=== PATIENT | female | born 1990 | race Caucasian/White ===

== ENCOUNTER 2016-09-04 00:19 | Emergency (ER) | payer OTHER ==
[2016-09-04 00:27] VITALS: RESP 18
[2016-09-04 01:22] LABS: Basophils % (A) 0 %; CH 29.6; CHCM 34.3; Eosinophils # (A) 0.1 k/uL (0-0.7); Eosinophils % (A) 1 %; HDW 2.56; HGB 13.8 gm/dL (11.4-16.0); Luc # (Auto) 0.27; Luc % (Auto) 3; Lymphocytes # (A) 3.3 k/uL (1.0-4.8); Lymphocytes % (A) 37 %; MCH 29.2 pg (25.0-35.0); MCHC 33.7 g/dL (31.0-37.0); MCV 86.7 fL (80.0-100.0); Mean Platelet Volume 7.7; Monocytes # (A) 0.5 k/uL (0-1.0); Monocytes % (A) 6 %; Neutrophils # (A) 4.7 k/uL (1.3-7.7); Neutrophils % (A) 52 %; RBC 4.73 m/uL (3.80-5.40); RDW 12.5 % (11.5-15.5); WBC 8.9 k/uL (3.8-10.6); WBC (Perox) 8.82
--- NOTE | 2016-09-04 01:22 | ED ---
Female Urogenital HPI - General Chief complaint: Vaginal Bleeding Stated complaint: Early /Bleeding/Cramping Time Seen by Provider: 09/04/16 00:37 Source: patient, RN notes reviewed Mode of arrival: ambulatory Limitations: no limitations - History of Present Illness Initial comments: Patient is a 25-year-old female presents to the emergency room for evaluation of vaginal bleeding. Patient states her last menstrual cycle was about a month ago. Patient states took a test about 4 days ago and was positive. Patient states she has not followed up with [facility] yet. Patient is Patient states she began having vaginal bleeding and lower pelvic pressure all day today. Patient states she has gone through 2 pads. Patient denies pain or burning during urination, trouble urinating or blood in urine. Patient states she's having a slight headache. Patient denies nausea or vomiting. Patient denies history of STDs. Patient denies history of ectopic pregnancies. - Related Data Home Medications Medication Instructions Recorded Confirmed No Known Home Medications [No 09/04/16 09/04/16 Known Home Medications] Allergies Allergy/AdvReac Type Severity Reaction Status Date / Time adhesive Allergy Rash/Hives Verified 11/24/14 17:10 venom-honey bee Allergy Swelling Verified 11/24/14 17:10 [bee venom (honey bee)] bleach Allergy Rash/Hives Uncoded 11/24/14 17:10 Review of Systems ROS Statement: Those systems with pertinent positive or pertinent negative responses have been documented in the HPI. ROS Other: All systems not noted in ROS Statement are negative. Past Medical History Past Medical History: Seizure Disorder Additional Past Medical History / Comment(s): blood clotting disorder, arthritis History of Any Multi-Drug Resistant Organisms: None Reported Past Surgical History: Adenoidectomy, Orthopedic Surgery, Tonsillectomy Additional Past Surgical History / Comment(s): KNEE SURGERY Past Anesthesia/Blood Transfusion Reactions: Previous Problems w/ Anesthesia Additional Past Anesthesia/Blood Transfusion Reaction / Comment(s): patient states she had a headache after anesthesia previously Past Psychological History: ADD/ADHD, Anxiety Smoking Status: Never smoker Past Alcohol Use History: Rare Past Drug Use History: None Reported - Past Family History Mother Family Medical History: Deep Vein Thrombosis (DVT) Additional Family Medical History / Comment(s): blood clotting disorder-takes coumadin General Exam - General Exam Comments Initial Comments: Sitting in exam room in no acute distress. Limitations: no limitations General appearance: alert, in no apparent distress Head exam: Present: atraumatic, normocephalic, normal inspection Eye exam: Present: normal appearance ENT exam: Present: normal exam Neck exam: Present: normal inspection Respiratory exam: Present: normal lung sounds bilaterally. Absent: respiratory distress Cardiovascular Exam: Present: regular rate, normal rhythm, normal heart sounds GI/Abdominal exam: Present: soft, normal bowel sounds. Absent: distended, tenderness, guarding, rebound, rigid External exam: Present: normal external exam Speculum exam: Present: normal speculum exam, vaginal discharge. Absent: vaginal bleeding By manual exam: Present: normal by manual exam Extremities exam: Present: normal inspection Back exam: Present: normal inspection Neurological exam: Present: alert, oriented X3, CN II-XII intact, normal gait Psychiatric exam: Present: normal affect, normal mood Skin exam: Present: warm, dry, intact, normal color. Absent: rash Course Vital Signs 09/04/16 09/04/16 00:23 03:24 Temperature 98.1 F 98.0 F Pulse Rate 77 87 Respiratory 18 18 Rate Blood Pressure 117/70 100/52 O2 Sat by Pulse 98 100 Oximetry Medical Decision Making - Medical Decision Making Patient is a 25-year-old female presents emergency room for evaluation of vaginal bleeding. Patient is . No bleeding noted on pelvic exam. Patient 's blood type is B positive. Serum beta-hCG 3118.9. Transvaginal OB ultrasound : Tiny saclike structure within the endometrial cavity that may be a small amount of fluid within the endometrial cavity, or could represent a very early intrauterine gestation versus blighted ovum. Would recommend correlation with serial beta hCG levels and short-term follow-up ultrasound exam perhaps within 1 week to reassess. Will have patient return for repeat serum beta-hCG in 48 hours. Advised patient to follow-up with [facility]. Patient states she understands everything that was discussed with her. Return parameters discussed. Case discussed Dr. Velazco. - Lab Data Result diagrams: 09/04/16 00:58 09/04/16 00:58 Lab Results 09/04/16 09/04/16 09/04/16 Range/Units 00:58 00:58 00:58 WBC 8.9 (3.8-10.6) k/uL RBC 4.73 (3.80-5.40) m/uL Hgb 13.8 (11.4-16.0) gm/dL Hct 41.0 (34.0-46.0) % MCV 86.7 (80.0-100.0) fL MCH 29.2 (25.0-35.0) pg MCHC 33.7 (31.0-37.0) g/dL RDW 12.5 (11.5-15.5) % Plt Count 234 (150-450) k/uL Neutrophils % 52 % Lymphocytes % 37 % Monocytes % 6 % Eosinophils % 1 % Basophils % 0 % Neutrophils # 4.7 (1.3-7.7) k/uL Lymphocytes # 3.3 (1.0-4.8) k/uL Monocytes # 0.5 (0-1.0) k/uL Eosinophils # 0.1 (0-0.7) k/uL Basophils # 0.0 (0-0.2) k/uL Sodium 141 (137-145) mmol/L Potassium 3.6 (3.5-5.1) mmol/L Chloride 109 H (98-107) mmol/L Carbon Dioxide 21 L (22-30) mmol/L Anion Gap 11 mmol/L BUN 13 (7-17) mg/dL Creatinine 0.50 L (0.52-1.04) mg/dL Est GFR (MDRD) Af Amer >60 (>60 ml/min/1.73 sqM) Est GFR (MDRD) Non-Af >60 (>60 ml/min/1.73 sqM) Glucose 111 H (74-99) mg/dL Calcium 8.8 (8.4-10.2) mg/dL Total Bilirubin 0.7 (0.2-1.3) mg/dL AST 19 (14-36) U/L ALT 45 (9-52) U/L Alkaline Phosphatase 44 (38-126) U/L Total Protein 6.4 (6.3-8.2) g/dL Albumin 3.8 (3.5-5.0) g/dL HCG, Quant 3118.9 mIU/mL Urine Color Urine Appearance (Clear) Urine pH (5.0-8.0) Ur Specific [place] (1.001-1.035) Urine Protein (Negative) Urine Glucose (UA) (Negative) Urine Ketones (Negative) Urine Blood (Negative) Urine Nitrite (Negative) Urine Bilirubin (Negative) Urine Urobilinogen (<2.0) mg/dL Ur Leukocyte Esterase (Negative) Urine RBC (0-5) /hpf Urine WBC (0-5) /hpf Ur Squamous Epith Cells (0-4) /hpf Calcium Oxalate Crystal (None) /hpf Urine Bacteria (None) /hpf Urine Mucus (None) /hpf Urine HCG, Qual (Not Detectd) Trichomonas Ag (Rapid) (Negative) Blood Type B Positive Blood Type Recheck No 09/04/16 09/04/16 09/04/16 Range/Units 01:15 01:15 01:30 WBC (3.8-10.6) k/uL RBC (3.80-5.40) m/uL Hgb (11.4-16.0) gm/dL Hct (34.0-46.0) % MCV (80.0-100.0) fL MCH (25.0-35.0) pg MCHC (31.0-37.0) g/dL RDW (11.5-15.5) % Plt Count (150-450) k/uL Neutrophils % % Lymphocytes % % Monocytes % % Eosinophils % % Basophils % % Neutrophils # (1.3-7.7) k/uL Lymphocytes # (1.0-4.8) k/uL Monocytes # (0-1.0) k/uL Eosinophils # (0-0.7) k/uL Basophils # (0-0.2) k/uL Sodium (137-145) mmol/L Potassium (3.5-5.1) mmol/L Chloride (98-107) mmol/L Carbon Dioxide (22-30) mmol/L Anion Gap mmol/L BUN (7-17) mg/dL Creatinine (0.52-1.04) mg/dL Est GFR (MDRD) Af Amer (>60 ml/min/1.73 sqM) Est GFR (MDRD) Non-Af (>60 ml/min/1.73 sqM) Glucose (74-99) mg/dL Calcium (8.4-10.2) mg/dL Total Bilirubin (0.2-1.3) mg/dL AST (14-36) U/L ALT (9-52) U/L Alkaline Phosphatase (38-126) U/L Total Protein (6.3-8.2) g/dL Albumin (3.5-5.0) g/dL HCG, Quant mIU/mL Urine Color Yellow Urine Appearance Cloudy H (Clear) Urine pH 6.0 (5.0-8.0) Ur Specific [place] 1.034 (1.001-1.035) Urine Protein 1+ H (Negative) Urine Glucose (UA) Negative (Negative) Urine Ketones Trace H (Negative) Urine Blood Negative (Negative) Urine Nitrite Negative (Negative) Urine Bilirubin Negative (Negative) Urine Urobilinogen 3.0 (<2.0) mg/dL Ur Leukocyte Esterase Trace H (Negative) Urine RBC 2 (0-5) /hpf Urine WBC 2 (0-5) /hpf Ur Squamous Epith Cells 10 H (0-4) /hpf Calcium Oxalate Crystal Moderate H (None) /hpf Urine Bacteria Rare H (None) /hpf Urine Mucus Many H (None) /hpf Urine HCG, Qual Detected (Not Detectd) Trichomonas Ag (Rapid) Negative (Negative) Blood Type Blood Type Recheck - Radiology Data Radiology results: report reviewed, image reviewed Disposition Clinical Impression: Threatened Disposition: HOME SELF-CARE Condition: Good Instructions: Threatened Miscarriage (ED) Additional Instructions: Please follow up with [facility] in 24-48 hours. Refrain from sexual intercourse or heavy lifting for the next 7-10 days. If any new symptom arises or symptoms worsen, return to ER as soon as possible. Referrals: Trung Fan MD [Primary Care Provider] - 1-2 days Daniele Valladares MD [STAFF PHYSICIAN] - 1-2 days Time of Disposition: 03:13
[2016-09-04] MEDS ORDERED: ACETAMINOPHEN TAB 325 MG TAB PO STA (01:28)
[2016-09-04 01:30] LABS: Appearance,Urine Cloudy (Clear); Bacteria,Urine Rare /hpf; Bilirubin,Urine Negative (Negative); Calcium Oxalate Crystals,Urine Moderate /hpf; Glucose,Urine (UA) Negative (Negative); Ketones,Urine Trace (Negative); Leukocyte Esterase,Urine Trace (Negative); Mucus,Urine Many /hpf; Nitrite,Urine Negative (Negative); Particle Count 12243; Protein,Urine 1+ (Negative); RBC,Urine 2 /hpf (0-5); Specific Gravity,Urine 1.034 (1.001-1.035); Squamous Epithelial Cell,Urine 10 /hpf (0-4); UA Billing (MACRO vs. MICRO) MICRO; WBC,Urine 2 /hpf (0-5)
[2016-09-04 01:31] LABS: ALT 45 U/L (9-52); AST 19 U/L (14-36); Alkaline Phosphatase 44 U/L (38-126); Anion Gap 11 mmol/L; Blood Urea Nitrogen 13 mg/dL (7-17); Calcium 8.8 mg/dL (8.4-10.2); Carbon Dioxide 21 mmol/L (22-30); Chloride 109 mmol/L (98-107); Glucose 111 mg/dL (74-99); Non-African American GFR(MDRD) >60 (>60 ml/min/1.73 sqM); Potassium 3.6 mmol/L (3.5-5.1); Sodium 141 mmol/L (137-145); Total Bilirubin 0.7 mg/dL (0.2-1.3); Total Protein 6.4 g/dL (6.3-8.2)
[2016-09-04 01:48] LABS: HCG,Quantitative Serum 3118.9 mIU/mL
--- NOTE | 2016-09-04 02:49 | US ---
EXAM: US First Trimester, Transabdominal. US , Transvaginal. CLINICAL HISTORY: Reason: Pain TECHNIQUE: Real-time transabdominal and transvaginal obstetrical ultrasound of the maternal pelvis and a first trimester with image documentation. Transvaginal imaging was used for better evaluation of the fetus and adnexa. COMPARISON: No relevant prior studies available. FINDINGS: Gestation: On transabdominal imaging the uterus was measured 8.7 x 5.4 x 4.5 cm. Upon endovaginal imaging, its size was measured at 8.2 x 5.4 x 4.9 cm, and there is a small saclike structure noted measuring 7.7 x 5.8 x 3.5 mm. No internal yolk sac or pole is seen. Placenta/amniotic fluid: Cannot be adequately evaluated due to the early gestational age. Uterus/cervix: See above. Ovaries: On transabdominal imaging the right ovary was measured at 4.2 x 3.8 x 3.7 cm, and contains a 3.0 x 2.8 x 2.4 cm cyst within, further assessment of which is limited by transabdominal imaging and in relation to the patient's body habitus. The left ovary was measured at 2.9 x 2.0 x 1.9 cm. Free fluid: No free fluid. IMPRESSION: 1. Tiny saclike structure within the endometrial cavity that may be a small amount of fluid within the endometrial cavity, or could represent a very early intrauterine gestation versus blighted ovum. Would recommend correlation with serial beta hCG levels, and short-term follow-up ultrasound exam perhaps within one week to reassess. 2. 3.0 cm right ovarian cyst, perhaps a corpus luteal cyst. This too could be reassessed at time of follow-up.
[2016-09-04 03:24] VITALS: BP 100/52; PULSE 87; TEMP 98
== END 2016-09-04 03:24 | disposition home or self-care (01) ==
LOC: EC 00:19
DX: O20.0 Threatened abortion (principal); O99.89 Other specified diseases and conditions complicating pregnancy, childbirth and the puerperium; R51 Headache; Z91.048 Other nonmedicinal substance allergy status; Z91.030 Bee allergy status; Z3A.00 Weeks of gestation of pregnancy not specified
CPT/HCPCS: 36415; 76801; 76817; 80053; 81001; 81025; 84702; 85025; 86900; 86901; 87070; 87205; 87491; 87591; 87808; 99284

== ENCOUNTER → 2016-09-05 | Outpatient (CLI) | payer OTHER | END | disposition home or self-care (01) | LOC: LABWHC1 12:18 | PROVIDERS: ATTEND Physician Assistant | DX: O20.0 Threatened abortion (principal) | CPT/HCPCS: 36415; 84702 ==

== ENCOUNTER 2016-10-20 17:25 | Emergency (ER) | payer OTHER ==
[2016-10-20 17:35] VITALS: BP 117/76; PULSE 88; RESP 22; TEMP 97.9
--- NOTE | 2016-10-20 18:23 | ED ---
Abdominal Pain HPI - General Chief Complaint: Abdominal Pain Stated Complaint: 11 WEEKS , ABDOMINAL PAIN Time Seen by Provider: 10/20/16 17:39 Source: patient, RN notes reviewed Mode of arrival: wheelchair Limitations: no limitations - History of Present Illness Initial Comments: Patient is a 25-year-old female presents to the emergency room for evaluation of lower abdominal pain. Patient states she is about 11 weeks . Patient states she was lying on her right side and went to rollover to sit up and felt excruciating sharp pain in her left lower quadrant and right lower quadrant. Patient states the pain is not subsiding. Patient states he feels a sharp stabbing pain. Patient states the pain is worse when she moves. Patient states she's never experienced this type of pain like this before. Patient is . Patient denies vaginal bleeding. Patient denies pain or burning during urination or trouble urinating. Patient denies any blood in urine. Patient states she has been having on-and-off nausea and vomiting for the past few weeks but denies any nausea or vomiting today. Patient denies fevers or chills. Patient denies chest pain. Patient states she has a history of section. Patient also states she's had ovarian cyst removed in the past. Patient denies any other abdominal surgeries. - Related Data Home Medications Medication Instructions Recorded Confirmed Aspirin EC [Ecotrin Low Dose] 81 mg PO DAILY 10/20/16 10/20/16 [place]stones Vitamin 2 tab PO DAILY 10/20/16 10/20/16 Allergies Allergy/AdvReac Type Severity Reaction Status Date / Time adhesive tape Allergy Rash/Hives Verified 10/20/16 17:47 Bleach (Sodium Hypochlorite) Allergy Anaphylaxis Verified 10/20/16 17:47 venom-honey bee Allergy Anaphylaxis Verified 10/20/16 17:47 [bee venom (honey bee)] Review of Systems ROS Statement: Those systems with pertinent positive or pertinent negative responses have been documented in the HPI. ROS Other: All systems not noted in ROS Statement are negative. Past Medical History Past Medical History: Seizure Disorder Additional Past Medical History / Comment(s): blood clotting disorder, arthritis History of Any Multi-Drug Resistant Organisms: None Reported Past Surgical History: Adenoidectomy, Orthopedic Surgery, Tonsillectomy Additional Past Surgical History / Comment(s): KNEE SURGERY Past Anesthesia/Blood Transfusion Reactions: Previous Problems w/ Anesthesia Additional Past Anesthesia/Blood Transfusion Reaction / Comment(s): patient states she had a headache after anesthesia previously Past Psychological History: ADD/ADHD, Anxiety Smoking Status: Never smoker Past Alcohol Use History: Rare Past Drug Use History: None Reported - Past Family History Mother Family Medical History: Deep Vein Thrombosis (DVT) Additional Family Medical History / Comment(s): blood clotting disorder-takes coumadin General Exam - General Exam Comments Initial Comments: Laying in exam room, no acute distress. Limitations: no limitations General appearance: alert, in no apparent distress Head exam: Present: atraumatic, normocephalic, normal inspection Eye exam: Present: normal appearance ENT exam: Present: normal exam Neck exam: Present: normal inspection Respiratory exam: Present: normal lung sounds bilaterally. Absent: respiratory distress Cardiovascular Exam: Present: regular rate, normal rhythm, normal heart sounds GI/Abdominal exam: Present: soft, tenderness (right and left lower pelvic pain) , normal bowel sounds. Absent: distended, guarding, rebound, rigid Extremities exam: Present: normal inspection Back exam: Present: normal inspection Neurological exam: Present: alert, oriented X3, CN II-XII intact, normal gait Psychiatric exam: Present: normal affect, normal mood Skin exam: Present: warm, dry, intact, normal color. Absent: rash Course Vital Signs 10/20/16 10/20/16 17:32 20:12 Temperature 97.9 F 97.9 F Pulse Rate 88 88 Respiratory 22 22 Rate Blood Pressure 117/76 117/76 O2 Sat by Pulse 98 98 Oximetry Medical Decision Making - Medical Decision Making Patient is a 25-year-old female presents to the emergency room for evaluation of lower pelvic pain. Patient states she is about 11 weeks . Patient denies vaginal bleeding. Labs show no concerning findings. Patient declined any pain medicine while she was here. Ultrasound showed no concerning findings. Patient's symptoms possibly musculoskeletal related. Pain is worse with movement. Advised patient to follow-up with [facility] in 24-48 hours for reevaluation. Patient does state she has an appointment with Dr. Cordero tomorrow morning. Patient states she understands everything that was discussed with her. Return parameters discussed. Case discussed with Dr. Lawson. - Lab Data Result diagrams: 10/20/16 18:12 10/20/16 18:12 Lab Results 10/20/16 10/20/16 10/20/16 Range/Units 18:12 18:12 18:12 WBC 10.6 (3.8-10.6) k/uL RBC 4.83 (3.80-5.40) m/uL Hgb 13.9 (11.4-16.0) gm/dL Hct 42.0 (34.0-46.0) % MCV 87.0 (80.0-100.0) fL MCH 28.7 (25.0-35.0) pg MCHC 33.0 (31.0-37.0) g/dL RDW 12.6 (11.5-15.5) % Plt Count 214 (150-450) k/uL Neutrophils % 68 % Lymphocytes % 24 % Monocytes % 5 % Eosinophils % 1 % Basophils % 0 % Neutrophils # 7.1 (1.3-7.7) k/uL Lymphocytes # 2.5 (1.0-4.8) k/uL Monocytes # 0.6 (0-1.0) k/uL Eosinophils # 0.1 (0-0.7) k/uL Basophils # 0.0 (0-0.2) k/uL Sodium 139 (137-145) mmol/L Potassium 3.9 (3.5-5.1) mmol/L Chloride 108 H (98-107) mmol/L Carbon Dioxide 20 L (22-30) mmol/L Anion Gap 11 mmol/L BUN 11 (7-17) mg/dL Creatinine 0.50 L (0.52-1.04) mg/dL Est GFR (MDRD) Af Amer >60 (>60 ml/min/1.73 sqM) Est GFR (MDRD) Non-Af >60 (>60 ml/min/1.73 sqM) Glucose 89 (74-99) mg/dL Calcium 8.6 (8.4-10.2) mg/dL Total Bilirubin 0.6 (0.2-1.3) mg/dL AST 19 (14-36) U/L ALT 29 (9-52) U/L Alkaline Phosphatase 35 L (38-126) U/L Total Protein 6.4 (6.3-8.2) g/dL Albumin 3.4 L (3.5-5.0) g/dL Amylase 46 (30-110) U/L Lipase 73 (23-300) U/L Urine Color Yellow Urine Appearance Clear (Clear) Urine pH 5.5 (5.0-8.0) Ur Specific [place] 1.027 (1.001-1.035) Urine Protein Trace H (Negative) Urine Glucose (UA) Negative (Negative) Urine Ketones 1+ H (Negative) Urine Blood Negative (Negative) Urine Nitrite Negative (Negative) Urine Bilirubin Negative (Negative) Urine Urobilinogen <2.0 (<2.0) mg/dL Ur Leukocyte Esterase Negative (Negative) - Radiology Data Radiology results: report reviewed, image reviewed Disposition Clinical Impression: Abdominal pain affecting Disposition: HOME SELF-CARE Condition: Good Instructions: Abdominal Pain in (ED) Additional Instructions: Please follow up with [facility]IA[facility] in 1-2 days. Take Tylenol as needed for pain. Refrain from sexual activity or heavy lifting for the next 7-10 days. If any new symptom arises or symptoms worsen, return to ER as soon as possible. Referrals: Daniele Valladares MD [STAFF PHYSICIAN] - 1-2 days Time of Disposition: 19:50
[2016-10-20 18:42] LABS: Basophils % (A) 0 %; CH 29.3; CHCM 33.8; Eosinophils # (A) 0.1 k/uL (0-0.7); Eosinophils % (A) 1 %; HDW 2.38; HGB 13.9 gm/dL (11.4-16.0); Luc # (Auto) 0.24; Luc % (Auto) 2; Lymphocytes # (A) 2.5 k/uL (1.0-4.8); Lymphocytes % (A) 24 %; MCH 28.7 pg (25.0-35.0); Monocytes # (A) 0.6 k/uL (0-1.0); Monocytes % (A) 5 %; Neutrophils # (A) 7.1 k/uL (1.3-7.7); Neutrophils % (A) 68 %; RBC 4.83 m/uL (3.80-5.40); RDW 12.6 % (11.5-15.5); WBC 10.6 k/uL (3.8-10.6); WBC (Perox) 10.84
[2016-10-20 18:43] LABS: Appearance,Urine Clear (Clear); Bilirubin,Urine Negative (Negative); Glucose,Urine (UA) Negative (Negative); Ketones,Urine 1+ (Negative); Leukocyte Esterase,Urine Negative (Negative); Nitrite,Urine Negative (Negative); PH, Urine 5.5 (5.0-8.0); Protein,Urine Trace (Negative); Specific Gravity,Urine 1.027 (1.001-1.035); UA Billing (MACRO vs. MICRO) CHEM; Urobilinogen,Urine <2.0 mg/dL (<2.0)
[2016-10-20 18:56] LABS: Amylase 46 U/L (30-110); Anion Gap 11 mmol/L; Calcium 8.6 mg/dL (8.4-10.2); Carbon Dioxide 20 mmol/L (22-30); Chloride 108 mmol/L (98-107); Glucose 89 mg/dL (74-99); Non-African American GFR(MDRD) >60 (>60 ml/min/1.73 sqM); Sodium 139 mmol/L (137-145); Total Bilirubin 0.6 mg/dL (0.2-1.3); Total Protein 6.4 g/dL (6.3-8.2)
[2016-10-20 18:58] LABS: ALT 29 U/L (9-52); AST 19 U/L (14-36); Alkaline Phosphatase 35 U/L (38-126); Blood Urea Nitrogen 11 mg/dL (7-17); Potassium 3.9 mmol/L (3.5-5.1)
--- NOTE | 2016-10-20 19:24 | US ---
EXAMINATION TYPE: US abdomen APPY DATE OF EXAM: 10/20/2016 6:40 PM COMPARISON: Prior CT in PACS CLINICAL HISTORY: Pelvic Pain. Limited exam due to patient body habitus APPENDIX AP Diameter (normal < 6mm): Not visualized on this exam Measured outer wall to outer wall. Is the appendix seen in its entirety from the proximal cecum to distal end: No, the appendix is not visualized on this exam. IMPRESSION: Appendix is not seen. No solid or cystic mass is identified. No free fluid.
--- NOTE | 2016-10-20 19:26 | US ---
EXAMINATION TYPE: US OB <=14 wks transvag DATE OF EXAM: 10/20/2016 6:56 PM COMPARISON: Prior in PACS CLINICAL HISTORY: Pelvic Pain. Difficult/limited exam due to patient body habitus EXAM PERFORMED: Transvaginal (TV) and Transabdominal (TA) EXAM MEASUREMENTS: GESTATIONAL AGE / DATING Physician Established: (11 weeks/4 days) EDC: 05/07/2017 Dates by LMP: (11 weeks/4 days) EDC: 05/07/2017 Dates by First Scan: No IUP visualized on previous Dates by Current Scan for: (11 weeks/4 days) EDC: 05/07/2017 MATERNAL ANATOMY Uterus: 13.1 x 6.3 x 8.8 cm Right Ovary: 5.6 x 2.7 x 2.3 cm Left Ovary: 4.3 x 2.5 x 2.6 cm Post CDS / Adnexa: wnl Presence of free fluid: No Presence of corpus luteal cyst: No Presence of subchorionic bleed: Yes, measuring 3.2 x 0.9 x 0.9 cm GESTATION / SURVEY CRL: 4.8 cm (11 weeks/4 days) Heart Rate: 163 bpm Rhythm: Normal IUP: Viable IUP Date of LMP: Unsure of exact date Beta HcG (if available): Not available Viable IUP, measurements congruent with dates IMPRESSION: There is a small subchorionic fluid collection measures 3 x 1 cm consistent with subchorionic hemorrh age. The ultrasound gestational age is 11 weeks 4 days.
== END 2016-10-20 20:12 | disposition home or self-care (01) ==
LOC: EC 17:25
DX: O99.89 Other specified diseases and conditions complicating pregnancy, childbirth and the puerperium (principal); R10.31 Right lower quadrant pain; R10.32 Left lower quadrant pain; Z3A.11 11 weeks gestation of pregnancy; Z79.82 Long term (current) use of aspirin; Z79.899 Other long term (current) drug therapy; Z91.030 Bee allergy status; Z88.8 Allergy status to other drugs, medicaments and biological substances; Z91.048 Other nonmedicinal substance allergy status
CPT/HCPCS: 36415; 76705; 76801; 76817; 80053; 81003; 82150; 83690; 85025; 99284

== ENCOUNTER 2016-12-10 18:46 | Emergency (ER) | payer OTHER ==
--- NOTE | 2016-12-10 20:28 | ED ---
Abdominal Pain HPI - General Chief Complaint: Abdominal Pain Stated Complaint: 19 WEEKS PREG AND CRAMPING Time Seen by Provider: 12/10/16 20:09 Source: patient, RN notes reviewed Mode of arrival: ambulatory Limitations: no limitations - History of Present Illness Initial Comments: Patient is a 26-year-old female presents to the emergency room for evaluation of lower abdominal cramping. Patient states she is about 19 weeks . Patient is she is . Patient states over the past 3 days to begin having lower abdominal cramping. Patient states today cramping has been worse. Patient denies any vaginal bleeding. Patient denies abnormal vaginal discharge. Patient denies pain or burning during urination, trouble urinating or blood in urine. Patient states she has been taking Tylenol with little relief of symptoms. Patient states she has a confirmed IUP. Patient states she has not been feeling any movement today, which is worrying her. Patient denies any current nausea or vomiting. Patient states she does occasionally vomit in the mornings. Patient denies headache or dizziness. Patient denies chest pain or shortness of breath. Patient denies any recent falls or trauma to her abdomen. Patient denies constipation or diarrhea. - Related Data Home Medications Medication Instructions Recorded Confirmed Aspirin EC [Ecotrin Low Dose] 81 mg PO DAILY 10/20/16 12/10/16 Multivitamin [Multivitamins Adult 1 tab PO DAILY 12/10/16 12/10/16 Gummies] Allergies Allergy/AdvReac Type Severity Reaction Status Date / Time adhesive tape Allergy Rash/Hives Verified 12/10/16 20:32 Bleach (Sodium Hypochlorite) Allergy Anaphylaxis Verified 12/10/16 20:32 venom-honey bee Allergy Anaphylaxis Verified 12/10/16 20:32 [bee venom (honey bee)] Review of Systems ROS Statement: Those systems with pertinent positive or pertinent negative responses have been documented in the HPI. ROS Other: All systems not noted in ROS Statement are negative. Past Medical History Past Medical History: Seizure Disorder Additional Past Medical History / Comment(s): blood clotting disorder, arthritis History of Any Multi-Drug Resistant Organisms: None Reported Past Surgical History: Adenoidectomy, Orthopedic Surgery, Tonsillectomy Additional Past Surgical History / Comment(s): KNEE SURGERY Past Anesthesia/Blood Transfusion Reactions: Previous Problems w/ Anesthesia Additional Past Anesthesia/Blood Transfusion Reaction / Comment(s): patient states she had a headache after anesthesia previously Past Psychological History: ADD/ADHD, Anxiety Smoking Status: Never smoker Past Alcohol Use History: Rare Past Drug Use History: None Reported - Past Family History Mother Family Medical History: Deep Vein Thrombosis (DVT) Additional Family Medical History / Comment(s): blood clotting disorder-takes coumadin General Exam - General Exam Comments Initial Comments: Sitting in exam room, no acute distress. Limitations: no limitations General appearance: alert, in no apparent distress Head exam: Present: atraumatic, normocephalic, normal inspection Eye exam: Present: normal appearance Neck exam: Present: normal inspection Respiratory exam: Present: normal lung sounds bilaterally. Absent: respiratory distress Cardiovascular Exam: Present: regular rate, normal rhythm, normal heart sounds GI/Abdominal exam: Present: soft, tenderness (Right lower quadrant and left lower quadrant discomfort on palpation), normal bowel sounds. Absent: distended , guarding, rebound, rigid Extremities exam: Present: normal inspection Back exam: Present: normal inspection Neurological exam: Present: alert, oriented X3, CN II-XII intact, normal gait Psychiatric exam: Present: normal affect, normal mood Skin exam: Present: warm, dry, intact, normal color. Absent: rash Course Vital Signs 12/10/16 12/10/16 18:52 23:09 Temperature 98.8 F 98.4 F Pulse Rate 88 72 Respiratory 18 16 Rate Blood Pressure 134/70 150/86 O2 Sat by Pulse 98 98 Oximetry Medical Decision Making - Medical Decision Making Patient is a 26-year-old female presents emergency room for evaluation of lower abdominal cramping. Patient states she is about 19 weeks . Patient is . Ultrasound showed demise. Patient still denies any vaginal bleeding. Patient advised to follow-up with her PEDIATRIC CRITICAL CARE NURSE in 24-48 hours. Patient states she understands everything that was discussed with her. Return parameters discussed. Case discussed Dr. Atkinson. - Lab Data Lab Results 12/10/16 Range/Units 18:55 Urine Color Yellow Urine Appearance Cloudy H (Clear) Urine pH 6.0 (5.0-8.0) Ur Specific [place] 1.020 (1.001-1.035) Urine Protein Negative (Negative) Urine Glucose (UA) Negative (Negative) Urine Ketones Negative (Negative) Urine Blood Trace H (Negative) Urine Nitrite Negative (Negative) Urine Bilirubin Negative (Negative) Urine Urobilinogen <2.0 (<2.0) mg/dL Ur Leukocyte Esterase Negative (Negative) Urine RBC 4 (0-5) /hpf Urine WBC 2 (0-5) /hpf Ur Squamous Epith Cells 2 (0-4) /hpf Calcium Oxalate Crystal Many H (None) /hpf Urine Bacteria Rare H (None) /hpf Urine Mucus Rare H (None) /hpf - Radiology Data Radiology results: report reviewed, image reviewed Disposition Clinical Impression: demise Disposition: HOME SELF-CARE Condition: Good Additional Instructions: Please follow-up with PEDIATRIC CRITICAL CARE NURSE in 24-48 hours. If any new symptom arises or symptoms worsen, return to ER as soon as possible. Referrals: Daniele Valladares MD [STAFF PHYSICIAN] - 1-2 days Time of Disposition: 23:21
[2016-12-10 21:20] LABS: Appearance,Urine Cloudy (Clear); Bacteria,Urine Rare /hpf; Bilirubin,Urine Negative (Negative); Calcium Oxalate Crystals,Urine Many /hpf; Glucose,Urine (UA) Negative (Negative); Ketones,Urine Negative (Negative); Leukocyte Esterase,Urine Negative (Negative); Mucus,Urine Rare /hpf; Nitrite,Urine Negative (Negative); Particle Count 3105; Protein,Urine Negative (Negative); RBC,Urine 4 /hpf (0-5); Squamous Epithelial Cell,Urine 2 /hpf (0-4); UA Billing (MACRO vs. MICRO) MICRO; Urobilinogen,Urine <2.0 mg/dL (<2.0); WBC,Urine 2 /hpf (0-5)
[2016-12-10 23:13] VITALS: BP 150/86; PULSE 72; RESP 16; TEMP 98.4
--- NOTE | 2016-12-10 23:13 | US ---
EXAMINATION TYPE: US OB >= 14 wk fetus DATE OF EXAM: 12/10/2016 COMPARISON: Ultrasound OB dated 10/20/2016 and 09/04/2016 CLINICAL HISTORY: Pain RN unable to obtain heart tones TECHNIQUE: Transabdominal (TA) FINDINGS: GESTATIONAL AGE / DATING Physician Established: (19 weeks/0 days) EDC: 05/06/2017 Dates by LMP: (19 weeks/0 days) EDC: 05/06/2017 Dates by First Scan: (18 weeks/6 days) EDC: 05/07/2017 Dates by Current Scan: (16 weeks/6 days) EDC: demise SURVEY IUP: Single PLACENTA: Anterior PREVIA: No Previa JACY: 9.8 cm Normal CERVICAL LENGTH (transabdominal: norm > 3.0cm): 3.2 cm BIOMETRY PRESENTATION: Breech LIE: Longitudinal BPD: 3.5 cm 16 weeks / 6 days HC: 13.8 cm 17 weeks / 2 days AC: 10.8 cm 16 weeks / 5 days FL: 2.2 cm 16 weeks / 4 days ESTIMATED WEIGHT IN GRAMS: 165.9 grams ESTIMATED WEIGHT IN LBS/OZS: 0 lbs. 6 oz. WEIGHT PERCENTAGE BASED ON ESTABLISHED DATES: <3% HC/AC: 1.29 Normal FL/AC: 20.53 Normal HEART RATE: No FHT detected MATERNAL WALL MEASUREMENT: 4 cm from skin to anterior uterine wall (if exam limited due to body habitus). IMPRESSION: demise.
== END 2016-12-10 23:36 | disposition home or self-care (01) ==
LOC: EC 18:46
DX: O02.1 Missed abortion (principal); O99.89 Other specified diseases and conditions complicating pregnancy, childbirth and the puerperium; M19.90 Unspecified osteoarthritis, unspecified site; Z79.82 Long term (current) use of aspirin; Z79.899 Other long term (current) drug therapy; Z91.030 Bee allergy status; Z91.09 Other allergy status, other than to drugs and biological substances
CPT/HCPCS: 76805; 81001; 99284

== ENCOUNTER 2016-12-11 11:26 | Observation (INO) | payer OTHER ==
[2016-12-11] MEDS: LACTATED RINGERS 1,000 ML IV SCH ×2 (12:00→19:17)
[2016-12-11 12:20] LABS: Basophils % (A) 0 %; CH 29.7; CHCM 34.8; Eosinophils # (A) 0.1 k/uL (0-0.7); Eosinophils % (A) 1 %; HCT 38.8 % (34.0-46.0); HDW 2.54; HGB 13.2 gm/dL (11.4-16.0); Luc # (Auto) 0.16; Luc % (Auto) 2; Lymphocytes # (A) 2.3 k/uL (1.0-4.8); Lymphocytes % (A) 26 %; MCH 29.2 pg (25.0-35.0); MCHC 34.1 g/dL (31.0-37.0); MCV 85.7 fL (80.0-100.0); Mean Platelet Volume 7.3; Monocytes # (A) 0.4 k/uL (0-1.0); Monocytes % (A) 4 %; Neutrophils # (A) 5.8 k/uL (1.3-7.7); Neutrophils % (A) 67 %; RBC 4.52 m/uL (3.80-5.40); WBC 8.7 k/uL (3.8-10.6); WBC (Perox) 8.68
[2016-12-11 12:25] VITALS: BMI 104.8
[2016-12-11] MEDS: MISOPROSTOL 200 MCG TAB VAGINAL SCH ×3 (12:35→20:44)
--- NOTE | 2016-12-11 12:54 | P.HPOB ---
History of Present Illness H&P Date: 12/11/16 Chief Complaint: demise This is a 26-year-old 6 para 203 to [facility] 05/07/2017 at 19 weeks gestation. Patient presented to the emergency room last night with the complaint of abdominal cramping. Ultrasound was done which revealed a breech pruett, no heart tones, consistent with intrauterine demise. Patient presented to the office today for further discussion. She denies vaginal bleeding. She states the fetus has been active until yesterday. Obstetric history is significant for blood type B positive, rubella status immune. VDRL testing, urine culture, GC and chlamydia cultures, hepatitis B surface antigen, HIV testing all negative. Early 1 hour Glucola 103, hemoglobin A1c 5.5. Social history patient is , she denies tobacco alcohol or drug use. Past obstetric history is significant for 7 lbs. 3 oz. vaginal delivery in 2010 , section of 8 lbs. 15 oz. male in 2012. Patient has had 3 spontaneous miscarriages, 2 of which have required D&Cs. Surgical history is significant for section as noted in 2012, 2 D&Cs for miscarriages. Patient states that during the D&C in 2010 she had hemorrhage , hemoglobin dropped to 6.0. She does not believe she received blood transfusion. Past medical history is significant for positive MTH of our4 blood clotting disorder. 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 Patient also has attention deficit hyperactivity disorder as well as bipolar disorder. She was previously on Lexapro for this condition but discontinued. Current medications vitamins daily. ALLERGIES none known. On exam she is 5 foot 9 inches, 322 pounds, blood pressure 100/58, pulse 77, respirations 18, temperature 97.9. She has multiple tattoos noted on the skin. Dentition is reasonably good. HEENT examination is negative. Abdomen is morbidly obese, fundal height approximately 20 cm. Extremities reveal no edema , there are good peripheral pulses. The chest is clear in all may. Cervix is soft, 50% effaced or 1.5 cm long, closed, posterior, -3. Cytotec 400 MCG's is placed in the posterior vaginal vault posterior to the cervix. No uterine contractions or cramping are noted at this time. Impression: 19 week intrauterine demise, breech presentation. Positive MTH of our history. Positive bipolar disorder, on no medications. Previous section. Plan: Cytotec per hospital protocol to be placed every 4 hours intravaginally. Analgesic options have been reviewed with the patient. Spiritual counseling has been offered and patient is considering. Close maternal surveillance. Anticipating vaginal delivery. Review of Systems Constitutional: Reports as per HPI Past Medical History Past Medical History: Seizure Disorder Additional Past Medical History / Comment(s): blood clotting disorder, arthritis History of Any Multi-Drug Resistant Organisms: None Reported Past Surgical History: Adenoidectomy, Section, Orthopedic Surgery, Tonsillectomy Additional Past Surgical History / Comment(s): KNEE SURGERY Past Anesthesia/Blood Transfusion Reactions: Previous Problems w/ Anesthesia Additional Past Anesthesia/Blood Transfusion Reaction / Comment(s): patient states she had a headache after anesthesia previously Past Psychological History: ADD/ADHD, Anxiety Smoking Status: Never smoker Past Alcohol Use History: Rare Past Drug Use History: None Reported - Past Family History Mother Family Medical History: Deep Vein Thrombosis (DVT) Additional Family Medical History / Comment(s): blood clotting disorder-takes coumadin Medications and Allergies Home Medications Medication Instructions Recorded Confirmed Type Aspirin EC [Ecotrin Low Dose] 81 mg PO DAILY 10/20/16 12/10/16 History Multivitamin [Multivitamins Adult 1 tab PO DAILY 12/10/16 12/10/16 History Gummies] Allergies Allergy/AdvReac Type Severity Reaction Status Date / Time adhesive tape Allergy Rash/Hives Verified 12/11/16 11:38 Bleach (Sodium Hypochlorite) Allergy Anaphylaxis Verified 12/11/16 11:38 venom-honey bee Allergy Anaphylaxis Verified 12/11/16 11:38 [bee venom (honey bee)] Exam - Vital Signs Vital signs: Vital Signs Temp Pulse Resp BP Pulse Ox 12/11/16 12:19 97.9 F 77 18 100/58 99 Intake and Output 12/10/16 12/11/16 12/11/16 22:59 06:59 14:59 Other: Weight 322 kg Patient Weight 12/12/16 06:59 Weight 322 kg Please see dictation under HPI. Results Result Diagrams: 12/11/16 12:00 Assessment and Plan Plan: We will utilize the Cytotec protocol. Stadol may be used as needed for pain. Consideration will be given for epidural pending patient's progress. Special counseling has been offered. Patient and her family understand the possibilities, including potential need for D&C for retained products of conception. Transfer to [facility] had been offered to the patient, and declined. Anesthesia staff aware of patient's presence on the unit as well. Time with Patient: Greater than 30
[2016-12-11] MEDS: BUTORPHANOL 1 MG/ML 1 ML VIAL IV PRN ×2 (14:11→20:19)
[2016-12-11 14:15] LABS: Partial Thromboplastin Time 23.7 sec (22.0-30.0)
[2016-12-11] MEDS ORDERED: NALOXONE 0.4 MG/ML 1 ML VIAL IV PRN (22:04)
[2016-12-11] MEDS ORDERED: diphenhydrAMINE 50 MG/ML 1 ML VIAL IVP PRN (22:04)
[2016-12-11] MEDS ORDERED: METOCLOPRAMIDE 5 MG/ML 2 ML VIAL IVP PRN (22:04)
[2016-12-11] MEDS ORDERED: ONDANSETRON 4 MG/2 ML VIAL IVP PRN (22:04)
[2016-12-11] MEDS ORDERED: HYDROmorphone PCA 5 MG/25 ML SYRINGE IV PRN (22:04)
[2016-12-12] MEDS: LACTATED RINGERS 1,000 ML IV SCH ×2 (00:37→06:06)
[2016-12-12] MEDS: MISOPROSTOL 200 MCG TAB VAGINAL SCH ×2 (01:19→05:51)
[2016-12-12] MEDS: OXYTOCIN 20 UNITS/1000 ML NS 1,000 ML IV SCH ×2 (01:45→06:40)
[2016-12-12] MEDS ORDERED: ZOLPIDEM 5 MG TAB PO PRN (06:55)
[2016-12-12] MEDS ORDERED: diphenhydrAMINE 50 MG CAP PO PRN (06:55)
[2016-12-12] MEDS ORDERED: BENZOCAINE/MENTHOL SPRAY 1 GM/SPRAY AEROSOL TOPICAL PRN (06:55)
[2016-12-12] MEDS ORDERED: ACETAMINOPHEN TAB 325 MG TAB PO PRN (06:55)
[2016-12-12] MEDS ORDERED: HYDROCORTISONE 2.5% RECTAL CREAM 30 GM TUBE RECTAL PRN (06:55)
[2016-12-12] MEDS ORDERED: WITCH HAZEL 1 EACH MED..PAD TOPICAL PRN (06:55)
[2016-12-12] MEDS ORDERED: diphenhydrAMINE 25 MG CAP PO PRN (06:55)
[2016-12-12] MEDS ORDERED: diphenhydrAMINE 50 MG/ML 1 ML VIAL IVP PRN ×2 (06:55)
[2016-12-12] MEDS ORDERED: LANOLIN CREAM 5 GM TUBE TOPICAL PRN (06:55)
[2016-12-12] MEDS ORDERED: IBUPROFEN 600 MG TAB PO PRN (06:55)
[2016-12-12] MEDS ORDERED: SIMETHICONE 80 MG CHEWABLE PO PRN (06:55)
--- NOTE | 2016-12-12 06:55 | P.PROBDLV ---
Vaginal Delivery Note - . Vaginal Delivery Note: This is a 26-year-old 6 para 2031 woman who was admitted at approximately 19 weeks with intrauterine demise diagnosed by ultrasound. She was admitted for induction of labor. She underwent a Cytotec induction with 400 g placed per vagina every 4 hours. She received a total of 3 doses. Her pain was initially managed with Stadol followed by [employer]NA[employer] device. Her pain became very intolerable and she ultimately received an epidural anesthetic. She was 1 cm for the majority of the of the induction and then very rapidly progressed to approximately 6 cm at which time she had rapid delivery of fetus consistent with a 19-20 week gestation. She had minimal bleeding. The placenta did not spontaneously deliver received Pitocin and was monitored for several hours. She had minimal bleeding. Delivery of the fetus was at 0040 and at approximately 6:15 AM the placenta was noted to be partially delivered. A large portion of the placenta was manually removed from the vagina. Speculum was placed in the vagina to visualize the remainder of the placenta which was removed with a ring forceps. Inspection of the tissue was consistent with the majority of the placenta. Bimanual examination was performed and no additional tissue was noted at the cervical os. Palpation of the uterus was difficult secondary to the patient's body habitus however the uterus was probably firm. She had very minimal bleeding throughout this process. Single dose of Ancef 3 g was given post delivery. She will be observed for several hours to monitor for bleeding and if all is stable she may be discharged home later today.
[2016-12-12] MEDS ORDERED: ceFAZolin 3 GM in SODIUM CHLORIDE 0.9% 100 ML IVPB ONE (06:56)
[2016-12-12] MEDS ORDERED: SENNOSIDES-DOCUSATE SODIUM 1 EACH TAB PO SCH (08:00)
--- NOTE | 2016-12-12 08:51 | P.DS ---
Providers Date of admission: 12/11/16 11:26 Expected date of discharge: 12/12/16 Attending physician: Elina Fisher Primary care physician: Stated None Hospital Course: This is a 27-year-old white female 6 para 2032 EDC 05/07/2017 who presented at 19 weeks gestation with an intrauterine demise, diagnosed sonographically. Her history is significant for previous , history of positive and THS are bleeding disorder, rubella status immune, blood type B positive. Please see my dictated history and physical for details. Patient was admitted and Cytotec tablets were placed intravaginally. Patient received 3 doses of 400 MCG's each. She went on to vaginally deliver a stillborn male fetus with scores of 0 and 0. Placenta delivered spontaneously several hours later. Please see dictated delivery note. At this time the patient feels well. She is voiding, ambulating and passing flatus without difficulty. She is tolerating regular diet. Her bleeding is scant, fundus is firm and well involuted. Extremities are negative for pain and swelling or edema. She has no report of pain at this time. Patient is being discharged home later today. She will follow-up in the office with Dr. Duran in 6 weeks. I have reminded her no intercourse, tampons or douching. She will use [id number] ibuprofen products as needed for pain. I have asked her to continue taking her vitamin daily. She will call with any heavy or foul-smelling leaving or discharge, with any pain not alleviated by [id number] products, with any fevers shakes or chills, issues with extremities or breasts, or indeed with any concerns. Patient Condition at Discharge: Good Plan - Discharge Summary Follow up Appointment(s)/Referral(s): Hayley Duran DO [Doctor of Osteopathic Medicine] - 6 Weeks Discharge Disposition: HOME SELF-CARE
[2016-12-12 13:43] VITALS: BP 116/71; PULSE 70; RESP 18; TEMP 98.3
== END 2016-12-12 14:15 | disposition home or self-care (01) ==
LOC: INTOOBSV 11:26 → 4FBP 11:26
PROVIDERS: ADMIT Obstetrics & Gynecology; ATTEND Obstetrics & Gynecology
DX: O02.1 Missed abortion (principal); Z37.1 Single stillbirth; Z3A.20 20 weeks gestation of pregnancy; O99.214 Obesity complicating childbirth; O99.354 Diseases of the nervous system complicating childbirth; O99.344 Other mental disorders complicating childbirth; E72.12 Methylenetetrahydrofolate reductase deficiency; G40.909 Epilepsy, unspecified, not intractable, without status epilepticus; O62.3 Precipitate labor; E66.01 Morbid (severe) obesity due to excess calories; F31.9 Bipolar disorder, unspecified; F41.9 Anxiety disorder, unspecified; F90.9 Attention-deficit hyperactivity disorder, unspecified type; O99.89 Other specified diseases and conditions complicating pregnancy, childbirth and the puerperium; M19.90 Unspecified osteoarthritis, unspecified site; O99.212 Obesity complicating pregnancy, second trimester; Z68.42 Body mass index [BMI] 45.0-49.9, adult
CPT/HCPCS: 59820; 96361; 96365; 96366 ×2; 96367 ×2; 86900; 86901; 88305; 85025; 85610; 85730; 86850; 88300; G0379; G0378 ×2; J0595; J0690; S0191; J1170; J2590

== ENCOUNTER 2017-04-01 14:17 | Inpatient (IN) | payer OTHER ==
[2017-04-01] MEDS ORDERED: LORazepam 2 MG/ML INJ IV STA (14:45)
--- NOTE | 2017-04-01 14:49 | ED ---
General Adult HPI - General Chief complaint: Neuro Symptoms/Deficit Stated complaint: Stress, visual change Time Seen by Provider: 04/01/17 14:30 Source: patient, family, RN notes reviewed Mode of arrival: wheelchair Limitations: no limitations - History of Present Illness Initial comments: Patient is a pleasant 26-year-old female presenting to the emergency department with stress and visual changes. Patient states onset of symptoms was around 11 AM. Patient had a very stressful episode. Patient states she does not feel all that stressed out at this point however still feels it is taking extra time to process things. Patient states she is having difficulty with vision however has a difficult time describing this. Patient states it is not very blurry. Patient states she fell earlier like she was going to have a seizure. No isolated area of weakness. Patient does not feel confused. Patient is frustrated has difficulty explaining her symptoms. Patient has had similar symptoms twice previously however the doctors were never able to figure out why. - Related Data Home Medications Medication Instructions Recorded Confirmed Dextroamphetamine/Amphetamine 20 mg PO TID 04/01/17 04/01/17 [Adderall] Escitalopram [Lexapro] 20 mg PO DAILY 04/01/17 04/01/17 HYDROcodone/APAP 10-325MG [[place] 1 tab PO Q6H PRN 04/01/17 04/01/17 10-325] clonazePAM [KlonoPIN] 0.5 - 1 mg PO HS 04/01/17 04/01/17 Allergies Allergy/AdvReac Type Severity Reaction Status Date / Time adhesive tape Allergy Rash/Hives Verified 04/01/17 14:57 Bleach (Sodium Hypochlorite) Allergy Anaphylaxis Verified 04/01/17 14:57 venom-honey bee Allergy Anaphylaxis Verified 04/01/17 14:57 [bee venom (honey bee)] Review of Systems ROS Statement: Those systems with pertinent positive or pertinent negative responses have been documented in the HPI. ROS Other: All systems not noted in ROS Statement are negative. Constitutional: Denies: fever Eyes: Denies: eye pain ENT: Denies: ear pain Respiratory: Denies: cough Cardiovascular: Denies: chest pain Endocrine: Reports: fatigue Gastrointestinal: Denies: abdominal pain Genitourinary: Denies: dysuria Musculoskeletal: Denies: back pain Skin: Denies: rash Neurological: Reports: headache Psychiatric: Reports: anxiety Past Medical History Past Medical History: Seizure Disorder Additional Past Medical History / Comment(s): blood clotting disorder, arthritis History of Any Multi-Drug Resistant Organisms: None Reported Past Surgical History: Adenoidectomy, Section, Orthopedic Surgery, Tonsillectomy Additional Past Surgical History / Comment(s): KNEE SURGERY Past Anesthesia/Blood Transfusion Reactions: Previous Problems w/ Anesthesia Additional Past Anesthesia/Blood Transfusion Reaction / Comment(s): patient states she had a headache after anesthesia previously Past Psychological History: ADD/ADHD, Anxiety, Depression Smoking Status: Never smoker Past Alcohol Use History: Rare Past Drug Use History: None Reported - Past Family History Mother Family Medical History: Deep Vein Thrombosis (DVT) Additional Family Medical History / Comment(s): blood clotting disorder-takes coumadin General Exam Limitations: no limitations General appearance: alert, in no apparent distress Head exam: Present: atraumatic, normocephalic Eye exam: Present: normal appearance, PERRL, EOMI. Absent: nystagmus Expanded Eyelids: Normal Inspection: Bilateral Pupils: Regular, Round: Bilateral Sclera/Conjunctival: Normal Inspection: Bilateral Posterior chamber: Normal Inspection: Bilateral ENT exam: Present: normal oropharynx Neck exam: Present: normal inspection Respiratory exam: Present: normal lung sounds bilaterally Cardiovascular Exam: Present: regular rate, normal rhythm GI/Abdominal exam: Present: soft. Absent: tenderness Extremities exam: Present: normal inspection Neurological exam: Present: alert, CN II-XII intact. Absent: motor sensory deficit Expanded Cranial nerves: EOM's Intact: Normal Sensory exam: Upper Extremity Light Touch: Normal, Lower Extremity Light Touch: Normal Motor strength exam: RUE: 5, LUE: 5, RLE: 5, LLE: 5 Eye Response: (4) open spontaneously Motor Response: (6) obeys commands Verbal Response: (5) oriented Psychiatric exam: Present: normal affect, normal mood Skin exam: Present: normal color Course Vital Signs 04/01/17 04/01/17 14:21 15:36 Temperature 98 F Pulse Rate 72 64 Respiratory 18 20 Rate Blood Pressure 121/75 109/55 O2 Sat by Pulse 98 99 Oximetry EKG Findings - EKG Comments: EKG Findings:: Size pericardial 56. [place] 174. QRS 96. QT or 20. QTc 413. Normal axis. Normal QRS. No acute ST change. Medical Decision Making - Medical Decision Making Patient reevaluated and resting comfortably in bed. Patient updated on results and plan. Case discussed Dr. singh, who will admit for hospital call. - Lab Data Result diagrams: 04/01/17 15:25 04/01/17 15:25 Lab Results 04/01/17 04/01/17 04/01/17 Range/Units 15:25 15:25 15:25 WBC 8.6 (3.8-10.6) k/uL RBC 4.89 (3.80-5.40) m/uL Hgb 13.9 (11.4-16.0) gm/dL Hct 43.3 (34.0-46.0) % MCV 88.5 (80.0-100.0) fL MCH 28.4 (25.0-35.0) pg MCHC 32.0 (31.0-37.0) g/dL RDW 12.5 (11.5-15.5) % Plt Count 247 (150-450) k/uL Neutrophils % 54 % Lymphocytes % 39 % Monocytes % 5 % Eosinophils % 1 % Basophils % 0 % Neutrophils # 4.6 (1.3-7.7) k/uL Lymphocytes # 3.3 (1.0-4.8) k/uL Monocytes # 0.4 (0-1.0) k/uL Eosinophils # 0.1 (0-0.7) k/uL Basophils # 0.0 (0-0.2) k/uL PT (9.0-12.0) sec INR (<1.2) APTT (22.0-30.0) sec Sodium 140 (137-145) mmol/L Potassium 3.7 (3.5-5.1) mmol/L Chloride 103 (98-107) mmol/L Carbon Dioxide 25 (22-30) mmol/L Anion Gap 12 mmol/L BUN 15 (7-17) mg/dL Creatinine 0.60 (0.52-1.04) mg/dL Est GFR (MDRD) Af Amer >60 (>60 ml/min/1.73 sqM) Est GFR (MDRD) Non-Af >60 (>60 ml/min/1.73 sqM) Glucose 68 L (74-99) mg/dL Calcium 9.0 (8.4-10.2) mg/dL Total Bilirubin 0.9 (0.2-1.3) mg/dL AST 20 (14-36) U/L ALT 41 (9-52) U/L Alkaline Phosphatase 57 (38-126) U/L Total Creatine Kinase 186 H (30-135) U/L CK-MB (CK-2) 4.4 H* (0.0-2.4) ng/mL CK-MB (CK-2) Rel Index 2.4 Troponin I <0.012 (0.000-0.034) ng/mL Total Protein 7.3 (6.3-8.2) g/dL Albumin 4.3 (3.5-5.0) g/dL Urine Color Urine Appearance (Clear) Urine pH (5.0-8.0) Ur Specific Madeline (1.001-1.035) Urine Protein (Negative) Urine Glucose (UA) (Negative) Urine Ketones (Negative) Urine Blood (Negative) Urine Nitrite (Negative) Urine Bilirubin (Negative) Urine Urobilinogen (<2.0) mg/dL Ur Leukocyte Esterase (Negative) Urine RBC (0-5) /hpf Urine WBC (0-5) /hpf Ur Squamous Epith Cells (0-4) /hpf Urine Bacteria (None) /hpf Hyaline Casts (0-2) /lpf Urine Mucus (None) /hpf Urine HCG, Qual (Not Detectd) Urine Opiates Screen (NotDetected) Ur Oxycodone Screen (NotDetected) Urine Methadone Screen (NotDetected) Ur Propoxyphene Screen (NotDetected) Ur Barbiturates Screen (NotDetected) U Tricyclic Antidepress (NotDetected) Ur Phencyclidine Scrn (NotDetected) Ur Amphetamines Screen (NotDetected) U Methamphetamines Scrn (NotDetected) U Benzodiazepines Scrn (NotDetected) Urine Cocaine Screen (NotDetected) U Marijuana (THC) Screen (NotDetected) 04/01/17 04/01/17 04/01/17 Range/Units 15:25 15:25 15:25 WBC (3.8-10.6) k/uL RBC (3.80-5.40) m/uL Hgb (11.4-16.0) gm/dL Hct (34.0-46.0) % MCV (80.0-100.0) fL MCH (25.0-35.0) pg MCHC (31.0-37.0) g/dL RDW (11.5-15.5) % Plt Count (150-450) k/uL Neutrophils % % Lymphocytes % % Monocytes % % Eosinophils % % Basophils % % Neutrophils # (1.3-7.7) k/uL Lymphocytes # (1.0-4.8) k/uL Monocytes # (0-1.0) k/uL Eosinophils # (0-0.7) k/uL Basophils # (0-0.2) k/uL PT 11.1 (9.0-12.0) sec INR 1.1 (<1.2) APTT 25.8 (22.0-30.0) sec Sodium (137-145) mmol/L Potassium (3.5-5.1) mmol/L Chloride (98-107) mmol/L Carbon Dioxide (22-30) mmol/L Anion Gap mmol/L BUN (7-17) mg/dL Creatinine (0.52-1.04) mg/dL Est GFR (MDRD) Af Amer (>60 ml/min/1.73 sqM) Est GFR (MDRD) Non-Af (>60 ml/min/1.73 sqM) Glucose (74-99) mg/dL Calcium (8.4-10.2) mg/dL Total Bilirubin (0.2-1.3) mg/dL AST (14-36) U/L ALT (9-52) U/L Alkaline Phosphatase (38-126) U/L Total Creatine Kinase (30-135) U/L CK-MB (CK-2) (0.0-2.4) ng/mL CK-MB (CK-2) Rel Index Troponin I (0.000-0.034) ng/mL Total Protein (6.3-8.2) g/dL Albumin (3.5-5.0) g/dL Urine Color Yellow Urine Appearance Cloudy H (Clear) Urine pH 6.0 (5.0-8.0) Ur Specific Madeline 1.027 (1.001-1.035) Urine Protein Trace H (Negative) Urine Glucose (UA) Negative (Negative) Urine Ketones Negative (Negative) Urine Blood Negative (Negative) Urine Nitrite Negative (Negative) Urine Bilirubin Negative (Negative) Urine Urobilinogen <2.0 (<2.0) mg/dL Ur Leukocyte Esterase Small H (Negative) Urine RBC 3 (0-5) /hpf Urine WBC 11 H (0-5) /hpf Ur Squamous Epith Cells 6 H (0-4) /hpf Urine Bacteria Rare H (None) /hpf Hyaline Casts 2 (0-2) /lpf Urine Mucus Occasional H (None) /hpf Urine HCG, Qual Not Detected (Not Detectd) Urine Opiates Screen Detected H (NotDetected) Ur Oxycodone Screen Not Detected (NotDetected) Urine Methadone Screen Not Detected (NotDetected) Ur Propoxyphene Screen Not Detected (NotDetected) Ur Barbiturates Screen Not Detected (NotDetected) U Tricyclic Antidepress Not Detected (NotDetected) Ur Phencyclidine Scrn Not Detected (NotDetected) Ur Amphetamines Screen Detected H (NotDetected) U Methamphetamines Scrn Not Detected (NotDetected) U Benzodiazepines Scrn Not Detected (NotDetected) Urine Cocaine Screen Not Detected (NotDetected) U Marijuana (THC) Screen Not Detected (NotDetected) Disposition Clinical Impression: Visual blurriness Disposition: ADMITTED IP TO THIS [facility] Referrals: None,Stated [Primary Care Provider] - 1-2 days Decision Time: 17:00
[2017-04-01 15:51] LABS: Basophils % (A) 0 %; CHCM 32.9; Eosinophils # (A) 0.1 k/uL (0-0.7); Eosinophils % (A) 1 %; HCT 43.3 % (34.0-46.0); HDW 2.44; HGB 13.9 gm/dL (11.4-16.0); Luc # (Auto) 0.13; Luc % (Auto) 2; Lymphocytes # (A) 3.3 k/uL (1.0-4.8); Lymphocytes % (A) 39 %; MCH 28.4 pg (25.0-35.0); MCV 88.5 fL (80.0-100.0); Mean Platelet Volume 6.7; Monocytes # (A) 0.4 k/uL (0-1.0); Monocytes % (A) 5 %; Neutrophils # (A) 4.6 k/uL (1.3-7.7); Neutrophils % (A) 54 %; RBC 4.89 m/uL (3.80-5.40); RDW 12.5 % (11.5-15.5); WBC 8.6 k/uL (3.8-10.6); WBC (Perox) 7.97
[2017-04-01 15:58] LABS: Appearance,Urine Cloudy (Clear); Bacteria,Urine Rare /hpf; Bilirubin,Urine Negative (Negative); Glucose,Urine (UA) Negative (Negative); INR 1.1 (<1.2); Ketones,Urine Negative (Negative); Leukocyte Esterase,Urine Small (Negative); Mucus,Urine Occasional /hpf; Nitrite,Urine Negative (Negative); Partial Thromboplastin Time 25.8 sec (22.0-30.0); Particle Count 11497; Protein,Urine Trace (Negative); Prothrombin Time 11.1 sec (9.0-12.0); RBC,Urine 3 /hpf (0-5); Specific Gravity,Urine 1.027 (1.001-1.035); Squamous Epithelial Cell,Urine 6 /hpf (0-4); UA Billing (MACRO vs. MICRO) MICRO; Urobilinogen,Urine <2.0 mg/dL (<2.0); WBC,Urine 11 /hpf (0-5)
[2017-04-01 16:03] LABS: ALT 41 U/L (9-52); AST 20 U/L (14-36); Alkaline Phosphatase 57 U/L (38-126); Anion Gap 12 mmol/L; Blood Urea Nitrogen 15 mg/dL (7-17); Carbon Dioxide 25 mmol/L (22-30); Chloride 103 mmol/L (98-107); Glucose 68 mg/dL (74-99); Non-African American GFR(MDRD) >60 (>60 ml/min/1.73 sqM); Potassium 3.7 mmol/L (3.5-5.1); Sodium 140 mmol/L (137-145); Total Bilirubin 0.9 mg/dL (0.2-1.3); Total Protein 7.3 g/dL (6.3-8.2)
--- NOTE | 2017-04-01 16:03 | CT ---
EXAMINATION TYPE: CT brain wo con DATE OF EXAM: 04/01/2017 COMPARISON: 01/03/2014 INDICATION: Episode of visual loss DLP: 1055.9 mGycm, Automated exposure control for dose reduction was used. CONTRAST: None CT of the brain is performed utilizing 3 mm thick sections through the posterior fossa and 3 mm thick sections through the remaining calvarium. Study is performed within 24 hours of arrival to the hosp [facility]. No abnormal hyperdensity is present to suggest an acute intracranial hemorrhage. No mass lesion is evident. No acute infarcts are evident. Ventricles and sulci are appropriate for the patient age. Paranasal sinuses and mastoid air cells within the [id number] are clear. Portion of the orbits within the [id number]-[id number] are unremarkable IMPRESSIONS: 1. Normal CT Brain
--- NOTE | 2017-04-01 16:08 | XR ---
EXAMINATION TYPE: XR chest 2V DATE OF EXAM: 04/01/2017 COMPARISON: 07/24/2013 HISTORY: Headache and tunnel vision. Potential procedure. TECHNIQUE: Frontal and lateral views of the chest are obtained. FINDINGS: There is no focal air space opacity, pleural effusion, or pneumothorax seen. The cardiac silhouette size is within normal limits. The osseous structures are intact. IMPRESSION: No acute cardiopulmonary process.
[2017-04-01 16:17] LABS: Creatine Kinase 186 U/L (30-135)
[2017-04-01 16:28] LABS: Troponin I <0.012 ng/mL (0.000-0.034)
[2017-04-01 16:40] LABS: Creatine Kinase MB 4.4 ng/mL (0.0-2.4)
[2017-04-01] MEDS ORDERED: ASPIRIN 325 MG TAB PO STA (17:01)
[2017-04-01] MEDS: SODIUM CHLORIDE 0.9% 1,000 ML IV SCH (17:30)
--- NOTE | 2017-04-01 20:13 | US ---
EXAMINATION TYPE: US carotid duplex BILAT DATE OF EXAM: 04/01/2017 COMPARISON: NONE CLINICAL HISTORY: Stenosis. blurred vision trouble talking possible seizure EXAM MEASUREMENTS: RIGHT: Peak Systolic Velocity (PSV) cm/sec ----- Right CCA: 87.3 ----- Right ICA: 111.3 ----- Right ECA: 87.1 ICA/CCA ratio: 1.3 RIGHT: End Diastole cm/sec ----- Right CCA: 16.8 ----- Right ICA: 25.7 ----- Right ECA: 0 LEFT: Peak Systolic Velocity (PSV) cm/sec ----- Left CCA: 101.6 ----- Left ICA: 109.7 ----- Left ECA: 116.1 ICA/CCA ratio: 1.1 LEFT: End Diastole cm/sec ----- Left CCA: 22.5 ----- Left ICA: 27.3 ----- Left ECA: 0 VERTEBRALS (direction of flow): Right Vertebral: Antegrade Left Vertebral: Antegrade Rhythm: Normal IMPRESSION: NO SIGNIFICANT STENOSIS VISUALIZED
--- NOTE | 2017-04-01 20:42 | P.CNNES ---
History of Present Illness Consult date: 04/01/17 History of Present Illness: The [id number] right-handed white female who states that she was at work this morning and she suddenly got stressed out. She states she went into a panic attack. She then thought she might have a seizure. Her last seizure was several years ago. She had tunnel vision and she felt like she would go into a seizure but did not. She states normally when she goes into a seizure she has tunnel vision first. She states in the past she was on gabapentin for seizures. She describes her seizures as "flopping on the ground". The patient reports that today after her panic attacks she was not able to see clearly. She states she sees only shadows. She reports that she's had several episodes like this in the past which resolved after a few weeks. Dates that 2 years ago she had an episode where she was hospitalized here in [place] and 3 years ago she had an episode when she was living in [place]. Time it was felt that the patient had visual loss due to stress. Reports having had a normal MRI in the past. CT of the brain today which was normal. He other neurologic complaint besides visual loss. Review of Systems Constitutional: Reports as per HPI Ears, nose, mouth and throat: Reports as per HPI Cardiovascular: Reports as per HPI Respiratory: Reports as per HPI Gastrointestinal: Reports as per HPI Musculoskeletal: Reports as per HPI Integumentary: Reports as per HPI Neurological: Reports as per HPI Psychiatric: Reports as per HPI Hematologic/Lymphatic: Reports as per HPI Past Medical History Past Medical History: Seizure Disorder Additional Past Medical History / Comment(s): blood clotting disorder, arthritis History of Any Multi-Drug Resistant Organisms: None Reported Past Surgical History: Adenoidectomy, Section, Orthopedic Surgery, Tonsillectomy Additional Past Surgical History / Comment(s): KNEE SURGERY Past Anesthesia/Blood Transfusion Reactions: Previous Problems w/ Anesthesia Additional Past Anesthesia/Blood Transfusion Reaction / Comment(s): patient states she had a headache after anesthesia previously Past Psychological History: ADD/ADHD, Anxiety, Depression Smoking Status: Never smoker Past Alcohol Use History: Rare Past Drug Use History: None Reported - Past Family History Mother Family Medical History: Deep Vein Thrombosis (DVT) Additional Family Medical History / Comment(s): blood clotting disorder-takes coumadin Medications and Allergies Home Medications Medication Instructions Recorded Confirmed Type Dextroamphetamine/Amphetamine 20 mg PO TID 04/01/17 04/01/17 History [Adderall] Escitalopram [Lexapro] 20 mg PO DAILY 04/01/17 04/01/17 History HYDROcodone/APAP 10-325MG [[place] 1 tab PO Q6H PRN 04/01/17 04/01/17 History 10-325] clonazePAM [KlonoPIN] 0.5 - 1 mg PO HS 04/01/17 04/01/17 History Allergies Allergy/AdvReac Type Severity Reaction Status Date / Time adhesive tape Allergy Rash/Hives Verified 04/01/17 14:57 Bleach (Sodium Hypochlorite) Allergy Anaphylaxis Verified 04/01/17 14:57 venom-honey bee Allergy Anaphylaxis Verified 04/01/17 14:57 [bee venom (honey bee)] Physical Examination - Vital Signs Vital Signs: Vital Signs Temp Pulse Pulse Resp BP BP Pulse Ox 04/01/17 18:14 98.2 F 74 18 113/55 99 04/01/17 17:31 98.3 F 80 18 107/63 98 04/01/17 16:30 77 18 106/55 99 04/01/17 15:36 64 20 109/55 99 04/01/17 14:21 98 F 72 18 121/75 98 Intake and Output 04/01/17 04/01/17 04/01/17 06:59 14:59 22:59 Intake Total 360 Balance 360 Intake: Oral 360 Other: Weight 145.15 kg 145.15 kg Patient Weight 04/02/17 06:59 Weight 145.15 kg - Constitutional General appearance: cooperative, morbidly obese - EENT EENT: PERRL, hearing intact - Cardiovascular Cardiovascular: regular rate - Neurologic Cranial nerve examination: face symmetric, tongue midline, other (The patient states she sees shadows. She does cover her eyes with the bright lights on. She did blink went hand was flashed across eyes) Speech examination: intact Detailed motor examination: grossly full strength in all extremities Results - Laboratory Findings CBC and BMP: 04/01/17 15:25 04/01/17 15:25 Abnormal Lab Findings: Abnormal Labs 04/01/17 04/01/17 04/01/17 15:25 15:25 15:25 Glucose 68 L Total Creatine Kinase 186 H CK-MB (CK-2) 4.4 H* Urine Appearance Cloudy H Urine Protein Trace H Ur Leukocyte Esterase Small H Urine WBC 11 H Ur Squamous Epith Cells 6 H Urine Bacteria Rare H Urine Mucus Occasional H Urine Opiates Screen Detected H Ur Amphetamines Screen Detected H Assessment and Plan (1) Visual blurriness Current Visit: Yes Status: Acute SNOMED Code(s): 276355893 (2) Panic attacks Current Visit: Yes Status: Acute SNOMED Code(s): 732645378 (3) History of seizure disorder Current Visit: Yes Status: Chronic SNOMED Code(s): 864265997 Plan: The patient is a 26-year-old woman who presents to the hospital with episode of panic attack followed by feeling as if she'll go into a seizure and then followed by visual blurring. She reports that she cannot see and sees only shadows. She is admitted to the hospital with these complaints. Neurologic examination demonstrates patient is keeping eyes slightly covered in the bright light and she does blink to threat. Recommend ophthalmology evaluation. Patient has undergone a carotid ultrasound. Recommend also MRI of the brain
[2017-04-01] MEDS: HYDROcodone/APAP 10-325MG 1 EACH TAB PO PRN (20:50)
[2017-04-01] MEDS: ENOXAPARIN 40 MG/0.4 ML SYRINGE SQ SCH (20:52)
[2017-04-01] MEDS ORDERED: clonazePAM 1 MG TAB PO SCH (21:00)
[2017-04-01] MEDS ORDERED: clonazePAM 0.5 MG TAB PO SCH (21:00)
[2017-04-02] MEDS: SODIUM CHLORIDE 0.9% 1,000 ML IV SCH ×3 (04:13→21:13)
--- NOTE | 2017-04-02 04:52 | HP ---
HISTORY AND PHYSICAL DATE OF ADMISSION: 04/01/2017 PRESENTING COMPLAINT: Decreased vision. HISTORY OF PRESENTING COMPLAINT: This is a 26-year-old patient with no family doctor with chronic history of seizure, blood clotting disorder in the family and some anxiety and depression. Patient has also got ADHD. 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 Had a child welfare social worker come in the house and there may be some change in custody arrangement which made the patient extremely anxious and patient felt she had a panic attack. She is finding it difficult to say some words and then she says her vision became foggy, had a headache, very upset. Patient's significant other is present. She feels as if she is looking through foggy glass. Does not limit it to any one particular eye. REVIEW OF SYSTEMS: CONSTITUTIONAL: None. HEENT: As above. RESPIRATORY: None. CARDIOVASCULAR: None. GASTROINTESTINAL: None. GENITOURINARY: None. MUSCULOSKELETAL: None. DERMATOLOGICAL: None. HEMATOLOGICAL: None. LYMPHATICS: None. PSYCHIATRY: Anxiety, depression, panic attack. NEUROLOGICAL: As above. No focal weakness in the arm or legs or difficulty walking. PAST HISTORY: Past history of seizure, anxiety, depression, ADHD. PAST SURGICAL HISTORY: Adenoidectomy, , orthopedic surgery, tonsillectomy, knee surgery. PSYCH HISTORY: Anxiety, depression, ADHD. SOCIAL HISTORY: The patient is independent, lives with , has 6 kids. 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 The patient smoked for 5 years 5 cigarettes a day, stopped in 2009. Alcohol occasionally. FAMILY HISTORY: Family history of blood clotting disorder, DVTs. HOME MEDICATIONS: 1. Klonopin 0.5 to 1 mg p.o. q.h.s. 2. [place] 10 one tablet q.6 p.r.n. 3. Lexapro 20 mg p.o. daily. 4. Adderall 20 mg p.o. t.i.d. ALLERGIES: Allergies to ADHESIVE TAPE, BLEACH, HONEY BEE. PHYSICAL EXAMINATION: On examination, temperature 98, pulse 72, respiratory 18, blood pressure 121/75, pulse ox 98% on room air on presentation. GENERAL APPEARANCE: Well built, BMI of 47.3 lying in bed, not in distress. EYES: Pupils equal. Conjunctivae normal. HENT: Oral cavity normal. NECK: JVD not raised. Mass not palpable. RESPIRATORY: Effort normal. LUNGS: Clear. CARDIOVASCULAR: First and second sounds normal. No edema. ABDOMEN: Soft, nontender. Liver and spleen not palpable. LYMPHATIC: No lymph node palpable in the neck or axillae. PSYCHIATRY: Alert and oriented x3. Mood and affect normal. NEUROLOGICAL: Patient described blurriness through both the visions. No facial asymmetry. Power and sensation grossly intact. INVESTIGATIONS: White count 8.6, hemoglobin 13.9. Potassium 3.7. BUN and creatinine is normal. Troponin negative. Urine drug screen positive for opiates and amphetamines. ASSESSMENT: 1. This is a patient who had what appears to be a panic attack followed by decreased vision. Anatomically and clinically this does not fit into a clear picture at this point. 2. Urine toxicology positive for opiates and amphetamines. 3. Morbid obesity, body mass index 47.3. 4. Attention deficit hyperactivity disorder. 5. Depression, not otherwise specified. PLAN: Neurology was consulted. Patient is put on aspirin. Neuro checks were placed. Carotid Doppler, MRI was ordered. Neurology has also ordered ophthalmology consult. Care was discussed with the patient. MMODL / IJN: [id number] /
[2017-04-02 06:31] LABS: Cholesterol 159 mg/dL (<200); HDL Cholesterol 33 mg/dL (40-60)
[2017-04-02] MEDS ORDERED: ASPIRIN 325 MG TAB PO SCH (09:00)
[2017-04-02] MEDS: ENOXAPARIN 40 MG/0.4 ML SYRINGE SQ SCH (09:19)
[2017-04-02] MEDS: ESCITALOPRAM 20 MG TAB PO SCH (09:20)
[2017-04-02] MEDS: ASPIRIN 81 MG PO SCH (09:20)
[2017-04-02] MEDS: HYDROcodone/APAP 10-325MG 1 EACH TAB PO PRN ×2 (09:20→16:16)
[2017-04-02] MEDS ORDERED: LORazepam 1 MG TAB PO STA (09:49)
[2017-04-02] MEDS ORDERED: IBUPROFEN 800 MG TAB PO PRN (12:06)
--- NOTE | 2017-04-02 12:09 | MR ---
EXAMINATION TYPE: MR brain wo con DATE OF EXAM: 04/02/2017 COMPARISON: CT brain dated 04/01/2017 HISTORY: visual loss TECHNIQUE: Multiplanar, multisequence images of the brain and brainstem is performed without intravenous contras t. FINDINGS: Diffusion weighted images demonstrate no evidence of a recent infarct or other diffusion ab normality. There is no extra-axial fluid collection or significant white matter signal abnormality. There is slightly asymmetric distention of the right orbital nerve sheath with periorbital fluid on series 401 image 11. There is also a mildly tortuous course of the right optic nerve in comparison to the left. The ventricular system and cisternal spaces are normal in size and appearance. The brain volume is age appropriate. Midline structures demonstrate normal morphology. The craniocervical junction appears within normal limits. The dural venous sinuses appear patent. The visualized sinuses are clear and the globes are i ntact. IMPRESSION: 1. Slightly asymmetric distention of the right orbital nerve sheath due to periorbital fluid. This fi nding can be seen in optic neuritis. No white matter plaques are appreciated to suggest demyelinating disease. 2. No evidence of acute infarct or midline shift.
[2017-04-02] MEDS: ADDERALL 20MG PO SCH ×3 (12:40→16:55)
--- NOTE | 2017-04-02 14:51 | P.CN ---
Psychiatric Consult - . Consult date: 04/02/17 Consult:: 04/02/17 14:06 IDENTIFYING DATA: Pt is a 26yo CF who lives with her and three children. Psychiatry consulted due to stress and blurred vision. HPI: Upon evaluation, patient states that her main stressor currently is dealing with issues of their foster care worker not properly coordinating sibling visitation time with her step-son. No other major life stressors reported. She states that yesterday she had a panic attack and since then her vision has progressively worsened. She states that she did have a previously similar episode about 4 years ago in which she had multiple stressors and lost her vision for 1 1/2 weeks. Pt states that she has panic attacks twice weekly. She describes accompanying symptoms as "feels like a bouncing ball in my chest , short of breath, sweaty palms and nausea". Duration of episodes last no more than 10 minutes. Denies anticipated panic attacks in public settings but avoids crowds more so because she does not trust others. Patient does not describe herself as a worrier but states that her thinks that she is a "worry wort". Denies SI, HI and AVH at this time. PAST PSYCHIATRIC HISTORY: Currently a patient of Dr. Guadalupe - psychiatrist; started on Lexapro 3-4 months ago and increased to current dose of 20mg QD ~2 mo ago. Also, started on Clonazepam 1mg QHS, which patient does not feel is effective. She has been on Adderall for several years. Past psychotropic medications - Xanax, Ativan (in hospital; caused amnesia), Paxil (gi upset), Prozac, Buspar. No previous hospitalizations. No prior suicide attempts. PMH: h/o seizures, blood clot disorder, arthritis PSH: Adenoidectomy, Section, Orthopedic Surgery, Tonsillectomy ALLERGIES: adhesive tape Allergy (Verified 04/01/17 14:57) Rash/Hives Bleach (Sodium Hypochlorite) Allergy (Verified 04/01/17 14:57) Anaphylaxis venom-honey bee [bee venom (honey bee)] Allergy (Verified 04/01/17 14:57) Anaphylaxis MEDICATIONS: Active Medications Hydrocodone Bitart/Acetaminophen ([place] 10) 1 each PO Q6H PRN PRN Reason: Pain Last Admin: 04/02/17 09:20 Dose: 1 each Aspirin (Aspirin) 81 mg PO DAILY [facility] Last Admin: 04/02/17 09:20 Dose: 81 mg Clonazepam (Klonopin) 1 mg PO HS [facility] Enoxaparin Sodium (Lovenox) 40 mg SQ DAILY [facility] Last Admin: 04/02/17 09:19 Dose: 40 mg Escitalopram Oxalate (Lexapro) 20 mg PO DAILY [facility] Last Admin: 04/02/17 09:20 Dose: 20 mg Sodium Chloride (Saline 0.9%) 1,000 mls @ 100 mls/hr IV .Q10H [facility] Last Admin: 04/02/17 04:13 Dose: Not Given Ibuprofen (Motrin) 800 mg PO QID PRN PRN Reason: Mild Pain Last Admin: 04/02/17 12:40 Dose: 800 mg Adderall 20mg 20 mg PO AC-TID [facility] Last Admin: 04/02/17 12:44 Dose: Not Given CHEMICAL DEPENDENCY HISTORY: reports occasional alcohol use, denies illicit substance use FAMILY PSYCHIATRIC HISTORY: brother with possible Bipolar disorder and has had multiple suicide attempts SOCIAL HISTORY: Recently in June 2016 after 7 year relationship. Has three children that live with her and ; however, also helping to take care of her three nieces. Working two jobs ([employer] and [employer] ). Pt has her GED and did attend some college. She denies any legal issues other than the current issues with custody and foster care. No reported h/o physical or sexual abuse. MENTAL STATUS EXAM: Pt is a 26yo female who is fairly-well groomed and obese. She has spontaneous speech and good eye contact. Pt is cooperative and pleasant throughout evaluation. Her mood is stressed and affect is slightly restricted. She denies SI, HI and AVH at this time. Thought process is linear and logical. Oriented x 3. Judgment and Insight is fair. STRENGTHS/WEAKNESSES: cooperation with treatment, compliance with medications/ family stressors INTELLECTUAL FUNCTIONING: average ASSESSMENT: 1. Panic Disorder without agoraphobia 2. R/O Conversion Disorder PLAN: patient with symptoms of panic disorder and treated with Lexapro and Clonazepam. She feels these medications have been ineffective in treating her anxiety at this time. Once vision is resolved would recommend patient following up with her outpatient psychiatrist at the earliest available appointment for further assessment of medications and possible adjustment to her regimen. Lexapro and Adderall both have an unspecified risk of causing blurred vision and Clonazepam is a more common culprit. You could decrease the Clonazepam to 0.5mg, then discontinue and see if this helps resolve her blurred vision. It is possible that physical ailments can result from stress; however, conversion disorder is not diagnosed until all other possible medical etiologies are ruled out. Currently patient undergoing a neurological work-up and I agree with Neurology's recommendation for an ophthalmology consult and MRI of the brain. 04/02/17 14:50
--- NOTE | 2017-04-02 17:39 | P.PN ---
Progress Note - Text Progress Note Date: 04/02/17 DATE OF SERVICE: 04/02/2017 PRESENTING COMPLAINT: blurred vision HISTORY OF PRESENT ILLNESS: 26-year-old female who presented after becoming extremely anxious at home feeling as if she was having a panic attack unable to say some words and her vision became very foggy had a headache. Not limited to one eye or the other. Admitted for the same INTERVAL HISTORY: 04/02/2017: patient seen in follow-up today. Lying in bed appears comfortable however does complain of a headache.states that her vision has not improved much, can only make out large images unable to see any fine detail.MRI of the brain pending psychiatry consulted for medication evaluation, neurology continues to follow. tolerating her diet ambulatory with some assistance, moved her bowels yesterday. psychiatry consulted REVIEW OF SYSTEMS: Done for constitutional ,cardiovascular, GI, pulmonary with relevant findings as above. CURRENT MEDICATIONS [place], aspirin, Klonopin, Lexapro, Lovenox, Motrin, Adderall, PHYSICAL EXAM VITAL SIGNS: temperature 97.5, pulse 61, respiratory rate 18, blood pressure 108/59, oxygen saturation 95% on room air. GENERAL APPEARANCE: Lying in bed, not in distress. EYES: Pupils equal. Conjunctiva normal. NECK: JVD not raised. Mass not palpable. RESPIRATORY: Respiratory effort normal. Lungs Distant to auscultation. CARDIOVASCULAR: First and second sounds normal. No edema. ABDOMEN: Soft. Liver and spleen not palpable. No tenderness. No mass palpable. PSYCHIATRY: Alert and oriented x3. Mood and affect normal. INVESTIGATIONS: triglycerides 196, cholesterol 159, LDL cholesterol 87, HDL cholesterol 33. brain MRI: Slightly asymmetric distention of the right orbital nerve sheath due to periorbital fluid. Seen and optic neuritis. No white matter plaques to suggest demyelinating disease, no evidence of acute infarct or midline shift. ASSESSMENT: -panic disorder without agoraphobia -Urine toxicology positive for opiates and amphetamines. -Morbid obesity body mass index 47.3. -Attention deficit hyperactivity disorder. -Depression not otherwise specified. PLAN: psychiatry recommended patient follow-up with her outpatient psychiatrist for additional medication assessment and adjustments. Lexapro and Adderall both have unspecified risk of causing blurred vision clonazepam is more often the culprit. Conversion disorder is not diagnosed until all other medical possibilities are ruled out. Will await input from ophthalmology. Plan of care discussed with the patient the bedside she is in agreement. SENIOR MECHANICAL DESIGN ENGINEER statement: Patient was seen and examined by nurse practitioner Shae Silveira and all elements of the case discussed with attending Dr. Callejas
[2017-04-02] MEDS ORDERED: clonazePAM 1 MG TAB PO SCH (21:00)
--- NOTE | 2017-04-02 21:14 | P.PN ---
Subjective Progress Note Date: 04/02/17 The patient is a 26year old woman who was admitted to the hospital after panic attack and visual blurring. She still has visual loss. Walking into her room she was watching television with her . Her vision has not changed. MRI radiologist suggested possible periorbital fluid in the right orbital nerve sheath. The patient has no other neurologic complaint. She expressed desire to go home so she could be with her children. Objective - Vital Signs Vital signs: Vital Signs Temp 97.5 F L 04/02/17 08:01 Pulse 63 04/02/17 18:01 Resp 16 04/02/17 18:01 BP 119/61 04/02/17 18:01 Pulse Ox 96 04/02/17 18:01 Intake & Output 04/02/17 04/02/17 04/03/17 06:59 18:59 06:59 Intake Total 850 740 Balance 850 740 Weight 148.8 kg Intake: Intake, IV Titration 550 Amount Sodium Chloride 0.9% 1, 550 000 ml @ 100 mls/hr IV . Q10H [facility] Rx#:[id number] Oral 300 740 Other: Voiding Method Toilet Toilet # Voids 1 1 - Constitutional General appearance: Present: cooperative, morbidly obese - EENT ENT: Present: hearing grossly normal - Neurologic Neurologic Comment(s): Awake alert and oriented . She had no a aphasia or dysarthria. Neurologic: Present: CNII-XII intact (Visual blurring) - Labs CBC & Chem 7: 04/01/17 15:25 04/01/17 15:25 Labs: Abnormal Lab Results - Last 24 Hours (Table) 04/02/17 Range/Units 05:45 Triglycerides 196 H (<150) mg/dL HDL Cholesterol 33 L (40-60) mg/dL Assessment and Plan (1) Visual blurriness Current Visit: Yes Status: Acute SNOMED Code(s): 897362251 (2) Panic attacks Current Visit: Yes Status: Acute SNOMED Code(s): 837223156 (3) History of seizure disorder Current Visit: Yes Status: Chronic SNOMED Code(s): 062582282 Plan: The patient is a 26-year-old woman who presents to the hospital with episode of panic attack and blurriness and loss of vision in both eyes. She reports that she cannot see and sees only shadows. She had an MRI of the brain which showed slight asymmetry of the right orbital nerve sheath due to periorbital fluid. This does not explain bilateral visual loss.. Await ophthalmology evaluation.
--- NOTE | 2017-04-02 22:23 | PN ---
PROGRESS NOTE DATE OF SERVICE: 04/02/2017. ATTENDING NOTE: This patient was seen and examined by me. I discussed with my nurse practitioner, Ms. Silveira. Patient admitted with acute panic attack and difficulty to see. Per Psychiatry, this could be a conversion disorder with the blurry vision, which I agree with. The patient is feeling a bit better. EXAMINATION: Afebrile, pulse 61, blood pressure 108/59, pulse ox 95% room air. The patient's MRI shows slight swelling of the right optic nerve. ASSESSMENT: 1. Panic disorder. 2. Urine toxicology positive for opiates and amphetamines being explained by home medications. 3. Possible conversion disorder. PLAN: Await further input from Neurology. The patient's current medications will be continued. MMODL / RIKKIN: [id number] /
[2017-04-03] MEDS: HYDROcodone/APAP 10-325MG 1 EACH TAB PO PRN ×2 (00:13→09:26)
[2017-04-03 01:08] VITALS: RESP 16
[2017-04-03] MEDS: ESCITALOPRAM 20 MG TAB PO SCH (09:26)
[2017-04-03] MEDS: ASPIRIN 81 MG PO SCH (09:26)
[2017-04-03] MEDS: ADDERALL 20MG PO SCH (09:26)
[2017-04-03] MEDS: ENOXAPARIN 40 MG/0.4 ML SYRINGE SQ SCH (09:27)
--- NOTE | 2017-04-03 12:39 | P.PN ---
Progress Note - Text Progress Note Date: 04/10/17 DATE OF SERVICE: 04/03/2017 PRESENTING COMPLAINT: blurred vision HISTORY OF PRESENT ILLNESS: 26-year-old female who presented after becoming extremely anxious at home feeling as if she was having a panic attack unable to say some words and her vision became very foggy had a headache. Not limited to one eye or the other. Admitted for the same INTERVAL HISTORY: 04/03/2017 Patient seen in follow-up today lying in bed appears comfortable however does continue to complain that her vision has not improved much. Remains blurry. Awaiting ophthalmology input. Neurology has seen the patient yesterday MRI reveals right orbital nerve sheath asymmetry secondary to periorbital fluid, does not explain bilateral visual loss. Tolerating her diet ambulatory with assistance in moving her bowels. Psychiatry saw the patient and recommends continuation of Lexapro and clonazepam as well as following up with her outpatient psychiatrist for further assessment of medication and possible adjustment. Suggested that Lexapro and Adderall both have unspecified risk of causing blurred vision. Consider conversion disorder but once all other possible medical diagnoses and etiologies been ruled out. 04/02/2017: patient seen in follow-up today. Lying in bed appears comfortable however does complain of a headache.states that her vision has not improved much, can only make out large images unable to see any fine detail.MRI of the brain pending psychiatry consulted for medication evaluation, neurology continues to follow. tolerating her diet ambulatory with some assistance, moved her bowels yesterday. psychiatry consulted REVIEW OF SYSTEMS: Done for constitutional ,cardiovascular, GI, pulmonary with relevant findings as above. CURRENT MEDICATIONS [place], aspirin, Klonopin, Lexapro, Lovenox, Motrin, Adderall, PHYSICAL EXAM VITAL SIGNS: Temperature 96.9, pulse 61, respiratory rate 16, blood pressure 129/69, oxygen saturation 96% on room air. GENERAL APPEARANCE: Lying in bed, not in distress. EYES: Pupils equal. Conjunctiva normal. NECK: JVD not raised. Mass not palpable. RESPIRATORY: Respiratory effort normal. Lungs Distant to auscultation. CARDIOVASCULAR: First and second sounds normal. No edema. ABDOMEN: Soft. Liver and spleen not palpable. No tenderness. No mass palpable. PSYCHIATRY: Alert and oriented x3. Mood and affect normal. INVESTIGATIONS: None new ASSESSMENT: -panic disorder without agoraphobia -Urine toxicology positive for opiates and amphetamines explained by home medication use. -Morbid obesity body mass index 47.3. -Attention deficit hyperactivity disorder. -Depression not otherwise specified. -Possible conversion disorder. PLAN: Currently awaiting input from ophthalmology. Pending their evaluation patient may discharge home later today. Plan of care discussed with the patient the bedside she is in agreement. We will follow closely. HORIZONTAL DRILL OPERATOR statement: Patient was seen and examined by nurse practitioner Shae Silveira and all elements of the case discussed with attending Dr. Callejas
--- NOTE | 2017-04-03 15:00 | CONS ---
CONSULTATION DATE OF CONSULTATION: 04/03/2017 HISTORY: This is a 26-year-old white female who experienced a panic type attack while at home recently. The patient states that her vision became blurry and she experienced a corresponding headache at that time. Since then, she states that she continues to experience pain in the area across both eyes, although does not believe one side is worse than the other. The patient also stated that similar event happened to her in [place] several years ago when she experienced a loss of vision, was hospitalized for it and ultimately discharged. She stated that she had full recovery from this event and that the physicians at that time claimed it was due to "stress." Visual acuity without correction measured 2100 bilaterally. The pupils were equal, reactive to light. There was no afferent defect. Extraocular movements were full in all gaze positions. The patient did not complain of increased pain upon movement of either eye. She did, however, say that her eyes continue to hurt constantly no matter if they were moving or not. On penlight exam, the lids are normal. The conjunctiva was quiet. Both corneas were clear. The anterior chambers were quiet and the lenses were clear. Fundus exam revealed normal-appearing maculae and vessels with some swelling on the right optic nerve area. LABS: The recent MRI demonstrated swelling of the right optic nerve sheath suggestive of a possible optic neuritis. IMPRESSION: Bilateral vision loss. My impression is that this could very well be due to recurrent episode of optic neuritis if this patient's history from her experience in [place] was similar. It is not uncommon for the patient to experience more optic neuritis on more than one occasion, though if the diagnosis is made it is frequently accompanied by demyelinating plaques suggestive of an multiple sclerosis etiology. Computerized visual field test would certainly be helpful which would demonstrate how much of this patient's peripheral vision has been affected. Using confrontation testing there was significant diminished field in both eyes, though the patient's effort and capability for performing these may was limited at bedside. Other possibilities for optic neuropathy should also be considered including medication induced and/or metabolic etiologies. Pseudotumor Cerebri should be considered though bilateral optic nerve swelling is more consistent with this diagnosis. As the patient is medically stable, I would recommend discharge from the hospital and follow up as an outpatient where more formalized testing and evaluation could be performed. If in fact this diagnosis was consistent with bilateral optic neuritis, it is sometimes beneficial to perform IV megadose steroid therapy over the course of 3 days, which will hasten recovery. I will happily see this patient upon discharge from the hospital. NAVEEN / EROS: [id number] / MARK
[2017-04-03 15:04] VITALS: BP 113/63; PULSE 74; TEMP 97.3
--- NOTE | 2017-04-04 07:55 | DS ---
DISCHARGE SUMMARY DATE OF ADMISSION: April 01, 2017. DATE OF DISCHARGE: April 03, 2017. FINAL DIAGNOSIS: 1. Panic disorder. 2. Morbid obesity, BMI 47.3. 3. Attention-deficit/hyperactivity disorder. 4. Depression not otherwise specified. 5. Possible conversion disorder. HOSPITAL COURSE: This patient had and could not see after that. CT scan of the brain was nonspecific. Carotid Doppler did not show any critical stenosis. MRI of the brain showed a questionable asymmetry distention of the right . Though that would not explain blurriness in both the field vision and is unclear. Also the patient seen by Dr. Thomas who has seen the patient in the office. Dr. Sherwood was called and patient being discharged home to be seen by Neurology and Dr. Thomas and then to be taken further from there. I also spoke to Dr. Jon from Psychiatry saw the patient, and she thought this well could be a conversion disorder. EXAMINATION: Lungs are clear. CARDIOVASCULAR: First and second sounds normal. The patient vision is still some slight foggy. HOME GO MEDICATIONS: 1. Adderall 20 mg p.o. b.i.d. 2. Lexapro 20 mg daily. 3. [place] 10 one tablet q.6 p.r.n. 4. Klonopin 0.5-1 mg p.o. q.h.s. 5. Aspirin 81 mg a day. Patient to return to work after cleared by Dr. Sherwood and Dr. Thomas. Follow up with Dr. Thomas on April 08, 2017. Follow with Dr. Sherwood in 1 week. Follow up with family doctor in 3-4 days. MMODL / IJN: [id number] /
== END 2017-04-03 16:10 | disposition home or self-care (01) | DRG 880 ==
LOC: EC 14:17 → 3OBS 17:01 → OBSVTOIN 18:31 → 6SEL 21:13
PROVIDERS: ADMIT Hospitalist; ATTEND Hospitalist
DX: F44.9 Dissociative and conversion disorder, unspecified (principal); E66.01 Morbid (severe) obesity due to excess calories; H46.9 Unspecified optic neuritis; F32.9 Major depressive disorder, single episode, unspecified; G40.909 Epilepsy, unspecified, not intractable, without status epilepticus; F41.0 Panic disorder [episodic paroxysmal anxiety]; H54.3 Unqualified visual loss, both eyes; F90.9 Attention-deficit hyperactivity disorder, unspecified type; M19.91 Primary osteoarthritis, unspecified site; Z87.891 Personal history of nicotine dependence; Z79.899 Other long term (current) drug therapy; Z86.2 Personal history of diseases of the blood and blood-forming organs and certain disorders involving the immune mechanism; Z91.030 Bee allergy status; Z91.048 Other nonmedicinal substance allergy status
CPT/HCPCS: 36415; 70450; 70551; 71020; 80053; 80061; 80306; 81001; 81025; 82550; 82553; 84484; 85025; 85610; 85730; 93005; 93880; 96361; 96374; 99285

== ENCOUNTER 2017-06-14 14:30 | Emergency (ER) | payer OTHER ==
[2017-06-14] MEDS ORDERED: diphenhydrAMINE 50 MG/ML 1 ML VIAL IVP STA (15:14)
[2017-06-14] MEDS ORDERED: SODIUM CHLORIDE 0.9% 1,000 ML IV ONE (15:14)
[2017-06-14] MEDS ORDERED: METOCLOPRAMIDE 5 MG/ML 2 ML VIAL IVP STA (15:14)
[2017-06-14 15:55] LABS: Basophils % (A) 0 %; Eosinophils # (A) 0.1 k/uL (0-0.7); Eosinophils % (A) 1 %; HCT 48.7 % (34.0-46.0); HGB 15.3 gm/dL (11.4-16.0); Lymphocytes % (A) 25 %; MCHC 31.4 g/dL (31.0-37.0); MCV 89.1 fL (80.0-100.0); Mean Platelet Volume 7.2; Monocytes # (A) 0.5 k/uL (0-1.0); Monocytes % (A) 4 %; Neutrophils # (A) 8.1 k/uL (1.3-7.7); Neutrophils % (A) 68 %; Platelet Count 261 k/uL (150-450); RBC 5.47 m/uL (3.80-5.40); RDW 14.5 % (11.5-15.5)
[2017-06-14 16:08] LABS: Appearance,Urine Cloudy (Clear); Bilirubin,Urine Negative (Negative); Blood,Urine Negative (Negative); Color,Urine Yellow; Glucose,Urine (UA) Negative (Negative); Ketones,Urine Negative (Negative); Leukocyte Esterase,Urine Trace (Negative); Mucus,Urine Few /hpf; Nitrite,Urine Negative (Negative); Protein,Urine Trace (Negative); RBC,Urine 8 /hpf (0-5); Specific Gravity,Urine 1.026 (1.001-1.035); Squamous Epithelial Cell,Urine 24 /hpf (0-4); Urobilinogen,Urine <2.0 mg/dL (<2.0); WBC,Urine 3 /hpf (0-5)
[2017-06-14 16:10] LABS: ALT 44 U/L (9-52); AST 14 U/L (14-36); Alkaline Phosphatase 53 U/L (38-126); Anion Gap 11 mmol/L; Blood Urea Nitrogen 9 mg/dL (7-17); Carbon Dioxide 25 mmol/L (22-30); Chloride 101 mmol/L (98-107); Glucose 103 mg/dL (74-99); Potassium 4.1 mmol/L (3.5-5.1); Sodium 137 mmol/L (137-145); Total Bilirubin 0.5 mg/dL (0.2-1.3); Total Protein 6.9 g/dL (6.3-8.2)
[2017-06-14 16:53] LABS: HCG,Quantitative Serum 74568.2 mIU/mL
--- NOTE | 2017-06-14 17:36 | ED ---
Nausea/Vomiting/Diarrhea HPI - General Chief complaint: Nausea/Vomiting/Diarrhea Stated complaint: Vomiting Time Seen by Provider: 06/14/17 15:07 Source: patient Mode of arrival: ambulatory Limitations: no limitations - History of Present Illness Initial comments: Is a 18-year-old female presents emergency Department 8 weeks for nausea and vomiting. She states it's been going on for the last couple of weeks she states that she's been having difficulty keeping anything down. She feels like she is dehydrated and that is why she came in. She denies any abdominal pain. No dysuria or hematuria. No vaginal bleeding or discharge. No lightheadedness. She states that she did have some nausea and vomiting with her previous pregnancies however nothing quite like this. She denies any other complaints. - Related Data Home Medications Medication Instructions Recorded Confirmed Multivitamin [Multivitamins Adult 1 tab PO DAILY 05/22/17 06/14/17 Gummies] ALPRAZolam [Xanax] 0.5 mg PO TID PRN 06/14/17 06/14/17 Dextroamphetamine/Amphetamine 20 mg PO TID 06/14/17 06/14/17 [Adderall] Escitalopram [Lexapro] 30 mg PO DAILY 06/14/17 06/14/17 HYDROcodone/APAP 10-325MG [[place] 1 tab PO QID PRN 06/14/17 06/14/17 10-325] clonazePAM [KlonoPIN] 1 mg PO HS 06/14/17 06/14/17 Previous Rx's Medication Instructions Recorded Metoclopramide HCl [Reglan] 10 mg PO TID PRN #15 tablet 06/14/17 Allergies Allergy/AdvReac Type Severity Reaction Status Date / Time adhesive tape Allergy Rash/Hives Verified 06/14/17 15:18 Bleach (Sodium Hypochlorite) Allergy Anaphylaxis Verified 06/14/17 15:18 venom-honey bee Allergy Anaphylaxis Verified 06/14/17 15:18 [bee venom (honey bee)] Review of Systems ROS Statement: Those systems with pertinent positive or pertinent negative responses have been documented in the HPI. ROS Other: All systems not noted in ROS Statement are negative. 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 ", arthritis History of Any Multi-Drug Resistant Organisms: None Reported Past Surgical History: Adenoidectomy, Section, Orthopedic Surgery, Tonsillectomy Additional Past Surgical History / Comment(s): KNEE SURGERY Past Anesthesia/Blood Transfusion Reactions: Previous Problems w/ Anesthesia Additional Past Anesthesia/Blood Transfusion Reaction / Comment(s): patient states she had a headache after anesthesia previously Past Psychological History: ADD/ADHD, Anxiety, Depression Smoking Status: Former smoker Past Alcohol Use History: Occasional Past Drug Use History: None Reported - Past Family History Mother Family Medical History: Deep Vein Thrombosis (DVT) Additional Family Medical History / Comment(s): blood clotting disorder-takes coumadin General Exam - General Exam Comments Initial Comments: Constitutional: Awake alert Appears comfortable Head: Normocephalic atraumatic Eyes: no conjunctival injection No scleral icterus EOMI Neck: No JVD Supple Heart: Regular rate rhythm normal S1-S2 no murmurs Lungs: Clear to auscultation bilaterally No wheezing No rales Abdomen: Soft nondistended nontender Extremities: Non edematous DP pulses intact Radial pulses intact Neuro: A&Ox3 No focal neurologic deficits Psych: Appropriate mood and affect Limitations: no limitations Course Vital Signs 06/14/17 14:54 Temperature 97.8 F Pulse Rate 75 Respiratory 18 Rate Blood Pressure 122/70 O2 Sat by Pulse 100 Oximetry Medical Decision Making - Medical Decision Making This is a 26-year-old female who presented for nausea vomiting. She was given Reglan with improvement in her symptoms. She was able to tolerate juice at bedside. Labwork was reviewed and unremarkable. Patient would like to go home. Gave her Reglan for home and also told her to take him and V6. She is close follow-up with her OB. She can return emergency from if she has worsening symptoms. All questions were answered. - Lab Data Result diagrams: 06/14/17 15:25 06/14/17 15:30 Lab Results 06/14/17 06/14/17 06/14/17 Range/Units 15:25 15:30 15:30 WBC 12.0 H (3.8-10.6) k/uL RBC 5.47 H (3.80-5.40) m/uL Hgb 15.3 (11.4-16.0) gm/dL Hct 48.7 H (34.0-46.0) % MCV 89.1 (80.0-100.0) fL MCH 28.0 (25.0-35.0) pg MCHC 31.4 (31.0-37.0) g/dL RDW 14.5 (11.5-15.5) % Plt Count 261 (150-450) k/uL Neutrophils % 68 % Lymphocytes % 25 % Monocytes % 4 % Eosinophils % 1 % Basophils % 0 % Neutrophils # 8.1 H (1.3-7.7) k/uL Lymphocytes # 3.0 (1.0-4.8) k/uL Monocytes # 0.5 (0-1.0) k/uL Eosinophils # 0.1 (0-0.7) k/uL Basophils # 0.0 (0-0.2) k/uL Sodium 137 (137-145) mmol/L Potassium 4.1 (3.5-5.1) mmol/L Chloride 101 (98-107) mmol/L Carbon Dioxide 25 (22-30) mmol/L Anion Gap 11 mmol/L BUN 9 (7-17) mg/dL Creatinine 0.50 L (0.52-1.04) mg/dL Est GFR (MDRD) Af Amer >60 (>60 ml/min/1.73 sqM) Est GFR (MDRD) Non-Af >60 (>60 ml/min/1.73 sqM) Glucose 103 H (74-99) mg/dL Calcium 9.0 (8.4-10.2) mg/dL Total Bilirubin 0.5 (0.2-1.3) mg/dL AST 14 (14-36) U/L ALT 44 (9-52) U/L Alkaline Phosphatase 53 (38-126) U/L Total Protein 6.9 (6.3-8.2) g/dL Albumin 4.0 (3.5-5.0) g/dL HCG, Quant 27120.2 mIU/mL Urine Color Yellow Urine Appearance Cloudy H (Clear) Urine pH 6.0 (5.0-8.0) Ur Specific [place] 1.026 (1.001-1.035) Urine Protein Trace H (Negative) Urine Glucose (UA) Negative (Negative) Urine Ketones Negative (Negative) Urine Blood Negative (Negative) Urine Nitrite Negative (Negative) Urine Bilirubin Negative (Negative) Urine Urobilinogen <2.0 (<2.0) mg/dL Ur Leukocyte Esterase Trace H (Negative) Urine RBC 8 H (0-5) /hpf Urine WBC 3 (0-5) /hpf Ur Squamous Epith Cells 24 H (0-4) /hpf Urine Mucus Few H (None) /hpf Disposition Clinical Impression: Nausea/vomiting in Disposition: HOME SELF-CARE Condition: Stable Instructions: Nausea and Vomiting in (ED) Prescriptions: Metoclopramide HCl [Reglan] 10 mg PO TID PRN #15 tablet PRN Reason: Nausea Referrals: None,Stated [Primary Care Provider] - 1-2 days
[2017-06-14 17:54] VITALS: BP 108/59; PULSE 68; RESP 16; TEMP 98.5
== END 2017-06-14 17:54 | disposition home or self-care (01) ==
LOC: EC 14:30
DX: O21.9 Vomiting of pregnancy, unspecified (principal); O99.351 Diseases of the nervous system complicating pregnancy, first trimester; G40.909 Epilepsy, unspecified, not intractable, without status epilepticus; O99.341 Other mental disorders complicating pregnancy, first trimester; F32.9 Major depressive disorder, single episode, unspecified; F41.9 Anxiety disorder, unspecified; F90.9 Attention-deficit hyperactivity disorder, unspecified type; Z87.891 Personal history of nicotine dependence; Z79.899 Other long term (current) drug therapy; Z91.030 Bee allergy status; Z91.048 Other nonmedicinal substance allergy status; Z98.890 Other specified postprocedural states; Z3A.08 8 weeks gestation of pregnancy
CPT/HCPCS: 36415; 80053; 85025; 81001; 84702; 99284; 96374; 96375; 96361; J1200; J2765

== ENCOUNTER 2017-06-19 08:54 | Emergency (ER) | payer OTHER ==
--- NOTE | 2017-06-19 09:24 | ED ---
General Adult HPI - General Chief complaint: Vaginal Bleeding Stated complaint: 9 weeks preg, bleeding Time Seen by Provider: 06/19/17 09:03 Source: patient, RN notes reviewed Mode of arrival: ambulatory Limitations: no limitations - History of Present Illness Initial comments: 26-year-old female presents to the emergency department with a chief complaint vaginal bleeding in . Patient is . Patient has had multiple miscarriages. She states she just having some pelvic discomfort with it. She states bright red blood she denies any clots. She states that she has an ultrasound this that they confirmed an IUP. She states it was a heartbeat. There were concerned due to the bleeding so she thought that she should be seen. Her [employer] is Dr. Duran. Patient denies any recent fever, chills, shortness of breath, chest pain, back pain, abdominal pain, nausea vomiting, numbness or tingling, dysuria or hematuria, constipation or diarrhea, headaches or visual changes, or any other current symptoms. - Related Data Home Medications Medication Instructions Recorded Confirmed Multivitamin [Multivitamins Adult 2 tab PO DAILY 05/22/17 06/19/17 Gummies] Aspirin EC [Ecotrin Low Dose] 81 mg PO DAILY 06/19/17 06/19/17 Pyridoxine HCl (Vitamin B6) 100 mg PO DAILY 06/19/17 06/19/17 [Vitamin B-6] Allergies Allergy/AdvReac Type Severity Reaction Status Date / Time adhesive tape Allergy Rash/Hives Verified 06/19/17 09:12 Bleach (Sodium Hypochlorite) Allergy Anaphylaxis Verified 06/19/17 09:12 venom-honey bee Allergy Anaphylaxis Verified 06/19/17 09:12 [bee venom (honey bee)] Review of Systems ROS Statement: Those systems with pertinent positive or pertinent negative responses have been documented in the HPI. ROS Other: All systems not noted in ROS Statement are negative. 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 ", arthritis History of Any Multi-Drug Resistant Organisms: None Reported Past Surgical History: Adenoidectomy, Section, Orthopedic Surgery, Tonsillectomy Additional Past Surgical History / Comment(s): KNEE SURGERY Past Anesthesia/Blood Transfusion Reactions: Previous Problems w/ Anesthesia Additional Past Anesthesia/Blood Transfusion Reaction / Comment(s): patient states she had a headache after anesthesia previously Past Psychological History: ADD/ADHD, Anxiety, Depression Smoking Status: Former smoker Past Alcohol Use History: Occasional Past Drug Use History: None Reported - Past Family History Mother Family Medical History: Deep Vein Thrombosis (DVT) Additional Family Medical History / Comment(s): blood clotting disorder-takes coumadin General Exam - General Exam Comments Initial Comments: General: The patient is awake and alert, in no distress, and does not appear acutely ill. Eye: Pupils are equal, round. Ears, nose, mouth and throat: There are moist mucous membranes. Neck: The neck is supple, there is no tenderness. Cardiovascular: There is a regular rate and rhythm. No murmur, rub or gallop is appreciated. Respiratory: Lungs are clear to auscultation, respirations are non-labored, breath sounds are equal. No wheezes, stridor, rales, or rhonchi. Gastrointestinal: Soft, non-distended, non-tender abdomen without masses or organomegaly noted. There is no rebound or guarding present. No CVA tenderness. Bowel sounds are unremarkable. Back: There is no tenderness to palpation in the midline. There is no obvious deformity. No rashes noted. Musculoskeletal: Normal ROM, no tenderness, There is no pedal edema. There is no calf tenderness or swelling. Sensation intact. Pulses equal bilaterally 2+. Neurological: CN II-XII intact, There are no obvious motor or sensory deficits. Coordination appears grossly intact. Speech is normal. Skin: Skin is warm and dry and no rashes or lesions are noted. Psychiatric: Cooperative, appropriate mood & affect, normal judgment. Limitations: no limitations Course Vital Signs 06/19/17 08:57 Temperature 98.4 F Pulse Rate 86 Respiratory 16 Rate Blood Pressure 123/56 O2 Sat by Pulse 98 Oximetry Medical Decision Making - Medical Decision Making 26-year-old female presents to the emergency department with a chief complaint of vaginal bleeding in . At this time ultrasound reviewed that does show a viable . Patient has minimal bleeding on vaginal exam. This time we discussed follow-up with [employer]. We'll give her a repeat hCG level to having 2 days. We discussed close follow-up return parameters all questions we discussed possible etiologies. Patient states that she understood all questions have been answered. She'll will be disharged. - Lab Data Result diagrams: 06/19/17 09:34 06/19/17 09:34 Lab Results 06/19/17 06/19/17 06/19/17 Range/Units 09:34 09:34 09:34 WBC 10.0 (3.8-10.6) k/uL RBC 5.15 (3.80-5.40) m/uL Hgb 14.4 (11.4-16.0) gm/dL Hct 44.4 (34.0-46.0) % MCV 86.2 (80.0-100.0) fL MCH 28.0 (25.0-35.0) pg MCHC 32.5 (31.0-37.0) g/dL RDW 14.0 (11.5-15.5) % Plt Count 242 (150-450) k/uL Neutrophils % 68 % Lymphocytes % 25 % Monocytes % 5 % Eosinophils % 1 % Basophils % 0 % Neutrophils # 6.8 (1.3-7.7) k/uL Lymphocytes # 2.5 (1.0-4.8) k/uL Monocytes # 0.5 (0-1.0) k/uL Eosinophils # 0.1 (0-0.7) k/uL Basophils # 0.0 (0-0.2) k/uL Sodium 137 (137-145) mmol/L Potassium 3.9 (3.5-5.1) mmol/L Chloride 104 (98-107) mmol/L Carbon Dioxide 23 (22-30) mmol/L Anion Gap 10 mmol/L BUN 7 (7-17) mg/dL Creatinine 0.50 L (0.52-1.04) mg/dL Est GFR (MDRD) Af Amer >60 (>60 ml/min/1.73 sqM) Est GFR (MDRD) Non-Af >60 (>60 ml/min/1.73 sqM) Glucose 96 (74-99) mg/dL Calcium 9.1 (8.4-10.2) mg/dL Total Bilirubin 1.0 (0.2-1.3) mg/dL AST 15 (14-36) U/L ALT 43 (9-52) U/L Alkaline Phosphatase 49 (38-126) U/L Total Protein 6.7 (6.3-8.2) g/dL Albumin 3.8 (3.5-5.0) g/dL HCG, Quant 49245.0 mIU/mL Urine Color Red Urine Appearance Cloudy H (Clear) Urine pH 6.0 (5.0-8.0) Ur Specific [place] 1.023 (1.001-1.035) Urine Protein 1+ H (Negative) Urine Glucose (UA) Negative (Negative) Urine Ketones Trace H (Negative) Urine Blood Large H (Negative) Urine Nitrite Negative (Negative) Urine Bilirubin Negative (Negative) Urine Urobilinogen <2.0 (<2.0) mg/dL Ur Leukocyte Esterase Small H (Negative) Urine RBC >182 H (0-5) /hpf Urine WBC 2 (0-5) /hpf Ur Squamous Epith Cells 11 H (0-4) /hpf Urine Mucus Few H (None) /hpf Urine Sperm Rare (None) /hpf - Radiology Data Radiology results: report reviewed, image reviewed Disposition Clinical Impression: Threatened miscarriage Disposition: HOME SELF-CARE Condition: Stable Instructions: Threatened Miscarriage (ED) Additional Instructions: Please use medication as discussed. Please follow up with family doctor if symptoms have not improved over the next two days. Please return to the emergency room if your symptoms increase or worsen or for any other concerns. Referrals: Hayley Duran DO [Doctor of Osteopathic Medicine] - 1-2 days Time of Disposition: 11:56
[2017-06-19 09:52] LABS: Basophils % (A) 0 %; Eosinophils # (A) 0.1 k/uL (0-0.7); Eosinophils % (A) 1 %; HCT 44.4 % (34.0-46.0); HGB 14.4 gm/dL (11.4-16.0); Lymphocytes # (A) 2.5 k/uL (1.0-4.8); Lymphocytes % (A) 25 %; MCHC 32.5 g/dL (31.0-37.0); MCV 86.2 fL (80.0-100.0); Mean Platelet Volume 7.4; Monocytes # (A) 0.5 k/uL (0-1.0); Monocytes % (A) 5 %; Neutrophils # (A) 6.8 k/uL (1.3-7.7); Neutrophils % (A) 68 %; Platelet Count 242 k/uL (150-450); RBC 5.15 m/uL (3.80-5.40)
[2017-06-19 10:01] LABS: Appearance,Urine Cloudy (Clear); Bilirubin,Urine Negative (Negative); Blood,Urine Large (Negative); Color,Urine Red; Glucose,Urine (UA) Negative (Negative); Ketones,Urine Trace (Negative); Leukocyte Esterase,Urine Small (Negative); Mucus,Urine Few /hpf; Nitrite,Urine Negative (Negative); Protein,Urine 1+ (Negative); RBC,Urine >182 /hpf (0-5); Specific Gravity,Urine 1.023 (1.001-1.035); Sperm,Urine Rare /hpf; Squamous Epithelial Cell,Urine 11 /hpf (0-4); Urobilinogen,Urine <2.0 mg/dL (<2.0); WBC,Urine 2 /hpf (0-5)
[2017-06-19 10:03] LABS: ALT 43 U/L (9-52); AST 15 U/L (14-36); Albumin 3.8 g/dL (3.5-5.0); Alkaline Phosphatase 49 U/L (38-126); Anion Gap 10 mmol/L; Blood Urea Nitrogen 7 mg/dL (7-17); Calcium 9.1 mg/dL (8.4-10.2); Carbon Dioxide 23 mmol/L (22-30); Chloride 104 mmol/L (98-107); Glucose 96 mg/dL (74-99); Potassium 3.9 mmol/L (3.5-5.1); Sodium 137 mmol/L (137-145); Total Protein 6.7 g/dL (6.3-8.2)
--- NOTE | 2017-06-19 10:39 | US ---
EXAMINATION TYPE: US OB <=14 wks transvag DATE OF EXAM: 06/19/2017 COMPARISON: NONE CLINICAL HISTORY: Pain. bleeding since this AM EXAM PERFORMED: Transvaginal (TV) and Transabdominal (TA) EXAM MEASUREMENTS: GESTATIONAL AGE / DATING Physician Established: (8 weeks/5 days) EDC: 01/24/2018 Dates by LMP: LMP unknown Dates by First Scan: No previous this is first scan Dates by Current Scan for: (9 weeks/1 days) EDC: 01/21/2018 MATERNAL ANATOMY Uterus: 12.0 x 8.2 x 8.0 cm Right Ovary: not visualized Left Ovary: not visualized Post CDS / Adnexa: wnl Presence of free fluid: no Presence of corpus luteal cyst: no Presence of subchorionic bleed: no GESTATION / SURVEY CRL: 2.4 (9 weeks/1 days) Yolk Sac (normal less than 6mm): 5.6 Heart Rate: 175 bpm Rhythm: Normal IUP: Technically challenging due to large body habitus IMPRESSION: Single, viable IUP of 9 weeks 1 day with EDC of 01/21/2018
[2017-06-19 12:24] VITALS: BP 131/59; PULSE 78; RESP 18; TEMP 97.9
== END 2017-06-19 12:23 | disposition home or self-care (01) ==
LOC: EC 08:54
DX: O20.0 Threatened abortion (principal); Z79.82 Long term (current) use of aspirin; Z79.899 Other long term (current) drug therapy; Z91.048 Other nonmedicinal substance allergy status; Z91.030 Bee allergy status; Z87.891 Personal history of nicotine dependence; Z3A.09 9 weeks gestation of pregnancy
CPT/HCPCS: 36415; 76801; 76817; 80053; 81001; 84702; 85025; 86900; 86901; 87086; 99284

== ENCOUNTER 2017-08-04 17:38 | Emergency (ER) | payer OTHER ==
[2017-08-04 18:37] LABS: Amorphous Sediment,Urine Rare /hpf; Appearance,Urine Cloudy (Clear); Bilirubin,Urine Negative (Negative); Blood,Urine Trace (Negative); Color,Urine Yellow; Glucose,Urine (UA) Negative (Negative); Ketones,Urine Negative (Negative); Leukocyte Esterase,Urine Trace (Negative); Mucus,Urine Rare /hpf; Nitrite,Urine Negative (Negative); Protein,Urine Negative (Negative); RBC,Urine 2 /hpf (0-5); Specific Gravity,Urine 1.018 (1.001-1.035); Squamous Epithelial Cell,Urine 11 /hpf (0-4); Urobilinogen,Urine <2.0 mg/dL (<2.0); WBC,Urine 11 /hpf (0-5)
--- NOTE | 2017-08-04 18:50 | ED ---
Abdominal Pain HPI - General Source: patient, RN notes reviewed, old records reviewed Mode of arrival: ambulatory Limitations: no limitations <Andreina Garcia - Last Filed: 08/04/17 21:15> <Basilio Palm - Last Filed: 08/04/17 21:47> - General Chief Complaint: Abdominal Pain Stated Complaint: 15 wks /cramping Time Seen by Provider: 08/04/17 18:22 - History of Present Illness Initial Comments: 18-year-old female is currently 15 weeks presents with sudden onset of lower abdominal cramping and pain. She reports she's had previous miscarriages around the similar gestational age. She states that she follows up with Dr. Adkins. This is a female. She reports no vaginal bleeding or loss of fluid. She reports that she feels nauseated.Patient denies any recent fever, chills, shortness of breath, chest pain, back pain, abdominal pain, nausea vomiting, numbness or tingling, dysuria or hematuria, constipation or diarrhea, headaches or visual changes, or any other current symptoms (Andreina Garcia) - Related Data Home Medications Medication Instructions Recorded Confirmed Multivitamin [Multivitamins Adult 2 tab PO DAILY 05/22/17 08/04/17 Gummies] Aspirin EC [Ecotrin Low Dose] 81 mg PO DAILY 06/19/17 08/04/17 Pyridoxine HCl (Vitamin B6) 100 mg PO DAILY 06/19/17 08/04/17 [Vitamin B-6] Allergies Allergy/AdvReac Type Severity Reaction Status Date / Time adhesive tape Allergy Rash/Hives Verified 08/04/17 19:15 Bleach (Sodium Hypochlorite) Allergy Anaphylaxis Verified 08/04/17 19:15 venom-honey bee Allergy Anaphylaxis Verified 08/04/17 19:15 [bee venom (honey bee)] Review of Systems ROS Other: All systems not noted in ROS Statement are negative. <Andreina Garcia - Last Filed: 08/04/17 21:15> ROS Other: All systems not noted in ROS Statement are negative. <Basilio Palm - Last Filed: 08/04/17 21:47> ROS Statement: Those systems with pertinent positive or pertinent negative responses have been documented in the HPI. 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 ", arthritis History of Any Multi-Drug Resistant Organisms: None Reported Past Surgical History: Adenoidectomy, Section, Orthopedic Surgery, Tonsillectomy Additional Past Surgical History / Comment(s): KNEE SURGERY Past Anesthesia/Blood Transfusion Reactions: Previous Problems w/ Anesthesia Additional Past Anesthesia/Blood Transfusion Reaction / Comment(s): patient states she had a headache after anesthesia previously Past Psychological History: ADD/ADHD, Anxiety, Depression Smoking Status: Former smoker Past Alcohol Use History: Occasional Past Drug Use History: None Reported - Past Family History Mother Family Medical History: Deep Vein Thrombosis (DVT) Additional Family Medical History / Comment(s): blood clotting disorder-takes coumadin <Andreina Garcia - Last Filed: 08/04/17 21:15> General Exam Limitations: no limitations General appearance: alert, in no apparent distress Head exam: Present: atraumatic, normocephalic, normal inspection Eye exam: Present: normal appearance, PERRL, EOMI. Absent: scleral icterus, conjunctival injection, periorbital swelling ENT exam: Present: normal exam, mucous membranes moist Neck exam: Present: normal inspection. Absent: tenderness, meningismus, lymphadenopathy Respiratory exam: Present: normal lung sounds bilaterally. Absent: respiratory distress, wheezes, rales, rhonchi, stridor Cardiovascular Exam: Present: regular rate, normal rhythm, normal heart sounds. Absent: systolic murmur, diastolic murmur, rubs, gallop, clicks GI/Abdominal exam: Present: soft, normal bowel sounds. Absent: distended, tenderness, guarding, rebound, rigid Extremities exam: Present: normal inspection, full ROM, normal capillary refill. Absent: tenderness, pedal edema, joint swelling, calf tenderness Back exam: Present: normal inspection <Andreina Garcia - Last Filed: 08/04/17 21:15> <Basilio Palm - Last Filed: 08/04/17 21:47> - General Exam Comments Initial Comments: This is a well-appearing 18-year-old female. Patient is morbidly obese. She does not appear to be in any acute distress. (Andreina Garcia) Vital Signs 08/04/17 18:02 Temperature 99 F Pulse Rate 67 Respiratory 16 Rate Blood Pressure 141/86 O2 Sat by Pulse 98 Oximetry Medical Decision Making - Lab Data Result diagrams: 08/04/17 19:25 08/04/17 19:25 <Andreina Garcia - Last Filed: 08/04/17 21:15> - Lab Data Result diagrams: 08/04/17 19:25 08/04/17 19:25 <Basilio Palm - Last Filed: 08/04/17 21:47> - Medical Decision Making Physical 26-year-old female presents with lower abdominal cramping. She reports currently 15 weeks . No nausea or vomiting. She has some mild tenderness. Patient given ultrasound and lab work obtained. Her labwork was reviewed and within normal limits. Currently pending ultrasound results. I will be discussed following the patient to [facility] RICHARDSON for the final disposition. (Andreina Garcia) Patient was endorsed to me from Andreina MIRANDA. Patient's ultrasound reviewed shows demise. Patient is B+ blood type she has an appointment tomorrow. Patient will be discharged. (Basiloi Palm) - Lab Data Lab Results 08/04/17 08/04/17 08/04/17 Range/Units 17:08 19:25 19:25 WBC 9.4 (3.8-10.6) k/uL RBC 4.81 (3.80-5.40) m/uL Hgb 13.8 (11.4-16.0) gm/dL Hct 40.9 (34.0-46.0) % MCV 84.9 (80.0-100.0) fL MCH 28.8 (25.0-35.0) pg MCHC 33.9 (31.0-37.0) g/dL RDW 12.2 (11.5-15.5) % Plt Count 268 (150-450) k/uL Neutrophils % 55 % Lymphocytes % 36 % Monocytes % 5 % Eosinophils % 2 % Basophils % 0 % Neutrophils # 5.2 (1.3-7.7) k/uL Lymphocytes # 3.4 (1.0-4.8) k/uL Monocytes # 0.4 (0-1.0) k/uL Eosinophils # 0.2 (0-0.7) k/uL Basophils # 0.0 (0-0.2) k/uL Sodium 139 (137-145) mmol/L Potassium 4.0 (3.5-5.1) mmol/L Chloride 106 (98-107) mmol/L Carbon Dioxide 23 (22-30) mmol/L Anion Gap 10 mmol/L BUN 8 (7-17) mg/dL Creatinine 0.49 L (0.52-1.04) mg/dL Est GFR (MDRD) Af Amer >60 (>60 ml/min/1.73 sqM) Est GFR (MDRD) Non-Af >60 (>60 ml/min/1.73 sqM) Glucose 86 (74-99) mg/dL Calcium 8.8 (8.4-10.2) mg/dL Total Bilirubin 0.3 (0.2-1.3) mg/dL AST 19 (14-36) U/L ALT 31 (9-52) U/L Alkaline Phosphatase 55 (38-126) U/L Total Protein 6.3 (6.3-8.2) g/dL Albumin 3.4 L (3.5-5.0) g/dL Amylase 44 (30-110) U/L Lipase 74 (23-300) U/L Urine Color Yellow Urine Appearance Cloudy H (Clear) Urine pH 6.0 (5.0-8.0) Ur Specific [place] 1.018 (1.001-1.035) Urine Protein Negative (Negative) Urine Glucose (UA) Negative (Negative) Urine Ketones Negative (Negative) Urine Blood Trace H (Negative) Urine Nitrite Negative (Negative) Urine Bilirubin Negative (Negative) Urine Urobilinogen <2.0 (<2.0) mg/dL Ur Leukocyte Esterase Trace H (Negative) Urine RBC 2 (0-5) /hpf Urine WBC 11 H (0-5) /hpf Ur Squamous Epith Cells 11 H (0-4) /hpf Amorphous Sediment Rare H (None) /hpf Urine Mucus Rare H (None) /hpf Disposition <Andreina Garcia - Last Filed: 08/04/17 21:15> <Basilio Palm - Last Filed: 08/04/17 21:47> Clinical Impression: demise Disposition: HOME SELF-CARE Condition: Stable Instructions: Miscarriage (ED) Additional Instructions: Please return to the Emergency Department if symptoms worsen or any other concerns. Referrals: None,Stated [Primary Care Provider] - 1-2 days Hayley Duran, DO [Doctor of Osteopathic Medicine] - 1-2 days
[2017-08-04 19:37] LABS: Basophils % (A) 0 %; Eosinophils # (A) 0.2 k/uL (0-0.7); Eosinophils % (A) 2 %; HCT 40.9 % (34.0-46.0); HGB 13.8 gm/dL (11.4-16.0); Lymphocytes # (A) 3.4 k/uL (1.0-4.8); Lymphocytes % (A) 36 %; MCH 28.8 pg (25.0-35.0); MCHC 33.9 g/dL (31.0-37.0); MCV 84.9 fL (80.0-100.0); Mean Platelet Volume 6.7; Monocytes # (A) 0.4 k/uL (0-1.0); Monocytes % (A) 5 %; Neutrophils # (A) 5.2 k/uL (1.3-7.7); Neutrophils % (A) 55 %; Platelet Count 268 k/uL (150-450); RBC 4.81 m/uL (3.80-5.40); RDW 12.2 % (11.5-15.5); WBC 9.4 k/uL (3.8-10.6)
[2017-08-04 19:53] LABS: ALT 31 U/L (9-52); AST 19 U/L (14-36); Albumin 3.4 g/dL (3.5-5.0); Alkaline Phosphatase 55 U/L (38-126); Amylase 44 U/L (30-110); Anion Gap 10 mmol/L; Blood Urea Nitrogen 8 mg/dL (7-17); Calcium 8.8 mg/dL (8.4-10.2); Carbon Dioxide 23 mmol/L (22-30); Chloride 106 mmol/L (98-107); Glucose 86 mg/dL (74-99); Lipase 74 U/L (23-300); Sodium 139 mmol/L (137-145); Total Bilirubin 0.3 mg/dL (0.2-1.3); Total Protein 6.3 g/dL (6.3-8.2)
--- NOTE | 2017-08-04 21:34 | US ---
EXAMINATION TYPE: US OB >= 14 wk fetus DATE OF EXAM: 08/04/2017 COMPARISON: None CLINICAL HISTORY: PainCramping TECHNIQUE: Transabdominal (TA) GESTATIONAL AGE / DATING Physician Established: (15 weeks/2 days) EDC: 01/24/2018 Dates by LMP: (15 weeks/2 days) EDC: 01/24/2018 Dates by First Scan: (9 weeks/1 days) EDC: 01/21/2018 Dates by Current Scan: (13 weeks/3 days) EDC: 02/06/2018 SURVEY IUP: Single PLACENTA: Posterior PREVIA: No Previa JACY: 8.7 cm CERVICAL LENGTH (transabdominal: norm > 3.0cm): 3.1 cm CERVICAL LENGTH (transvaginal: norm> 2.5cm): cm BIOMETRY PRESENTATION: Variable BPD: 1.7 cm 12 weeks / 4 days HC: 6.9 cm 12 weeks / 5 days AC: 5.7 cm 12 weeks / 4 days FL: 1.1 cm 13 weeks / 1 days ESTIMATED WEIGHT IN GRAMS: 65 grams ESTIMATED WEIGHT IN LBS/OZ: 0 lbs. 2 oz. WEIGHT PERCENTAGE BASED ON ESTABLISHED DATES: <3% HC/AC: 1.21cm FL/AC: 62.5cm HEART RATE: No heart tones seen. RHYTHM: No activity visualized on exam. No activity or heart tones visualized on exam. IMPRESSION: Findings compatible with demise
[2017-08-04 22:07] VITALS: BP 145/82; PULSE 84; RESP 18; TEMP 97.9
== END 2017-08-04 22:07 | disposition home or self-care (01) ==
LOC: EC 17:38
DX: O02.1 Missed abortion (principal); Z87.891 Personal history of nicotine dependence; Z79.82 Long term (current) use of aspirin; Z79.899 Other long term (current) drug therapy; Z91.030 Bee allergy status; Z91.048 Other nonmedicinal substance allergy status
CPT/HCPCS: 36415; 76805; 80053; 81001; 82150; 83690; 85025; 87086; 99284

== ENCOUNTER 2017-08-05 09:58 | Observation (INO) | payer OTHER ==
[2017-08-05 10:42] VITALS: BMI 50.2
[2017-08-05] MEDS ORDERED: MISOPROSTOL 200 MCG TAB PO STA ×2 (10:50)
--- NOTE | 2017-08-05 11:03 | P.HPOB ---
History of Present Illness H&P Date: 08/05/17 Chief Complaint: IUP @ 15 2/7 weeks, IUFD This is a 26yo at 15 2/7 weeks that presents from the ED with IUFD. she was seen in the ED with c/o pelvic cramping, US done revealing no FHTS, fetus measuring 13 weeks. she states she has now had 3 2nd trimester losses, most recently with Dr Fisher 17 week loss delivered vaginally. she denies any CTX currently or LOF she is very nervous about delivery and states she would like an epidural if possible. she has 2 prior c/s deliveries. 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 lives with and 6 kids. 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 . no outside services recieved, no medical equipment. Smoking Status: Light tobacco smoker Past Alcohol Use History: Occasional Additional Past Alcohol Use History / Comment(s): smoked from 2004 and quit 2009 smoked 5 cig per day Past Drug Use History: None Reported - Past Family History Mother Family Medical History: Deep Vein Thrombosis (DVT) Additional Family Medical History / Comment(s): blood clotting disorder-takes coumadin Medications and Allergies Home Medications Medication Instructions Recorded Confirmed Type Multivitamin [Multivitamins Adult 2 tab PO DAILY 05/22/17 08/05/17 History Gummies] Aspirin EC [Ecotrin Low Dose] 81 mg PO DAILY 06/19/17 08/05/17 History Pyridoxine HCl (Vitamin B6) 100 mg PO DAILY 06/19/17 08/05/17 History [Vitamin B-6] ALPRAZolam [Xanax] 0.5 mg PO DIRECTED 08/05/17 08/05/17 History Allergies Allergy/AdvReac Type Severity Reaction Status Date / Time adhesive tape Allergy Rash/Hives Verified 08/05/17 10:14 Bleach (Sodium Hypochlorite) Allergy Anaphylaxis Verified 08/05/17 10:14 venom-honey bee Allergy Anaphylaxis Verified 08/05/17 10:14 [bee venom (honey bee)] Exam Osteopathic Statement: *. No significant issues noted on an osteopathic structural exam other than those noted in the History and Physical/Consult. - Vital Signs Vital signs: Vital Signs Temp Pulse Resp BP 08/05/17 10:37 97.9 F 65 18 129/61 Intake and Output 08/04/17 08/05/17 08/05/17 22:59 06:59 14:59 Other: Weight 154.221 kg Patient Weight 08/06/17 06:59 Weight 154.221 kg - OBG Physical Exam Abdomen: morbid obesity Cervix: without lesions, FT/50/hi, fetus feels transverse Assessment and Plan (1) demise Narrative/Plan: will plan induction with cytotec, pt aware and understands plan. CBC PT/PTT INR discussed Anora for chromosomal analysis of the baby. will obtian records from Dr. Alcantara regarding her prior coagulopathy work up Current Visit: No Status: Acute Code(s): [id number] - SNOMED Code(s): 851154601
[2017-08-05] MEDS: LACTATED RINGERS 1,000 ML IV SCH ×2 (11:18→16:10)
[2017-08-05 11:19] LABS: Basophils % (A) 0 %; Eosinophils # (A) 0.1 k/uL (0-0.7); Eosinophils % (A) 2 %; HCT 41.2 % (34.0-46.0); HGB 13.2 gm/dL (11.4-16.0); Lymphocytes # (A) 1.8 k/uL (1.0-4.8); Lymphocytes % (A) 28 %; MCH 28.4 pg (25.0-35.0); MCHC 32.1 g/dL (31.0-37.0); MCV 88.5 fL (80.0-100.0); Mean Platelet Volume 6.8; Monocytes # (A) 0.4 k/uL (0-1.0); Monocytes % (A) 6 %; Neutrophils # (A) 4.1 k/uL (1.3-7.7); Neutrophils % (A) 63 %; Platelet Count 213 k/uL (150-450); RBC 4.66 m/uL (3.80-5.40); RDW 12.5 % (11.5-15.5); WBC 6.5 k/uL (3.8-10.6)
[2017-08-05 12:03] LABS: Partial Thromboplastin Time 23.1 sec (22.0-30.0); Prothrombin Time 9.8 sec (9.0-12.0)
[2017-08-05] MEDS ORDERED: BUTORPHANOL 1 MG/ML 1 ML VIAL IV PRN (13:12)
[2017-08-05] MEDS: MISOPROSTOL 200 MCG TAB PO SCH ×2 (15:01→19:30)
[2017-08-05] MEDS ORDERED: ACETAMINOPHEN IV (For NPO) 1,000 MG in EMPTY BAG 1 BAG IVPB STA (17:31)
[2017-08-05] MEDS ORDERED: fentaNYL (PF) 50 MCG/ML 5 ML AMP ONE (17:45)
[2017-08-05] MEDS ORDERED: BUPIVACAINE (PF) 0.25% 30 ML VIAL ONE (17:45)
[2017-08-05] MEDS ORDERED: SODIUM CHLORIDE 0.9% 100 ML BAG ONE (17:45)
[2017-08-05] MEDS: cefOXitin IN SWFI 2 GM/10 ML SYRINGE IVP SCH (19:40)
[2017-08-05] MEDS ORDERED: BUPIVACAINE (PF) 0.25% 25 ML, fentaNYL (PF) 200 MCG in SODIUM CHLORIDE 0.9% 71 ML EPIDURAL ONE (20:04)
[2017-08-05] MEDS ORDERED: IBUPROFEN IV 800 MG in SODIUM CHLORIDE 0.9% 250 ML IV ONE (21:29)
[2017-08-05] MEDS ORDERED: METHYLERGONOVINE 0.2 MG/ML 1 ML AMP IM ONE (22:30)
[2017-08-05] MEDS ORDERED: OXYTOCIN 10 UNIT/ML 1 ML VIAL ONE (23:02)
[2017-08-05] MEDS ORDERED: MIDAZOLAM 2 MG/2 ML VIAL ONE (23:02)
[2017-08-05] MEDS ORDERED: PROPOFOL 10 MG/ML 20 ML VIAL IV ONE (23:02)
[2017-08-05] MEDS ORDERED: LIDOCAINE 1% INJ 10MG/ML (20 ML MDV) ONE (23:02)
[2017-08-05] MEDS ORDERED: PHENYLEPHRINE-0.9% NACL SYG 1 MG/10 ML SYRINGE ONE (23:02)
[2017-08-05] MEDS ORDERED: fentaNYL (PF) 50 MCG/ML 2 ML AMP ONE (23:02)
[2017-08-05] MEDS ORDERED: SUCCINYLCHOLINE CHLORIDE 100 MG/5 ML SYR IV ONE (23:02)
[2017-08-05] MEDS ORDERED: ePHEDrine SULFATE/0.9% NACL/PF 50 MG/5 ML SYRINGE IV ONE (23:02)
[2017-08-05] MEDS ORDERED: MISOPROSTOL 200 MCG TAB RECTAL ONE (23:45)
[2017-08-05] MEDS ORDERED: DIPHENOX-ATROP 2.5-0.025 MG 1 EACH TAB PO STA (23:49)
[2017-08-06 00:07] LABS: Basophils % (A) 0 %; Eosinophils % (A) 0 %; HCT 31.8 % (34.0-46.0); HGB 10.3 gm/dL (11.4-16.0); Lymphocytes # (A) 0.4 k/uL (1.0-4.8); Lymphocytes % (A) 5 %; MCH 27.9 pg (25.0-35.0); MCHC 32.3 g/dL (31.0-37.0); MCV 86.4 fL (80.0-100.0); Mean Platelet Volume 6.9; Monocytes # (A) 0.4 k/uL (0-1.0); Monocytes % (A) 5 %; Neutrophils # (A) 7.4 k/uL (1.3-7.7); Neutrophils % (A) 89 %; Platelet Count 198 k/uL (150-450); RBC 3.68 m/uL (3.80-5.40); RDW 12.3 % (11.5-15.5); WBC 8.3 k/uL (3.8-10.6)
--- NOTE | 2017-08-06 00:14 | P.PROBDLV ---
Vaginal Delivery Note - . Vaginal Delivery Note: This is a 26-year-old 7 para 2041 at 15-2/7 weeks that presented to the emergency department last night in IUFD was diagnosed. Ultrasound done in the emergency department yielded a 13 week fetus. She presented to the office was noted to be fingertip thick and high at that time. She elected induction today. She presented to the hospital, Cytotec induction was begun. After approximately 4 doses of Cytotec 600 g she progressed amniotic fluid was noted and the fetus was delivered quickly after the rupture of membranes. Fetus was delivered quickly with one push. Afterwards as stated above increased bleeding was noted and the decision was made to take her for a suction dilation and curettage. Procedure was reviewed informed consent was obtained
--- NOTE | 2017-08-06 00:18 | P.OP ---
Date of Procedure: 08/06/17 Preoperative Diagnosis: IUFD at 15-2/7 weeks, retained placenta Postoperative Diagnosis: Same plus uterine atony Procedure(s) Performed: Suction dilation and curettage Anesthesia: GERAA Surgeon: Hayley Duran Estimated Blood Loss (ml): 300 IV fluids (ml): 2,000 Urine output (ml): 75 Pathology: other (Placental tissue) Condition: stable Disposition: observation Indications for Procedure: Retained placenta, hemorrhage Operative Findings: Enlarged 15 weeks' size uterus with retained placenta noted just above the cervix. Description of Procedure: Patient was taken operating room where general anesthesia was obtained by the anesthesia Department without difficulty. She was then prepped and draped in normal sterile fashion in the dorsal lithotomy position a Guido catheter was then placed under sterile technique. A weighted speculum was placed in the posterior vaginal vault the Intralipid the cervix was then grasped with a single -tooth tenaculum. The suction curet 8 mL 8-Japanese was then introduced into the cervix and toward the fundus the suction was activated and placental tissue was then removed. This was then repeated multiple times. A significant amount of bleeding approximately 200 mL was noted at this time therefore Cytotec was given rectally 1000 g, in addition to a 1 L bag of Pitocin 20units. Bleeding slowed afterwards the single-tooth tenaculum was taken off of the anterior lip the cervix hemostasis was appreciated. This was a difficult procedure/exam to feel the fundus secondary to the patient's body habitus. Of note patient did wake up violently and minimal bleeding was noted. All counts were correct 2
[2017-08-06] MEDS ORDERED: diphenhydrAMINE 50 MG/ML 1 ML VIAL IVP PRN ×2 (00:19)
[2017-08-06] MEDS ORDERED: Acetaminophen-Codeine 300-30mg TAB PO PRN ×2 (00:19)
[2017-08-06] MEDS ORDERED: SIMETHICONE 80 MG CHEWABLE PO PRN (00:19)
[2017-08-06] MEDS ORDERED: WITCH HAZEL 1 EACH MED..PAD TOPICAL PRN (00:19)
[2017-08-06] MEDS ORDERED: diphenhydrAMINE 25 MG CAP PO PRN (00:19)
[2017-08-06] MEDS ORDERED: BENZOCAINE/MENTHOL SPRAY 1 GM/SPRAY AEROSOL TOPICAL PRN (00:19)
[2017-08-06] MEDS ORDERED: diphenhydrAMINE 50 MG CAP PO PRN (00:19)
[2017-08-06] MEDS ORDERED: ALPRAZolam 0.5 MG TAB PO PRN (00:21)
[2017-08-06] MEDS ORDERED: OXYTOCIN 20 UNITS/1000 ML NS 1,000 ML IV SCH (00:30)
[2017-08-06] MEDS: MISOPROSTOL 200 MCG TAB PO SCH (01:05)
[2017-08-06] MEDS: cefOXitin IN SWFI 2 GM/10 ML SYRINGE IVP SCH ×2 (04:15→12:16)
[2017-08-06 06:44] LABS: Basophils % (A) 0 %; Eosinophils % (A) 1 %; HCT 33.4 % (34.0-46.0); HGB 10.9 gm/dL (11.4-16.0); Lymphocytes # (A) 0.4 k/uL (1.0-4.8); Lymphocytes % (A) 7 %; MCH 28.3 pg (25.0-35.0); MCHC 32.6 g/dL (31.0-37.0); MCV 86.7 fL (80.0-100.0); Mean Platelet Volume 7.1; Monocytes # (A) 0.3 k/uL (0-1.0); Monocytes % (A) 5 %; Neutrophils # (A) 5.2 k/uL (1.3-7.7); Neutrophils % (A) 87 %; Platelet Count 155 k/uL (150-450); RBC 3.86 m/uL (3.80-5.40); RDW 12.3 % (11.5-15.5)
[2017-08-06 06:52] LABS: Blood Urea Nitrogen 14 mg/dL (7-17)
[2017-08-06] MEDS: LACTATED RINGERS 1,000 ML IV SCH (07:50)
[2017-08-06] MEDS: ACETAMINOPHEN TAB 325 MG TAB PO PRN ×2 (07:59→13:06)
[2017-08-06] MEDS ORDERED: SENNOSIDES-DOCUSATE SODIUM 1 EACH TAB PO SCH (08:00)
[2017-08-06 08:16] VITALS: RESP 20
--- NOTE | 2017-08-06 08:42 | P.PN ---
Subjective Progress Note Date: 08/06/17 Principal diagnosis: Postop day 1 status post spontaneous vaginal delivery of a 15 week IUFD, suction D&C for retained placenta Patient did well overnight. Bleeding was noted to be minimal and Guido is currently draining clear yellow urine. She has minimally been out of bed and is asking for breakfast currently. She is stating that everything is hurting yet it was discussed with the patient her violent flailing as she was being placed on the operating room table and also waking up from general anesthesia. Patient states she doesn't remember any of this, and truly the only thing she is complaining out when I continue to discuss is a headache and a sore throat. Objective - Vital Signs Vital signs: Vital Signs Temp 98.8 F 08/06/17 08:00 Pulse 91 08/06/17 08:00 Resp 20 08/06/17 08:00 BP 111/56 08/06/17 08:00 Pulse Ox 99 08/06/17 08:00 Intake & Output 08/05/17 08/06/17 08/06/17 18:59 06:59 18:59 Intake Total 1000 Output Total 600 1000 Balance -600 0 Weight 154.221 kg Intake: IV 1000 Oxytocin 20 Units/1000 ml 1000 Ns 1,000 ml @ Per Protocol IV .Q0M LISA Rx#: [id number] Output: Urine 600 1000 Uretheral (Guido) 500 Other: # Voids 1 - Constitutional General appearance: Present: morbidly obese, no acute distress - Cardiovascular Rhythm: regular - Gastrointestinal General gastrointestinal: Present: normal bowel sounds - Psychiatric Psychiatric: Present: A&O x's 3, appropriate affect - Labs CBC & Chem 7: 08/06/17 06:29 08/06/17 06:29 Labs: Abnormal Lab Results - Last 24 Hours (Table) 08/05/17 08/05/17 08/06/17 Range/Units 10:50 23:56 06:29 RBC 3.68 L (3.80-5.40) m/uL Hgb 10.3 L 10.9 L (11.4-16.0) gm/dL Hct 31.8 L 33.4 L (34.0-46.0) % Lymphocytes # 0.4 L 0.4 L (1.0-4.8) k/uL Creatinine (0.52-1.04) mg/dL Crossmatch See Detail 08/06/17 Range/Units 06:29 RBC (3.80-5.40) m/uL Hgb (11.4-16.0) gm/dL Hct (34.0-46.0) % Lymphocytes # (1.0-4.8) k/uL Creatinine 0.46 L (0.52-1.04) mg/dL Crossmatch Assessment and Plan (1) demise Narrative/Plan: Mood is good this morning, she has not displayed any depression symptoms given this IUFD. Current Visit: No Status: Acute Code(s): ZQC8345 - SNOMED Code(s): 877578111 (2) Retained placenta Narrative/Plan: Suction D&C done without difficulty for further details please see the operative report of note she did sustain hemorrhage secondary to retained placenta hemoglobin is reviewed today last night around 12:30 it was 10.3 and this morning at 6 it was 10.9. Current Visit: Yes Status: Acute Code(s): O73.0 - RETAINED PLACENTA WITHOUT HEMORRHAGE SNOMED Code(s): 251756147 (3) PPH ( hemorrhage) Narrative/Plan: Bleeding has been minimal overnight status post 1000 g of Cytotec per rectum, and Pitocin overnight. She did not complain of uterine cramping this morning but states she is fearful of it. Current Visit: Yes Status: Acute Code(s): O72.1 - OTHER IMMEDIATE HEMORRHAGE SNOMED Code(s): 26141015 (4) Fever Narrative/Plan: She has been afebrile since last p.m., will continue IV antibiotics and if she continues to be afebrile up until around dinnertime we will consider discharge with oral antibiotics. Current Visit: Yes Status: Acute Code(s): R50.9 - FEVER, UNSPECIFIED SNOMED Code(s): 137485455
[2017-08-06 18:14] VITALS: BP 116/56; PULSE 95; TEMP 98.9
--- NOTE | 2017-08-28 10:35 | P.DS ---
Providers Date of admission: 08/05/17 09:58 Expected date of discharge: 08/06/17 Attending physician: Hayley Duran - Discharge Diagnosis(es) (1) demise Status: Acute (2) Retained placenta Status: Acute (3) PPH ( hemorrhage) Status: Acute (4) Fever Status: Acute Hospital Course: Pt was admitted for induction of labor secondary to 15 week IUFD. she has a h/ o of a prior second trimester demise in december 2016. she was given cytotec and had a of non viable fetus approx 13-14 week size. she had a subsequent PPH and retained placenta necessitating a suction d and c done shortly after the delviery of the fetus. course has been uneventful. she was ambulating and voiding on her own, she states good pain control. she wished to be d/c home follow up care discussed with patient and the need for control given her prior losses VB was minimal Patient Condition at Discharge: Stable Plan - Discharge Summary Discharge Rx Participant: No New Discharge Prescriptions: No Action Multivitamin [Multivitamins Adult Gummies] 2 tab PO DAILY Pyridoxine HCl (Vitamin B6) [Vitamin B-6] 100 mg PO DAILY Aspirin EC [Ecotrin Low Dose] 81 mg PO DAILY ALPRAZolam [Xanax] 0.5 mg PO TID PRN PRN Reason: Anxiety Discharge Medication List Multivitamin [Multivitamins Adult Gummies] 2 tab PO DAILY 05/22/17 [History] Aspirin EC [Ecotrin Low Dose] 81 mg PO DAILY 06/19/17 [History] Pyridoxine HCl (Vitamin B6) [Vitamin B-6] 100 mg PO DAILY 06/19/17 [History] ALPRAZolam [Xanax] 0.5 mg PO TID PRN 08/05/17 [History] Follow up Appointment(s)/Referral(s): Hayley Duran DO [Doctor of Osteopathic Medicine] - 2 Weeks Activity/Diet/Wound Care/Special Instructions: no intercourse until 6 weeks after delivery, no tubs baths or swimming until 6 weeks pp Discharge Disposition: HOME SELF-CARE
== END 2017-08-06 18:50 | disposition home or self-care (01) ==
LOC: 4FBP 09:58 → INTOOBSV 09:58 → UNDODISIN 08-06 18:50
PROVIDERS: ADMIT Obstetrics & Gynecology Obstetrics; ATTEND Obstetrics & Gynecology Obstetrics
PROC: 10D17ZZ Extraction of Products of Conception, Retained, Via Natural or Artificial Opening (ICD-10-PCS; principal; 2017-08-06)
PROC: 00HU33Z Insertion of Infusion Device into Spinal Canal, Percutaneous Approach (ICD-10-PCS; 2017-08-06)
PROC: 3E0R3NZ Introduction of Analgesics, Hypnotics, Sedatives into Spinal Canal, Percutaneous Approach (ICD-10-PCS; 2017-08-06)
DX: O02.1 Missed abortion (principal); O72.0 Third-stage hemorrhage; O99.354 Diseases of the nervous system complicating childbirth; G40.909 Epilepsy, unspecified, not intractable, without status epilepticus; O34.211 Maternal care for low transverse scar from previous cesarean delivery; O99.344 Other mental disorders complicating childbirth; F41.9 Anxiety disorder, unspecified; F90.9 Attention-deficit hyperactivity disorder, unspecified type; O99.334 Smoking (tobacco) complicating childbirth; F32.9 Major depressive disorder, single episode, unspecified; F17.210 Nicotine dependence, cigarettes, uncomplicated; O99.212 Obesity complicating pregnancy, second trimester; E66.01 Morbid (severe) obesity due to excess calories; O86.4 Pyrexia of unknown origin following delivery; Z68.43 Body mass index [BMI] 50.0-59.9, adult; Z90.89 Acquired absence of other organs; Z79.82 Long term (current) use of aspirin; Z79.899 Other long term (current) drug therapy; Z91.030 Bee allergy status; Z91.048 Other nonmedicinal substance allergy status; Z3A.15 15 weeks gestation of pregnancy; Z83.2 Family history of diseases of the blood and blood-forming organs and certain disorders involving the immune mechanism
CPT/HCPCS: 86900; 86901; 88305; 82565; 84520; 85025 ×2; 85384; 85610; 85730; 86850; 86920; 88300; 88233; 59821; G0378 ×2; G0379; J2250; J2210; J2590; J0595; J0694 ×2; J2001; J3010 ×2; S0191; J0131; J2370; J0330; J1741; J2704

== ENCOUNTER 2017-08-07 08:26 | Emergency (ER) | payer OTHER ==
[2017-08-07] MEDS ORDERED: diphenhydrAMINE 50 MG/ML 1 ML VIAL IVP STA (09:27)
[2017-08-07] MEDS ORDERED: SODIUM CHLORIDE 0.9% 1,000 ML IV STA (09:27)
[2017-08-07] MEDS ORDERED: METOCLOPRAMIDE 5 MG/ML 2 ML VIAL IM STA (09:27)
[2017-08-07] MEDS ORDERED: HYDROmorphone 0.5 MG/0.5 ML SYRINGE IVP STA (09:27)
--- NOTE | 2017-08-07 09:31 | ED ---
General Adult HPI - General Chief complaint: Headache Stated complaint: Headache Time Seen by Provider: 08/07/17 08:50 Source: patient, RN notes reviewed Mode of arrival: ambulatory Limitations: no limitations - History of Present Illness Initial comments: Patient is a pleasant 26-year-old female presenting to the emergency department complaining of headache. Patient had 2 epidurals done yesterday for a D&C. Patient has headache all day today. Headache is positional. Headache is worse with movement and sitting up. Headache improves with staying still or lying down. Mild photophobia and mild nausea. No history of chronic headaches. Headache is diffuse. No weakness or confusion or fever. No abdominal or pelvic pain. - Related Data Home Medications Medication Instructions Recorded Confirmed Multivitamin [Multivitamins Adult 2 tab PO DAILY 05/22/17 08/07/17 Gummies] Aspirin EC [Ecotrin Low Dose] 81 mg PO DAILY 06/19/17 08/07/17 Pyridoxine HCl (Vitamin B6) 100 mg PO DAILY 06/19/17 08/07/17 [Vitamin B-6] ALPRAZolam [Xanax] 0.5 mg PO TID PRN 08/05/17 08/07/17 Allergies Allergy/AdvReac Type Severity Reaction Status Date / Time adhesive tape Allergy Rash/Hives Verified 08/07/17 09:12 Bleach (Sodium Hypochlorite) Allergy Anaphylaxis Verified 08/07/17 09:12 venom-honey bee Allergy Anaphylaxis Verified 08/07/17 09:12 [bee venom (honey bee)] Review of Systems ROS Statement: Those systems with pertinent positive or pertinent negative responses have been documented in the HPI. ROS Other: All systems not noted in ROS Statement are negative. Constitutional: Denies: fever, chills Eyes: Denies: eye pain ENT: Denies: ear pain Respiratory: Denies: cough Cardiovascular: Denies: chest pain Endocrine: Denies: fatigue Gastrointestinal: Denies: abdominal pain Genitourinary: Denies: dysuria Musculoskeletal: Denies: back pain Skin: Denies: rash Neurological: Reports: headache. 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 ", arthritis MTHFR treated with baby ASA, pt of Dr Alcantara History of Any Multi-Drug Resistant Organisms: None Reported Past Surgical History: Adenoidectomy, Section, Orthopedic Surgery, Tonsillectomy Additional Past Surgical History / Comment(s): KNEE SURGERY Past Anesthesia/Blood Transfusion Reactions: Previous Problems w/ Anesthesia Additional Past Anesthesia/Blood Transfusion Reaction / Comment(s): patient states she had a headache after anesthesia previously Past Psychological History: ADD/ADHD, Anxiety, Depression Smoking Status: Light tobacco smoker Past Alcohol Use History: Occasional Past Drug Use History: None Reported - Past Family History Mother Family Medical History: Deep Vein Thrombosis (DVT) Additional Family Medical History / Comment(s): blood clotting disorder-takes coumadin General Exam Limitations: no limitations General appearance: alert Head exam: Present: atraumatic Eye exam: Present: normal appearance, PERRL, EOMI ENT exam: Present: normal oropharynx Neck exam: Present: normal inspection Respiratory exam: Present: normal lung sounds bilaterally Cardiovascular Exam: Present: regular rate, normal rhythm GI/Abdominal exam: Present: soft. Absent: distended, tenderness, guarding, rebound, rigid Extremities exam: Present: normal inspection Neurological exam: Present: alert Psychiatric exam: Present: normal affect, normal mood Skin exam: Present: normal color Course Vital Signs 08/07/17 08:46 Temperature 99.2 F Pulse Rate 82 Respiratory 16 Rate Blood Pressure 138/70 O2 Sat by Pulse 97 Oximetry - Reevaluation(s) Reevaluation #1: 08/07/17 10:39 Case was discussed with Dr. pearson, then case was discussed with Dr. fish who will call back. Medical Decision Making - Medical Decision Making Patient to go to recovery room for blood patch. Disposition Clinical Impression: Cephalgia Disposition: HOME SELF-CARE Condition: Stable Referrals: Hayley Duran DO [Primary Care Provider] - 1-2 days Time of Disposition: 10:42
[2017-08-07] MEDS ORDERED: MIDAZOLAM 2 MG/2 ML VIAL IV ONE (11:26)
[2017-08-07] MEDS ORDERED: fentaNYL (PF) 50 MCG/ML 2 ML AMP IV ONE (11:26)
--- NOTE | 2017-08-07 11:50 | P.PCN ---
Date of Procedure: 08/07/17 Procedure(s) Performed: Operation= epidural blood patch. preoperative diagnosis= post dural puncture headache. Post operative diagnoses= post dural puncture headache. Anesthesia= I moderate sedation with Versed 1 mg ,and fentanyl, 50 mcg ,and local infiltration with lidocaine 1% 3 mL. Condition= stable. Complications= none. Indication for the procedure= this patient had epidural 2 days ago, and currently patient complaining of severe positional headache, improved with the supine position and increased with the sitting and standing position, and she is diagnosed with post dural puncture headache, there is no focal neurological deficit, no fever,, and no neck stiffness, patient is a good candidate to have epidural blood patch, because the conservative treatment failed, risks and benefits of the procedure discussed with the patient and agreed with proceeding, Description of the procedure= patient in sitting position, back lumbar area prepped with chlorhexidine x3 times then the back draped , then L5 S1 interlaminar space local infiltration of the skin and subcu tissues with lidocaine 1% 3 mL, then 20 -gauge Tuohy needle, advanced at the L5-S1 interlaminar space, as positive loss of resistance to normal saline, was no heme and no paresthesia, no cerebrospinal fluid, then after that 20 mL of autologous blood taken under strict sterile technique from the left wrist l area , after prepped with the chlorhexidine 3 times, and using Angiocath 20 ML of the block taken from the vein under strict sterile technique injected in the epidural space ,after negative aspiration for heme or cerebrospinal fluid, and there was no paresthesia, and after 20 ML of the blood injected in the epidural space and headache improved, and patient tolerated the procedure well without any complication and patient discharged home after discharge criteria met .
[2017-08-07] MEDS ORDERED: IV FLUID CONTINUATION 1,000 ML IV ONE (12:00)
[2017-08-07 12:36] VITALS: BP 127/81; PULSE 81; RESP 16; TEMP 99.1
== END 2017-08-07 12:52 | disposition home or self-care (01) ==
LOC: EC 08:26
DX: G97.1 Other reaction to spinal and lumbar puncture (principal); M19.90 Unspecified osteoarthritis, unspecified site; F17.200 Nicotine dependence, unspecified, uncomplicated; Z79.82 Long term (current) use of aspirin; Z79.899 Other long term (current) drug therapy; Z91.030 Bee allergy status; Z91.048 Other nonmedicinal substance allergy status
CPT/HCPCS: 99283; 62273; 96374; 96375; 96361 ×2; 96372; J2250; J1200; J2765; J3010; J1170

== ENCOUNTER → 2017-11-06 | Outpatient (CLI) | payer OTHER ==
--- NOTE | 2017-11-06 11:25 | XR ---
EXAMINATION TYPE: XR shoulder complete RT DATE OF EXAM: 11/06/2017 COMPARISON: NONE HISTORY: Pain, only injury TECHNIQUE: Shoulder examined in 3 views FINDINGS: The humeral head articulates with the glenoid. The acromio-clavicular junction is normal. No acute fractures or dislocations are evident. A follow up study can be performed 7-10 days from acute trauma for continued pain. IMPRESSION: 1. Normal Shoulder
--- NOTE | 2017-11-06 11:26 | XR ---
EXAMINATION TYPE: XR knee complete RT DATE OF EXAM: 11/06/2017 COMPARISON: NONE HISTORY: Pain in knee with twisting injury TECHNIQUE: Three-view right knee FINDINGS: There is mild narrowing of the joint space. Medial tibial plateau and femoral condylar spur ring is present. There is narrowing of the patellofemoral joint space. No joint effusion is evident. No acute fractures are evident. Follow-up exams can be performed 7-10 days from acute trauma for cont inued pain. IMPRESSION: 1. No acute osseous abnormality. 2. Mild degenerative changes medial compartment right knee.
== END | disposition home or self-care (01) ==
LOC: RADXRMAIN 10:53
PROVIDERS: ATTEND Emergency Medicine
DX: R93.6 Abnormal findings on diagnostic imaging of limbs (principal); M25.561 Pain in right knee; M25.511 Pain in right shoulder

== ENCOUNTER 2017-11-25 17:32 | Emergency (ER) | payer OTHER ==
[2017-11-25 19:09] LABS: Amorphous Sediment,Urine Rare /hpf; Appearance,Urine Cloudy (Clear); Bilirubin,Urine Negative (Negative); Blood,Urine Negative (Negative); Color,Urine Yellow; Glucose,Urine (UA) Negative (Negative); Ketones,Urine Negative (Negative); Leukocyte Esterase,Urine Trace (Negative); Mucus,Urine Rare /hpf; Nitrite,Urine Negative (Negative); Protein,Urine Negative (Negative); RBC,Urine 1 /hpf (0-5); Specific Gravity,Urine 1.023 (1.001-1.035); Squamous Epithelial Cell,Urine 16 /hpf (0-4); Urobilinogen,Urine <2.0 mg/dL (<2.0); WBC,Urine 11 /hpf (0-5)
--- NOTE | 2017-11-25 19:13 | ED ---
General Adult HPI - General Chief complaint: Abdominal Pain Stated complaint: cramping Source: patient Mode of arrival: ambulatory Limitations: no limitations - History of Present Illness Initial comments: History of present illness: 27-year-old female past medical history of MHTFR, 10 weeks presents with pelvic cramping. Patient is presents with one day of pelvic cramping. Patient states she will go this morning and started feeling like she was getting cramps. Currently has a OB/ RN CLINICAL. She is managed on an outpatient basis. She has a history of blood disorder for which she is taking aspirin. Denies any constitutional symptoms. Denies any vaginal discharge. She is concerned as her cramping is also severe that she decided come to the emergency department instead of going to her OB/ RN CLINICAL. Patient reports having had an ultrasound to confirm the approximately week and a half ago. Past Medical History: MHTFR Surgical History: , orthopedic surgery, adenoidectomy Social History: [Reviewed, noncontributory] Family history:[Reviewed, noncontributory] 14 point ROS was reviewed with patient and found to be negative - Related Data Home Medications Medication Instructions Recorded Confirmed Multivitamin [Multivitamins Adult 2 tab PO DAILY 05/22/17 11/25/17 Gummies] Aspirin EC [Ecotrin Low Dose] 162 mg PO DAILY 06/19/17 11/25/17 Previous Rx's Medication Instructions Recorded Cephalexin [Keflex] 500 mg PO Q6HR 5 Days #20 cap 11/25/17 Allergies Allergy/AdvReac Type Severity Reaction Status Date / Time adhesive tape Allergy Rash/Hives Verified 11/25/17 18:51 Bleach (Sodium Hypochlorite) Allergy Anaphylaxis Verified 11/25/17 18:51 venom-honey bee Allergy Anaphylaxis Verified 11/25/17 18:51 [bee venom (honey bee)] Review of Systems ROS Statement: Those systems with pertinent positive or pertinent negative responses have been documented in the HPI. ROS Other: All systems not noted in ROS Statement are negative. 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 ", arthritis MTHFR treated with baby ASA, pt of Dr Alcantara History of Any Multi-Drug Resistant Organisms: None Reported Past Surgical History: Adenoidectomy, Section, Orthopedic Surgery, Tonsillectomy Additional Past Surgical History / Comment(s): KNEE SURGERY Past Anesthesia/Blood Transfusion Reactions: Previous Problems w/ Anesthesia Additional Past Anesthesia/Blood Transfusion Reaction / Comment(s): patient states she had a headache after anesthesia previously Past Psychological History: ADD/ADHD, Anxiety, Depression Smoking Status: Light tobacco smoker Past Alcohol Use History: Occasional Past Drug Use History: None Reported - Past Family History Mother Family Medical History: Deep Vein Thrombosis (DVT) Additional Family Medical History / Comment(s): blood clotting disorder-takes coumadin General Exam - General Exam Comments Initial Comments: Vital signs on arrival: Vital signs upon arrival are within acceptable limits Physical examination: General: Alert and oriented 4, no acute distress HEENT: Normocephalic atraumatic, extraocular muscles intact, pupils equal round reactive to light and accommodation Cardiovascular: Heart is regular rate and rhythm, no murmurs rubs or gallops Chest: Lungs clear to auscultation bilaterally, no tenderness to palpation of the chest wall Abdomen: Nontender, nondistended, normoactive bowel sounds Musculoskeletal: No peripheral edema, DP pulses and radial pulses 2+ bilaterally Neurologic: Cranial nerves II-12 intact, no focal neurologic deficits, no ataxia Skin: No rashes or lesions Pelvic exam: Cervical os is closed, there is physiologic vaginal discharge, no cervical motion or adnexal tenderness him all vaginal mucosa is pink Limitations: no limitations Course Vital Signs 11/25/17 11/25/17 17:47 20:06 Temperature 98.3 F 99.7 F H Pulse Rate 78 97 Respiratory 18 16 Rate Blood Pressure 99/69 135/64 O2 Sat by Pulse 100 98 Oximetry Medical Decision Making - Medical Decision Making ED course/medical decision-makin-year-old female who is G3 PDA presents with 1 day of pelvic cramping. She is allegedly approximately 10 weeks . She does have [facility]IL [facility]TER care at the moment. There is concern for possible spontaneous or missed . Physical examination is benign. Pelvic exam is benign. The patellar evaluation obtained hemoglobin stable. No leukocytosis. Basic metabolic panel is negative. Urinalysis shows 11 white blood cells. Patient denies any urinary symptoms. Obstetric ultrasound was performed ultrasound shows gestational age of approximately 6 weeks and 5 days. getting processes were mentioned. Discussed signs with patient. Patient to be given Keflex for urinary tract infection. She has an appointment with OB/ RN CLINICAL this week. She starts to do with that appointment. Patient is understandable and agreeable. She is advised to continue bed rest and to refrain from any sexual activity until cleared by [facility]IL [facility]TER. Final impression: 1. Threatened Plan: Discharged with section to follow up with [facility] Disposition: Discharge - Lab Data Result diagrams: 11/25/17 19:22 11/25/17 19:22 Lab Results 11/25/17 11/25/17 11/25/17 Range/Units 18:55 18:55 19:22 WBC (3.8-10.6) k/uL RBC (3.80-5.40) m/uL Hgb (11.4-16.0) gm/dL Hct (34.0-46.0) % MCV (80.0-100.0) fL MCH (25.0-35.0) pg MCHC (31.0-37.0) g/dL RDW (11.5-15.5) % Plt Count (150-450) k/uL Neutrophils % % Lymphocytes % % Monocytes % % Eosinophils % % Basophils % % Neutrophils # (1.3-7.7) k/uL Lymphocytes # (1.0-4.8) k/uL Monocytes # (0-1.0) k/uL Eosinophils # (0-0.7) k/uL Basophils # (0-0.2) k/uL Microcytosis Sodium (137-145) mmol/L Potassium (3.5-5.1) mmol/L Chloride (98-107) mmol/L Carbon Dioxide (22-30) mmol/L Anion Gap mmol/L BUN (7-17) mg/dL Creatinine (0.52-1.04) mg/dL Est GFR (CKD-EPI)AfAm (>60 ml/min/1.73 sqM) Est GFR (CKD-EPI)NonAf (>60 ml/min/1.73 sqM) Glucose (74-99) mg/dL Calcium (8.4-10.2) mg/dL HCG, Quant mIU/mL Urine Color Yellow Urine Appearance Cloudy H (Clear) Urine pH 6.0 (5.0-8.0) Ur Specific Energy 1.023 (1.001-1.035) Urine Protein Negative (Negative) Urine Glucose (UA) Negative (Negative) Urine Ketones Negative (Negative) Urine Blood Negative (Negative) Urine Nitrite Negative (Negative) Urine Bilirubin Negative (Negative) Urine Urobilinogen <2.0 (<2.0) mg/dL Ur Leukocyte Esterase Trace H (Negative) Urine RBC 1 (0-5) /hpf Urine WBC 11 H (0-5) /hpf Ur Squamous Epith Cells 16 H (0-4) /hpf Amorphous Sediment Rare H (None) /hpf Urine Mucus Rare H (None) /hpf Urine HCG, Qual Detected (Not Detectd) Blood Type B Positive Blood Type Recheck No Antibody Screen NEGATIVE Spec Expiration Date 11/28/2017232111/25/17 11/25/17 Range/Units 19:22 19:22 WBC 10.0 (3.8-10.6) k/uL RBC 5.12 (3.80-5.40) m/uL Hgb 12.8 (11.4-16.0) gm/dL Hct 38.9 (34.0-46.0) % MCV 76.1 L (80.0-100.0) fL MCH 25.1 (25.0-35.0) pg MCHC 33.0 (31.0-37.0) g/dL RDW 15.7 H (11.5-15.5) % Plt Count 287 (150-450) k/uL Neutrophils % 61 % Lymphocytes % 31 % Monocytes % 4 % Eosinophils % 1 % Basophils % 0 % Neutrophils # 6.1 (1.3-7.7) k/uL Lymphocytes # 3.1 (1.0-4.8) k/uL Monocytes # 0.4 (0-1.0) k/uL Eosinophils # 0.1 (0-0.7) k/uL Basophils # 0.0 (0-0.2) k/uL Microcytosis Slight Sodium 139 (137-145) mmol/L Potassium 3.8 (3.5-5.1) mmol/L Chloride 104 (98-107) mmol/L Carbon Dioxide 23 (22-30) mmol/L Anion Gap 12 mmol/L BUN 10 (7-17) mg/dL Creatinine 0.60 (0.52-1.04) mg/dL Est GFR (CKD-EPI)AfAm >90 (>60 ml/min/1.73 sqM) Est GFR (CKD-EPI)NonAf >90 (>60 ml/min/1.73 sqM) Glucose 86 (74-99) mg/dL Calcium 8.8 (8.4-10.2) mg/dL HCG, Quant 19666.0 mIU/mL Urine Color Urine Appearance (Clear) Urine pH (5.0-8.0) Ur Specific Energy (1.001-1.035) Urine Protein (Negative) Urine Glucose (UA) (Negative) Urine Ketones (Negative) Urine Blood (Negative) Urine Nitrite (Negative) Urine Bilirubin (Negative) Urine Urobilinogen (<2.0) mg/dL Ur Leukocyte Esterase (Negative) Urine RBC (0-5) /hpf Urine WBC (0-5) /hpf Ur Squamous Epith Cells (0-4) /hpf Amorphous Sediment (None) /hpf Urine Mucus (None) /hpf Urine HCG, Qual (Not Detectd) Blood Type Blood Type Recheck Antibody Screen Spec Expiration Date Disposition Clinical Impression: Threatened Disposition: HOME SELF-CARE Instructions: Threatened Miscarriage (ED) Prescriptions: Cephalexin [Keflex] 500 mg PO Q6HR 5 Days #20 cap Is patient prescribed a controlled substance at d/c from ED?: No Referrals: None,Stated [Primary Care Provider] - 1-2 days Time of Disposition: 21:34
[2017-11-25 19:36] LABS: Basophils % (A) 0 %; Eosinophils # (A) 0.1 k/uL (0-0.7); Eosinophils % (A) 1 %; HCT 38.9 % (34.0-46.0); HGB 12.8 gm/dL (11.4-16.0); Lymphocytes # (A) 3.1 k/uL (1.0-4.8); Lymphocytes % (A) 31 %; MCH 25.1 pg (25.0-35.0); MCV 76.1 fL (80.0-100.0); Mean Platelet Volume 6.5; Microcytosis Slight; Monocytes # (A) 0.4 k/uL (0-1.0); Monocytes % (A) 4 %; Neutrophils # (A) 6.1 k/uL (1.3-7.7); Neutrophils % (A) 61 %; Platelet Count 287 k/uL (150-450); RBC 5.12 m/uL (3.80-5.40); RDW 15.7 % (11.5-15.5)
[2017-11-25 19:51] LABS: Anion Gap 12 mmol/L; Blood Urea Nitrogen 10 mg/dL (7-17); Calcium 8.8 mg/dL (8.4-10.2); Carbon Dioxide 23 mmol/L (22-30); Chloride 104 mmol/L (98-107); Glucose 86 mg/dL (74-99); Potassium 3.8 mmol/L (3.5-5.1); Sodium 139 mmol/L (137-145)
[2017-11-25 20:09] VITALS: BP 135/64; PULSE 97; RESP 16; TEMP 99.7
--- NOTE | 2017-11-25 21:13 | US ---
EXAMINATION TYPE: Transabdominal DATE OF EXAM: 09/15/17 COMPARISON: NONE CLINICAL HISTORY: Pain. Pain EXAM PERFORMED: Transvaginal (TV) EXAM MEASUREMENTS: GESTATIONAL AGE / DATING Physician Established: Not yet established Dates by LMP: LMP unknown Dates by First Scan: No previous this is first scan Dates by Current Scan for: (6 weeks/5 days) EDC: 07/16/2018 MATERNAL ANATOMY Uterus: 9.5 x 6.3 x 6.6 cm Right Ovary: 4.3 x 4.3 x 3.9 cm Left Ovary: 2.2 x 1.5 x 2.2 cm Post CDS / Adnexa: wnl Presence of free fluid: no Presence of corpus luteal cyst: yes right measuring 4.3 x 4.3 x 3.9 cm Presence of subchorionic bleed: no GESTATION / SURVEY CRL: 0.82 cm (6 weeks/5 days) Yolk Sac (normal less than 6mm): 2 mm Heart Rate: 123 bpm Rhythm: Normal IUP: Viable IUP Beta HcG (if available): Not available at this time Viable IUP 6w5d ARMANDO 07/16/2018 HR 123 BPM IMPRESSION: The ultrasound gestational age is 6 weeks 5 days. I see no complicating process.
== END 2017-11-25 21:46 | disposition home or self-care (01) ==
LOC: EC 17:32
DX: O20.0 Threatened abortion (principal); O99.331 Smoking (tobacco) complicating pregnancy, first trimester; F17.200 Nicotine dependence, unspecified, uncomplicated; Z3A.10 10 weeks gestation of pregnancy; Z79.82 Long term (current) use of aspirin; Z91.048 Other nonmedicinal substance allergy status; Z91.030 Bee allergy status; Z91.09 Other allergy status, other than to drugs and biological substances
CPT/HCPCS: 36415; 76801; 76817; 80048; 81001; 81025; 84702; 85025; 86850; 86900; 86901; 99284

== ENCOUNTER → 2019-01-21 | Outpatient (CLI) | payer OTHER ==
--- NOTE | 2019-01-21 17:17 | XR ---
EXAMINATION TYPE: XR sacrum coccyx DATE OF EXAM: 01/21/2019 COMPARISON: NONE HISTORY: Back pain TECHNIQUE: 3 views FINDINGS: Sacral segments have normal alignment. I see no fracture nor dislocation. There is coarse t rabeculae in the left hemipelvis in the iliac bone that could relate to osteogenesis imperfecta. IMPRESSION: No fracture. Normal sacrum and coccyx. Changes in the left ilium could relate to osteogen esis imperfecta or fibrous dysplasia and also present on hip x-ray of 08/13/2015.
--- NOTE | 2019-01-21 17:19 | XR ---
EXAMINATION TYPE: XR thoracic spine complete DATE OF EXAM: 01/21/2019 COMPARISON: July 24, 2013 HISTORY: Back pain TECHNIQUE: 3 views FINDINGS: Thoracic vertebra have normal alignment. Posterior elements are intact. There is no paraspi nal mass. I see no bony destructive process. There is no evidence of compression fracture. IMPRESSION: Normal thoracic spine. No change.
--- NOTE | 2019-01-21 17:20 | XR ---
EXAMINATION TYPE: XR lumbar spine 2 or 3V DATE OF EXAM: 01/21/2019 COMPARISON: NONE HISTORY: Back pain TECHNIQUE: 3 views FINDINGS: Lumbar vertebra have normal spacing and alignment. Posterior elements are intact. There is no paraspinal mass. IMPRESSION: Negative lumbar spine exam. No fracture.
== END | disposition home or self-care (01) ==
LOC: RADXRMAIN 16:32
PROVIDERS: ATTEND Emergency Medicine
DX: S20.221A Contusion of right back wall of thorax, initial encounter (principal); S30.0XXA Contusion of lower back and pelvis, initial encounter; S83.90XA Sprain of unspecified site of unspecified knee, initial encounter
CPT/HCPCS: 72072; 72100; 72220

== ENCOUNTER → 2019-02-01 | Outpatient (CLI) | payer OTHER ==
--- NOTE | 2019-02-01 12:47 | MR ---
EXAMINATION TYPE: MR knee RT wo con DATE OF EXAM: 02/01/2019 COMPARISON: Right knee x-ray November 06, 2017 HISTORY: Rt knee pain, contusion injury. Slip and fall injury 3 weeks ago per patient. History of gissel or surgery. TECHNIQUE: Multiplanar, multisequence images of the knee is performed without IV contrast. FINDINGS: MEDIAL MENISCUS: Anterior horn is intact without tear. Truncated appearance central body extending in to the posterior horn identified, favor postsurgical partial meniscectomy change. Focus of oblique in creased signal coronal image 21 noted. Cannot exclude acute tear and background postsurgical change. LATERAL MENISCUS: Anterior and posterior horns are intact without tear. CRUCIATE LIGAMENTS: The posterior cruciate ligament is intact and unremarkable. Normal anterior cruci ate ligament is not visualized consistent with complete tear. Age indeterminate but favored old given lack of significant osseous contusion injury. COLLATERAL LIGAMENTS: The medial collateral ligament and lateral collateral ligament complex are inta ct and unremarkable. EXTENSOR MECHANISM: Visualized quadriceps and patellar tendons are intact. EFFUSION: There is small suprapatellar joint effusion extending laterally. POPLITEAL CYST: No popliteal/corrales cyst. TRICOMPARTMENT SPACES: Moderate to severe narrowing patellofemoral compartment with mild spurring. Mi ld to moderate spurring medial aspect medial tibiofemoral compartment. CARTILAGE: Some chondromalacia patella with thinning of articular cartilage along posterior patellar pole. Some thinning of articular cartilage lateral tibial femoral compartment. BONE MARROW SIGNAL: Some increased T2 signal involving the anterior aspect distal lateral femoral con dyle axial image 13 and coronal image 11 near area of cartilaginous loss.. OTHER: No additional significant abnormality is appreciated. IMPRESSION: 1. Complete ACL tear age indeterminate 2. Postsurgical changes central body and posterior horn medial meniscus suspected. Correlate clinical ly. Cannot exclude subtle acute tear on background postsurgical change posterior horn as detailed abo ve. 3. Moderate to advanced patellofemoral joint arthropathy somewhat prominent for patient's chronologic age. 4. Small suprapatellar joint effusion extending laterally.
== END ==
LOC: RADMRIMAIN 11:02
PROVIDERS: ATTEND Emergency Medicine
DX: S83.511A Sprain of anterior cruciate ligament of right knee, initial encounter (principal); M12.861 Other specific arthropathies, not elsewhere classified, right knee

== ENCOUNTER → 2019-02-02 | Outpatient (CLI) | payer OTHER ==
--- NOTE | 2019-02-02 14:24 | XR ---
EXAMINATION TYPE: XR chest 2V DATE OF EXAM: 02/02/2019 COMPARISON: 04/16/2017 INDICATION: Fall pain in right side TECHNIQUE: Frontal and lateral views of the chest are obtained. FINDINGS: The heart size is normal. The pulmonary vasculature is normal. The lungs are clear. No pneumothorax is evident. No displaced rib fractures are evident. IMPRESSION: 1. No acute pulmonary process.
--- NOTE | 2019-02-02 14:25 | XR ---
EXAMINATION TYPE: XR ribs RT DATE OF EXAM: 02/02/2019 COMPARISON: 02/02/2019 chest x-ray HISTORY: Fall right-sided rib pain TECHNIQUE: Three-view right FINDINGS: No displaced fractures are evident. No pneumothorax is evident. IMPRESSION: 1. Normal right ribs
== END | disposition home or self-care (01) ==
LOC: RADXRMAIN 13:49
PROVIDERS: ATTEND Emergency Medicine
DX: S20.221D Contusion of right back wall of thorax, subsequent encounter (principal)
CPT/HCPCS: 71046

== ENCOUNTER → 2021-01-02 | Outpatient (CLI) | payer OTHER ==
[2021-01-02 13:05] LABS: Basophils % (A) 0 %; Eosinophils # (A) 0.1 k/uL (0-0.7); Eosinophils % (A) 2 %; HCT 45.1 % (34.0-46.0); Lymphocytes # (A) 3.2 k/uL (1.0-4.8); Lymphocytes % (A) 38 %; MCHC 33.2 g/dL (31.0-37.0); MCV 87.5 fL (80.0-100.0); Mean Platelet Volume 7.4; Monocytes # (A) 0.6 k/uL (0-1.0); Monocytes % (A) 7 %; Neutrophils # (A) 4.4 k/uL (1.3-7.7); Neutrophils % (A) 52 %; Platelet Count 268 k/uL (150-450); RBC 5.16 m/uL (3.80-5.40); RDW 12.4 % (11.5-15.5); WBC 8.5 k/uL (3.8-10.6)
[2021-01-02 13:20] LABS: Potassium 4.4 mmol/L (3.5-5.1)
== END | disposition home or self-care (01) ==
LOC: LABPAT 12:00
PROVIDERS: ATTEND Orthopaedic Surgery
DX: Z01.812 Encounter for preprocedural laboratory examination (principal); M23.91 Unspecified internal derangement of right knee
CPT/HCPCS: 36415; 80051; 85025

== ENCOUNTER 2021-01-04 06:22 | Day surgery (SDC) | payer OTHER ==
[2021-01-02 10:43] VITALS: BMI 47.2
--- NOTE | 2021-01-03 11:25 | HP ---
HISTORY AND PHYSICAL CHIEF COMPLAINT: Right knee pain. 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 She notes persistent swelling, pain, along with giving way. She has been taking [place] for this. She has tried an injection without much relief. She does have his a history of 2 previous knee arthroscopies in the past. PAST MEDICAL HISTORY: Significant for depression. PAST SURGICAL HISTORY: Significant for right knee arthroscopy x2. CURRENT MEDICATIONS: Adderall, hydrocodone, Lexapro, aspirin, and Xanax. ALLERGIES: She has allergies to bleach and bee stings. FAMILY HISTORY: Significant for diabetes and cancer. SOCIAL HISTORY: Negative for current tobacco or alcohol use. REVIEW OF SYSTEMS: Sixteen-point review of systems otherwise reviewed and is noncontributory. PHYSICAL EXAMINATION: On examination, the patient is approximately 5 foot 9, 315 pounds of endomorphic habitus. HEENT exam is nonfocal. Neck is supple. She has painless passive motion of the right hip. Straight leg raise is negative. Active motion right knee -12 to 100 degrees of flexion. She has a large effusion. She is tender about the medial joint line. Collaterals are stable, Sarah's 1+, Alejandra's elicits medial pain. Her distal neurovascular exam appears intact in the right lower extremity. MRI report right knee 11/06/2017 shows evidence of an ACL tear along with a medial meniscal tear and tricompartmental degenerative changes. IMPRESSION: 1. Right knee internal derangement with symptomatic medial meniscal tear. 2. Right knee ACL rupture. 3. Right knee tricompartmental osteoarthrosis. 4. Obesity. RECOMMENDATIONS: I talked to the patient at length regarding her condition and treatment options. This point she is having persistent pain and mechanical symptoms despite previous conservative measures. After thorough discussion, she opts to proceed with surgery. We will plan to proceed with arthroscopic evaluation, possible partial medial meniscectomy in addition to the ACL debridement. We will likely perform that as an outpatient procedure. Risks and benefits were discussed at length in layman's terms. MMODL / IJN: [id number] /
[~2021-01-04 06:22] MED LIST: DEXAMETHASONE SOD PHOSPHATE 4 MG/ML 1 ML VIAL IV ONE; LACTATED RINGERS 1,000 ML IV SCH; ONDANSETRON 4 MG/2 ML VIAL IVP ONE; SCOPOLAMINE 1.5MG/72HR PATCH TRANSDERM ONE; ceFAZolin 3 GM in SODIUM CHLORIDE 0.9% 100 ML IVPB PRN
[2021-01-04] MEDS ORDERED: MIDAZOLAM 2 MG/2 ML VIAL IV PRN (07:00)
[2021-01-04] MEDS ORDERED: PROPOFOL 10 MG/ML 20 ML VIAL IV ONE (07:17)
[2021-01-04] MEDS ORDERED: SUCCINYLCHOLINE CHLORIDE 100 MG/5 ML SYR IV ONE (07:17)
[2021-01-04] MEDS ORDERED: fentaNYL (PF) 50 MCG/ML 2 ML AMP ONE (07:17)
[2021-01-04] MEDS ORDERED: HYDROmorphone (PF) 1 MG/ML ONE (07:17)
[2021-01-04] MEDS ORDERED: MIDAZOLAM 2 MG/2 ML VIAL ONE (07:17)
[2021-01-04] MEDS ORDERED: LIDOCAINE 1% INJ 10MG/ML (20 ML MDV) ONE (07:17)
--- NOTE | 2021-01-04 08:08 | P.OP ---
Date of Procedure: 01/04/21 Preoperative Diagnosis: Right knee internal derangement Postoperative Diagnosis: Right knee posterior medial meniscal tear/grade 3 chondral injury distal medial femoral condyle/ACL rupture Procedure(s) Performed: Right knee arthroscopic partial medial meniscectomy/medial femoral chondrectomy/microfracture medial femoral condyle/ACL debridement Anesthesia: KELLY Surgeon: Giovany Dickinson Estimated Blood Loss (ml): 10 Pathology: none sent Condition: stable Disposition: PACU Indications for Procedure: The patient's a 30-year-old female presents after a previous fall with persistent pain and mechanical symptoms despite conservative measures. A discussion of the risks and benefits of operative intervention versus continued conservative measures made with patient. She opted to proceed with surgery. Operative risks to include infection, neurovascular injury, development of blood clots, possible incomplete register symptoms, possible worsening symptoms and need for subsequent procedures was discussed. Informed consent was obtained. Operative Findings: As below Description of Procedure: The patient was brought to the operating room, and after induction of general anesthesia examined the right knee. Collaterals were stable, Sarah was 1+ with a positive pivot shift, and posterior drawer was negative. The right lower extremity was prepped and draped in a normal fashion. A superior lateral portal was made through a 3 mm skin incision superior and lateral to the patella. This was used for outflow. A lateral portal was made through a 5 mm vertical skin incision lateral to the patella tendon above the joint line. Diagnostic arthroscopy was performed. On inspection of the medial compartment, a complex tear involving the posterior horn medial meniscus in the white-red junction was noted. This was debrided back to stable base with straight baskets and a motorized shaver. A corresponding grade 3 chondral injury was noted involving the distal medial aspect the medial femoral condyle. The loose chondral fragment was debrided with a motorized shaver back to stable base. Microfracture was performed with a power pick breeching the subchondral surface down to the bone marrow elements On inspection of the notch, the anterior cruciate ligament appeared to be partially torn off the femoral attachment. The impinging tissue was debrided with motorized shaver. On inspection of the lateral compartment, the lateral meniscus was stable and intact. On inspection of the patellofemoral articulation, grade 2-3 chondral changes were noted diffusely. The gutters were clear debris. The knee was then thoroughly irrigated. The portals were closed with Steri-Strips. A sterile dressing was applied in addition to an [place] wrap. The patient was awoken from general anesthesia and transferred to recovery room in good condition. Blood loss was estimated at 10 mL. No complications were incurred.
[2021-01-04 08:17] VITALS: TEMP 97.1
[2021-01-04] MEDS: HYDROmorphone 0.5 MG/0.5 ML SYRINGE IVP PRN ×4 (08:20→08:43)
[2021-01-04] MEDS ORDERED: HYDROcodone/APAP 10-325MG 1 EACH TAB PO ONE (09:10)
[2021-01-04 09:11] VITALS: BP 116/76; RESP 16
[2021-01-04] MEDS ORDERED: HYDROcodone/APAP 10-325MG 1 EACH TAB ONE (09:13)
[2021-01-04 09:34] VITALS: PULSE 70
== END 2021-01-04 09:47 | disposition home or self-care (01) ==
LOC: OR 06:22
PROVIDERS: ATTEND Orthopaedic Surgery
DX: S83.241A Other tear of medial meniscus, current injury, right knee, initial encounter (principal); W19.XXXA Unspecified fall, initial encounter; F32.9 Major depressive disorder, single episode, unspecified; S83.511A Sprain of anterior cruciate ligament of right knee, initial encounter; Z79.82 Long term (current) use of aspirin; Z79.899 Other long term (current) drug therapy; Z91.030 Bee allergy status; Z91.048 Other nonmedicinal substance allergy status; F41.9 Anxiety disorder, unspecified; E66.01 Morbid (severe) obesity due to excess calories
CPT/HCPCS: 81025; 29881; 29879; J2250; J1100; J0690; J2405; J2001; J3010; J1170 ×2; J0330; J2704

== ENCOUNTER → 2021-11-05 | Outpatient (CLI) | payer OTHER ==
[2021-11-05 22:40] LABS: HCT 46.4 % (37.2-46.3); HGB 14.9 g/dL (12.0-15.0); MCH 28.2 pg (27.0-32.0); MCHC 32.1 g/dL (32.0-37.0); MCV 87.9 fL (80.0-97.0); Mean Platelet Volume 10.4 fL (9.5-12.2); NRBC Per 100 WBC 0 /100 WBCS (0.0-0.0); Platelet Count 288 X 10*3/uL (140-440); RBC 5.28 X 10*6/uL (4.10-5.20); RDW 12.7 % (11.5-14.5); WBC 9.27 X 10*3/uL (4.50-10.00)
[2021-11-05 23:02] LABS: % Iron Saturation 14.73 (12.00-45.00); ALT 46 U/L (8-44); AST 26 U/L (13-35); African American GFR (CKD) 143.3 (60.0-200.0); Albumin/Globulin Ratio 1.71 (1.60-3.17); Alkaline Phosphatase 59 U/L (41-126); BUN/Creat Ratio 18.09 Ratio (12.00-20.00); Blood Urea Nitrogen 9.9 mg/dL (9.0-27.0); Calcium 8.7 mg/dL (8.7-10.3); Carbon Dioxide 26.1 mmol/L (20.0-27.5); Chloride 106 mmol/L (96-109); Globulin 2.3 g/dL (1.6-3.3); Glucose 111 mg/dL (70-110); Iron 53 ug/dL (50-170); Magnesium 1.8 mg/dL (1.5-2.4); Non-African American GFR(CKD) 123.6 (60.0-200.0); Phosphorus 3.9 mg/dL (2.4-5.1); Potassium 4.3 mmol/L (3.5-5.5); Sodium 141 mmol/L (135-145); Total Iron Binding Capacity 363 ug/dL (228-460); Total Protein 6.3 g/dL (6.2-8.2)
[2021-11-05 23:25] LABS: Chol/HDL Ratio 5.35 Ratio; LDL Cholesterol,Calculated 142.4 mg/dL (0.0-131.0); Prealbumin 20.4 mg/dL (18.0-42.0)
[2021-11-06 04:09] LABS: INR 0.97 (0.90-1.11); Prothrombin Time 10.7 sec (9.9-11.9)
[2021-11-06 12:09] LABS: Zinc, Serum 57 ug/dL (60-130)
[2021-11-07 08:44] LABS: Vit B1(Thiamine) 101 ug/L (38-122)
[2021-11-07 09:01] LABS: Anabasine Urine <2.0 ng/mL (<2.0)
[2021-11-07 09:02] LABS: Vitamin A 31 ug/dL (38-106)
== END | disposition home or self-care (01) ==
LOC: LABWHC1 16:15
PROVIDERS: ATTEND Surgery Plastic and Reconstructive Surgery
DX: Z71.51 Drug abuse counseling and surveillance of drug abuser (principal); E66.01 Morbid (severe) obesity due to excess calories; E89.1 Postprocedural hypoinsulinemia; E45 Retarded development following protein-calorie malnutrition; E44.0 Moderate protein-calorie malnutrition; D50.8 Other iron deficiency anemias; K91.2 Postsurgical malabsorption, not elsewhere classified; K74.1 Hepatic sclerosis; N19 Unspecified kidney failure; T56.894A Toxic effect of other metals, undetermined, initial encounter; K50.90 Crohn's disease, unspecified, without complications
CPT/HCPCS: 84255; 84134; 84425; 80061; 80053; 82607; 82728; 82525; 82746; 83540; 83550; 83735; 84100; 84443; 84590; 84630; 85027; 85610; 85730; 82306; 83970; 83036; 80307; 93005; 36415; G0480; G0482; 80323

== ENCOUNTER 2021-12-23 07:26 | Day surgery (SDC) | payer OTHER ==
[2021-12-18 12:08] VITALS: BMI 47.9
--- NOTE | 2021-12-23 07:38 | P.GSHP ---
History of Present Illness H&P Date: 12/23/21 CHIEF COMPLAINT: GERD HISTORY OF PRESENT ILLNESS: The patient is a 31-year-old female who presents reports gastroesophageal reflux disease. Upper endoscopy was offered for further evaluation and management. PAST MEDICAL HISTORY: Please see list. PAST SURGICAL HISTORY: Please see list. MEDICATIONS: Please see list. ALLERGIES: Please see list. SOCIAL HISTORY: No illicit drug use FAMILY HISTORY: No reports of Crohn disease or ulcerative colitis. REVIEW OF ORGAN SYSTEMS: CONSTITUTIONAL: No reports of fevers or chills. GI: Denies any blood in stools or constipation. PHYSICAL EXAM: VITAL SIGNS: Stable GENERAL: Well-developed and pleasant in no acute distress. HEENT: No scleral icterus. Extraocular movements grossly intact. Moist buccal mucosa. NECK: Supple without lymphadenopathy. CHEST: Unlabored respirations. Equal bilateral excursions. CARDIOVASCULAR: Regular rate and rhythm. Distal 2+ pulses. ABDOMEN: Soft, nondistended. MUSCULOSKELETAL: No clubbing, cyanosis, or edema. ASSESSMENT: 1. Gastroesophageal reflux disease PLAN: 1. Recommend proceeding with an upper endoscopy Past Medical History Past Medical History: Blood Disorder, Osteoarthritis (OA), Seizure Disorder Additional Past Medical History / Comment(s): MTHFR gene, sees Dr Maricruz sloan, last seizure years ago in early s-not sure of cause or what kind, no meds for, generalized arthritis History of Any Multi-Drug Resistant Organisms: None Reported Past Surgical History: Adenoidectomy, Section, Orthopedic Surgery, Tonsillectomy Additional Past Surgical History / Comment(s): ron KNEE SURGERY SX Past Anesthesia/Blood Transfusion Reactions: Previous Problems w/ Anesthesia Additional Past Anesthesia/Blood Transfusion Reaction / Comment(s): patient states she had a headache after spinal previously, otherwise no problems Smoking Status: Former smoker - Past Family History Mother Family Medical History: Blood Disorder, Deep Vein Thrombosis (DVT) Additional Family Medical History / Comment(s): blood clotting disorder-takes coumadin Medications and Allergies Home Medications Medication Instructions Recorded Confirmed Type Aspirin EC [Ecotrin Low Dose] 81 mg PO DAILY 06/19/17 12/18/21 History ALPRAZolam [Xanax] 1 mg PO BID PRN 01/02/21 12/18/21 History Dextroamphetamine/Amphetamine 20 mg PO TID 01/02/21 12/18/21 History [Adderall] Escitalopram [Lexapro] 20 mg PO DAILY 01/02/21 12/18/21 History HYDROcodone/APAP 10-325MG [[place] 1 tab PO Q6HR PRN 01/02/21 12/18/21 History 10-325] Ergocalciferol [Vitamin D2 (1250 50,000 unit PO WEEKLY 11/20/21 12/18/21 History Mcg = 86199 Iu)] Vitamin A [Vitamin A (8,000 Units 10,000 unit PO DAILY 11/20/21 12/18/21 History = 2,400 MCG)] Zinc 50 mg PO DAILY 11/20/21 12/18/21 History Gabapentin 300 mg PO TID 12/18/21 12/18/21 History Allergies Allergy/AdvReac Type Severity Reaction Status Date / Time adhesive tape Allergy Rash/Hives Verified 12/18/21 12:00 Bleach (Sodium Hypochlorite) Allergy Anaphylaxis Verified 12/18/21 12:00 venom-honey bee Allergy Anaphylaxis Verified 12/18/21 12:00 [bee venom (honey bee)]
[2021-12-23 07:57] VITALS: TEMP 97.2
[2021-12-23] MEDS: LACTATED RINGERS 1,000 ML IV SCH ×2 (08:10→08:11)
[2021-12-23] MEDS ORDERED: PROPOFOL 10 MG/ML 20 ML VIAL IV ONE (08:11)
[2021-12-23] MEDS ORDERED: LIDOCAINE 2% INJ 20 MG/ML (2 ML VIAL) ONE (08:11)
[2021-12-23] MEDS ORDERED: KETAMINE 10 MG/ML 20 ML VIAL ONE (08:11)
[2021-12-23] MEDS ORDERED: MIDAZOLAM 2 MG/2 ML VIAL ONE (08:11)
[2021-12-23] MEDS ORDERED: LACTATED RINGERS 1,000 ML IV ONE (08:26)
--- NOTE | 2021-12-23 08:30 | P.PCN ---
Date of Procedure: 12/23/21 Description of Procedure: PREOPERATIVE DIAGNOSIS: Gastroesophageal reflux disease. Morbid obesity. POSTOPERATIVE DIAGNOSIS: Gastroesophageal reflux disease. Morbid obesity. Gastritis. Gastric ulcers OPERATION: Esophagogastroduodenoscopy with biopsies along antrum and duodenum SURGEON: Elina Salazar MD ANESTHESIA: MAC. INDICATIONS: The patient is a 31-year-old female who presents with reflux disease. Benefits and risks of the procedure were described. Informed consent was obtained. DESCRIPTION: The patient was brought into the endoscopy suite and laid in the left lateral decubitus position. An Olympus gastroscope was passed along the posterior oropharynx down to the distal esophagus where the squamocolumnar junction was encountered at 36 cm from the incisors. The stomach was entered and no bile reflux was found. Additional findings are listed below. Biopsies with cold forceps were obtained of the antrum. The first through third portion of the duodenum was examined. Retroflexion of the scope confirmed Hill grade 2 lower esophageal valve. The squamocolumnar junction demonstrated LA grade B erosive esophagitis. The stomach was desufflated. The patient tolerated the procedure well. FINDINGS: Squamocolumnar junction 36 cm from the incisors. Diaphragmatic hiatus at 36 cm. Hill grade 2 lower esophageal valve. LA grade B erosive esophagitis. Mild duodenitis. Biopsies obtained Chronic gastritis with superficial gastric ulcer with biopsies obtained RECOMMENDATIONS: Upper endoscopy as needed. Plan - Discharge Summary Discharge Rx Participant: No New Discharge Prescriptions: New Omeprazole [PriLOSEC] 40 mg PO DAILY #14 cap Continue Aspirin EC [Ecotrin Low Dose] 81 mg PO DAILY HYDROcodone/APAP 10-325MG [[place] 10-325] 0.5 tab PO Q6HR PRN PRN Reason: Pain Dextroamphetamine/Amphetamine [Adderall] 20 mg PO TID ALPRAZolam [Xanax] 1 mg PO BID PRN PRN Reason: Anxiety Zinc 50 mg PO DAILY Gabapentin 300 mg PO TID Escitalopram [Lexapro] 20 mg PO DAILY Ergocalciferol [Vitamin D2 (1250 Mcg = 43486 Iu)] 50,000 unit PO WEEKLY Vitamin A [Vitamin A (8,000 Units = 2,400 MCG)] 10,000 unit PO DAILY Discharge Medication List Aspirin EC [Ecotrin Low Dose] 81 mg PO DAILY 06/19/17 [History] ALPRAZolam [Xanax] 1 mg PO BID PRN 01/02/21 [History] Dextroamphetamine/Amphetamine [Adderall] 20 mg PO TID 01/02/21 [History] Escitalopram [Lexapro] 20 mg PO DAILY 01/02/21 [History] HYDROcodone/APAP 10-325MG [[place] 10-325] 0.5 tab PO Q6HR PRN 01/02/21 [History] Ergocalciferol [Vitamin D2 (1250 Mcg = 13689 Iu)] 50,000 unit PO WEEKLY 11/20/21 [History] Vitamin A [Vitamin A (8,000 Units = 2,400 MCG)] 10,000 unit PO DAILY 11/20/21 [History] Zinc 50 mg PO DAILY 11/20/21 [History] Gabapentin 300 mg PO TID 12/18/21 [History] Omeprazole [PriLOSEC] 40 mg PO DAILY #14 cap 12/23/21 [Rx] [facility] [place] [facility] [place] [facility] Patient Instructions/Handouts: GERD (Gastroesophageal Reflux Disease) (ED), Diet for Stomach Ulcers and Gastritis (ED) Discharge Disposition: HOME SELF-CARE
[2021-12-23 08:49] VITALS: BP 107/65; PULSE 57; RESP 14
== END 2021-12-23 09:35 | disposition home or self-care (01) ==
LOC: ORWHC2ENDO 07:26
PROVIDERS: ATTEND Surgery Plastic and Reconstructive Surgery
DX: K21.00 Gastro-esophageal reflux disease with esophagitis, without bleeding (principal); K29.50 Unspecified chronic gastritis without bleeding; B96.81 Helicobacter pylori [H. pylori] as the cause of diseases classified elsewhere; K29.80 Duodenitis without bleeding; K25.9 Gastric ulcer, unspecified as acute or chronic, without hemorrhage or perforation; E66.01 Morbid (severe) obesity due to excess calories; M19.90 Unspecified osteoarthritis, unspecified site; M25.569 Pain in unspecified knee; Z90.89 Acquired absence of other organs; Z98.891 History of uterine scar from previous surgery; Z98.890 Other specified postprocedural states; Z87.891 Personal history of nicotine dependence; Z79.82 Long term (current) use of aspirin; Z79.899 Other long term (current) drug therapy; Z91.030 Bee allergy status; Z91.048 Other nonmedicinal substance allergy status; Z68.43 Body mass index [BMI] 50.0-59.9, adult; Z82.49 Family history of ischemic heart disease and other diseases of the circulatory system
CPT/HCPCS: 81025; 43239; J2250; J2704; J2001; 88305; 88342

== ENCOUNTER → 2022-02-24 | Outpatient (CLI) | payer OTHER ==
[2022-02-24 12:43] VITALS: BMI 50.4
== END ==
LOC: BARWHC3 08:35
PROVIDERS: ATTEND Surgery Plastic and Reconstructive Surgery
DX: E66.01 Morbid (severe) obesity due to excess calories (principal); Z71.3 Dietary counseling and surveillance; Z91.048 Other nonmedicinal substance allergy status; Z91.030 Bee allergy status; Z88.8 Allergy status to other drugs, medicaments and biological substances; F17.290 Nicotine dependence, other tobacco product, uncomplicated; Z68.43 Body mass index [BMI] 50.0-59.9, adult
CPT/HCPCS: 97804

== ENCOUNTER 2022-03-04 20:29 | Emergency (ER) | payer OTHER ==
[2022-03-04 20:45] VITALS: BP 148/85; PULSE 72; RESP 18; TEMP 98.6
[2022-03-04] MEDS ORDERED: ACETAMINOPHEN TAB 500 MG TAB PO STA (22:02)
[2022-03-04] MEDS ORDERED: HYDROcodone/APAP 5-325MG 1 EACH TAB PO STA (22:07)
--- NOTE | 2022-03-04 22:31 | XR ---
EXAMINATION TYPE: XR knee complete RT DATE OF EXAM: 03/04/2022 COMPARISON: 11/06/2017 HISTORY: Pain. Fall TECHNIQUE: 3 views FINDINGS: There is knee joint effusion. There is narrowing of the patellofemoral joint space. There i s spurring on the patella. There is hypertrophic spurring of the medial femoral and tibial condyles a nd mild joint space narrowing. There is no evidence of a fracture. IMPRESSION: There is some osteoarthritis. There is increase in the knee joint effusion compared to ol d exam. No fracture.
--- NOTE | 2022-03-04 22:47 | ED ---
General Adult HPI - General Chief complaint: Extremity Injury, Lower Stated complaint: fall, leg & knee pain Time Seen by Provider: 03/04/22 22:01 Source: patient, RN notes reviewed, old records reviewed Mode of arrival: wheelchair Limitations: no limitations - History of Present Illness Initial comments: Patient is a 31-year-old female with past medical history remarkable for obesity, prior right knee surgery due to torn ligaments presents emergency Department complaining of right knee pain. Patient states that she fell onto the right knee. She states she thinks she actually injured it when she stepped strangely initially, causing a twisting. States she felt something possibly pop. Was unable to bear weight afterwards. Presents emergency department for further evaluation. Denies any sensory deficits or numbness. Endorses weakness secondary to knee pain. 10 hold knee in extension but it is painful. Endorses generalized knee pain. States it radiates to the toes occasionally. Has no other acute complaints at this time. No other injuries. Did not hit her head. Is not on blood thinners. No loss of consciousness. - Related Data Home Medications Medication Instructions Recorded Confirmed Aspirin EC [Ecotrin Low Dose] 81 mg PO DAILY 06/19/17 02/26/22 ALPRAZolam [Xanax] 1 mg PO BID PRN 01/02/21 02/26/22 Dextroamphetamine/Amphetamine 20 mg PO TID 01/02/21 02/26/22 [Adderall] Escitalopram [Lexapro] 20 mg PO DAILY 01/02/21 02/26/22 HYDROcodone/APAP 10-325MG [[place] 0.5 tab PO Q6HR PRN 01/02/21 02/26/22 10-325] Ergocalciferol [Vitamin D2 (1250 50,000 unit PO WEEKLY 11/20/21 02/26/22 Mcg = 17668 Iu)] Vitamin A [Vitamin A (8,000 Units 10,000 unit PO DAILY 11/20/21 02/26/22 = 2,400 MCG)] Zinc 50 mg PO DAILY 11/20/21 02/26/22 Gabapentin 300 mg PO TID 12/18/21 02/26/22 Previous Rx's Medication Instructions Recorded Omeprazole [PriLOSEC] 40 mg PO DAILY #14 cap 12/23/21 Allergies Allergy/AdvReac Type Severity Reaction Status Date / Time adhesive tape Allergy Rash/Hives Verified 03/04/22 20:45 Bleach (Sodium Hypochlorite) Allergy Anaphylaxis Verified 03/04/22 20:45 venom-honey bee Allergy Anaphylaxis Verified 03/04/22 20:45 [bee venom (honey bee)] Review of Systems ROS Statement: Those systems with pertinent positive or pertinent negative responses have been documented in the HPI. Review of Systems: CONST: Denies fever EYES: Denies blurry vision ENT: Denies nasal congestion C/V: Denies Chest pain RESP: Denies shortness of breath GI: Denies abdominal pain : Denies dysuria SKIN: Denies rash. MSK: Endorses right knee pain NEURO: Denies headache ROS Other: All systems not noted in ROS Statement are negative. Past Medical History Past Medical History: Blood Disorder, Osteoarthritis (OA), Seizure Disorder Additional Past Medical History / Comment(s): MTHFR gene, sees Dr Maricruz sloan, last seizure years ago in early -not sure of cause or what kind, no meds for, generalized arthritis History of Any Multi-Drug Resistant Organisms: None Reported Past Surgical History: Adenoidectomy, Section, Orthopedic Surgery, Tonsillectomy Additional Past Surgical History / Comment(s): ron KNEE SURGERY SX Past Anesthesia/Blood Transfusion Reactions: Previous Problems w/ Anesthesia Additional Past Anesthesia/Blood Transfusion Reaction / Comment(s): patient states she had a headache after spinal previously, otherwise no problems Past Psychological History: ADD/ADHD, Anxiety, Depression Smoking Status: Current some day smoker Past Alcohol Use History: Occasional Past Drug Use History: Marijuana - Past Family History Mother Family Medical History: Blood Disorder, Deep Vein Thrombosis (DVT) Additional Family Medical History / Comment(s): blood clotting disorder-takes coumadin General Exam - General Exam Comments Initial Comments: General: Appears in mild distress secondary to pain. Patient has a large BMI. HEAD: Normal with no signs of head trauma. EYES: EOMI ENT: Hearing grossly intact RESPIRATORY:, No respiratory distress C/V: Peripheral pulses 2+ and intact throughout. ABD: Nondistended EXT: Normal range of motion, no obvious deformity. Patient's tetanus palpation over the right patella, as well as lung bilateral joint lines. Patient can hold knee in extension. It is painful. No obvious deformity. Pelvis is stable. SKIN: No rashes or lesions observed on exposed skin. NEURO: Alert and oriented 4. Pain in the right knee limiting movement. No sensory deficits. Limitations: no limitations Course Vital Signs 03/04/22 20:42 Temperature 98.6 F Pulse Rate 72 Respiratory 18 Rate Blood Pressure 148/85 O2 Sat by Pulse 98 Oximetry Medical Decision Making - Medical Decision Making Based on the patient's presentation and physical exam, I'm concerned for right knee injury. She was given pain medication. We'll obtain a right knee x-ray. No further studies are warranted at this time. Right knee x-ray shows osteoarthritis. There is any joint effusion. No fracture or subluxation. At this time, patient is complaining of isolated right knee pain. No sensory deficits. Good pulses. She does have a history of right knee surgeries. She w ill be placed in a knee immobilizer, and I did offer her crutches but she has a walker at home. She will follow up with orthopedic surgery this week. She'll be given a work note. I'll provide her with Dr. Villasenor's contact info who she is seen previously. She cannot recall the name of the last surgeon she saw. We'll follow up in the next 2 days. She has home [place] medications. I instructed the patient to follow up with their PCP in the next 1-3 days. I explained that the patient should return to the emergency department if they experience any worsening symptoms. Strict return precautions were discussed with the patient. The patient expressed understanding of these instructions. I answered all questions that the patient had. The patient was discharged home in good condition with their prescriptions and follow up information. Disposition Clinical Impression: Chronic knee pain, Knee sprain Disposition: ADMITTED IP TO THIS HOSP Condition: Fair Instructions (If sedation given, give patient instructions): Knee Sprain (ED) Is patient prescribed a controlled substance at d/c from ED?: No Referrals: Mark Anthony Martin MD [Primary Care Provider] - 1-2 days Giovany Dickinson MD [STAFF PHYSICIAN] - 1-2 days Time of Disposition: 22:45
== END 2022-03-04 23:18 | disposition other institution (70) ==
LOC: EC 20:29
DX: S83.91XA Sprain of unspecified site of right knee, initial encounter (principal); M19.90 Unspecified osteoarthritis, unspecified site; G40.909 Epilepsy, unspecified, not intractable, without status epilepticus; F17.200 Nicotine dependence, unspecified, uncomplicated; Z79.82 Long term (current) use of aspirin; Z91.048 Other nonmedicinal substance allergy status; Z91.030 Bee allergy status; W19.XXXA Unspecified fall, initial encounter
CPT/HCPCS: 99284; 73562; L1830

== ENCOUNTER → 2022-03-07 | Outpatient (CLI) | payer OTHER ==
--- NOTE | 2022-03-07 12:44 | US ---
EXAMINATION TYPE: US venous doppler duplex LE RT DATE OF EXAM: 03/07/2022 12:31 PM COMPARISON: None CLINICAL HISTORY: I82.401 DVT. Right leg pain following recent fall. SIDE PERFORMED: Right TECHNIQUE: The lower extremity deep venous system is examined utilizing real time linear array sonog cy[place] with graded compression, doppler sonography and color-flow sonography. VESSELS IMAGED: Common Femoral Vein Deep Femoral Vein Greater Saphenous Vein * Femoral Vein Popliteal Vein Small Saphenous Vein * Proximal Calf Veins (* superficial vessels) Grayscale, color doppler, spectral doppler imaging performed of the deep veins of the right lower ext remity. There is normal flow, compressibility, vascular waveforms. Right Leg: Negative for DVT IMPRESSION: No ultrasound evidence for deep venous thrombosis of the right lower extremity.
== END | disposition home or self-care (01) ==
LOC: RADUSWWP 12:05
PROVIDERS: ATTEND Family Medicine
DX: I82.401 Acute embolism and thrombosis of unspecified deep veins of right lower extremity (principal)

== ENCOUNTER → 2022-06-04 | Outpatient (CLI) | payer OTHER ==
[2022-06-04 15:40] VITALS: BP 127/87; PULSE 58; TEMP 98.3; BMI 50.1
--- NOTE | 2022-06-04 16:11 | P.BASOAP ---
Subjective Progress Note Date: 06/04/22 She is continuing her medical supervised weight loss. She is seeing Dr. Ross. Pending H. pylori. She reports smoking. She is looking into sleeve vs gastric bypass. Objective - Vital Signs Vital signs: Vital Signs Temp 98.3 F 06/04/22 15:37 Pulse 58 L 06/04/22 15:37 Resp BP 127/87 06/04/22 15:37 Pulse Ox FiO2 Intake & Output 06/03/22 06/04/22 06/04/22 18:59 06:59 18:59 Weight 150.593 kg Assessment/Plan Plan: Date: 06/04/22 Initial Weight: Initial BMI: Current Weight: 150.593 kg Current BMI: 50.1 Type of Surgery: Total Volume in Band: Previous Volume: Volume Removed: Volume Added: Band Size:
== END ==
LOC: BARWHC3 15:25
PROVIDERS: ATTEND Surgery Plastic and Reconstructive Surgery
DX: E66.01 Morbid (severe) obesity due to excess calories (principal); F17.200 Nicotine dependence, unspecified, uncomplicated; Z91.048 Other nonmedicinal substance allergy status; Z68.43 Body mass index [BMI] 50.0-59.9, adult; Z91.030 Bee allergy status
CPT/HCPCS: 99211

== ENCOUNTER 2022-07-16 15:08 | Emergency (ER) | payer OTHER ==
[2022-07-16 15:13] VITALS: BP 120/74; PULSE 68; RESP 18; TEMP 97.4
[2022-07-16] MEDS ORDERED: ONDANSETRON 4 MG/2 ML VIAL IVP STA (15:42)
[2022-07-16] MEDS ORDERED: ORPHENADRINE 30 MG/ML 2 ML VIAL IVP STA (15:42)
[2022-07-16] MEDS ORDERED: KETOROLAC 15 MG/ML 1 ML VIAL IVP STA (15:42)
--- NOTE | 2022-07-16 15:53 | ED ---
Back Pain HPI - General Chief Complaint: Back Pain/Injury Stated Complaint: back pain Time Seen by Provider: 07/16/22 15:31 Source: patient, RN notes reviewed Mode of arrival: ambulatory Limitations: no limitations - History of Present Illness Initial Comments: This a 31-year-old female presents emergency Department chief complaints of back pain, mild side pain. Patient states that it hurts with movement she has a rashes. She states that she has nausea from the pain. States eating does not affect it. Denies any chance no dysuria no hematuria no diarrhea no constipation. Patient does not take anything for the discomfort at this time. Denies fevers chills no chest pain - Related Data Home Medications Medication Instructions Recorded Confirmed Aspirin EC [Ecotrin Low Dose] 81 mg PO DAILY 06/19/17 06/04/22 ALPRAZolam [Xanax] 1 mg PO BID PRN 01/02/21 06/04/22 Dextroamphetamine/Amphetamine 20 mg PO TID 01/02/21 06/04/22 [Adderall] Escitalopram [Lexapro] 20 mg PO DAILY 01/02/21 06/04/22 HYDROcodone/APAP 10-325MG [[place] 0.5 tab PO Q6HR PRN 01/02/21 06/04/22 10-325] Ergocalciferol [Vitamin D2 (1250 50,000 unit PO WEEKLY 11/20/21 06/04/22 Mcg = 96256 Iu)] Vitamin A [Vitamin A (8,000 Units 10,000 unit PO DAILY 11/20/21 06/04/22 = 2,400 MCG)] Zinc 50 mg PO DAILY 11/20/21 06/04/22 Gabapentin 300 mg PO TID 12/18/21 06/04/22 Previous Rx's Medication Instructions Recorded Omeprazole [PriLOSEC] 40 mg PO DAILY #14 cap 12/23/21 Cyclobenzaprine [Flexeril] 10 mg PO TID PRN #15 tab 07/16/22 Ibuprofen [Motrin] 600 mg PO Q8HR PRN #20 tab 07/16/22 Allergies Allergy/AdvReac Type Severity Reaction Status Date / Time adhesive tape Allergy Rash/Hives Verified 07/16/22 15:13 Bleach (Sodium Hypochlorite) Allergy Anaphylaxis Verified 07/16/22 15:13 venom-honey bee Allergy Anaphylaxis Verified 07/16/22 15:13 [bee venom (honey bee)] Review of Systems ROS Statement: Those systems with pertinent positive or pertinent negative responses have been documented in the HPI. ROS Other: All systems not noted in ROS Statement are negative. Past Medical History Past Medical History: Blood Disorder, Osteoarthritis (OA), Seizure Disorder Additional Past Medical History / Comment(s): MTHFR gene, sees Dr Maricruz sloan, last seizure years ago in early s-not sure of cause or what kind, no meds for, generalized arthritis History of Any Multi-Drug Resistant Organisms: None Reported Past Surgical History: Adenoidectomy, Section, Orthopedic Surgery, Tonsillectomy Additional Past Surgical History / Comment(s): ron KNEE SURGERY SX Past Anesthesia/Blood Transfusion Reactions: Previous Problems w/ Anesthesia Additional Past Anesthesia/Blood Transfusion Reaction / Comment(s): patient states she had a headache after spinal previously, otherwise no problems Past Psychological History: ADD/ADHD, Anxiety, Depression Smoking Status: Former smoker Past Alcohol Use History: Occasional Past Drug Use History: Marijuana - Past Family History Mother Family Medical History: Blood Disorder, Deep Vein Thrombosis (DVT) Additional Family Medical History / Comment(s): blood clotting disorder-takes coumadin General Exam Limitations: no limitations General appearance: alert, in no apparent distress Head exam: Present: atraumatic, normocephalic, normal inspection Eye exam: Present: normal appearance, PERRL, EOMI. Absent: scleral icterus, co njunctival injection, periorbital swelling ENT exam: Present: normal exam, normal oropharynx, mucous membranes moist Neck exam: Present: normal inspection, full ROM. Absent: tenderness, meningismus, lymphadenopathy Respiratory exam: Present: normal lung sounds bilaterally. Absent: respiratory distress, wheezes, rales, rhonchi, stridor Cardiovascular Exam: Present: regular rate, normal rhythm, normal heart sounds. Absent: systolic murmur, diastolic murmur, rubs, gallop, clicks GI/Abdominal exam: Present: soft, normal bowel sounds. Absent: distended, tenderness, guarding, rebound, rigid Back exam: Present: full ROM, tenderness, CVA tenderness (R), paraspinal tenderness. Absent: CVA tenderness (L) Course Vital Signs 07/16/22 15:10 Temperature 97.4 F L Pulse Rate 68 Respiratory 18 Rate Blood Pressure 120/74 O2 Sat by Pulse 100 Oximetry Medical Decision Making - Medical Decision Making Was pt. sent in by a medical professional or institution ([facility]cdaniel, [facility] [facility], urgent care, hospital, or snf...) When possible be specific @ -No Did you speak to anyone other than the patient for history (EMS, parent, family, police, friend...)? What history was obtained from this source @ -No Did you review nursing and triage notes (agree or disagree)? Why? @ -I reviewed and agree with nursing and triage notes Were old charts reviewed (outside hosp., previous admission, EMS record, old EKG, old radiological studies, urgent care reports/EKG's, snf records)? Report findings @ -none Differential Diagnosis (chest pain, altered mental status, abdominal pain women, abdominal pain men, vaginal bleeding, weakness, fever, dyspnea, syncope, headache, dizziness, GI bleed, back pain, seizure, CVA, palpatations, mental health)? @ -Back pain, UTI, pyelonephritis, abdominal pain, cholelithiasis, this is is not all inclusive EKG interpreted by me (3pts min.). @ -None X-rays interpreted by me (1pt min.). @ -X-ray thoracic spine no acute changes. CT interpreted by me (1pt min.). @ -None done U/S interpreted by me (1pt. min.). @ -None done What testing was considered but not performed or refused? (CT, X-rays, U/S, labs)? Why? @ -None What meds were considered but not given or refused? Why? @ -None Did you discuss the management of the patient with other professionals (professionals i.e. [facility] Mcdaniel, [facility], lab, RT, psych nurse, social science instructor, hose mender, teacher, special loan officer, case checker)? Give summary @ -No Was smoking cessation discussed for >3mins.? @ -No Was critical care preformed (if so, how long)? @ -No Were there social determinants of health that impacted care today? How? (Homelessness, low income, unemployed, alcoholism, drug addiction, transportation, low edu. Level, literacy, decrease access to med. care, half-way, rehab)? @ -No Was there de-escalation of care discussed even if they declined (Discuss DNR or withdrawal of care, Hospice)? DNR status @ -No What co-morbidities impacted this encounter? (DM, HTN, Smoking, COPD, CAD, Cancer, CVA, ARF, Chemo, Hep., AIDS, mental health diagnosis, sleep apnea, morbid obesity)? @ -Obesity Was patient admitted / discharged? Hospital course, mention meds given and route, prescriptions, significant lab abnormalities, going to OR and other pertinent info. @ -Discharged in stable condition with follow with PCP patient provided pain relief in the emergency room and upon discharge no acute findings on lab work were discussed possibility of gallbladder issues though she has no transaminitis and her pain is in her back. Patient agrees with follow-up and return parameters. Undiagnosed new problem with uncertain prognosis? @ -No Drug Therapy requiring intensive monitoring for toxicity (Heparin, Nitro, Insulin, Cardizem)? @ -No Were any procedures done? @ -No Diagnosis/symptom? @ -Thoracic back pain Acute, or Chronic, or Acute on Chronic? @ -Acute Uncomplicated (without systemic symptoms) or Complicated (systemic symptoms)? @ -Uncomplicated Side effects of treatment? @ -No Exacerbation, Progression, or Severe Exacerbation? @ -No Poses a threat to life or bodily function? How? (Chest pain, [place], [place], pneumonia, PE, COPD, DKA, ARF, appy, cholecystitis, CVA, Diverticulitis, Homicidal, Suicidal, threat to staff... and all critical care pts) @ -No - Lab Data Result diagrams: 07/16/22 16:07 07/16/22 16:07 Lab Results 07/16/22 07/16/22 07/16/22 Range/Units 16:07 16:07 16:20 WBC 9.5 (3.8-10.6) k/uL RBC 4.97 (3.80-5.40) m/uL Hgb 13.8 (11.4-16.0) gm/dL Hct 41.7 (34.0-46.0) % MCV 83.9 (80.0-100.0) fL MCH 27.8 (25.0-35.0) pg MCHC 33.1 (31.0-37.0) g/dL RDW 12.6 (11.5-15.5) % Plt Count 274 (150-450) k/uL MPV 7.1 Neutrophils % 60 % Lymphocytes % 30 % Monocytes % 5 % Eosinophils % 2 % Basophils % 0 % Neutrophils # 5.8 (1.3-7.7) k/uL Lymphocytes # 2.9 (1.0-4.8) k/uL Monocytes # 0.5 (0-1.0) k/uL Eosinophils # 0.2 (0-0.7) k/uL Basophils # 0.0 (0-0.2) k/uL Sodium 135 L (137-145) mmol/L Potassium 4.2 (3.5-5.1) mmol/L Chloride 104 (98-107) mmol/L Carbon Dioxide 28 (22-30) mmol/L Anion Gap 3 mmol/L BUN 12 (7-17) mg/dL Creatinine 0.56 (0.52-1.04) mg/dL Est GFR (CKD-EPI)AfAm >90 (>60 ml/min/1.73 sqM) Est GFR (CKD-EPI)NonAf >90 (>60 ml/min/1.73 sqM) Glucose 96 (74-99) mg/dL Calcium 8.6 (8.4-10.2) mg/dL Total Bilirubin 0.6 (0.2-1.3) mg/dL AST 23 (14-36) U/L ALT 41 H (4-34) U/L Alkaline Phosphatase 56 (38-126) U/L Total Protein 6.6 (6.3-8.2) g/dL Albumin 3.9 (3.5-5.0) g/dL Urine Color Yellow Urine Appearance Clear (Clear) Urine pH 6.5 (5.0-8.0) Ur Specific [place] 1.024 (1.001-1.035) Urine Protein Negative (Negative) Urine Glucose (UA) Negative (Negative) Urine Ketones Negative (Negative) Urine Blood Negative (Negative) Urine Nitrite Negative (Negative) Urine Bilirubin Negative (Negative) Urine Urobilinogen <2.0 (<2.0) mg/dL Ur Leukocyte Esterase Negative (Negative) Urine HCG, Qual (Not Detectd) 07/16/22 Range/Units 16:20 WBC (3.8-10.6) k/uL RBC (3.80-5.40) m/uL Hgb (11.4-16.0) gm/dL Hct (34.0-46.0) % MCV (80.0-100.0) fL MCH (25.0-35.0) pg MCHC (31.0-37.0) g/dL RDW (11.5-15.5) % Plt Count (150-450) k/uL MPV Neutrophils % % Lymphocytes % % Monocytes % % Eosinophils % % Basophils % % Neutrophils # (1.3-7.7) k/uL Lymphocytes # (1.0-4.8) k/uL Monocytes # (0-1.0) k/uL Eosinophils # (0-0.7) k/uL Basophils # (0-0.2) k/uL Sodium (137-145) mmol/L Potassium (3.5-5.1) mmol/L Chloride (98-107) mmol/L Carbon Dioxide (22-30) mmol/L Anion Gap mmol/L BUN (7-17) mg/dL Creatinine (0.52-1.04) mg/dL Est GFR (CKD-EPI)AfAm (>60 ml/min/1.73 sqM) Est GFR (CKD-EPI)NonAf (>60 ml/min/1.73 sqM) Glucose (74-99) mg/dL Calcium (8.4-10.2) mg/dL Total Bilirubin (0.2-1.3) mg/dL AST (14-36) U/L ALT (4-34) U/L Alkaline Phosphatase (38-126) U/L Total Protein (6.3-8.2) g/dL Albumin (3.5-5.0) g/dL Urine Color Urine Appearance (Clear) Urine pH (5.0-8.0) Ur Specific [place] (1.001-1.035) Urine Protein (Negative) Urine Glucose (UA) (Negative) Urine Ketones (Negative) Urine Blood (Negative) Urine Nitrite (Negative) Urine Bilirubin (Negative) Urine Urobilinogen (<2.0) mg/dL Ur Leukocyte Esterase (Negative) Urine HCG, Qual Not Detected (Not Detectd) Disposition Clinical Impression: Back pain Disposition: HOME SELF-CARE Condition: Stable Instructions (If sedation given, give patient instructions): Back Pain (ED) Additional Instructions: Please return to the Emergency Department if symptoms worsen or any other concerns. Prescriptions: Cyclobenzaprine [Flexeril] 10 mg PO TID PRN #15 tab PRN Reason: Muscle Spasm Ibuprofen [Motrin] 600 mg PO Q8HR PRN #20 tab PRN Reason: Pain Is patient prescribed a controlled substance at d/c from ED?: No Referrals: Mark Anthony Martin MD [Primary Care Provider] - 1-2 days Time of Disposition: 17:15
--- NOTE | 2022-07-16 16:08 | XR ---
EXAMINATION TYPE: XR thoracic spine 2V DATE OF EXAM: 07/16/2022 4:01 PM INDICATION: Patient age:Female; 31 years old; Reason for study: pain; COMPARISON: 03/04/2019 TECHNIQUE: 2 views of the thoracic spine in Frontal and lateral projections. FINDINGS: No evidence of acute fracture. There is no evidence of disk space narrowing or loss of vertebral bod y height. There is normal mild dextroscoliosis apex at T4-T5. Alignment of the thoracic vertebral bod ies. IMPRESSION: No acute osseous pathology.
[2022-07-16 16:34] LABS: Basophils % (A) 0 %; Eosinophils # (A) 0.2 k/uL (0-0.7); Eosinophils % (A) 2 %; HCT 41.7 % (34.0-46.0); HGB 13.8 gm/dL (11.4-16.0); Lymphocytes # (A) 2.9 k/uL (1.0-4.8); Lymphocytes % (A) 30 %; MCH 27.8 pg (25.0-35.0); MCHC 33.1 g/dL (31.0-37.0); MCV 83.9 fL (80.0-100.0); Mean Platelet Volume 7.1; Monocytes # (A) 0.5 k/uL (0-1.0); Monocytes % (A) 5 %; Neutrophils # (A) 5.8 k/uL (1.3-7.7); Neutrophils % (A) 60 %; Platelet Count 274 k/uL (150-450); RBC 4.97 m/uL (3.80-5.40); RDW 12.6 % (11.5-15.5); WBC 9.5 k/uL (3.8-10.6)
[2022-07-16 16:51] LABS: Appearance,Urine Clear (Clear); Bilirubin,Urine Negative (Negative); Blood,Urine Negative (Negative); Color,Urine Yellow; Glucose,Urine (UA) Negative (Negative); Ketones,Urine Negative (Negative); Leukocyte Esterase,Urine Negative (Negative); Nitrite,Urine Negative (Negative); PH, Urine 6.5 (5.0-8.0); Protein,Urine Negative (Negative); Specific Gravity,Urine 1.024 (1.001-1.035); Urobilinogen,Urine <2.0 mg/dL (<2.0)
[2022-07-16 16:59] LABS: ALT 41 U/L (4-34); AST 23 U/L (14-36); African American GFR (CKD) >90 (>60 ml/min/1.73 sqM); Albumin 3.9 g/dL (3.5-5.0); Alkaline Phosphatase 56 U/L (38-126); Anion Gap 3 mmol/L; Blood Urea Nitrogen 12 mg/dL (7-17); Calcium 8.6 mg/dL (8.4-10.2); Carbon Dioxide 28 mmol/L (22-30); Chloride 104 mmol/L (98-107); Glucose 96 mg/dL (74-99); Non-African American GFR(CKD) >90 (>60 ml/min/1.73 sqM); Potassium 4.2 mmol/L (3.5-5.1); Sodium 135 mmol/L (137-145); Total Bilirubin 0.6 mg/dL (0.2-1.3); Total Protein 6.6 g/dL (6.3-8.2)
[2022-07-16] MEDS ORDERED: ACET/COD 300 MG/30 MG STARTER PACK 6 TAB BTL PO STA (17:14)
== END 2022-07-16 20:24 | disposition home or self-care (01) ==
LOC: EC 15:08
DX: M54.50 Low back pain, unspecified (principal); M19.90 Unspecified osteoarthritis, unspecified site; F90.9 Attention-deficit hyperactivity disorder, unspecified type; F41.9 Anxiety disorder, unspecified; F32.A Depression, unspecified; F12.90 Cannabis use, unspecified, uncomplicated; Z87.891 Personal history of nicotine dependence; Z91.030 Bee allergy status
CPT/HCPCS: 36415; 80053; 85025; 81003; 81025; 72070; 99283; 96374; 96375 ×2; J2360; J2405; J1885

== ENCOUNTER → 2022-11-19 | Outpatient (CLI) | payer OTHER ==
[2022-11-19 14:08] LABS: INR 0.9 (<1.2)
[2022-11-19 14:09] LABS: Partial Thromboplastin Time 23.8 sec (22.0-30.0); Prothrombin Time 10.1 sec (9.0-12.0)
[2022-11-19 20:47] LABS: % Iron Saturation 16.84 (12.00-45.00); ALT 50 U/L (8-44); AST 24 U/L (13-35); Albumin 4.3 d/dL (3.8-4.9); Albumin/Globulin Ratio 1.72 Ratio (1.60-3.17); Alkaline Phosphatase 58 U/L (41-126); Blood Urea Nitrogen 9.6 mg/dL (9.0-27.0); Calcium 9.3 mg/dL (8.7-10.3); Carbon Dioxide 26.1 mmol/L (21.6-31.8); Chloride 104 mmol/L (96-109); Chol/HDL Ratio 4.85 Ratio; Globulin 2.5 d/dL (1.6-3.3); Glucose 89 mg/dL (70-110); Iron 65 UG/DL (50-170); LDL Cholesterol,Calculated 101.3 mg/dL (0.0-131.0); Phosphorus 3.5 mg/dL (2.4-5.1); Potassium 4.2 mmol/L (3.5-5.5); Sodium 140 mmol/L (135-145); Total Bilirubin 0.6 mg/dL (0.3-1.2); Total Iron Binding Capacity 386 UG/DL (228-460); Total Protein 6.8 d/dL (6.2-8.2)
[2022-11-19 22:01] LABS: Prealbumin 19.9 mg/dL (18.0-42.0)
[2022-11-19 23:13] LABS: Ferritin 82.4 ng/mL (10.0-291.0)
[2022-11-20 01:25] LABS: HCT 47.3 % (37.2-46.3); HGB 14.8 d/dL (12.0-15.0); MCH 28.1 pg (27.0-32.0); MCHC 31.3 d/dL (32.0-37.0); MCV 89.8 FL (80.0-97.0); Mean Platelet Volume 9.9 FL (9.5-12.2); NRBC Per 100 WBC 0 X 10*3/uL (0.00-0.01); Platelet Count 322 X 10*3/uL (140-440); RBC 5.27 X 10*6/uL (4.10-5.20); RDW 12.7 % (11.5-14.5); WBC 8.27 X 10*3/uL (4.50-10.00)
[2022-11-20 13:29] LABS: Zinc, Serum 68 ug/dL (60-130)
[2022-11-21 06:31] LABS: Vit B1(Thiamine) 76 ug/L (38-122)
[2022-11-21 08:04] LABS: Vitamin A 31 ug/dL (38-106)
== END | disposition home or self-care (01) ==
LOC: LABWHC1 11:41
PROVIDERS: ATTEND Surgery Plastic and Reconstructive Surgery
DX: E66.01 Morbid (severe) obesity due to excess calories (principal); D50.8 Other iron deficiency anemias; K91.2 Postsurgical malabsorption, not elsewhere classified; E44.0 Moderate protein-calorie malnutrition; E44.1 Mild protein-calorie malnutrition; E45 Retarded development following protein-calorie malnutrition; E55.9 Vitamin D deficiency, unspecified; K74.1 Hepatic sclerosis; K76.9 Liver disease, unspecified; N19 Unspecified kidney failure; T56.894A Toxic effect of other metals, undetermined, initial encounter; K50.90 Crohn's disease, unspecified, without complications
CPT/HCPCS: 36415; 80053; 80061; 82306; 82525; 82607; 82728; 82746; 83540; 83550; 83735; 83970; 84100; 84134; 84255; 84425; 84443; 84590; 84630; 85027; 85610; 85730

== ENCOUNTER 2022-11-28 15:49 | Emergency (ER) | payer OTHER ==
[2022-11-28 16:37] VITALS: TEMP 98.2
[2022-11-28 16:38] LABS: Glucose,Whole Blood 84 mg/dL (70-110)
--- NOTE | 2022-11-28 16:44 | ED ---
General Adult HPI - General Source: patient Mode of arrival: wheelchair Limitations: no limitations <Sara Martin - Last Filed: 11/28/22 16:44> <Nir Krishna - Last Filed: 11/29/22 00:23> - General Chief complaint: Dizziness Stated complaint: Dizziness,AMS - History of Present Illness Initial comments: 32-year-old female presents to the emergency department chief complaint of lightheadedness. She states it started around 3:00 today and has been constant. She states that she was at [facility] with her niece and nephew she was wa lking and felt lightheaded. PMH includes seizure disorder. (Sara Martin) 32-year-old female presenting with chief complaint of dizziness that started around 3:00pm today. She states that it feels like the world is spinning around her. She admits to tunnel vision and confusion. She is having a difficult time recalling information. Patient does have history of seizures, her last seizure was about one month ago. Patient states that she should be taking 300 mg ga bapentin 3 times a day, however she is in between physicians and is about to run out so she has been taking a much smaller dose in order to make her supply stretch. Patient states "it feels like I might have a seizure". She states that her lips feel somewhat numb but otherwise no other numbness or tingling. She denies any chest pain, difficulty breathing, palpitations, abdominal pain, head injury, loss of consciousness. (Nir Krishna) - Related Data Home Medications Medication Instructions Recorded Confirmed Aspirin EC [Ecotrin Low Dose] 81 mg PO DAILY 06/19/17 11/28/22 ALPRAZolam [Xanax] 1 mg PO BID PRN 01/02/21 11/28/22 Dextroamphetamine/Amphetamine 20 mg PO TID 01/02/21 11/28/22 [Adderall] Escitalopram [Lexapro] 20 mg PO DAILY 01/02/21 11/28/22 HYDROcodone/APAP 10-325MG [[place] 0.5 tab PO Q6HR PRN 01/02/21 11/28/22 10-325] Ergocalciferol [Vitamin D2 (1250 50,000 unit PO WEEKLY 11/20/21 11/28/22 Mcg = 87432 Iu)] Vitamin A [Vitamin A (8,000 Units 10,000 unit PO DAILY 11/20/21 11/28/22 = 2,400 MCG)] Zinc 50 mg PO DAILY 11/20/21 11/28/22 Gabapentin 300 mg PO TID 12/18/21 11/28/22 Ergocalciferol [Vitamin D2 (1250 50,000 unit PO WEEKLY 11/28/22 11/28/22 Mcg = 30475 Iu)] Vitamin A 10,000 unit PO DAILY 11/28/22 11/28/22 Previous Rx's Medication Instructions Recorded Omeprazole [PriLOSEC] 40 mg PO DAILY #14 cap 12/23/21 Cyclobenzaprine [Flexeril] 10 mg PO TID PRN #15 tab 07/16/22 Ibuprofen [Motrin] 600 mg PO Q8HR PRN #20 tab 07/16/22 Meclizine [Antivert] 25 mg PO BID PRN #20 tab 11/28/22 Allergies Allergy/AdvReac Type Severity Reaction Status Date / Time adhesive tape Allergy Rash/Hives Verified 11/28/22 16:37 Bleach (Sodium Hypochlorite) Allergy Anaphylaxis Verified 11/28/22 16:37 venom-honey bee Allergy Anaphylaxis Verified 11/28/22 16:37 [bee venom (honey bee)] Review of Systems ROS Other: All systems not noted in ROS Statement are negative. <Sara Martin - Last Filed: 11/28/22 16:44> ROS Other: All systems not noted in ROS Statement are negative. <Nir Krishna - Last Filed: 11/29/22 00:23> ROS Statement: Those systems with pertinent positive or pertinent negative responses have been documented in the HPI. 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, last seizure years ago in early -not sure of cause or what kind, no meds for, generalized arthritis History of Any Multi-Drug Resistant Organisms: None Reported Past Surgical History: Adenoidectomy, Section, Orthopedic Surgery, Tonsillectomy Additional Past Surgical History / Comment(s): ron KNEE SURGERY SX Past Anesthesia/Blood Transfusion Reactions: Previous Problems w/ Anesthesia Additional Past Anesthesia/Blood Transfusion Reaction / Comment(s): patient stat es she had a headache after spinal previously, otherwise no problems Past Psychological History: ADD/ADHD, Anxiety, Depression Smoking Status: Former smoker Past Alcohol Use History: Occasional Past Drug Use History: Marijuana - Past Family History Mother Family Medical History: Blood Disorder, Deep Vein Thrombosis (DVT) Additional Family Medical History / Comment(s): blood clotting disorder-takes coumadin <Sara Martin - Last Filed: 11/28/22 16:44> General Exam Limitations: no limitations <Sara Martin - Last Filed: 11/28/22 16:44> Limitations: altered mental status General appearance: in no apparent distress, lethargic Head exam: Present: atraumatic, normocephalic, normal inspection Eye exam: Present: normal appearance, EOMI. Absent: scleral icterus, periorbital swelling, periorbital tenderness Neck exam: Present: normal inspection, full ROM Respiratory exam: Present: normal lung sounds bilaterally. Absent: respiratory distress, wheezes, rales, rhonchi, stridor Cardiovascular Exam: Present: regular rate, normal rhythm, normal heart sounds. Absent: systolic murmur, diastolic murmur, rubs, gallop, clicks Neurological exam: Present: alert, oriented X3, CN II-XII intact Expanded Eye Response: (4) open spontaneously Motor Response: (6) obeys commands Verbal Response: (5) oriented Olman Total: 15 Psychiatric exam: Present: normal affect, normal mood Skin exam: Present: warm, dry, intact, normal color. Absent: rash <Nir Krishna - Last Filed: 11/29/22 00:23> - General Exam Comments Initial Comments: Visual Physical Exam Vital signs reviewed General: Well-appearing, nontoxic, no acute distress. Head: Normocephalic, atraumatic Eyes: PERRLA, EOMI ENT: Airway patent Chest: Nonlabored breathing Skin: No visual rash, normal skin tone Neuro: Alert and oriented 3 Musculoskeletal: No gross abnormalities (Sara Martin) Course Vital Signs 11/28/22 11/28/22 11/28/22 16:32 17:31 18:00 Temperature 98.2 F Pulse Rate 84 62 66 Respiratory 20 18 18 Rate Blood Pressure 124/87 118/71 113/64 O2 Sat by Pulse 98 99 99 Oximetry 11/28/22 19:00 Temperature Pulse Rate 66 Respiratory 18 Rate Blood Pressure 103/59 O2 Sat by Pulse 99 Oximetry EKG Findings - EKG Comments: EKG Findings:: Sinus rhythm. Ventricular rate 65. SD interval 178. QRS 112. QTc 407. QTC 418. No ischemic changes. Normal axis. <Nir Krishna - Last Filed: 11/29/22 00:23> Medical Decision Making - Lab Data Result diagrams: 11/28/22 17:30 11/28/22 17:30 <Nir Krishna - Last Filed: 11/29/22 00:23> - Medical Decision Making Was pt. sent in by a medical professional or institution (, PA, FIRE DISPATCHER, urgent care, hospital, or care home...) When possible be specific @ -No Did you speak to anyone other than the patient for history (EMS, parent, family, police, friend...)? What history was obtained from this source @ -No Did you review nursing and triage notes (agree or disagree)? Why? @ -I reviewed and agree with nursing and triage notes Were old charts reviewed (outside hosp., previous admission, EMS record, old EKG, old radiological studies, urgent care reports/EKG's, care home records)? Report findings @ -No old charts were reviewed Differential Diagnosis (chest pain, altered mental status, abdominal pain women, abdominal pain men, vaginal bleeding, weakness, fever, dyspnea, syncope, head ache, dizziness, GI bleed, back pain, seizure, CVA, palpatations, mental health, musculoskeletal)? @ -[facility] Differential Dizziness: Benign paroxysmal positional Vertigo, Menieres disease, otitis media, acoustic neuroma, vertebrobasilar insufficiency, cerebellar stroke, encephal itis, hypovolemic, arrhythmia, coronary artery syndrome, anemia this is not meant to be an all-inclusive list EKG interpreted by me (3pts min.). @ -Sinus rhythm ventricular rate 65. SD interval 178. QRS 112. QTc 407. QTc 418. No ischemic changes. X-rays interpreted by me (1pt min.). @ -X-ray shows no acute process CT interpreted by me (1pt min.). @ -None done U/S interpreted by me (1pt. min.). @ -None done What testing was considered but not performed or refused? (CT, X-rays, U/S, labs)? Why? @ -None What meds were considered but not given or refused? Why? @ -None Did you discuss the management of the patient with other professionals (pro fessionals i.e. , PA, FIRE DISPATCHER, lab, RT, psych nurse, health care social worker, chef instructor, teacher, airfield services officer, lead case manager)? Give summary @ -No Was smoking cessation discussed for >3mins.? @ -No Was critical care preformed (if so, how long)? @ -No Were there social determinants of health that impacted care today? How? (Homelessness, low income, unemployed, alcoholism, drug addiction, transporta tion, low edu. Level, literacy, decrease access to med. care, senior care, rehab)? @ -No Was there de-escalation of care discussed even if they declined (Discuss DNR or withdrawal of care, Hospice)? DNR status @ -No What co-morbidities impacted this encounter? (DM, HTN, Smoking, COPD, CAD, Cancer, CVA, ARF, Chemo, Hep., AIDS, mental health diagnosis, sleep apnea, morbid obesity)? @ -Seizure disorder Was patient admitted / discharged? Hospital course, mention meds given and route, prescriptions, significant lab abnormalities, going to OR and other pertinent info. @ -32-year-old female presenting with chief complaint of dizziness. On physical examination there are no focal neurological deficits, patient is having some confusion, but is a and O 3. Lab work is essentially unremarkable. Negative urine hCG. Urine toxicology positive for opiates and amphetamines which can be explained by patient's use of Adderall and [place]. Chest x-rays negative. EKG is negative. Patient is supposed to be on 300 mg 3 times a day of gabapentin for her seizures and she is taking less at this time. On reassessment after fluids, meclizine, Zofran she reports improvement in her symptoms. She feels well and like to be discharged home. Follow-up with PCP. Report back to ER with any new or worsening symptoms. Discussed return parameters and answered all questions. Patient conveyed verbal understanding and agreed to the plan. I discussed this case in detail with my attending Dr. Dill Undiagnosed new problem with uncertain prognosis? @ -No Drug Therapy requiring intensive monitoring for toxicity (Heparin, Nitro, Insulin, Cardizem)? @ -No Were any procedures done? @ -No Diagnosis/symptom? @ -Dizziness Acute, or Chronic, or Acute on Chronic? @ -Acute Uncomplicated (without systemic symptoms) or Complicated (systemic symptoms)? @ -Uncomplicated Side effects of treatment? @ -No Exacerbation, Progression, or Severe Exacerbation? @ -No Poses a threat to life or bodily function? How? (Chest pain, USA, AL, pneumonia, PE, COPD, DKA, ARF, appy, cholecystitis, CVA, Diverticulitis, Homicidal, Suicidal, threat to staff... and all critical care pts) @ -No (Nir Krishna) - Lab Data Lab Results 11/28/22 11/28/22 11/28/22 Range/Units 16:36 17:00 17:00 WBC (3.8-10.6) k/uL RBC (3.80-5.40) m/uL Hgb (11.4-16.0) gm/dL Hct (34.0-46.0) % MCV (80.0-100.0) fL MCH (25.0-35.0) pg MCHC (31.0-37.0) g/dL RDW (11.5-15.5) % Plt Count (150-450) k/uL MPV Neutrophils % % Lymphocytes % % Monocytes % % Eosinophils % % Basophils % % Neutrophils # (1.3-7.7) k/uL Lymphocytes # (1.0-4.8) k/uL Monocytes # (0-1.0) k/uL Eosinophils # (0-0.7) k/uL Basophils # (0-0.2) k/uL Sodium (137-145) mmol/L Potassium (3.5-5.1) mmol/L Chloride (98-107) mmol/L Carbon Dioxide (22-30) mmol/L Anion Gap mmol/L BUN (7-17) mg/dL Creatinine (0.52-1.04) mg/dL Est GFR (CKD-EPI)AfAm (>60 ml/min/1.73 sqM) Est GFR (CKD-EPI)NonAf (>60 ml/min/1.73 sqM) Glucose (74-99) mg/dL POC Glucose (mg/dL) 84 (70-110) mg/dL POC Glu Data Integrity Specialist ID Roxana Teresa Calcium (8.4-10.2) mg/dL Total Bilirubin (0.2-1.3) mg/dL AST (14-36) U/L ALT (4-34) U/L Alkaline Phosphatase (38-126) U/L Total Protein (6.3-8.2) g/dL Albumin (3.5-5.0) g/dL Urine Color Light Yellow Urine Appearance Clear (Clear) Urine pH 5.5 (5.0-8.0) Ur Specific Albertson 1.013 (1.001-1.035) Urine Protein Negative (Negative) Urine Glucose (UA) Negative (Negative) Urine Ketones Negative (Negative) Urine Blood Negative (Negative) Urine Nitrite Negative (Negative) Urine Bilirubin Negative (Negative) Urine Urobilinogen <2.0 (<2.0) mg/dL Ur Leukocyte Esterase Negative (Negative) Urine HCG, Qual Not Detected (Not Detectd) Urine Opiates Screen (NotDetected) Ur Oxycodone Screen (NotDetected) Urine Methadone Screen (NotDetected) Ur Propoxyphene Screen (NotDetected) Ur Barbiturates Screen (NotDetected) U Tricyclic Antidepress (NotDetected) Ur Phencyclidine Scrn (NotDetected) Ur Amphetamines Screen (NotDetected) U Methamphetamines Scrn (NotDetected) U Benzodiazepines Scrn (NotDetected) Urine Cocaine Screen (NotDetected) U Marijuana (THC) Screen (NotDetected) 11/28/22 11/28/22 11/28/22 Range/Units 17:00 17:30 17:30 WBC 11.1 H (3.8-10.6) k/uL RBC 5.37 (3.80-5.40) m/uL Hgb 15.1 (11.4-16.0) gm/dL Hct 46.5 H (34.0-46.0) % MCV 86.7 (80.0-100.0) fL MCH 28.2 (25.0-35.0) pg MCHC 32.5 (31.0-37.0) g/dL RDW 12.8 (11.5-15.5) % Plt Count 306 (150-450) k/uL MPV 7.4 Neutrophils % 61 % Lymphocytes % 32 % Monocytes % 4 % Eosinophils % 2 % Basophils % 0 % Neutrophils # 6.8 (1.3-7.7) k/uL Lymphocytes # 3.5 (1.0-4.8) k/uL Monocytes # 0.5 (0-1.0) k/uL Eosinophils # 0.2 (0-0.7) k/uL Basophils # 0.0 (0-0.2) k/uL Sodium 137 (137-145) mmol/L Potassium 3.7 (3.5-5.1) mmol/L Chloride 102 (98-107) mmol/L Carbon Dioxide 27 (22-30) mmol/L Anion Gap 8 mmol/L BUN 11 (7-17) mg/dL Creatinine 0.61 (0.52-1.04) mg/dL Est GFR (CKD-EPI)AfAm >90 (>60 ml/min/1.73 sqM) Est GFR (CKD-EPI)NonAf >90 (>60 ml/min/1.73 sqM) Glucose 91 (74-99) mg/dL POC Glucose (mg/dL) (70-110) mg/dL POC Glu Data Integrity Specialist ID Calcium 8.7 (8.4-10.2) mg/dL Total Bilirubin 0.8 (0.2-1.3) mg/dL AST 32 (14-36) U/L ALT 54 H (4-34) U/L Alkaline Phosphatase 57 (38-126) U/L Total Protein 7.1 (6.3-8.2) g/dL Albumin 4.1 (3.5-5.0) g/dL Urine Color Urine Appearance (Clear) Urine pH (5.0-8.0) Ur Specific Alber[place]on (1.001-1.035) Urine Protein (Negative) Urine Glucose (UA) (Negative) Urine Ketones (Negative) Urine Blood (Negative) Urine Nitrite (Negative) Urine Bilirubin (Negative) Urine Urobilinogen (<2.0) mg/dL Ur Leukocyte Esterase (Negative) Urine HCG, Qual (Not Detectd) Urine Opiates Screen Detected H (NotDetected) Ur Oxycodone Screen Not Detected (NotDetected) Urine Methadone Screen Not Detected (NotDetected) Ur Propoxyphene Screen Not Detected (NotDetected) Ur Barbiturates Screen Not Detected (NotDetected) U Tricyclic Antidepress Not Detected (NotDetected) Ur Phencyclidine Scrn Not Detected (NotDetected) Ur Amphetamines Screen Detected H (NotDetected) U Methamphetamines Scrn Not Detected (NotDetected) U Benzodiazepines Scrn Not Detected (NotDetected) Urine Cocaine Screen Not Detected (NotDetected) U Marijuana (THC) Screen Not Detected (NotDetected) Disposition <Sara Martin - Last Filed: 11/28/22 16:44> Is patient prescribed a controlled substance at d/c from ED?: No Time of Disposition: 19:05 <Nir Krishna - Last Filed: 11/29/22 00:23> Clinical Impression: Dizziness Disposition: HOME SELF-CARE Condition: Good Instructions (If sedation given, give patient instructions): Dizziness (ED) Additional Instructions: Follow-up with PCP, suggestion has been provided for you. Report back to ER with any worsening symptoms. Take medication as prescribed. Prescriptions: Meclizine [Antivert] 25 mg PO BID PRN #20 tab PRN Reason: Vertigo Referrals: None,Stated [Primary Care Provider] - 1-2 days Barbara Gutierrez MD [STAFF PHYSICIAN] - 1-2 days
[2022-11-28] MEDS ORDERED: MECLIZINE 12.5 MG TAB PO STA (17:10)
[2022-11-28] MEDS ORDERED: SODIUM CHLORIDE 0.9% 1,000 ML IV STA (17:10)
[2022-11-28] MEDS ORDERED: ONDANSETRON 4 MG/2 ML VIAL IVP STA (17:12)
[2022-11-28 17:33] VITALS: RESP 18
[2022-11-28 17:36] LABS: Basophils % (A) 0 %; Eosinophils # (A) 0.2 k/uL (0-0.7); Eosinophils % (A) 2 %; HCT 46.5 % (34.0-46.0); HGB 15.1 gm/dL (11.4-16.0); Lymphocytes # (A) 3.5 k/uL (1.0-4.8); Lymphocytes % (A) 32 %; MCH 28.2 pg (25.0-35.0); MCHC 32.5 g/dL (31.0-37.0); MCV 86.7 fL (80.0-100.0); Mean Platelet Volume 7.4; Monocytes # (A) 0.5 k/uL (0-1.0); Monocytes % (A) 4 %; Neutrophils # (A) 6.8 k/uL (1.3-7.7); Neutrophils % (A) 61 %; Platelet Count 306 k/uL (150-450); RBC 5.37 m/uL (3.80-5.40); RDW 12.8 % (11.5-15.5); WBC 11.1 k/uL (3.8-10.6)
[2022-11-28 17:45] LABS: ALT 54 U/L (4-34); AST 32 U/L (14-36); African American GFR (CKD) >90 (>60 ml/min/1.73 sqM); Albumin 4.1 g/dL (3.5-5.0); Alkaline Phosphatase 57 U/L (38-126); Anion Gap 8 mmol/L; Blood Urea Nitrogen 11 mg/dL (7-17); Calcium 8.7 mg/dL (8.4-10.2); Carbon Dioxide 27 mmol/L (22-30); Chloride 102 mmol/L (98-107); Glucose 91 mg/dL (74-99); Non-African American GFR(CKD) >90 (>60 ml/min/1.73 sqM); Potassium 3.7 mmol/L (3.5-5.1); Sodium 137 mmol/L (137-145); Total Bilirubin 0.8 mg/dL (0.2-1.3); Total Protein 7.1 g/dL (6.3-8.2)
[2022-11-28 17:48] LABS: Appearance,Urine Clear (Clear); Bilirubin,Urine Negative (Negative); Blood,Urine Negative (Negative); Color,Urine Light Yellow; Glucose,Urine (UA) Negative (Negative); Ketones,Urine Negative (Negative); Leukocyte Esterase,Urine Negative (Negative); Nitrite,Urine Negative (Negative); PH, Urine 5.5 (5.0-8.0); Protein,Urine Negative (Negative); Specific Gravity,Urine 1.013 (1.001-1.035); Urobilinogen,Urine <2.0 mg/dL (<2.0)
[2022-11-28] MEDS ORDERED: IBUPROFEN 400 MG TAB PO STA (18:01)
[2022-11-28 18:03] LABS: Amphetamine Screen,Urine Detected (NotDetected); Barbiturate Screen,Urine Not Detected (NotDetected); Benzodiazepines Screen,Urine Not Detected (NotDetected); Cocaine Screen,Urine Not Detected (NotDetected); Methadone Screen, Urine Not Detected (NotDetected); Opiate Screen,Urine Detected (NotDetected); Oxycodone Screen, Urine Not Detected (NotDetected); Phencyclidine Screen,Urine Not Detected (NotDetected); Tricyclic Antidepressant,Urine Not Detected (NotDetected); Urn Cannabinoid Scrn Not Detected (NotDetected)
[2022-11-28 18:38] VITALS: PULSE 66
--- NOTE | 2022-11-28 18:41 | XR ---
EXAMINATION TYPE: XR chest 2V DATE OF EXAM: 11/28/2022 6:28 PM COMPARISON: Chest radiographs from 02/02/2019 TECHNIQUE: XR chest 2V Frontal and lateral views of the chest. CLINICAL INDICATION:Female, 32 years old with history of dizziness; FINDINGS: Lungs/Pleura: Low lung volumes are present. There is no evidence of pleural effusion, focal consolida tion, or pneumothorax. Pulmonary vascularity: Unremarkable. Heart/mediastinum: Cardiomediastinal silhouette is unremarkable. Musculoskeletal: No acute osseous pathology. IMPRESSION: No acute cardiopulmonary disease/process.
[2022-11-28 19:03] VITALS: BP 103/59
== END 2022-11-28 19:32 | disposition home or self-care (01) ==
LOC: EC 15:49
DX: R42 Dizziness and giddiness (principal); F12.90 Cannabis use, unspecified, uncomplicated; Z86.59 Personal history of other mental and behavioral disorders; Z87.891 Personal history of nicotine dependence; Z88.8 Allergy status to other drugs, medicaments and biological substances; Z91.030 Bee allergy status
CPT/HCPCS: 36415; 93005; 80171; 80053; 85025; 81003; 81025; 80306; 71046; 99284; 96374; 96361; J2405

== ENCOUNTER 2023-01-15 02:41 | Emergency (ER) | payer OTHER ==
[2023-01-15 02:59] VITALS: RESP 18
[2023-01-15] MEDS ORDERED: IBUPROFEN 600 MG TAB PO STA (06:16)
--- NOTE | 2023-01-15 06:19 | ED ---
Lower Extremity Injury HPI - General Chief Complaint: Extremity Injury, Lower Stated Complaint: Left ankle injury Time Seen by Provider: 01/15/23 03:10 Source: patient Mode of arrival: wheelchair Limitations: no limitations - History of Present Illness Initial Comments: 32-year-old female presents to the emergency department reporting ankle pain. She tripped and rolled her left ankle just previous to coming into the emergency department. As had difficulty inflating on the extremity. Has not taken anything for pain. Denies any numbness or tingling into her toes. Denies any other injuries to include head trauma. No concern for . No other alleviating, precipitating or modifying factors - Related Data Home Medications Medication Instructions Recorded Confirmed Aspirin EC [Ecotrin Low Dose] 81 mg PO DAILY 06/19/17 11/28/22 ALPRAZolam [Xanax] 1 mg PO BID PRN 01/02/21 11/28/22 Dextroamphetamine/Amphetamine 20 mg PO TID 01/02/21 11/28/22 [Adderall] Escitalopram [Lexapro] 20 mg PO DAILY 01/02/21 11/28/22 HYDROcodone/APAP 10-325MG [[place] 0.5 tab PO Q6HR PRN 01/02/21 11/28/22 10-325] Ergocalciferol [Vitamin D2 (1250 50,000 unit PO WEEKLY 11/20/21 11/28/22 Mcg = 10079 Iu)] Vitamin A [Vitamin A (8,000 Units 10,000 unit PO DAILY 11/20/21 11/28/22 = 2,400 MCG)] Zinc 50 mg PO DAILY 11/20/21 11/28/22 Gabapentin 300 mg PO TID 12/18/21 11/28/22 Ergocalciferol [Vitamin D2 (1250 50,000 unit PO WEEKLY 11/28/22 11/28/22 Mcg = 78017 Iu)] Vitamin A 10,000 unit PO DAILY 11/28/22 11/28/22 Previous Rx's Medication Instructions Recorded Omeprazole [PriLOSEC] 40 mg PO DAILY #14 cap 12/23/21 Cyclobenzaprine [Flexeril] 10 mg PO TID PRN #15 tab 07/16/22 Ibuprofen [Motrin] 600 mg PO Q8HR PRN #20 tab 07/16/22 Meclizine [Antivert] 25 mg PO BID PRN #20 tab 11/28/22 Allergies Allergy/AdvReac Type Severity Reaction Status Date / Time adhesive tape Allergy Rash/Hives Verified 01/15/23 02:58 Bleach (Sodium Hypochlorite) Allergy Anaphylaxis Verified 01/15/23 02:58 venom-honey bee Allergy Anaphylaxis Verified 01/15/23 02:58 [bee venom (honey bee)] Review of Systems ROS Statement: Those systems with pertinent positive or pertinent negative responses have been documented in the HPI. ROS Other: All systems not noted in ROS Statement are negative. Past Medical History Past Medical History: Blood Disorder, Osteoarthritis (OA), Seizure Disorder Additional Past Medical History / Comment(s): MTHFR gene, sees Dr Maricruz sloan, last seizure years ago in early -not sure of cause or what kind, no meds for, generalized arthritis History of Any Multi-Drug Resistant Organisms: None Reported Past Surgical History: Adenoidectomy, Section, Orthopedic Surgery, Tonsillectomy Additional Past Surgical History / Comment(s): ron KNEE SURGERY SX Past Anesthesia/Blood Transfusion Reactions: Previous Problems w/ Anesthesia Additional Past Anesthesia/Blood Transfusion Reaction / Comment(s): patient states she had a headache after spinal previously, otherwise no problems Past Psychological History: ADD/ADHD, Anxiety, Depression Smoking Status: Former smoker Past Alcohol Use History: Occasional Past Drug Use History: Marijuana - Past Family History Mother Family Medical History: Blood Disorder, Deep Vein Thrombosis (DVT) Additional Family Medical History / Comment(s): blood clotting disorder-takes coumadin General Exam Limitations: no limitations General appearance: alert, in no apparent distress Extremities exam: Present: other (Significant swelling about the left lateral malleolus. Overlying ecchymosis. 2+ DP and PT pulses. Compartments are soft. Intact sensation) Course Vital Signs 01/15/23 01/15/23 02:58 06:46 Temperature 98.3 F 98.1 F Pulse Rate 93 78 Respiratory 18 18 Rate Blood Pressure 129/85 142/86 O2 Sat by Pulse 98 98 Oximetry Medical Decision Making - Medical Decision Making Was pt. sent in by a medical professional or institution (, PA, ALTERNATIVE ENERGY TECHNICIAN, urgent care, hospital, or snf...) When possible be specific @ -No Did you speak to anyone other than the patient for history (EMS, parent, family, police, friend...)? What history was obtained from this source @ -No Did you review nursing and triage notes (agree or disagree)? Why? @ -I reviewed and agree with nursing and triage notes Were old charts reviewed (outside hosp., previous admission, EMS record, old EKG, old radiological studies, urgent care reports/EKG's, snf records)? Report findings @ -No old charts were reviewed Differential Diagnosis (chest pain, altered mental status, abdominal pain women, abdominal pain men, vaginal bleeding, weakness, fever, dyspnea, syncope, headache, dizziness, GI bleed, back pain, seizure, CVA, palpatations, mental health, musculoskeletal)? @ -Differential Musculoskeletal Muscular strain, contusion, ligament sprain, fracture, arthritis, septic arthritis, bursitis, cellulitis, muscle spasm, nerve compression, DVT, arterial occlusion, herpes zoster, electrolyte abnormality, tumor.... This is not meant to be in all inclusive list EKG interpreted by me (3pts min.). @ -Not performed X-rays interpreted by me (1pt min.). @ -Yes and demonstrates possible avulsion fracture on the lateral malleolus CT interpreted by me (1pt min.). @ -None done U/S interpreted by me (1pt. min.). @ -None done What testing was considered but not performed or refused? (CT, X-rays, U/S, labs)? Why? @ -None What meds were considered but not given or refused? Why? @ -None Did you discuss the management of the patient with other professionals (professionals i.e. , PA, ALTERNATIVE ENERGY TECHNICIAN, lab, RT, psych nurse, social services counselor, machine or machinery mechanic, teacher, corporate trust officer, disease case manager rn)? Give summary @ -No Was smoking cessation discussed for >3mins.? @ -No Was critical care preformed (if so, how long)? @ -No Were there social determinants of health that impacted care today? How? (Homelessness, low income, unemployed, alcoholism, drug addiction, transportation, low edu. Level, literacy, decrease access to med. care, alf, rehab)? @ -No Was there de-escalation of care discussed even if they declined (Discuss DNR or withdrawal of care, Hospice)? DNR status @ -No What co-morbidities impacted this encounter? (DM, HTN, Smoking, COPD, CAD, Cancer, CVA, ARF, Chemo, Hep., AIDS, mental health diagnosis, sleep apnea, morbid obesity)? @ -None Was patient admitted / discharged? Hospital course, mention meds given and route, prescriptions, significant lab abnormalities, going to OR and other pertinent info. @ -Upon arrival patient was placed into room 29. Thorough history and physical exam was performed. X-ray is performed which demonstrates avulsion fracture to the lateral malleolus. Patient is placed in a stirrup splint. Instructed to ambulate with crutches. I did fill out a crutch form. She is to follow up with her primary care doctor. Needs referral to orthopedist. Instructed to ice and elevate the extremity. Take the pain medications as directed and return for any new or worsening symptoms. Patient was agreeable to this plan she was discharged in stable condition Undiagnosed new problem with uncertain prognosis? @ -Yes Drug Therapy requiring intensive monitoring for toxicity (Heparin, Nitro, Insulin, Cardizem)? @ -No Were any procedures done? @ -Stirrup splint placement Diagnosis/symptom? @ -Acute avulsion fracture left lateral malleolus Acute, or Chronic, or Acute on Chronic? @ -acute Uncomplicated (without systemic symptoms) or Complicated (systemic symptoms)? @ -Uncomplicated Side effects of treatment? @ -No Exacerbation, Progression, or Severe Exacerbation? @ -No Poses a threat to life or bodily function? How? (Chest pain, [place], [place], pneumonia, PE, COPD, DKA, ARF, appy, cholecystitis, CVA, Diverticulitis, Homicidal, Suicidal, threat to staff... and all critical care pts) @ -No Disposition Clinical Impression: Fall, Avulsion fracture of ankle Disposition: HOME SELF-CARE Condition: Stable Instructions (If sedation given, give patient instructions): Avulsion Fracture (ED) Additional Instructions: Take Motrin for pain. Rest, ice and elevate the extremity. Weight bear as tolerated with the crutches. Follow-up with your doctor/orthopedic office and return for any new or worsening symptoms Is patient prescribed a controlled substance at d/c from ED?: No Referrals: None,Stated [Primary Care Provider] - 1-2 days Loyd Díaz, [Doctor of Osteopathic Medicine] - 1-2 days Time of Disposition: 06:19
[2023-01-15] MEDS ORDERED: MORPHINE SULFATE 4 MG/ML SYRINGE IM STA (06:27)
[2023-01-15 06:48] VITALS: BP 142/86; PULSE 78; TEMP 98.1
--- NOTE | 2023-01-15 07:22 | XR ---
EXAMINATION TYPE: XR ankle complete 3 views LT DATE OF EXAM: 01/15/2023 Comparison: None Clinical History: 32-year-old female rolling injury, pain and swelling Findings: There is a small 4 mm avulsion fracture fragment from the inferior aspect of the lateral malleolus wi th marked lateral and anterior soft tissue swelling. [id number] sized plantar heel spur. Ankle mortise is otherwise congruent. Talar dome is intact. Impression: 4 mm avulsion fracture from the inferior aspect of the lateral malleolus likely mediated by the later al ligamentous complex. Marked lateral and anterior soft tissue swelling.
== END 2023-01-15 06:48 | disposition home or self-care (01) ==
LOC: EC 02:41
DX: S82.62XA Displaced fracture of lateral malleolus of left fibula, initial encounter for closed fracture (principal); M19.90 Unspecified osteoarthritis, unspecified site; F41.9 Anxiety disorder, unspecified; F32.A Depression, unspecified; Z87.891 Personal history of nicotine dependence; F12.90 Cannabis use, unspecified, uncomplicated; Z91.030 Bee allergy status; Z88.8 Allergy status to other drugs, medicaments and biological substances; Z79.82 Long term (current) use of aspirin; Z79.899 Other long term (current) drug therapy; W18.49XA Other slipping, tripping and stumbling without falling, initial encounter
CPT/HCPCS: 73610; 99283; 29515; 96372; J2270

== ENCOUNTER 2023-01-19 15:37 | Emergency (ER) | payer OTHER ==
--- NOTE | 2023-01-19 16:40 | ED ---
General Adult HPI - General Chief complaint: Extremity Injury, Lower Stated complaint: left foot numbness,swollen Time Seen by Provider: 01/19/23 16:06 Source: patient Mode of arrival: wheelchair Limitations: no limitations - History of Present Illness Initial comments: 32-year-old female presenting to ED with a chief complaint of left ankle pain. Patient previously here on 01/15/23 after having a left ankle injury. At that time was found to have an avulsion fracture of the left lateral malleolus. Patient was splinted and provided crutches. Advised weight-bearing as tolerated with splint and crutches in place. Patient states over the weekend got . States that she was mainly using her wheelchair however notes that she did take her splint off and did weight bear for periods of time without using her crutches. Now notes worsening pain of the left ankle. Also now notes subjective numbness of the foot and darkening of her toes. No other complaints at this time. - Related Data Home Medications Medication Instructions Recorded Confirmed Aspirin EC [Ecotrin Low Dose] 81 mg PO DAILY 06/19/17 11/28/22 ALPRAZolam [Xanax] 1 mg PO BID PRN 01/02/21 11/28/22 Dextroamphetamine/Amphetamine 20 mg PO TID 01/02/21 11/28/22 [Adderall] Escitalopram [Lexapro] 20 mg PO DAILY 01/02/21 11/28/22 HYDROcodone/APAP 10-325MG [[place] 0.5 tab PO Q6HR PRN 01/02/21 11/28/22 10-325] Ergocalciferol [Vitamin D2 (1250 50,000 unit PO WEEKLY 11/20/21 11/28/22 Mcg = 52887 Iu)] Vitamin A [Vitamin A (8,000 Units 10,000 unit PO DAILY 11/20/21 11/28/22 = 2,400 MCG)] Zinc 50 mg PO DAILY 11/20/21 11/28/22 Gabapentin 300 mg PO TID 12/18/21 11/28/22 Ergocalciferol [Vitamin D2 (1250 50,000 unit PO WEEKLY 11/28/22 11/28/22 Mcg = 15248 Iu)] Vitamin A 10,000 unit PO DAILY 11/28/22 11/28/22 Previous Rx's Medication Instructions Recorded Omeprazole [PriLOSEC] 40 mg PO DAILY #14 cap 12/23/21 Cyclobenzaprine [Flexeril] 10 mg PO TID PRN #15 tab 07/16/22 Ibuprofen [Motrin] 600 mg PO Q8HR PRN #20 tab 07/16/22 Meclizine [Antivert] 25 mg PO BID PRN #20 tab 11/28/22 Allergies Allergy/AdvReac Type Severity Reaction Status Date / Time adhesive tape Allergy Rash/Hives Verified 01/19/23 15:58 Bleach (Sodium Hypochlorite) Allergy Anaphylaxis Verified 01/19/23 15:58 venom-honey bee Allergy Anaphylaxis Verified 01/19/23 15:58 [bee venom (honey bee)] Review of Systems ROS Statement: Those systems with pertinent positive or pertinent negative responses have been documented in the HPI. ROS Other: All systems not noted in ROS Statement are negative. Past Medical History Past Medical History: Blood Disorder, Osteoarthritis (OA), Seizure Disorder Additional Past Medical History / Comment(s): MTHFR gene, sees Dr Maricruz sloan, last seizure years ago in early -not sure of cause or what kind, no meds for, generalized arthritis History of Any Multi-Drug Resistant Organisms: None Reported Past Surgical History: Adenoidectomy, Section, Orthopedic Surgery, Tonsillectomy Additional Past Surgical History / Comment(s): ron KNEE SURGERY SX Past Anesthesia/Blood Transfusion Reactions: Previous Problems w/ Anesthesia Additional Past Anesthesia/Blood Transfusion Reaction / Comment(s): patient states she had a headache after spinal previously, otherwise no problems Past Psychological History: ADD/ADHD, Anxiety, Depression Smoking Status: Former smoker Past Alcohol Use History: Occasional Past Drug Use History: Marijuana - Past Family History Mother Family Medical History: Blood Disorder, Deep Vein Thrombosis (DVT) Additional Family Medical History / Comment(s): blood clotting disorder-takes coumadin General Exam Limitations: no limitations General appearance: alert, in no apparent distress, other (Morbidly obese.) Respiratory exam: Present: normal lung sounds bilaterally Cardiovascular Exam: Present: regular rate, normal rhythm Extremities exam: Present: other (Left lower extremity shows good strength and sensation at the foot. DP/PT pulses 1+. Toes do appear darker in color however are warm.) Neurological exam: Present: alert, oriented X3 Skin exam: Present: warm, dry Course Vital Signs 08/07/23 15:56 Temperature 98.2 F Pulse Rate 77 Respiratory 18 Rate Blood Pressure 125/75 O2 Sat by Pulse 97 Oximetry Medical Decision Making - Medical Decision Making Was pt. sent in by a medical professional or institution (, DEBRA, STORE HOST, urgent care, hospital, or [facility]...) When possible be specific @ -No Did you speak to anyone other than the patient for history (EMS, parent, family, police, friend...)? What history was obtained from this source @ -No Did you review nursing and triage notes (agree or disagree)? Why? @ -I reviewed and agree with nursing and triage notes Were old charts reviewed (outside hosp., previous admission, EMS record, old EKG, old radiological studies, urgent care reports/EKG's, [facility] records)? Report findings @ -No old charts were reviewed Differential Diagnosis (chest pain, altered mental status, abdominal pain women, abdominal pain men, vaginal bleeding, weakness, fever, dyspnea, syncope, headache, dizziness, GI bleed, back pain, seizure, CVA, palpatations, mental health, musculoskeletal)? @ -Differential Musculoskeletal Muscular strain, contusion, ligament sprain, fracture, arthritis, septic arthritis, bursitis, cellulitis, muscle spasm, nerve compression, DVT, arterial occlusion, herpes zoster, electrolyte abnormality, tumor.... This is not meant to be in all inclusive list EKG interpreted by me (3pts min.). @ -None X-rays interpreted by me (1pt min.). @ -X-ray showed avulsion fracture of the lateral malleolus similar in appearance to prior without new findings. CT interpreted by me (1pt min.). @ -None done U/S interpreted by me (1pt. min.). @ -None done What testing was considered but not performed or refused? (CT, X-rays, U/S, labs)? Why? @ -None What meds were considered but not given or refused? Why? @ -None Did you discuss the management of the patient with other professionals (professionals i.e. DEBRA Mcdaniel, STORE HOST, lab, RT, psych nurse, social media designer, fixture fabricator repairer, teacher, chief commercial officer, case management social worker)? Give summary @ -No Was smoking cessation discussed for >3mins.? @ -No Was critical care preformed (if so, how long)? @ -No Were there social determinants of health that impacted care today? How? (Homelessness, low income, unemployed, alcoholism, drug addiction, transportation, low edu. Level, literacy, decrease access to med. care, retirement, rehab)? @ -No Was there de-escalation of care discussed even if they declined (Discuss DNR or withdrawal of care, Hospice)? DNR status @ -No What co-morbidities impacted this encounter? (DM, HTN, Smoking, COPD, CAD, Cancer, CVA, ARF, Chemo, Hep., AIDS, mental health diagnosis, sleep apnea, morbid obesity)? @ -None Was patient admitted / discharged? Hospital course, mention meds given and route, prescriptions, significant lab abnormalities, going to OR and other pertinent info. @ -Discharge. Imaging showed findings similar to prior x-ray. Patient resplinted and advised to keep the splint on, use crutches, and weight-bear as tolerated. Advised to follow up with orthopedics as scheduled. Discussed precautions with patient who verbalizes agreement. Undiagnosed new problem with uncertain prognosis? @ -No Drug Therapy requiring intensive monitoring for toxicity (Heparin, Nitro, Insuli n, Cardizem)? @ -No Were any procedures done? @ -No Diagnosis/symptom? @ -Left lateral malleolus fracture Acute, or Chronic, or Acute on Chronic? @ -Acute Uncomplicated (without systemic symptoms) or Complicated (systemic symptoms)? @ -Uncomplicated Side effects of treatment? @ -No Exacerbation, Progression, or Severe Exacerbation? @ -No Poses a threat to life or bodily function? How? (Chest pain, [place], [place], pneumonia, PE, COPD, DKA, ARF, appy, cholecystitis, CVA, Diverticulitis, Homicidal, Suicidal, threat to staff... and all critical care pts) @ -No Disposition Clinical Impression: Ankle fracture, lateral malleolus, closed Disposition: HOME SELF-CARE Condition: Good Additional Instructions: Please return to the Emergency Department if symptoms worsen or any other concerns. Follow up with orthopedics as scheduled. Is patient prescribed a controlled substance at d/c from ED?: No Referrals: None,Stated [Primary Care Provider] - 1-2 days Time of Disposition: 17:15
--- NOTE | 2023-01-19 16:53 | XR ---
EXAMINATION TYPE: XR ankle complete LT DATE OF EXAM: 01/19/2023 4:35 PM INDICATION: Patient age:Female; 32 years old; Reason for study: left ankle pain avulsion fx worsening; COMPARISON: 01/15/2023 TECHNIQUE: The left ankle is imaged in frontal, lateral and oblique projections. FINDINGS: Similar appearance of the avulsion fracture of the distal fibula. No new fractures visualized. The linda int spaces are well-preserved without evidence of subluxation or dislocation. Kager's fat pad is inta ct. Moderate soft tissue swelling around the ankle. No radiopaque foreign bodies are identified. Calc aneal plantar spurring present. IMPRESSION: Similar left avulsion fracture 01/15/2023 with associated soft tissue edema.
[2023-01-19] MEDS ORDERED: MORPHINE SULFATE 4 MG/ML SYRINGE IM STA (16:55)
[2023-01-19 18:19] VITALS: BP 120/79; PULSE 69; RESP 16; TEMP 97.8
== END 2023-01-19 18:19 | disposition home or self-care (01) ==
LOC: EC 15:37
DX: S82.62XA Displaced fracture of lateral malleolus of left fibula, initial encounter for closed fracture (principal); M19.90 Unspecified osteoarthritis, unspecified site; F41.9 Anxiety disorder, unspecified; F32.A Depression, unspecified; Z87.891 Personal history of nicotine dependence; F12.90 Cannabis use, unspecified, uncomplicated; Z91.030 Bee allergy status; Z88.8 Allergy status to other drugs, medicaments and biological substances; Z79.82 Long term (current) use of aspirin; Z79.899 Other long term (current) drug therapy; X58.XXXA Exposure to other specified factors, initial encounter
CPT/HCPCS: 73610; 99284; 96372; J2270

== ENCOUNTER → 2023-04-08 | Outpatient (CLI) | payer OTHER ==
[2023-04-08 14:32] VITALS: BP 126/84; PULSE 67; TEMP 98.4; BMI 53.1
--- NOTE | 2023-04-08 14:54 | P.BASOAP ---
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 She has food journal. She has H. pylori. Needs sleeve. She was rechecking tobacco use. She has same insurance. Submit by 04/28. She is still taking omeprazole. OKay for sleeve. Objective - Vital Signs Vital signs: Vital Signs Temp 98.4 F 04/08/23 14:17 Pulse 67 04/08/23 14:17 Resp BP 126/84 04/08/23 14:17 Pulse Ox FiO2 Intake & Output 04/07/23 04/08/23 04/08/23 18:59 06:59 18:59 Weight 159.665 kg Assessment/Plan Plan: Date: 04/08/23 Initial Weight: Initial BMI: Current Weight: 159.665 kg Current BMI: 53.1 Type of Surgery: Total Volume in Band: Previous Volume: Volume Removed: Volume Added: Band Size:
== END ==
LOC: BARWHC3 13:30
PROVIDERS: ATTEND Surgery Plastic and Reconstructive Surgery
DX: Z53.9 Procedure and treatment not carried out, unspecified reason (principal)
CPT/HCPCS: 99211

== ENCOUNTER 2023-07-06 10:15 | Inpatient (IN) | payer OTHER ==
[2023-07-21 12:34] VITALS: BMI 52.5
[2023-07-27] MEDS ORDERED: ONDANSETRON 4 MG/2 ML VIAL IVP PRN (05:00)
[2023-07-27] MEDS ORDERED: HYDROmorphone 0.5 MG/0.5 ML SYRINGE IVP PRN (05:56)
[2023-07-27] MEDS ORDERED: LIDOCAINE 1% (10MG/ML) FOR IV START INTRADERMA PRN (05:56)
--- NOTE | 2023-07-27 07:22 | P.GSHP ---
History of Present Illness H&P Date: 07/27/23 CHIEF COMPLAINT: Morbid obesity HISTORY OF PRESENT ILLNESS: Tonie Jiménez is a 32-year-old female who comes with lifelong morbid obesity. As result of morbid obesity she developed osteoarthritis of the bilateral knees including lower back. She also has osteoarthritis of bilateral hips. She completed medical risk assessment. She presents for sleeve gastrectomy. At height of 5 feet 8.25 inches, her ideal body weight is 163 pounds. Her highest weight is 363 body mass index 54.9. She comes in 356 pounds from 363 pounds 1 week ago. She has gained 20 pounds in 2 years, but lost 8 pounds in 1 week. Her body mass index is 53.7. She is 193 pounds overweight. PAST MEDICAL HISTORY: 1. Morbid obesity due to excess calories 2. Body mass index of 52.6 3. Gastroesophageal reflux disease 4. Osteoarthritis of the bilateral knees. 5. Osteoarthritis of the back 6. Macromastia 7. Osteoarthritis bilateral hips PAST SURGICAL HISTORY: 1. Adenoidectomy 2. section 3. Tonsillectomy 4. Bilateral knee arthoscopy 5. ACL repair of the right knee HOME MEDICATIONS: Reviewed ALLERGIES: Reviewed SOCIAL HISTORY: Past tobacco use. FAMILY HISTORY: No family history of ulcerative colitis disease or Crohn's disease. Family history of morbid obesity. No lupus in the family. No reports of stomach. Esophageal cancer in grandfather. She reports her grandmother had obesity. REVIEW OF ORGAN SYSTEMS: CONSTITUTIONAL: At height of 5 feet 8.25 inches, her ideal body weight is 163 pounds. Her highest weight is 356 pounds, body mass index 52.6. She comes in 356 pounds 329 pounds 2 years ago. She has gained 20 pounds in 2 years. Her body mass index is 53.7. She is 193 pounds overweight. HEENT: Denies any active troubles with vision or hearing. ENDOCRINE: Denies diabetes. Denies hypothyroidism. CARDIOVASCULAR: Denies past reports of palpitations or heart attacks or chest pain. RESPIRATORY: Has daytime somnolence. GASTROINTESTINAL: Denies any bright red blood per rectum. No diarrhea. No constipation. Has gastroesophageal reflux disease. GENITOURINARY: Denies bladder urgency. No recent blood in urine MUSCULOSKELETAL: Has lower back pain and joint pain. Denies history of bilateral lower extremity edema. NEURO: Denies chronic migraines. No seizure disorders. PSYCH: Has depression. No suicidal ideation. Has anxiety. RHEUMATOLOGIC: No lupus. No rheumatoid arthritis. HEMATOLOGIC: Denies any abnormal bleeding or bruising. Denies past history of DVTs. Mother has multiple DVTs. SKIN: No rash. No skin cancer. PHYSICAL EXAM: VITAL SIGNS: Height 5 foot 9 inches, weight 356 pounds. BMI 52.6 GENERAL: Well-developed in no acute distress. HEENT: No scleral icterus. Extraocular movements grossly intact. Hears conversational speech. No nasal drainage. NECK: Supple without lymphadenopathy. CHEST: Nonlabored respirations with equal bilateral excursions. CARDIOVASCULAR: Regular rate and regular rhythm. Distal 2+ pulses. ABDOMEN: Obese, soft, nontender, nondistended. MUSCULOSKELETAL: No clubbing, cyanosis. NEURO: No focal or lateralizing signs. Cranial nerves 2 through 12 grossly within normal limits. PSYCH: Appropriate affect. Alert and oriented to person, place and time. SKIN: Good skin turgor. Well perfused. LABS: Reviewed. Urine nicotine is positive. Vitamin A is low. Vitamin D is low. Zinc is low EKG: Sinus bradycardia. Urine drug screen is positive for amphetamine, THC, hydrocodone, opiates EGD FINDINGS: Squamocolumnar junction 36 cm from the incisors. Diaphragmatic hiatus at 36 cm. Hill grade 2 lower esophageal valve. LA grade B erosive esophagitis. Mild duodenitis. Biopsies obtained Chronic gastritis with superficial gastric ulcer with biopsies obtained Final Pathologic Diagnosis A. DUODENUM, BIOPSY: Benign small bowel mucosa with intact villous architecture, negative for histopathologic abnormality. B. GASTRIC ANTRUM, BIOPSY: Chronic gastritis with mild activity. Helicobacter pylori immunoperoxidase stain is positive for H. pylori organisms (control appropriate). ASSESSMENT: 1. Morbid obesity due to excess calories 2. Body mass index of 52.6 3. Gastroesophageal reflux disease 4. Osteoarthritis of the bilateral knees. 5. Osteoarthritis of the back 6. Macromastia 7. Osteoarthritis bilateral hips 8. Second hand tobacco exposure 9. Vitamin A deficiency 10. Vitamin D deficiency 11. Zinc deficiency 12. Chronic gastritis 13. H. pylori gastritis 14. Tobacco use 15. Drug screen positive for THC, opiates, amphetamine PLAN: 1. Bariatric options between a sleeve, band and a Jaswant-en-Y gastric bypass were reviewed in detail. The patient elected for a sleeve gastrectomy. Robotic assisted approach described. 2. The [place] [facility] Data was also reviewed with benefits and risks as described. 3. An 8 page second-generation bariatric consent form was reviewed in detail including potential of bleeding, infection, leaks, adequate weight loss, nutritional deficiencies which the patient demonstrated understanding of the risks. 4. A 2 week high-protein low caloric 800 kcal diet described to address hepatomegaly. 5. Preoperative labs including complete metabolic panel and CBC with type and screen recommended. 6. DVT prophylaxis per [place] [facility]. 7. Antibiotic prophylaxis. 8. Inpatient hospitalization anticipated for more than 2 nights. 9. All questions and concerns were addressed with the patient. 10. The patient is at elevated risk for perioperative complications with sleep apnea and hypertensive heart disease. 11. Overall, patient has expressed understanding of bariatric care including postoperative diet and commitment of lifestyle. Patient should benefit from surgical intervention for correction of morbid obesity. 12. She is elevated risk due to pre-existing comorbid conditions 13. Strict nicotine tobacco cessation described 14. 5% excess weight loss to 345 pounds on day of procedure described Past Medical History Past Medical History: Blood Disorder, Osteoarthritis (OA), Seizure Disorder Additional Past Medical History / Comment(s): MTHFR gene, sees Dr Maricruz sloan, last seizure -ABOUT 1 YEAR AGO-, generalized arthritis History of Any Multi-Drug Resistant Organisms: None Reported Past Surgical History: Adenoidectomy, Section, Orthopedic Surgery, Tonsillectomy Additional Past Surgical History / Comment(s): ron KNEE SURGERY SX, EGD Past Anesthesia/Blood Transfusion Reactions: Previous Problems w/ Anesthesia Additional Past Anesthesia/Blood Transfusion Reaction / Comment(s): patient states she had a headache after spinal previously, otherwise no problems Smoking Status: Former smoker - Past Family History Mother Family Medical History: Blood Disorder, Deep Vein Thrombosis (DVT) Additional Family Medical History / Comment(s): blood clotting disorder-takes coumadin Medications and Allergies Home Medications Medication Instructions Recorded Confirmed Type Dextroamphetamine/Amphetamine 20 mg PO TID 01/02/21 07/23/23 History [Adderall] Escitalopram [Lexapro] 20 mg PO DAILY 01/02/21 07/23/23 History HYDROcodone/APAP 10-325MG [[place] 1 tab PO Q6HR PRN 01/02/21 07/23/23 History 10-325] Zinc 50 mg PO DAILY 11/20/21 07/23/23 History Gabapentin 300 mg PO TID 12/18/21 07/23/23 History Ergocalciferol [Vitamin D2 (1250 50,000 unit PO FR 11/28/22 07/23/23 History Mcg = 12319 Iu)] ALPRAZolam [Xanax] 0.5 mg PO TID PRN 07/21/23 07/23/23 History ARIPiprazole [Abilify] 2 mg PO DAILY 07/21/23 07/23/23 History Meloxicam [Mobic] 15 mg PO DAILY 07/21/23 07/23/23 History Allergies Allergy/AdvReac Type Severity Reaction Status Date / Time adhesive tape Allergy Rash/Hives Verified 07/21/23 12:16 Bleach (Sodium Hypochlorite) Allergy Anaphylaxis Verified 07/21/23 12:16 venom-honey bee Allergy Anaphylaxis Verified 07/21/23 12:16 [bee venom (honey bee)]
[2023-07-27] MEDS: LACTATED RINGERS 1,000 ML IV SCH (10:49)
[2023-07-27] MEDS: ACETAMINOPHEN TAB 500 MG TAB PO PRN (11:16)
[2023-07-27] MEDS: CHLORHEXIDINE GLUCONATE 15 ML CUP MUCOUS MEM PRN (11:16)
[2023-07-27] MEDS: ONDANSETRON 4 MG/2 ML VIAL IVP ONE ×2 (11:17→15:06)
[2023-07-27] MEDS: ALVIMOPAN 12 MG CAPSULE PO PRN (11:17)
[2023-07-27] MEDS: ENOXAPARIN 40 MG/0.4 ML SYRINGE SQ PRN (11:17)
[2023-07-27] MEDS: PANTOPRAZOLE 40 MG/10 ML VIAL IVP PRN (11:17)
--- NOTE | 2023-07-27 12:21 | P.HPADDEND ---
H&P Addendum H&P Addendum Date: 07/27/23 Patient was given weight loss target and did not reach weight loss target. Overall best weight loss 7 pounds despite expected over 20 pound weight loss when following diet. Patient wished to proceed with the risk of canceling surgery if she has persistent hepatomegaly.
[2023-07-27] MEDS ORDERED: ROCURONIUM 10 MG/ML (5 ML VIAL) IV ONE (12:26)
[2023-07-27] MEDS ORDERED: fentaNYL (PF) 50 MCG/ML 2 ML AMP ONE (12:26)
[2023-07-27] MEDS ORDERED: SUCCINYLCHOLINE CHLORIDE 200 MG/10 ML VIAL IV ONE (12:26)
[2023-07-27] MEDS ORDERED: LIDOCAINE 1% INJ 10MG/ML (20 ML MDV) ONE (12:26)
[2023-07-27] MEDS ORDERED: NEOSTIGMINE 1 MG/ML 10 ML VIAL ONE (12:26)
[2023-07-27] MEDS ORDERED: HYDROmorphone (PF) 1 MG/ML ONE (12:26)
[2023-07-27] MEDS ORDERED: PROPOFOL 10 MG/ML 20 ML VIAL IV ONE (12:26)
[2023-07-27] MEDS ORDERED: MIDAZOLAM 2 MG/2 ML VIAL ONE (12:26)
[2023-07-27] MEDS ORDERED: GLYCOPYRROLATE 0.2 MG/ML 2 ML VIAL ONE (12:26)
[2023-07-27] MEDS: ceFAZolin 3 GM in SODIUM CHLORIDE 0.9% 100 ML IVPB PRN (12:33)
[2023-07-27] MEDS: LIDOCAINE 1%-EPI 1:100,000 50 ML VIAL SQ ONE (13:08)
[2023-07-27 15:12] LABS: Glucose,Whole Blood 167 mg/dL (70-110)
[2023-07-27] MEDS: METOCLOPRAMIDE 5 MG/ML 2 ML VIAL IVP ONE (15:43)
[2023-07-27] MEDS ORDERED: NALOXONE 0.4 MG/ML 1 ML VIAL IV PRN (15:46)
[2023-07-27] MEDS ORDERED: ALPRAZolam 0.5 MG TAB PO PRN (15:48)
--- NOTE | 2023-07-27 15:53 | P.OP ---
Date of Procedure: 07/27/23 Description of Procedure: SURGEON: CHRISTINE HOLT MD PREOPERATIVE DIAGNOSES: 1. Morbid obesity due to excess calories 2. Body mass index of 54.9 to 52.6 3. Gastroesophageal reflux disease 4. Osteoarthritis of the bilateral knees. 5. Osteoarthritis of the back 6. Macromastia 7. Osteoarthritis bilateral hips 8. Second hand tobacco exposure 9. Vitamin A deficiency 10. Vitamin D deficiency 11. Zinc deficiency 12. Chronic gastritis 13. H. pylori gastritis 14. Tobacco use 15. Drug screen positive for THC, opiates, amphetamine POSTOPERATIVE DIAGNOSES: 1. Morbid obesity due to excess calories 2. Body mass index of 54.9 to 52.6 3. Gastroesophageal reflux disease 4. Osteoarthritis of the bilateral knees. 5. Osteoarthritis of the back 6. Macromastia 7. Osteoarthritis bilateral hips 8. Second hand tobacco exposure 9. Vitamin A deficiency 10. Vitamin D deficiency 11. Zinc deficiency 12. Chronic gastritis 13. H. pylori gastritis 14. Tobacco use 15. Drug screen positive for THC, opiates, amphetamine OPERATION: 1. Robotic assisted daVinci Xi laparoscopic sleeve gastrectomy with 40-Qatari bougie, multiport. 2. Intraoperative esophagogastroduodenoscopy. ANESTHESIA: Gen. local anesthetic ESTIMATED BLOOD LOSS: 5 mL SPECIMENS REMOVED: Sleeve gastrectomy COMPLICATIONS: None. FINDINGS: 1. Negative intraoperative esophagogastrojejunoscopy leak test. 2. Hepatomegaly and no large hiatus hernia. 3. Total of 5 staplers used including 4 - 60 mm blue robot fausto and 1 - 60 mm green robot loads used to create the gastric sleeve. 4. Sleeve gastrectomy, 23 x 6 cm INDICATIONS: Tonie Jiménez is a 32-year-old female who comes with lifelong morbid obesity. As result of morbid obesity she developed osteoarthritis of the bilateral knees including lower back. She also has osteoarthritis of bilateral hips. She completed medical risk assessment. She presents for sleeve gastrectomy. At height of 5 feet 8.25 inches, her ideal body weight is 163 pounds. Her highest weight is 363 body mass index 54.9. She comes in 356 pounds from 363 pounds 1 week ago. She has gained 20 pounds in 2 years, but lost 8 pounds in 1 week. Her body mass index is 53.7. She is 193 pounds overweight. All surgical options for morbid obesity had been described using the [place] [facility] comorbidity resolution including complication risk score. A second-generation bariatric consent form was described in detail including the possibility of protein malnutrition, leaks, gastric stricture, venous thrombosis, gastroesophageal reflux disease, need for further surgery for which she demonstrated understanding. Benefits and risks of the procedure were described at length. Informed consent was obtained. DESCRIPTION: The patient was brought into the operating room theater. Preoperatively she had received Lovenox subcutaneously for DVT prophylaxis. Additionally she had Peridex oral solution as an oral decontaminant. After general induction, the abdomen was prepped and draped in standard sterile fashion. An Ioban draping was placed along the abdomen. A robotic da Darryl Xi system was prepped and primed. At 15 cm from the xiphoid, proposed port sites were marked with indelible marker along the anterior axillary line bilaterally, mid axillary line bilaterally with each ports were marked 10 to 15 cm from each other. The robotic stapler port was marked for the right midclavicular line. A 5 mm 0 degrees laparoscopic trocar entry was performed along the left upper quadrant. The abdomen was insufflated to 15 mmHg pressure was tolerated well. Diagnostic laparoscopy demonstrated no injury to bowel, viscera, or mesentery. No evidence of large hiatus hernia was identified. The liver edge was rounded with presence of hepatomegaly despite her 2 week protein diet. A 8 mm port was placed along the left upper abdominal wall after exchanging the 5 mm port. A separate 8 mm port was placed along the left lateral abdominal wall. Please note that the ports were placed at least 20 cm away from the target anatomy. Care was taken to check each robotic arms were safely away from collision with the bed or the patient. At the epigastrium, a large sized Jesus liver retractor was placed under direct visualization with the Iron Color Coater placed under the right shoulder of the patient. Next, 12-mm robot stapler port was placed along the right upper quadrant. The camera 8-mm port was maintained along the epigastrium. The patient was repositioned in reverse Trendelenburg position at 21-degrees after lowering the bed. The robot was docked along the left side of the patient. Using a grasper for arm 4, a vessel sealer for arm 3, including grasper for arm 1, the robotic system was docked and primed as described. Instruments were interchanged by the librarian assistant for stapler loads. The camera was placed at 30-degrees down. I had sat at the console. The pylorus was identified and 6 cm proximally along the greater curvature of the stomach, the short gastrics were mobilized upwards to the angle of His using a vessel sealer. Hemostasis was excellent during this portion of the procedure. Next, the upper pole of the stomach was adherent to the left simi, which was gently dissected free using atraumatic grasper. I went to the head of the bed and placed 40-Qatari blunt bougie into the stomach. The bougie was readjusted by the nurse last remodeler repairer. Robotic stapler green load 60 mm 1 followed by blue 60 mm x 4 loads were used to create the sleeve. Initial firing was across the antrum of the stomach towards the angle of His. The staple line was linear without corkscrewing. The space from the angularis incisura of the sleeve was approximately 4 cm. I then went to the head of the bed to perform the intraoperative esophagogastroduodenoscopy leak test. The bougie was withdrawn. The upper pole of the stomach was bathed using normal saline solution. The scope was withdrawn with careful inspection along the staple line for which no leaks were found along the entire length. Additionally,the sleeve was completely hemostatic without any encroachment along the angularis incisura. Its topology was a soft "J". No stricture was encountered upon placement of the scope. The GI tract was desufflated. The patient tolerated this portion of the procedure well. The scope was completely withdrawn. The robot was undocked. I then rescrubbed into case, whereby the irrigation fluid was aspirated from the abdominal cavity. Tisseel fibrin sealant was placed along the entire staple length. Once dried the Jesus liver retractor was removed. Attention was now brought to removal of the specimen. The distal end of the sleeve gastrectomy specimen was brought out through the 12 mm port at the left upper quadrant. The specimen was gently removed en total. No contamination had occurred during this process. All instruments and pneumoperitoneum including irrigation fluid was removed from the abdominal cavity. The 12 mm port site was closed using 0-Vicryl and Tremaine Potterson and irrigated with diluted hydrogen peroxide. The final incisions were closed using subcuticular interrupted suture of 4-0 Monocryl. Exofin was applied to the skin once the skin had been cleansed. OptiFoam dressing was placed along the stomach extraction site. The sleeve specimen was measured and checked also for leaks which none were found. At the end of the procedure, needle, sponge, and instrument count was verified correct by the surgical tech. The patient was taken to the postanesthesia care unit in stable condition. She had tolerated the procedure well. Intraoperative films and findings were reviewed with the patient's family.
[2023-07-27] MEDS: HYDROmorphone 0.5 MG/0.5 ML SYRINGE IVP ONE (16:54)
[2023-07-27] MEDS: SIMETHICONE 40 MG/0.6 ML DROPS 2,000 MG/30 ML BOTTLE PO SCH (18:27)
[2023-07-27] MEDS: SODIUM CHLORIDE 0.9% 2,000 ML IV ONE (18:28)
[2023-07-27] MEDS: HYDROcodone/APAP 10-325MG 1 EACH TAB PO PRN (18:38)
[2023-07-27] MEDS ORDERED: diphenhydrAMINE 50 MG/ML 1 ML VIAL IVP PRN (19:11)
[2023-07-27] MEDS ORDERED: PROCHLORPERAZINE INJ 10 MG/2 ML VIAL IVP PRN (19:14)
[2023-07-27] MEDS: droPERidol 5 MG/2 ML VIAL IVP ONE (20:05)
[2023-07-27] MEDS: ALBUTEROL NEBULIZED 2.5 MG/3 ML INHALATION SCH (21:12)
[2023-07-27] MEDS: NON FORMULARY DRUG (Dextroamphetamine/Amphetamine [Adderall] 20 MG Tablet) PO SCH (22:19)
[2023-07-27] MEDS: SODIUM CHLORIDE 0.9% 1,000 ML IV SCH (22:19)
[2023-07-27] MEDS: 0.9% NACL WITH KCL 20 MEQ/L 1,000 ML IV SCH (22:29)
[2023-07-27] MEDS: ceFAZolin 3 GM in SODIUM CHLORIDE 0.9% 100 ML IVPB SCH (22:31)
[2023-07-27] MEDS: ONDANSETRON 4 MG/2 ML VIAL IVP SCH (22:32)
[2023-07-27] MEDS: GABAPENTIN 300 MG CAP PO SCH (22:32)
[2023-07-27] MEDS: SIMETHICONE 80 MG CHEWABLE PO SCH (22:32)
[2023-07-27] MEDS: SCOPOLAMINE 1 MG/72 HR PATCH TRANSDERM STA (22:33)
[2023-07-27] MEDS: METOCLOPRAMIDE 5 MG/ML 2 ML VIAL IVP SCH (22:34)
[2023-07-27] MEDS: DEXAMETHASONE SOD PHOSPHATE 4 MG/ML 1 ML VIAL IVP SCH (22:34)
[2023-07-27] MEDS: PANTOPRAZOLE 40 MG/10 ML VIAL IV SCH (22:35)
[2023-07-27] MEDS: DEXAMETHASONE SOD PHOSPHATE 10 MG/ML 1 ML VIAL IVP ONE (22:36)
[2023-07-27] MEDS: HYDROmorphone 1 MG/ML 1 ML SYRINGE IVP PRN (22:39)
[2023-07-28] MEDS: ACETAMINOPHEN IV (For NPO) 1,000 MG in EMPTY BAG 1 BAG IVPB SCH (01:17)
[2023-07-28] MEDS: HYOSCYAMINE ORAL DROPS 1.875 MG/15 ML BOTTLE PO SCH (01:24)
[2023-07-28] MEDS: ceFAZolin 3 GM in SODIUM CHLORIDE 0.9% 100 ML IVPB SCH (01:25)
[2023-07-28] MEDS: ENOXAPARIN 40 MG/0.4 ML SYRINGE SQ SCH (08:25)
[2023-07-28] MEDS ORDERED: ARIPiprazole 2 MG TAB PO SCH (09:00)
[2023-07-28] MEDS: 0.9% NACL WITH KCL 20 MEQ/L 1,000 ML IV SCH (09:01)
[2023-07-28 11:26] LABS: Basophils # (A) 0.01 X 10*3/uL (0.00-0.10); Basophils % (A) 0.1 %; Eosinophils # (A) 0.01 X 10*3/uL (0.04-0.35); Eosinophils % (A) 0.1 %; HCT 43.9 % (37.2-46.3); HGB 14.4 g/dL (12.0-15.0); Lymphocytes # (A) 0.77 X 10*3/uL (0.90-5.00); Lymphocytes % (A) 6.8 %; MCH 28.3 pg (27.0-32.0); MCHC 32.8 g/dL (32.0-37.0); MCV 86.4 FL (80.0-97.0); Mean Platelet Volume 9.9 FL (9.5-12.2); Monocytes # (A) 0.07 X 10*3/uL (0.20-1.00); Monocytes % (A) 0.6 %; NRBC Per 100 WBC 0 X 10*3/uL (0.00-0.01); Neutrophils # (A) 10.43 X 10*3/uL (1.80-7.70); Platelet Count 339 X 10*3/uL (140-440); RBC 5.08 X 10*6/uL (4.10-5.20); RDW 12.4 % (11.5-14.5); WBC 11.33 X 10*3/uL (4.50-10.00)
[2023-07-28 11:32] LABS: Blood Urea Nitrogen 4.1 mg/dL (9.0-27.0); Calcium 8.5 mg/dL (8.7-10.3); Carbon Dioxide 19.6 mmol/L (21.6-31.8); Chloride 102 mmol/L (96-109); Magnesium 1.9 mg/dL (1.5-2.4); Potassium 4.5 mmol/L (3.5-5.5); Sodium 134 mmol/L (135-145)
--- NOTE | 2023-07-28 12:53 | FL ---
SINGLE CONTRAST UPPER GI EXAMINATION: CLINICAL HISTORY: 32-year-old female postop bariatric surgery, sleeve gastrectomy. TECHNIQUE: Single contrast exam performed with 50 ml Isovue-300 contrast. Total fluoroscopy time: 2 minutes 1 second Total images: None. 25 DOSE AREA PRODUCT (DAP) UGY*M,MGY*CM: 1337.75 FINDINGS: The patient was only able to tolerate 2 swallows. While there is prompt passage of contrast from the esophagus into the proximal stomach, there is abrupt cut off just prior to the gastric sleeve. Severa l episodes of gastroesophageal and intraesophageal reflux are encountered and contrast pools up into the lower esophagus. Only intermittent trickle flow is seen across the same gastrectomy into the dist al stomach and duodenum. There is no evidence of contrast extravasation to suggest leak. Mild postope rative free air below the right hemidiaphragm. IMPRESSION: Moderate to severe obstruction along the proximal aspect of the gastric sleeve. Probably related to p ostoperative edema. The patient only took 2 swallows and contrast backs up into the lower esophagus. Only intermittent trickle flow across the narrowed sleeve and into the distal stomach and proximal du odenum. No evidence for leak. Mild postsurgical free air on the right. Follow-up as clinically indica chace.
--- NOTE | 2023-07-28 14:17 | P.PN ---
Subjective Progress Note Date: 07/28/23 CHIEF COMPLAINT: Morbid obesity HISTORY OF PRESENT ILLNESS: Patient is postop day #1 status post robotic sleeve gastrectomy. Patient has been requiring the IV pain medication. She has been going very slow with the liquids. She is having flatus. Denies any nausea or vomiting. She denies any difficulty urinating. Upper GI reports moderate to severe obstruction along the proximal aspect of the sleeve. Probably related to postoperative edema. Patient only took 2 swallows of contrast backs up into the lower esophagus. Only intermittent trickle flow across the narrowed sleeve and into the distal stomach and proximal duodenum. No evidence for leak. Mild postsurgical free air on the right. Afebrile. WBC 11.3 Hgb 14.4 platelets 339 sodium is 134 potassium 4.5 creatinine 0.5 magnesium 1.9 PHYSICAL EXAM: VITAL SIGNS: Reviewed GENERAL: Well-developed in no acute distress. HEENT: No sclera icterus. Extraocular movements grossly intact. Moist buccal mucosa. Head is atraumatic, normocephalic. Hears conversational speech. No nasal drainage. NECK: Supple without lymphadenopathy. CHEST: Non-labored respirations and equal bilateral excursions. CARDIOVASCULAR: Palpable 2+ radial pulses. ABDOMEN: Soft. Nondistended. MUSCULOSKELETAL: No clubbing or cyanosis. NEUROLOGIC: No focal or lateralizing signs. Cranial nerves II through XII grossly intact. PSYCH: Appropriate affect. Alert and oriented to person, place and time. SKIN: Well perfused. Good skin turgor. ASSESSMENT: 1. Morbid obesity due to excess calories 2. Body mass index of 54.9 to 52.6 3. Gastroesophageal reflux disease 4. Osteoarthritis of the bilateral knees. 5. Osteoarthritis of the back 6. Macromastia 7. Osteoarthritis bilateral hips 8. Second hand tobacco exposure 9. Vitamin A deficiency 10. Vitamin D deficiency 11. Zinc deficiency 12. Chronic gastritis 13. H. pylori gastritis 14. Tobacco use 15. Drug screen positive for THC, opiates, amphetamine 16. Severe obstruction likely due to postoperative edema noted on upper GI PLAN: -Go slow with the bariatric clear liquid diet -Continue on IV dexamethasone -Continue pain management -Continue IV fluids -Encourage patient to ambulate -DVT prophylaxis Lovenox Physician Vamp Marker note has been reviewed by physician. Signing provider agrees with the documented findings, assessment, and plan of care. Objective - Vital Signs Vital signs: Vital Signs Temp 98.7 F 07/28/23 13:47 Pulse 80 07/28/23 13:47 Resp 16 07/28/23 13:47 BP 133/84 07/28/23 13:47 Pulse Ox 96 07/28/23 13:47 FiO2 Intake & Output 07/27/23 07/28/23 07/28/23 18:59 06:59 18:59 Intake Total 1999 480 Output Total 5 500 Balance 1994 480 -500 Weight 161.4 kg 161.4 kg Intake: IV 2000 Oral 480 Output: Urine 500 Estimated Blood Loss 5 Other: Voiding Method Toilet Bedside Commode # Voids 3 - Labs CBC & Chem 7: 07/28/23 05:54 07/28/23 05:54 Labs: Abnormal Lab Results - Last 24 Hours (Table) 07/27/23 07/28/23 07/28/23 Range/Units 15:11 05:54 05:54 WBC 11.33 H (4.50-10.00) X 10*3/uL Neutrophils # 10.43 H (1.80-7.70) X 10*3/uL Lymphocytes # 0.77 L (0.90-5.00) X 10*3/uL Monocytes # 0.07 L (0.20-1.00) X 10*3/uL Eosinophils # 0.01 L (0.04-0.35) X 10*3/uL Sodium 134 L (135-145) mmol/L Carbon Dioxide 19.6 L (21.6-31.8) mmol/L Anion Gap 12.40 H (4.00-12.00) mmol/L BUN 4.1 L (9.0-27.0) mg/dL Creatinine 0.5 L (0.6-1.5) mg/dL POC Glucose (mg/dL) 167 H (70-110) mg/dL Calcium 8.5 L (8.7-10.3) mg/dL
[2023-07-29] MEDS ORDERED: bisacodyL 5 MG TABLET.DR PO PRN (08:00)
[2023-07-29 09:07] VITALS: BP 148/94; PULSE 58; RESP 17; TEMP 98.6
[2023-07-29 11:08] LABS: Basophils # (A) 0.01 X 10*3/uL (0.00-0.10); Basophils % (A) 0.1 %; Eosinophils # (A) 0.01 X 10*3/uL (0.04-0.35); Eosinophils % (A) 0.1 %; HCT 42.5 % (37.2-46.3); HGB 13.9 g/dL (12.0-15.0); Lymphocytes # (A) 1.06 X 10*3/uL (0.90-5.00); Lymphocytes % (A) 10.5 %; MCH 28.8 pg (27.0-32.0); MCHC 32.7 g/dL (32.0-37.0); Mean Platelet Volume 10.4 FL (9.5-12.2); Monocytes # (A) 0.61 X 10*3/uL (0.20-1.00); NRBC Per 100 WBC 0 X 10*3/uL (0.00-0.01); Neutrophils # (A) 8.39 X 10*3/uL (1.80-7.70); Neutrophils % (A) 83.1 %; Platelet Count 343 X 10*3/uL (140-440); RBC 4.83 X 10*6/uL (4.10-5.20); RDW 12.6 % (11.5-14.5)
--- NOTE | 2023-07-29 13:04 | FL ---
SINGLE CONTRAST UPPER GI EXAMINATION: CLINICAL HISTORY: 32-year-old female postoperative edema, status post sleeve gastrectomy. TECHNIQUE: Single contrast exam performed with 50 ml Isovue-300 contrast. Total fluoroscopy time: 1 minute 19 seconds Total images: 25 DOSE AREA PRODUCT (DAP) UGY*M,MGY*CM: 67.7 FINDINGS: The patient swallowed oral contrast without difficulty or delay. Esophageal peristalsis and motility are within normal limits. There is prompt passage of contrast from the esophagus into the proximal a spect of the stomach. After an initial hesitancy, there is passage of contrast along the patient's sl eeve gastrectomy into the distal stomach and duodenum there is no evidence of contrast extravasation to suggest leak. Trace postsurgical free air remains below the right hemidiaphragm, decreased from ye sterday. IMPRESSION: Interval resolution of previous obstruction at the proximal aspect of the sleeve gastrectomy. No evid ence of leak. Decreasing, trace postsurgical free air on the right.
--- NOTE | 2023-07-29 14:02 | P.DS ---
Providers Date of admission: 07/27/23 10:24 Expected date of discharge: 07/29/23 Attending physician: Elina Salazar Primary care physician: Nakul Cedeno Hospital Course: Discharge diagnosis 1. Morbid obesity due to excess calories 2. Body mass index of 54.9 to 52.6 3. Gastroesophageal reflux disease 4. Osteoarthritis of the bilateral knees. 5. Osteoarthritis of the back 6. Macromastia 7. Osteoarthritis bilateral hips 8. Second hand tobacco exposure 9. Vitamin A deficiency 10. Vitamin D deficiency 11. Zinc deficiency 12. Chronic gastritis 13. H. pylori gastritis 14. Tobacco use 15. Drug screen positive for THC, opiates, amphetamine 16. Severe obstruction likely due to postoperative edema noted on upper GI Hospital course Tonie Jiménez is a 32-year-old female who comes with lifelong morbid obesity. She is status post Robotic assisted sleeve gastrectomy. Patient initial upper GI had shown severe obstruction likely due to postoperative edema. Patient was maintained on IV Decadron for postoperative edema. Repeat upper GI today showed interval resolution of previous obstruction at the proximal aspect of the sleeve gastrectomy. No evidence of leak. Patient is tolerating liquid diet. She reports her pain is controlled. She is having bowel movements. Denies any difficulty urinating. She has been up and ambulating. She is afebrile. She is stable for discharge. Physician Travel Registered Nurse Nicu note has been reviewed by physician. Signing provider agrees with the documented findings, assessment, and plan of care. Patient Condition at Discharge: Stable Plan - Discharge Summary Discharge Rx Participant: Yes New Discharge Prescriptions: New Simethicone 40 mg/0.6 ml Drops [Mylicon Drops] 40 mg PO HS PRN #30 ml PRN Reason: Gas bisacodyL [Dulcolax] 5 mg PO DAILY PRN #10 tab PRN Reason: Constipation Omeprazole [PriLOSEC] 40 mg PO DAILY #30 cap Ondansetron Odt [Zofran Odt] 4 mg PO Q8HR PRN #9 tab PRN Reason: Nausea Continue HYDROcodone/APAP 10-325MG [[place] 10-325] 1 tab PO Q6HR PRN PRN Reason: Pain Dextroamphetamine/Amphetamine [Adderall] 20 mg PO TID Gabapentin 300 mg PO TID ARIPiprazole [Abilify] 2 mg PO DAILY ALPRAZolam [Xanax] 0.5 mg PO TID PRN PRN Reason: Anxiety Discontinued Zinc 50 mg PO DAILY Ergocalciferol [Vitamin D2 (1250 Mcg = 51090 Iu)] 50,000 unit PO FR Escitalopram [Lexapro] 20 mg PO DAILY Meloxicam [Mobic] 15 mg PO DAILY Discharge Medication List Dextroamphetamine/Amphetamine [Adderall] 20 mg PO TID 01/02/21 [History] HYDROcodone/APAP 10-325MG [[place] 10-325] 1 tab PO Q6HR PRN 01/02/21 [History] Gabapentin 300 mg PO TID 12/18/21 [History] ALPRAZolam [Xanax] 0.5 mg PO TID PRN 07/21/23 [History] ARIPiprazole [Abilify] 2 mg PO DAILY 07/21/23 [History] Omeprazole [PriLOSEC] 40 mg PO DAILY #30 cap 07/29/23 [Rx] Ondansetron Odt [Zofran Odt] 4 mg PO Q8HR PRN #9 tab 07/29/23 [Rx] Simethicone 40 mg/0.6 ml Drops [Mylicon Drops] 40 mg PO PCHS PRN #30 ml 07/29/23 [Rx] bisacodyL [Dulcolax] 5 mg PO DAILY PRN #10 tab 07/29/23 [Rx] Follow up Appointment(s)/Referral(s): Bariatric [place], [place] [NON-STAFF] - 07/31/23 9:00 am Activity/Diet/Wound Care/Special Instructions: Liquid diet only for 2 weeks No lifting over 4 pounds in 4 weeks May Shower. No soaking in bath tubs for 2 weeks Please notify your surgeon if you develop nausea and vomiting including new onset of abdominal pain. Continue to use incentive spirometry to prevent pneumonias. Please continue to ambulate at home to prevent blood clots in legs. Follow-up at the bariatric center. May shower. Dressings to be discontinued by surgeon in the office. Drink 64 oz of fluid daily. Start protein shakes on . Notify bariatric center for temp over 101.0, increased pain, drainage from incisions. No straws or carbonated beverages. Liquid diet only. Sugar content should be less than 6 g to avoid dumping syndrome. Take MOM for constipation. CRUSH, OPEN, OR CUT TABLETS LARGER THAN A SIZE OF A TIC TAC Do not take Lexapro or vitamins until seen by surgeon due to increased bleeding risk with these medications Discharge Disposition: HOME SELF-CARE
== END 2023-07-29 14:51 | disposition home or self-care (01) | DRG 403 ==
LOC: 2ORMAIN 07-27 10:24 → 4SSUR 07-27 17:20
PROVIDERS: ADMIT Surgery Plastic and Reconstructive Surgery; ATTEND Surgery Plastic and Reconstructive Surgery
PROC: 8E0W4CZ Robotic Assisted Procedure of Trunk Region, Percutaneous Endoscopic Approach (ICD-10-PCS; principal; 2023-07-27 12:45)
PROC: 0DB64Z3 Excision of Stomach, Percutaneous Endoscopic Approach, Vertical (ICD-10-PCS; principal; 2023-07-27 12:45)
PROC: 0DJ08ZZ Inspection of Upper Intestinal Tract, Via Natural or Artificial Opening Endoscopic (ICD-10-PCS; principal; 2023-07-27 12:45)
DX: E66.01 Morbid (severe) obesity due to excess calories (principal); Z68.43 Body mass index [BMI] 50.0-59.9, adult; B96.81 Helicobacter pylori [H. pylori] as the cause of diseases classified elsewhere; E50.9 Vitamin A deficiency, unspecified; E55.9 Vitamin D deficiency, unspecified; E60 Dietary zinc deficiency; G40.909 Epilepsy, unspecified, not intractable, without status epilepticus; K56.609 Unspecified intestinal obstruction, unspecified as to partial versus complete obstruction; K21.9 Gastro-esophageal reflux disease without esophagitis; K29.50 Unspecified chronic gastritis without bleeding; M16.0 Bilateral primary osteoarthritis of hip; M17.0 Bilateral primary osteoarthritis of knee; M47.9 Spondylosis, unspecified; N62 Hypertrophy of breast; Z79.1 Long term (current) use of non-steroidal anti-inflammatories (NSAID); Z79.899 Other long term (current) drug therapy; Z80.0 Family history of malignant neoplasm of digestive organs; Z77.22 Contact with and (suspected) exposure to environmental tobacco smoke (acute) (chronic); Z87.891 Personal history of nicotine dependence
CPT/HCPCS: 74240; 80051; 81025; 82310; 82565; 83735; 84100; 84520; 85025; 88307; 94640

== ENCOUNTER → 2023-07-17 | Outpatient (CLI) | payer OTHER | END | disposition home or self-care (01) | LOC: LABWHC1 13:27 | PROVIDERS: ATTEND Surgery Plastic and Reconstructive Surgery | DX: Z53.9 Procedure and treatment not carried out, unspecified reason (principal) ==

== ENCOUNTER → 2023-07-22 | Outpatient (CLI) | payer OTHER ==
[2023-07-23 02:44] LABS: Basophils # (A) 0.03 X 10*3/uL (0.00-0.10); Basophils % (A) 0.3 %; Eosinophils # (A) 0.09 X 10*3/uL (0.04-0.35); Eosinophils % (A) 0.8 %; HCT 45.6 % (37.2-46.3); HGB 14.8 g/dL (12.0-15.0); Lymphocytes # (A) 3.25 X 10*3/uL (0.90-5.00); Lymphocytes % (A) 27.5 %; MCH 28.8 pg (27.0-32.0); MCHC 32.5 g/dL (32.0-37.0); MCV 88.7 FL (80.0-97.0); Mean Platelet Volume 10.1 FL (9.5-12.2); Monocytes # (A) 0.82 X 10*3/uL (0.20-1.00); Monocytes % (A) 6.9 %; NRBC Per 100 WBC 0 X 10*3/uL (0.00-0.01); Neutrophils # (A) 7.59 X 10*3/uL (1.80-7.70); Neutrophils % (A) 64.2 %; Platelet Count 305 X 10*3/uL (140-440); RBC 5.14 X 10*6/uL (4.10-5.20); WBC 11.82 X 10*3/uL (4.50-10.00)
[2023-07-23 03:18] LABS: ALT 65 U/L (8-44); AST 26 U/L (13-35); Albumin 3.9 g/dL (3.8-4.9); Alkaline Phosphatase 57 U/L (41-126); BUN/Creat Ratio 18.83 Ratio (12.00-20.00); Blood Urea Nitrogen 11.3 mg/dL (9.0-27.0); Calcium 8.9 mg/dL (8.7-10.3); Carbon Dioxide 26.4 mmol/L (21.6-31.8); Chloride 102 mmol/L (96-109); Globulin 2.3 g/dL (1.6-3.3); Glucose 95 mg/dL (70-110); Potassium 4.5 mmol/L (3.5-5.5); Sodium 139 mmol/L (135-145); Total Bilirubin 0.5 mg/dL (0.3-1.2); Total Protein 6.2 g/dL (6.2-8.2)
== END | disposition home or self-care (01) ==
LOC: LABPAT 13:45
PROVIDERS: ATTEND Surgery Plastic and Reconstructive Surgery
DX: Z01.818 Encounter for other preprocedural examination (principal)
CPT/HCPCS: 36415; 80053; 85025; 86850; 86900; 86901; 93005

== ENCOUNTER → 2023-07-23 | Outpatient (CLI) | payer OTHER | END | disposition home or self-care (01) | LOC: LABPAT 13:00 | PROVIDERS: ATTEND Surgery Plastic and Reconstructive Surgery | DX: Z01.812 Encounter for preprocedural laboratory examination (principal) | CPT/HCPCS: 36415; 86850; 86900; 86901 ==

== ENCOUNTER → 2023-08-07 | Outpatient (CLI) | payer OTHER ==
--- NOTE | 2023-08-07 09:44 | P.BASOAP ---
Subjective Progress Note Date: 08/07/23 Has persistent left upper quadrant incisional pain to be expected. Recommendation of supportive she reports pain is improved with additional support. No infection. Protein intake subpar of 20 to 40 g daily. Weight loss 1 pound in 2 weeks. Total weight loss of 21 pounds in 3 weeks. Follow-up 1 month postop with bariatric labs. All questions addressed. May resume antidepressant medications. She denies any nausea or reflux. Images from her surgery given. Objective - Vital Signs Vital signs: Intake & Output 08/06/23 08/07/23 08/07/23 18:59 06:59 18:59 Weight 156.943 kg Assessment/Plan Plan: Date: Initial Weight: 152.18 kg Initial BMI: Current Weight: 156.943 kg Current BMI: Type of Surgery: Total Volume in Band: Previous Volume: Volume Removed: Volume Added: Band Size:
[2023-08-07 11:01] VITALS: BP 114/81; PULSE 76; RESP 13; TEMP 98.5; BMI 52.6
== END ==
LOC: BARWHC3 09:15
PROVIDERS: ATTEND Surgery Plastic and Reconstructive Surgery
DX: Z53.9 Procedure and treatment not carried out, unspecified reason (principal)
CPT/HCPCS: 99211

== ENCOUNTER → 2023-11-19 | Outpatient (CLI) | payer OTHER ==
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
== END | disposition home or self-care (01) ==
LOC: RADXRMAIN 10:43
PROVIDERS: ATTEND Emergency Medicine
DX: M17.11 Unilateral primary osteoarthritis, right knee (principal); S80.01XA Contusion of right knee, initial encounter; S83.91XA Sprain of unspecified site of right knee, initial encounter

== ENCOUNTER → 2023-12-04 | Outpatient (CLI) | payer OTHER ==
--- NOTE | 2023-12-05 16:55 | XR ---
EXAMINATION TYPE: XR knee complete RT DATE OF EXAM: 12/04/2023 COMPARISON: 11/19/2023 HISTORY: Pain strain TECHNIQUE: 3 view right knee FINDINGS: No acute fracture or dislocation is evident. Medial tibial plateau and femoral condylar spu rring is present. There may be a small joint effusion present. Posterior superior patellar spurring i s present. Follow up exams can be performed 7-10 days from acute trauma for continued pain IMPRESSION: 1. There may be a small joint effusion present. 2. Mild to moderate degenerative changes medial compartment right knee
== END | disposition home or self-care (01) ==
LOC: RADXRMAIN 09:41
PROVIDERS: ATTEND Emergency Medicine
DX: S80.01XD Contusion of right knee, subsequent encounter (principal); M17.11 Unilateral primary osteoarthritis, right knee

== ENCOUNTER 2023-12-30 13:27 | Emergency (ER) | payer OTHER ==
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
--- NOTE | 2023-12-30 15:24 | XR ---
EXAMINATION TYPE: XR wrist complete LT DATE OF EXAM: 12/30/2023 CLINICAL HISTORY: pain TECHNIQUE: Frontal, lateral and oblique images of the left wrist are obtained. Additional navicular view obtained. COMPARISON: None. FINDINGS: There is no acute fracture/dislocation evident. The joint spaces appear within normal jordan its. The overlying soft tissue appears unremarkable. IMPRESSION: There is no acute fracture or dislocation seen. ICD 10 NO FRACTURE, INITIAL EVALUATION
--- NOTE | 2023-12-30 15:25 | XR ---
EXAMINATION TYPE: XR tibia fibula bilateral DATE OF EXAM: 12/30/2023 CLINICAL HISTORY: pain TECHNIQUE: AP and lateral images of the right tibia and fibula are obtained. COMPARISON: None. FINDINGS: There is no acute fracture/dislocation evident. The joint spaces appear within normal jordan its. The overlying soft tissue appears unremarkable. IMPRESSION: There is no acute fracture or dislocation seen. ICD 10 NO FRACTURE, INITIAL EVALUATION
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
[2023-12-30 16:00] VITALS: BP 122/86; PULSE 83; RESP 18; TEMP 97.9
== END 2023-12-30 16:00 | disposition home or self-care (01) ==
LOC: EC 13:27
DX: S80.12XA Contusion of left lower leg, initial encounter (principal); S80.11XA Contusion of right lower leg, initial encounter; S60.212A Contusion of left wrist, initial encounter; F17.290 Nicotine dependence, other tobacco product, uncomplicated; Z91.030 Bee allergy status; Z91.048 Other nonmedicinal substance allergy status; V49.50XA Passenger injured in collision with unspecified motor vehicles in traffic accident, initial encounter
CPT/HCPCS: 70450; 72125; 99284

== ENCOUNTER 2024-03-18 17:08 | Inpatient (IN) | payer OTHER ==
[2024-03-18 17:35] LABS: Glucose,Whole Blood 88 mg/dL (70-110)
--- NOTE | 2024-03-18 17:40 | ED ---
General Adult HPI - General Chief complaint: Weakness Stated complaint: Poss Stroke Time Seen by Provider: 03/18/24 17:18 Source: patient, EMS, RN notes reviewed, old records reviewed Mode of arrival: EMS Limitations: no limitations - History of Present Illness Initial comments: Patient is a 33-year-old female who presents emergency department complaining of strokelike symptoms. Last known well was at approximately 5 PM. Patient was picking up her daughter from school when she began feeling off. Denies any seizure-like activity despite having history of seizures. Denies any chest pain or shortness of breath. States that the left side of her body feels strange. Denies any headaches or trauma. Has a familial history of the blood clotting genetic disorder MTHFR.Patient does have a history concerning for recently diagnosed cervical cancer with possible liver involvement. Patient is a history of seizures but is not on any medications for seizures. No seizures today. Presents for further evaluation at this time. Originally seen by midlevel provider who immediately came to contact me over concern for possible stroke which is when I took over care At approximately 1728. - Related Data Home Medications Medication Instructions Recorded Confirmed Dextroamphetamine/Amphetamine 20 mg PO TID 01/02/21 11/25/23 [Adderall] HYDROcodone/APAP 10-325MG [Carmine 1 tab PO Q6HR PRN 01/02/21 11/25/23 10-325] Gabapentin 300 mg PO TID 12/18/21 11/25/23 ALPRAZolam [Xanax] 0.5 mg PO TID PRN 07/21/23 11/25/23 ARIPiprazole [Abilify] 2 mg PO DAILY 07/21/23 11/25/23 Escitalopram [Lexapro] 20 mg PO DAILY 08/26/23 11/25/23 Ibuprofen [Motrin] 600 mg PO TID PRN 03/18/24 03/18/24 Naloxone HCl [Narcan] 4 mg NASAL DIRECTED PRN 03/18/24 03/18/24 Allergies Allergy/AdvReac Type Severity Reaction Status Date / Time adhesive tape Allergy Rash/Hives Verified 03/18/24 18:57 Bleach (Sodium Hypochlorite) Allergy Anaphylaxis Verified 03/18/24 18:57 /Rash/Hives venom-honey bee Allergy Anaphylaxis Verified 03/18/24 18:57 [bee venom (honey bee)] Review of Systems ROS Statement: Those systems with pertinent positive or pertinent negative responses have been documented in the HPI. Review of Systems: CONST: Denies fever EYES: Denies blurry vision ENT: Denies nasal congestion C/V: Denies Chest pain RESP: Denies shortness of breath GI: Denies abdominal pain : Denies dysuria SKIN: Denies rash. MSK: Denies joint pain. NEURO: Denies headache ROS Other: All systems not noted in ROS Statement are negative. Past Medical History Past Medical History: Blood Disorder, Osteoarthritis (OA), Seizure Disorder Additional Past Medical History / Comment(s): MTHFR gene, sees Dr Maricruz sloan, last seizure years ago in early -not sure of cause or what kind, no meds for, generalized arthritis History of Any Multi-Drug Resistant Organisms: None Reported Past Surgical History: Adenoidectomy, Bariatric Surgery, Section, Orthopedic Surgery, Tonsillectomy Additional Past Surgical History / Comment(s): ron KNEE SURGERY SX, EGD. sleeve gastrectomy 07-27-23 Past Anesthesia/Blood Transfusion Reactions: Previous Problems w/ Anesthesia Additional Past Anesthesia/Blood Transfusion Reaction / Comment(s): patient states she had a headache after spinal previously, otherwise no problems Past Psychological History: ADD/ADHD, Anxiety, Depression Smoking Status: Former smoker, Vaper Past Alcohol Use History: Occasional Past Drug Use History: Marijuana - Past Family History Mother Family Medical History: Blood Disorder, Deep Vein Thrombosis (DVT) Additional Family Medical History / Comment(s): blood clotting disorder-takes coumadin General Exam - General Exam Comments Initial Comments: General: Appears anxious HEAD: Normal with no signs of head trauma. EYES: PERRLA, EOMI, conjunctiva normal, no discharge. Pupils are 3 mm and equal bilaterally. ENT: Hearing grossly intact, normal oropharynx. RESPIRATORY: Clear breath sounds bilaterally. No wheezes, rales, or rhonchi. C/V: Regular rate and rhythm. S1 and S2 auscultated, no edema, peripheral pulses 2+ and intact throughout ABD: Abd is soft, nontender, nondistended EXT: Normal range of motion, no obvious deformity SKIN: No rashes or lesions observed on exposed skin. NEURO: Alert and oriented x 4. NIH is 5-6. Patient has left upper extremity left lower extremity weakness with slight drift. Patient has loss of sensation to light touch on the left side of her body. Patient has ataxia in the left lower extremity, and very mild slight ataxia in the left upper extremity. Patient has intermittent dysarthria for 1 point.. Limitations: no limitations Course Vital Signs 03/18/24 03/18/24 03/18/24 17:14 18:20 18:35 Temperature 99.4 F Pulse Rate 57 L 60 59 L Respiratory 18 18 18 Rate Blood Pressure 150/89 147/90 133/67 O2 Sat by Pulse 98 99 96 Oximetry Medical Decision Making - Medical Decision Making Was pt. sent in by a medical professional or institution (, PA, MECHANICAL METER TESTER, urgent care, hospital, or [facility]...) When possible be specific @ -No Did you speak to anyone other than the patient for history (EMS, parent, family, police, friend...)? What history was obtained from this source @ -No Did you review nursing and triage notes (agree or disagree)? Why? @ -I reviewed and agree with nursing and triage notes Were old charts reviewed (outside hosp., previous admission, EMS record, old EKG, old radiological studies, urgent care reports/EKG's, [facility] records)? Report findings @ -No old charts were reviewed Differential Diagnosis (chest pain, altered mental status, abdominal pain women, abdominal pain men, vaginal bleeding, weakness, fever, dyspnea, syncope, headache, dizziness, GI bleed, back pain, seizure, CVA, palpatations, mental health, musculoskeletal)? @ -Differential CVA Ischemic stroke, hemorrhagic stroke, brain tumor, atypical migraine, Wernicke's encephalopathy, seizure, multiple sclerosis, meningitis, encephalitis, hypoglycemia, Guillain-Carrasco, electrolytes disturbance, myasthenia gravis.... This is not meant to be an all-inclusive list EKG interpreted by me (3pts min.). @ -As above X-rays interpreted by me (1pt min.). @ -Chest x-ray reveals no obvious acute cardiopulmonary process. CT interpreted by me (1pt min.). @ -CT brain, CT angiogram of the head and neck negative for any obvious acute i ntracranial process, large vessel occlusion. U/S interpreted by me (1pt. min.). @ -None done What testing was considered but not performed or refused? (CT, X-rays, U/S, labs)? Why? @ -None What meds were considered but not given or refused? Why? @ -None Did you discuss the management of the patient with other professionals (professionals i.e. , PA, MECHANICAL METER TESTER, lab, RT, psych nurse, secondary social studies teacher, trial lawyer, teacher, disbursing officer, case work aide)? Give summary @ -I spoke with Dr. Buckner the neurointensivist who reviewed the CT brain with me. Agree that patient is a tenecteplase candidate. Was in agreement with plan for administering tenecteplase, if the patient consents. Will notify with any u pdates or change in clinical status. Requested contact him if the CT angiogram revealed any large vessel occlusions, which it did not. I spoke with neurology on-call, Dr. Singletary who is in agreement this plan. I spoke with the ICU attending Dr. Cai who accepted the patient in the ICU. I spoke with the admitting team, Freda HERNANDEZ from [facility] who accepted the admission. Was smoking cessation discussed for >3mins.? @ -No Was critical care preformed (if so, how long)? @ -yes, 44 minutes Were there social determinants of health that impacted care today? How? (Homelessness, low income, unemployed, alcoholism, drug addiction, transportation, low edu. Level, literacy, decrease access to med. care, group home, rehab)? @ -No Was there de-escalation of care discussed even if they declined (Discuss DNR or withdrawal of care, Hospice)? DNR status @ -No What co-morbidities impacted this encounter? (DM, HTN, Smoking, COPD, CAD, Cancer, CVA, ARF, Chemo, Hep., AIDS, mental health diagnosis, sleep apnea, morbid obesity)? @ -None Was patient admitted / discharged? Hospital course, mention meds given and route, prescriptions, significant lab abnormalities, going to OR and other pertinent info. @ -Patient presents with left-sided weakness with decreased sensation to light touch as well as some mild ataxia in the left lower extremity. NIH is 5-6. Last normal was at 5 PM. Patient does have a history of anxiety and panic attacks as well as seizures although does not appear it was a seizure as she denies any seizure-like activity. States that when she has had panic attacks in the past it usually just causes her to hyperventilate which she is not currently doing with numb lips. Has never had other sensory deficits or neurological deficits. Due to the patient being last known well at approximately 1700 patient having acute neurological deficits consistent with possible CVA, code thrombolytics was activated. Vital signs are within acceptable limits including blood pressure at 120/79. Accu-Chek is within acceptable limits. Patient was in agreement this plan. As IV access was being obtained and as we are prepping the patient for CT I discussed tenecteplase with her. Patient is uncertain if she wants it and wants to discuss it with her when he is at bedside and after CT imaging. I spoke with Dr. Buckner the neurointensivist who reviewed the CT brain with me. Agree that patient is a tenecteplase candidate. Was in agreement with plan for administering tenecteplase, if the patient consents. Will notify with any updates or change in clinical status. CT brain revealed no obvious acute intracranial process. Patient will be given tenecteplase at her consent. I spoke with her as well as family regarding her symptoms again as well as CT findings. On reevaluation after CT, NIH is relatively unchanged near 5 or 6. I discussed at length for 5 to 10 minutes tenecteplase administration with the patient as well as family members. Patient did eventually consent to therapy as potential benefits outweigh risks involved. This discussion did delay tenecteplase administration, as did the patient's insistence that she has to urinate before she receives any further medications. Tenecteplase was ordered at 1756. Due to the delays stated above, administration started at 1806. CT angiogram revealed no obvious acute process. Chest x-ray unremarkable. Laboratory studies unremarkable. On reevaluation, NIH is approximately 2-3. Strength is improved in both upper and lower extremities. Ataxia is improved and lowers as well. Patient still has a little bit of mild weakness in the left upper extremity, sensory deficits, but speech is overall improved. She is feeling improved. Discussed the workup with the patient. Patient will be admitted to the ICU as she did receive tenecteplase. I spoke with neurology on- call, Dr. Singletary who is in agreement this plan. I spoke with the ICU attending Dr. Cai who accepted the patient in the ICU. I spoke with the admitting team, Freda HERNANDEZ from [facility] who accepted the admission. Undiagnosed new problem with uncertain prognosis? @ -No Drug Therapy requiring intensive monitoring for toxicity (Heparin, Nitro, Insulin, Cardizem)? @ -No Were any procedures done? @ -No Diagnosis/symptom? @ -CVA, receiving tenecteplase Acute, or Chronic, or Acute on Chronic? @ -Acute Uncomplicated (without systemic symptoms) or Complicated (systemic symptoms)? @ -Complicated Side effects of treatment? @ -None Exacerbation, Progression, or Severe Exacerbation] @ -No Poses a threat to life or bodily function? @ -Yes - Lab Data Result diagrams: 03/18/24 17:37 03/18/24 17:37 Lab Results 03/18/24 03/18/24 03/18/24 Range/Units 17:34 17:37 17:37 WBC 8.2 (3.8-10.6) k/uL RBC 4.60 (3.80-5.40) m/uL Hgb 14.0 (11.4-16.0) gm/dL Hct 42.1 (34.0-46.0) % MCV 91.4 (80.0-100.0) fL MCH 30.4 (25.0-35.0) pg MCHC 33.3 (31.0-37.0) g/dL RDW 13.3 (11.5-15.5) % Plt Count 281 (150-450) k/uL MPV 7.4 Neutrophils % 65 % Lymphocytes % 27 % Monocytes % 4 % Eosinophils % 1 % Basophils % 0 % Neutrophils # 5.3 (1.3-7.7) k/uL Lymphocytes # 2.2 (1.0-4.8) k/uL Monocytes # 0.4 (0-1.0) k/uL Eosinophils # 0.1 (0-0.7) k/uL Basophils # 0.0 (0-0.2) k/uL PT 10.3 (10.0-12.5) sec INR 0.9 (<1.2) APTT 24.3 (22.0-30.0) sec Sodium (137-145) mmol/L Potassium (3.5-5.1) mmol/L Chloride (98-107) mmol/L Carbon Dioxide (22-30) mmol/L Anion Gap mmol/L BUN (7-17) mg/dL Creatinine (0.52-1.04) mg/dL Est GFR (CKD-EPI)AfAm (>60 ml/min/1.73 sqM) Est GFR (CKD-EPI)NonAf (>60 ml/min/1.73 sqM) Glucose (74-99) mg/dL POC Glucose (mg/dL) 88 (70-110) mg/dL POC Glu Reel [place] ID [place] Calcium (8.4-10.2) mg/dL Total Bilirubin (0.2-1.3) mg/dL AST (14-36) U/L ALT (4-34) U/L Alkaline Phosphatase (38-126) U/L Creatine Kinase (30-135) U/L Total Protein (6.3-8.2) g/dL Albumin (3.5-5.0) g/dL Urine Color Urine Appearance (Clear) Urine pH (5.0-8.0) Ur Specific [place] (1.001-1.035) Urine Protein (Negative) Urine Glucose (UA) (Negative) Urine Ketones (Negative) Urine Blood (Negative) Urine Nitrite (Negative) Urine Bilirubin (Negative) Urine Urobilinogen (<2.0) mg/dL Ur Leukocyte Esterase (Negative) 03/18/24 03/18/24 Range/Units 17:37 17:37 WBC (3.8-10.6) k/uL RBC (3.80-5.40) m/uL Hgb (11.4-16.0) gm/dL Hct (34.0-46.0) % MCV (80.0-100.0) fL MCH (25.0-35.0) pg MCHC (31.0-37.0) g/dL RDW (11.5-15.5) % Plt Count (150-450) k/uL MPV Neutrophils % % Lymphocytes % % Monocytes % % Eosinophils % % Basophils % % Neutrophils # (1.3-7.7) k/uL Lymphocytes # (1.0-4.8) k/uL Monocytes # (0-1.0) k/uL Eosinophils # (0-0.7) k/uL Basophils # (0-0.2) k/uL PT (10.0-12.5) sec INR (<1.2) APTT (22.0-30.0) sec Sodium 138 (137-145) mmol/L Potassium 3.7 (3.5-5.1) mmol/L Chloride 105 (98-107) mmol/L Carbon Dioxide 26 (22-30) mmol/L Anion Gap 7 mmol/L BUN 8 (7-17) mg/dL Creatinine 0.57 (0.52-1.04) mg/dL Est GFR (CKD-EPI)AfAm >90 (>60 ml/min/1.73 sqM) Est GFR (CKD-EPI)NonAf >90 (>60 ml/min/1.73 sqM) Glucose 84 (74-99) mg/dL POC Glucose (mg/dL) (70-110) mg/dL POC Glu Reel Hooker ID Calcium 8.6 (8.4-10.2) mg/dL Total Bilirubin 1.0 (0.2-1.3) mg/dL AST 29 (14-36) U/L ALT 36 H (4-34) U/L Alkaline Phosphatase 51 (38-126) U/L Creatine Kinase 97 (30-135) U/L Total Protein 6.6 (6.3-8.2) g/dL Albumin 4.0 (3.5-5.0) g/dL Urine Color Colorless Urine Appearance Clear (Clear) Urine pH 7.0 (5.0-8.0) Ur Specific [place] 1.013 (1.001-1.035) Urine Protein Negative (Negative) Urine Glucose (UA) Negative (Negative) Urine Ketones Negative (Negative) Urine Blood Negative (Negative) Urine Nitrite Negative (Negative) Urine Bilirubin Negative (Negative) Urine Urobilinogen <2.0 (<2.0) mg/dL Ur Leukocyte Esterase Negative (Negative) - EKG Data -: EKG Interpreted by Me EKG Comments: 12-lead Electrocardiogram Interpretation Note EKG was reviewed and interpreted by myself. 12-lead ECG performed at 1754 is interpreted by me as revealing normal sinus rhythm at a rate of 65 beats per minute. [place] is normal. MD interval is 175 ms, QRS durations 101 ms, QTc is 428 ms.. There were no ST or T wave abnormalities to suggest myocardial ischemia or injury. R wave progression across the precordium was satisfactory. By my interpretation this EKG is non-diagnostic for acute ischemia. Critical Care Time Critical Care Time: Yes Total Critical Care Time: 44 Disposition Clinical Impression: CVA (cerebral vascular accident) Disposition: ADMITTED IP TO THIS [facility] Condition: Serious Referrals: Nakul Cedeno [Primary Care Provider] - 1-2 days Time of Disposition: 19:00
--- NOTE | 2024-03-18 17:52 | CT ---
EXAMINATION TYPE: CODE STROKE: CT brain wo contr DATE OF EXAM: 03/18/2024 COMPARISON: 12/30/2023 INDICATION: Right side weakness, numbness, last known well 5 pm. DLP: 1130.6 mGycm, Automated exposure control for dose reduction was used. CONTRAST: None CT of the brain is performed utilizing 3 mm thick sections through the posterior fossa and 3 mm thick sections through the remaining calvarium. Study is performed within 24 hours of arrival to the hosp ital. No abnormal hyperdensity is present to suggest an acute intracranial hemorrhage. No mass lesion is evident. No acute infarcts are evident. Ventricles and sulci are appropriate for the patient age. Paranasal sinuses and mastoid air cells within the [id number] are clear. IMPRESSION: 1. No acute intracranial process. Follow up MRI can be performed as clinically indicated. [facility], Workstation: [facility], 03/18/2024 5:50 PM
[2024-03-18] MEDS: SODIUM CHLORIDE 0.9% 1,000 ML IV STA (17:54)
[2024-03-18 18:00] LABS: Basophils % (A) 0 %; Eosinophils # (A) 0.1 k/uL (0-0.7); Eosinophils % (A) 1 %; HCT 42.1 % (34.0-46.0); Lymphocytes # (A) 2.2 k/uL (1.0-4.8); Lymphocytes % (A) 27 %; MCH 30.4 pg (25.0-35.0); MCHC 33.3 g/dL (31.0-37.0); MCV 91.4 fL (80.0-100.0); Mean Platelet Volume 7.4; Monocytes # (A) 0.4 k/uL (0-1.0); Monocytes % (A) 4 %; Neutrophils # (A) 5.3 k/uL (1.3-7.7); Neutrophils % (A) 65 %; Platelet Count 281 k/uL (150-450); RDW 13.3 % (11.5-15.5); WBC 8.2 k/uL (3.8-10.6)
[2024-03-18] MEDS: T.ENECTEPLASE 5 MG/ML VIAL IVP STA (18:06)
[2024-03-18 18:09] LABS: INR 0.9 (<1.2); Partial Thromboplastin Time 24.3 sec (22.0-30.0); Prothrombin Time 10.3 sec (10.0-12.5)
[2024-03-18 18:28] LABS: Appearance,Urine Clear (Clear); Bilirubin,Urine Negative (Negative); Blood,Urine Negative (Negative); Color,Urine Colorless; Glucose,Urine (UA) Negative (Negative); Ketones,Urine Negative (Negative); Leukocyte Esterase,Urine Negative (Negative); Nitrite,Urine Negative (Negative); Protein,Urine Negative (Negative); Specific Gravity,Urine 1.013 (1.001-1.035); Urobilinogen,Urine <2.0 mg/dL (<2.0)
[2024-03-18 18:38] LABS: ALT 36 U/L (4-34); AST 29 U/L (14-36); African American GFR (CKD) >90 (>60 ml/min/1.73 sqM); Alkaline Phosphatase 51 U/L (38-126); Anion Gap 7 mmol/L; Blood Urea Nitrogen 8 mg/dL (7-17); Calcium 8.6 mg/dL (8.4-10.2); Carbon Dioxide 26 mmol/L (22-30); Chloride 105 mmol/L (98-107); Creatine Kinase 97 U/L (30-135); Glucose 84 mg/dL (74-99); Non-African American GFR(CKD) >90 (>60 ml/min/1.73 sqM); Potassium 3.7 mmol/L (3.5-5.1); Sodium 138 mmol/L (137-145); Total Protein 6.6 g/dL (6.3-8.2)
--- NOTE | 2024-03-18 18:42 | CT ---
EXAMINATION TYPE: CT angio head neck DATE OF EXAM: 03/18/2024 HISTORY: Left side weakness and numbness, LKW 1 hour ago. COMPARISON: None CT DLP: 973.7 mGycm. Automated Exposure Control for Dose Reduction was Utilized. TECHNIQUE: CTA scan of the neck is performed without and with IV Contrast, patient injected with 65 mL of Isovue 370, axial images are obtained, coronal and sagittal reformatted images are reviewed. Th ree-D reconstructed images are created on an independent workstation and reviewed. Source images are reviewed. There is limitation on the reconstructed images. Only the [place] could be perfor med with limitations. FINDINGS: Carotid/Vascular Structures: There is a 3 vessel arch. Common carotid arteries bifurcate into internal and external carotid arteries without significant melba w limiting stenosis. Vertebral arteries are codominant. Internal carotid arteries and vertebral arteries are patent to the skull base. Cervical of [place]: Vertebral basilar system appears normal. Posterior cerebral vasculature is unrema rkable. Internal carotid arteries bifurcate normally into A1 and M1 segments on source images. Recons tructed images appear suboptimal. A2 segments are normal. The anterior communicating artery is patent. The right posterior communicating artery is absent. The left posterior communicating artery is absent. IMPRESSION: 1. No flow-limiting stenosis bilateral carotid bifurcations. 2. Normal [place] NASCET criteria was used in interpretation of this exam? [facility], , 03/18/2024 6:40 PM
--- NOTE | 2024-03-18 19:00 | XR ---
EXAMINATION TYPE: XR chest 1V portable DATE OF EXAM: 03/18/2024 COMPARISON: 11/28/2022 INDICATION: CVA TECHNIQUE: Single frontal view of the chest is obtained. FINDINGS: The heart size is normal. The pulmonary vasculature is normal. The lungs are clear. IMPRESSION: 1. No acute pulmonary process. [facility], Workstation: [facility], 03/18/2024 6:58 PM
[2024-03-18] MEDS: ACETAMINOPHEN TAB 500 MG TAB PO STA (20:13)
--- NOTE | 2024-03-18 20:18 | CT ---
EXAMINATION TYPE: CT brain wo con DATE OF EXAM: 03/18/2024 COMPARISON: 03/18/2024 earlier exam INDICATION: headache post TNK DLP: 1135.4 mGycm, Automated exposure control for dose reduction was used. CONTRAST: None CT of the brain is performed utilizing 3 mm thick sections through the posterior fossa and 3 mm thick sections through the remaining calvarium. Study is performed within 24 hours of arrival to the hosp ital. No abnormal hyperdensity is present to suggest an acute intracranial hemorrhage. No mass lesion is evident. No acute infarcts are evident. Ventricles and sulci are appropriate for the patient age. Paranasal sinuses and mastoid air cells within the [id number] are clear. IMPRESSION: 1. No acute intracranial process. Follow up MRI can be performed as clinically indicated. [facility], Workstation: [facility], 03/18/2024 8:16 PM
[2024-03-18] MEDS: GABAPENTIN 300 MG CAP PO SCH (22:22)
[2024-03-19] MEDS: ATORVASTATIN 40 MG TAB PO SCH (08:38)
[2024-03-19] MEDS: ESCITALOPRAM 10 MG TAB PO SCH (08:40)
[2024-03-19 10:00] LABS: Chol/HDL Ratio 4.37 Ratio; LDL Cholesterol,Calculated 126.7 mg/dL (0.0-131.0)
--- NOTE | 2024-03-19 12:19 | CA ---
Transthoracic Echo Report Name: Tonie Alexandra Age: 33 Gender: F : 1990 Exam Date: 03/19/2024 11:11 Exam Location: [facility] Ht (in): 69 Wt (lb): 274 Ordering Physician: Jose Miller MD Attending/Referring Phys: Pocket Cutter Gayle Hernandez RDCS Procedure CPT: Indications: Strokelike symptoms Cardiac Hx: Technical Quality: Good Contrast 1: Total Dose (mL): Contrast 2: Total Dose (mL): MEASUREMENTS (Male / Female) Normal Values 2D ECHO LV Diastolic Diameter PLAX 4.7 cm 4.2 - 5.9 / 3.9 - 5.3 cm LV Systolic Diameter PLAX 3.7 cm IVS Diastolic Thickness 1.6 cm 0.6 - 1.0 / 0.6 - 0.9 cm LVPW Diastolic Thickness 1.5 cm 0.6 - 1.0 / 0.6 - 0.9 cm LV Relative Wall Thickness 0.7 RV Internal Dim ED PLAX 3.6 cm LA Systolic Diameter LX 4.6 cm 3.0 - 4.0 / 2.7 - 3.8 cm LA Volume 94.9 cm??? 18 - 58 / 22 - 52 cm??? LA Volume Index 37.7 cm???/m??? 16 - 28 cm???/m??? M-MODE Aortic Root Diameter MM 3.4 cm AV Cusp Separation MM 2.5 cm DOPPLER AV Peak Velocity 202.3 cm/s AV Peak Gradient 16.4 mmHg AV Mean Velocity 152.1 cm/s AV Mean Gradient 10.2 mmHg AV Velocity Time Integral 53.2 cm LVOT Peak Velocity 162.1 cm/s LVOT Peak Gradient 10.5 mmHg LVOT Velocity Time Integral 39.1 cm MV Area PHT 5.2 cm??? Mitral E Point Velocity 89.2 cm/s Mitral A Point Velocity 54.2 cm/s Mitral E to A Ratio 1.6 MV Deceleration Time 146.5 ms FINDINGS Left Ventricle Left ventricular ejection fraction is estimated at 55-60 %. Left ventricular cavity size normal. Severely increased septal wall thickness. Moderately increased posterior wall thickness. Normal left ventricular wall motion. Right Ventricle Mild right ventricular dilatation. Unable to estimate the right ventricular systolic pressure. Right Atrium Normal right atrial size. No right atrial thrombus or mass seen. No spontaneous contrast in the right atrium. Negative agitated saline bubble study for right to left shunt. Left Atrium Moderately increased left atrial diameter. Moderately increased left atrial volume. Mildly increased left atrial area. Mitral Valve Structurally normal mitral valve. No mitral stenosis, regurgitation or prolapse. Aortic Valve Trileaflet aortic valve. Trace to mild aortic regurgitation. Mild gradient across AOV Tricuspid Valve Structurally normal tricuspid valve. No tricuspid stenosis, regurgitation or prolapse. Pulmonic Valve Structurally normal pulmonic valve. Mild pulmonic regurgitation. Pericardium No pericardial or pleural effusion. Aorta Normal size aortic root and proximal ascending aorta. CONCLUSIONS Left ventricular ejection fraction 55-60% Moderately increased left ventricular wall thickness Negative bubble study Mild to moderately dilated left atrium Mild gradient across LVOT No pericardial effusion Previewed by: Dr. James Wright DO (Electronically Signed) Final Date: 19 March 2024 12:18
--- NOTE | 2024-03-19 13:12 | P.CNPUL ---
History of Present Illness Consult date: 03/19/24 Requesting physician: Erin Gray Reason for consult: other (Critical care management) Chief complaint: Left-sided tingling and numbness History of present illness: This is a very pleasant 33-year-old female patient with a known history of seizures while in her 20s, ADD, depression, anxiety, chronic pain syndrome, vaping, marijuana use, MTHFR gene mutation and normally takes baby aspirin bharat y. Yesterday at approximately 5 PM the patient was picking up her daughter from school and developed left-sided facial tingling and numbness along with left arm and left leg heaviness. She did have difficulty with her speech and EMS was called and she was brought here to the emergency room. ET scan of the brain revealed no acute intracranial process. CT angiogram of the head and neck revealed no flow-limiting stenosis of the bilateral carotid bifurcations. Normal [place] of [place]. She did receive tenecteplase at 6 PM. Follow-up CT scan of the brain at 8 PM revealed no acute intracranial process. She is seen today in consultation in the emergency department. She is currently sitting up on a stretcher. Awake and alert in no acute distress. Maintaining good O2 saturations in the 90s on room air. She has been afebrile. Hemodynamically stable. She has no residual effects. Equal hand grasp. No facial droop. Moving all 4 extremities. Normal tone. Echocardiogram revealed negative bubble study. Left ventricular ejection fraction 55 to 60%. Chest x-ray revealed no acute pulmonary process. Count 8.2. Hemoglobin 14.0. Platelets 281. INR 0.9. Sodium 138. Potassium 3.7. Bicarb 26. BUN 8. Creatinine 0.57. Review of Systems REVIEW OF SYSTEMS: CONSTITUTIONAL: Denies any recent significant weight loss or weight gain. EYES: Denies change in vision. EARS, NOSE, MOUTH, THROAT: Denies headaches, denies sore throat. CARDIOVASCULAR: Denies chest pain, palpitations or syncopal episodes. RESPIRATORY: Denies shortness of breath, cough, congestion or hemoptysis. GASTROINTESTINAL: Denies change in appetite, denies abdominal pain GENITOURINARY: Denies hematuria, denies infections. MUSKULOSKELETAL: Denies pain, denies swelling. INTEGUMENTARY: Denies rash, denies eczema. NEUROLOGICAL: Left-sided tingling, numbness and weakness. PSYCHIATRIC: Denies anxiety, denies depression. HEMATOLOGIC/LYMPHATIC: Denies anemia, denies enlarged lymph nodes. Past Medical History Past Medical History: Blood Disorder, Osteoarthritis (OA), Seizure Disorder Additional Past Medical History / Comment(s): MTHFR gene, sees Dr Maricruz sloan, last seizure years ago in early -not sure of cause or what kind, no meds for, generalized arthritis History of Any Multi-Drug Resistant Organisms: None Reported Past Surgical History: Adenoidectomy, Bariatric Surgery, Section, Orthopedic Surgery, Tonsillectomy Additional Past Surgical History / Comment(s): ron KNEE SURGERY SX, EGD. sleeve gastrectomy 07-27-23 Past Anesthesia/Blood Transfusion Reactions: Previous Problems w/ Anesthesia Additional Past Anesthesia/Blood Transfusion Reaction / Comment(s): patient states she had a headache after spinal previously, otherwise no problems Past Psychological History: ADD/ADHD, Anxiety, Depression Smoking Status: Former smoker, Vaper Past Alcohol Use History: Occasional Past Drug Use History: Marijuana - Past Family History Mother Family Medical History: Blood Disorder, Deep Vein Thrombosis (DVT) Additional Family Medical History / Comment(s): blood clotting disorder-takes coumadin Medications and Allergies Home Medications Medication Instructions Recorded Confirmed Type Dextroamphetamine/Amphetamine 20 mg PO AC-TID 01/02/21 03/18/24 History [Adderall] HYDROcodone/APAP 10-325MG [[place] 1 tab PO QID 01/02/21 03/18/24 History 10-325] Gabapentin 300 mg PO TID 12/18/21 03/18/24 History ALPRAZolam [Xanax] 0.5 mg PO TID PRN 07/21/23 03/18/24 History ARIPiprazole [Abilify] 2 mg PO DAILY 07/21/23 03/18/24 History Escitalopram [Lexapro] 30 mg PO DAILY 08/26/23 03/18/24 History Ibuprofen [Motrin] 600 mg PO TID PRN 03/18/24 03/18/24 History Naloxone HCl [Narcan] 4 mg NASAL DIRECTED PRN 03/18/24 03/18/24 History Allergies Allergy/AdvReac Type Severity Reaction Status Date / Time adhesive tape Allergy Rash/Hives Verified 03/18/24 18:57 Bleach (Sodium Hypochlorite) Allergy Anaphylaxis Verified 03/18/24 18:57 /Rash/Hives venom-honey bee Allergy Anaphylaxis Verified 03/18/24 18:57 [bee venom (honey bee)] Physical Exam Vitals: Vital Signs Temp Pulse Resp BP Pulse Ox 03/19/24 12:00 60 18 107/75 100 03/19/24 10:25 58 L 18 123/68 96 03/19/24 09:17 100 20 114/81 95 03/19/24 07:40 52 L 18 116/82 99 03/19/24 06:00 52 L 18 100/66 99 03/19/24 05:00 53 L 16 107/51 97 03/19/24 04:07 50 L 18 107/51 94 L 03/19/24 02:28 50 L 18 102/54 97 03/19/24 00:35 59 L 16 96/48 98 03/18/24 23:35 64 18 103/60 97 03/18/24 22:05 56 L 18 113/72 98 03/18/24 21:35 57 L 16 114/71 99 03/18/24 21:05 56 L 16 116/76 97 03/18/24 20:35 64 18 123/82 97 03/18/24 20:00 55 L 18 126/85 97 03/18/24 19:45 57 L 16 126/83 03/18/24 19:30 63 20 126/83 03/18/24 18:35 59 L 18 133/67 96 03/18/24 18:20 60 18 147/90 99 03/18/24 17:14 99.4 F 57 L 18 150/89 98 Intake and Output 03/18/24 03/19/24 03/19/24 22:59 06:59 14:59 Other: Weight 124.284 kg GENERAL EXAM: Alert, pleasant 33-year-old female, on room air, comfortable in no apparent distress. HEAD: Normocephalic. EYES: Normal reaction of pupils, equal size. NOSE: Clear with pink turbinates. THROAT: No erythema or exudates. NECK: No masses, no JVD. CHEST: No chest wall deformity. LUNGS: Equal air entry with no crackles, wheeze, rhonchi or dullness. CVS: S1 and S2 normal with no audible murmur, regular rhythm. ABDOMEN: No hepatosplenomegaly, normal bowel sounds, no guarding or rigidity. SPINE: No scoliosis or deformity SKIN: No rashes CENTRAL NERVOUS SYSTEM: No focal deficits, tone is normal in all 4 extremities. EXTREMITIES: There is no peripheral edema. No clubbing, no cyanosis. Peripheral pulses are intact. Results - Laboratory Findings CBC and BMP: 03/18/24 17:37 10 17:37 PT/INR, D-dimer PT 10.3 sec (10.0-12.5) 03/18/24 17:37 INR 0.9 (<1.2) 03/18/24 17:37 Abnormal lab findings: Abnormal Labs 03/18/24 17:37 ALT 36 H - Diagnostic Findings Chest x-ray: image reviewed Assessment and Plan Assessment: Acute CVA/TIA with left-sided weakness, received tenecteplase, symptoms resolved. CT scan of the brain x 2 revealed no acute intracranial process, CT angiogram of the head and neck revealed no abnormalities. History of MTHFR gene mutation, on baby aspirin, followed with hematology in the past History of vaping, marijuana use Former smoker History of attention deficit disorder History of anxiety/depression History of seizures in her early 20s History of chronic pain, utilizing [place] Plan: The patient was seen and evaluated Imaging, labs and medications reviewed Neurologic symptoms have resolved post tenecteplase No need for ICU admission at this time Admit to the stepdown unit for close monitoring Neurology consult pending We will continue to follow and make further recommendations based on her clin ical status I have personally seen and examined the patient, performed the documentation and the assessment and plan as written. Number of minutes spent on the visit: 20.
--- NOTE | 2024-03-19 14:29 | P.HPIM ---
History of Present Illness H&P Date: 03/19/24 History of present illness; patient is a 33-year-old lady with past medical history significant for seizures, anxiety, and panic attacks who presented to the ER because of left-sided weakness. Apparently patient was picking up her daughter from school when she started feeling unwell. Patient was complaining of left-sided weakness with numbness and ataxia. There was no complaint of slurred speech. No complaint of facial droop. There was no complaint of any jerking movement of any extremity. Because of the symptoms patient was initially rushed to the ER. Last well-known was 1700. Code stroke was called. Initial NIH scale was 5-6. Initial lab work done in the ER showed WBC 8.2, hemoglobin 14, platelet count 281, sodium 138, potassium 3.7, BUN 8, creatinine 0.57, AST 29, ALT 36, UA negative for any infection EKG done in the ER showed heart rate of 65, no ST segment elevation or depr ession seen, no T-wave inversions seen. Chest x-ray done in the ER no acute pulmonary process CT head done showed no acute intracranial process CTA head and neck done showed no significant stenosis, aneurysm or thrombus in the intracranial circulation ER physician discussed with interventional neurology and patient was a TNK candidate, after discussion between ER physician and patient, consent was given by patient and she received TNK Patient admitted to internal medicine service REVIEW OF SYSTEMS: CONSTITUTIONAL: No fever, no malaise, no fatigue. HEENT: No recent visual problems or hearing problems. Denied any sore throat. CARDIOVASCULAR: No chest pain, orthopnea, PND, no palpitations, no syncope. PULMONARY: No shortness of breath, no cough, no hemoptysis. GASTROINTESTINAL: No diarrhea, no nausea, no vomiting, no abdominal pain. NEUROLOGICAL: Mentioned above HEMATOLOGICAL: Denies any bleeding or petechiae. GENITOURINARY: Denies any burning micturition, frequency, or urgency. MUSCULOSKELETAL/RHEUMATOLOGICAL: Denies any joint pain, swelling, or any muscle pain. ENDOCRINE: Denies any polyuria or polydipsia. The rest of the 14-point review of systems is negative. PHYSICAL EXAMINATION: GENERAL: The patient is alert and oriented x3, not in any acute distress. Well developed, well nourished. HEENT: Pupils are round and equally reacting to light. EOMI. No scleral icterus. No conjunctival pallor. Normocephalic, atraumatic. No pharyngeal erythema. No thyromegaly. CARDIOVASCULAR: S1 and S2 present. No murmurs, rubs, or gallops. PULMONARY: Chest is clear to auscultation, no wheezing or crackles. ABDOMEN: Soft, nontender, nondistended, normoactive bowel sounds. No palpable organomegaly. MUSCULOSKELETAL: No joint swelling or deformity. EXTREMITIES: No cyanosis, clubbing, or pedal edema. NEUROLOGICAL: Gross neurological examination did not reveal any focal deficits. SKIN: No rashes. Assessment and plan Acute CVA History of MTHFR gene mutation, on baby aspirin, followed with hematology in the past History of vaping, marijuana use Former smoker History of attention deficit disorder History of anxiety/depression History of seizures in her early 20s History of chronic pain, utilizing [place] Monitor vital signs Monitor CBC Monitor CMP Continue telemetry monitoring Ordered neurochecks Ordered post TNK monitoring in the ICU Ordered 2D echo Ordered CT head 24 hours post TNK Ordered lipid panel Neurology consulted ICU consulted Labs and medication were reviewed.. Continue same treatment. Continue with symptomatic treatment. Resume home medication. Monitor labs and vitals. DVT and GI prophylaxis. Further recommendations as per clinical course of the patient Dictation was produced using [employer] dictation software. please excuse any grammatical, word or spelling errors. Past Medical History Past Medical History: Blood Disorder, Osteoarthritis (OA), Seizure Disorder Additional Past Medical History / Comment(s): MTHFR gene, sees Dr Maricruz sloan, last seizure years ago in early -not sure of cause or what kind, no meds for, generalized arthritis History of Any Multi-Drug Resistant Organisms: None Reported Past Surgical History: Adenoidectomy, Bariatric Surgery, Section, Orthopedic Surgery, Tonsillectomy Additional Past Surgical History / Comment(s): ron KNEE SURGERY SX, EGD. sleeve gastrectomy 07-27-23 Past Anesthesia/Blood Transfusion Reactions: Previous Problems w/ Anesthesia Additional Past Anesthesia/Blood Transfusion Reaction / Comment(s): patient states she had a headache after spinal previously, otherwise no problems Past Psychological History: ADD/ADHD, Anxiety, Depression Smoking Status: Former smoker, Vaper Past Alcohol Use History: Occasional Past Drug Use History: Marijuana - Past Family History Mother Family Medical History: Blood Disorder, Deep Vein Thrombosis (DVT) Additional Family Medical History / Comment(s): blood clotting disorder-takes coumadin Medications and Allergies Home Medications Medication Instructions Recorded Confirmed Type Dextroamphetamine/Amphetamine 20 mg PO AC-TID 01/02/21 03/18/24 History [Adderall] HYDROcodone/APAP 10-325MG [[place] 1 tab PO QID 01/02/21 03/18/24 History 10-325] Gabapentin 300 mg PO TID 12/18/21 03/18/24 History ALPRAZolam [Xanax] 0.5 mg PO TID PRN 07/21/23 03/18/24 History ARIPiprazole [Abilify] 2 mg PO DAILY 07/21/23 03/18/24 History Escitalopram [Lexapro] 30 mg PO DAILY 08/26/23 03/18/24 History Ibuprofen [Motrin] 600 mg PO TID PRN 03/18/24 03/18/24 History Naloxone HCl [Narcan] 4 mg NASAL DIRECTED PRN 03/18/24 03/18/24 History Allergies Allergy/AdvReac Type Severity Reaction Status Date / Time adhesive tape Allergy Rash/Hives Verified 03/18/24 18:57 Bleach (Sodium Hypochlorite) Allergy Anaphylaxis Verified 03/18/24 18:57 /Rash/Hives venom-honey bee Allergy Anaphylaxis Verified 03/18/24 18:57 [bee venom (honey bee)] Physical Exam Vitals: Vital Signs Temp Pulse Resp BP Pulse Ox 03/19/24 07:40 52 L 18 116/82 99 03/19/24 06:00 52 L 18 100/66 99 03/19/24 05:00 53 L 16 107/51 97 03/19/24 04:07 50 L 18 107/51 94 L 03/19/24 02:28 50 L 18 102/54 97 03/19/24 00:35 59 L 16 96/48 98 03/18/24 23:35 64 18 103/60 97 03/18/24 22:05 56 L 18 113/72 98 03/18/24 21:35 57 L 16 114/71 99 03/18/24 21:05 56 L 16 116/76 97 03/18/24 20:35 64 18 123/82 97 03/18/24 20:00 55 L 18 126/85 97 03/18/24 19:45 57 L 16 126/83 03/18/24 19:30 63 20 126/83 03/18/24 18:35 59 L 18 133/67 96 03/18/24 18:20 60 18 147/90 99 03/18/24 17:14 99.4 F 57 L 18 150/89 98 Intake and Output 03/18/24 03/19/24 03/19/24 22:59 06:59 14:59 Other: Weight 124.284 kg Results CBC & Chem 7: 03/18/24 17:37 03/18/24 17:37 Labs: Abnormal Lab Results - Last 24 Hours (Table) 03/18/24 Range/Units 17:37 ALT 36 H (4-34) U/L
[2024-03-19] MEDS: ALPRAZolam 0.5 MG TAB PO PRN (15:14)
--- NOTE | 2024-03-19 18:15 | CT ---
EXAMINATION TYPE: CT brain wo con DATE OF EXAM: 03/19/2024 COMPARISON: 03/18/2024 INDICATION: 24 hour post TPA, had left side weakness DLP: 1154.6 mGycm, Automated exposure control for dose reduction was used. CONTRAST: None CT of the brain is performed utilizing 3 mm thick sections through the posterior fossa and 3 mm thick sections through the remaining calvarium. Study is performed within 24 hours of arrival to the hosp [facility]. No abnormal hyperdensity is present to suggest an acute intracranial hemorrhage. No mass lesion is evident. No acute infarcts are evident. Ventricles and sulci are appropriate for the patient age. Paranasal sinuses and mastoid air cells within the [id number] are clear. IMPRESSION: 1. No acute intracranial process. Follow up MRI can be performed as clinically indicated. [facility], Workstation: [facility], 03/19/2024 6:13 PM
[2024-03-19] MEDS: ASPIRIN 325 MG TAB PO SCH (19:59)
[2024-03-19] MEDS: HYDROcodone/APAP 5-325MG 1 EACH TAB PO PRN (21:11)
--- NOTE | 2024-03-19 22:38 | P.CNNES ---
History of Present Illness Consult date: 03/19/24 Requesting physician: Neeraj Guadalupe Reason for Consult: CVA, received TNK History of Present Illness: Patient is a 33-year-old right-handed female who came to the hospital by ambulance yesterday at 5:08 PM for strokelike symptoms. Patient states that her daughter was getting off work and she was waiting for her in the car. Patient started noticing tingling of the left side of the face, then she had no control of left side of the face or left side of the body. She was talking funny, looking for any she felt like an elephant was sitting on her chest. Her brain was foggy. Patient was brought to the ER by EMS. As per EMS flowsheet, when they arrived patient was sitting in the passenger seat of a vehicle with family present. Patient was conscious and alert. Patient believes she possibly had a seizure. Patient mentioned that she has occasional seizures but has not had one in almost a year. Patient is having intermittent left-sided facial droop with weakness to the left upper extremity. Patient was able to ambulate on the scene. Patient's vitals at the scene was blood pressure 156/73, pulse rate 85 respiration 18 saturation 99%.CBC, PT PTT, CMP are normal. AST normal 29, ALT 36. Urine analysis negative. CT head showed no acute intracranial process. In the ER, patient was noted to have left-sided weakness with decreased sensation to light touch as well as some ataxia in the left lower extremity. NIH stroke scale was reported as 5-6. Last known well was 5 PM. Patient does have history of anxiety and panic attacks as well as seizures although ED staff did not feel patient had a seizure. "Thrombolytic was activated. Dr. Guadalupe discussed with Dr. Buckner, neurointensivist who recommended TNK. TNK was ordered at 5:56 PM, and administered at 6:06 PM. Patient states that her symptoms started improving. She woke up at 2 AM and all symptoms were gone. At present she has no symptoms, wants to go home. Patient had a [address] head performed, which was normal. Patient denies any history of strokes or TIA. Patient states that she has history of MTHFR. Patient also claims of having seizures years ago. Patient follows up with Dr. Armendariz. Patient vapes. Drinks alcohol occasionally, also uses marijuana. Home medications include Lexapro 30 mg, Xanax 0.5 mg 3 times daily as needed, Abilify 2 mg, gabapentin 300 mg 3 times daily, Adderall and Davin. Review of Systems All pertinent positives and negatives mentioned in HPI. Otherwise unremarkable. Past Medical History Past Medical History: Blood Disorder, Osteoarthritis (OA), Seizure Disorder Additional Past Medical History / Comment(s): MTHFR gene, sees Dr Maricruz sloan, last seizure years ago in early -not sure of cause or what kind, no meds for, generalized arthritis History of Any Multi-Drug Resistant Organisms: None Reported Past Surgical History: Adenoidectomy, Bariatric Surgery, Section, Orthopedic Surgery, Tonsillectomy Additional Past Surgical History / Comment(s): ron KNEE SURGERY SX, EGD. sleeve gastrectomy 07-27-23 Past Anesthesia/Blood Transfusion Reactions: Previous Problems w/ Anesthesia Additional Past Anesthesia/Blood Transfusion Reaction / Comment(s): patient states she had a headache after spinal previously, otherwise no problems Past Psychological History: ADD/ADHD, Anxiety, Depression Additional Psychological History / Comment(s): pt is independent. lives with and 6 kids. 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 no outside services recieved, no medical equipment. Smoking Status: Current every day smoker, Vaper Past Alcohol Use History: Occasional Past Drug Use History: Marijuana Additional Drug Use History / Comment(s): occasional use - Past Family History Mother Family Medical History: Blood Disorder, Deep Vein Thrombosis (DVT) Additional Family Medical History / Comment(s): blood clotting disorder-takes coumadin Medications and Allergies Home Medications Medication Instructions Recorded Confirmed Type Dextroamphetamine/Amphetamine 20 mg PO AC-TID 01/02/21 03/18/24 History [Adderall] HYDROcodone/APAP 10-325MG [Davin 1 tab PO QID 01/02/21 03/18/24 History 10-325] Gabapentin 300 mg PO TID 12/18/21 03/18/24 History ALPRAZolam [Xanax] 0.5 mg PO TID PRN 07/21/23 03/18/24 History ARIPiprazole [Abilify] 2 mg PO DAILY 07/21/23 03/18/24 History Escitalopram [Lexapro] 30 mg PO DAILY 08/26/23 03/18/24 History Ibuprofen [Motrin] 600 mg PO TID PRN 03/18/24 03/18/24 History Naloxone HCl [Narcan] 4 mg NASAL DIRECTED PRN 03/18/24 03/18/24 History Allergies Allergy/AdvReac Type Severity Reaction Status Date / Time adhesive tape Allergy Rash/Hives Verified 03/18/24 18:57 Bleach (Sodium Hypochlorite) Allergy Anaphylaxis Verified 03/18/24 18:57 /Rash/Hives venom-honey bee Allergy Anaphylaxis Verified 03/18/24 18:57 [bee venom (honey bee)] Physical Examination - Vital Signs Vital Signs: Vital Signs Pulse Pulse Resp BP BP Pulse Ox 03/19/24 15:05 59 L 17 138/77 100 03/19/24 14:48 58 L 18 139/65 100 03/19/24 13:00 68 18 120/72 100 03/19/24 12:00 60 18 107/75 100 03/19/24 10:25 58 L 18 123/68 96 03/19/24 09:17 100 20 114/81 95 03/19/24 07:40 52 L 18 116/82 99 03/19/24 06:00 52 L 18 100/66 99 03/19/24 05:00 53 L 16 107/51 97 03/19/24 04:07 50 L 18 107/51 94 L 03/19/24 02:28 50 L 18 102/54 97 03/19/24 00:35 59 L 16 96/48 98 03/18/24 23:35 64 18 103/60 97 03/18/24 22:05 56 L 18 113/72 98 03/18/24 21:35 57 L 16 114/71 99 03/18/24 21:05 56 L 16 116/76 97 03/18/24 20:35 64 18 123/82 97 03/18/24 20:00 55 L 18 126/85 97 03/18/24 19:45 57 L 16 126/83 03/18/24 19:30 63 20 126/83 Intake and Output 03/19/24 03/19/24 03/19/24 06:59 14:59 22:59 Other: Weight 124.284 kg Patient is a young female, in no acute distress. Patient is alert awake oriented to time place and person. Speech and language functions are normal. Patient can name and repeat very well. No aphasia or dysarthria. Attention, concentration and fund of knowledge is adequate. On cranial nerve examination, pupils are equal, round and reacting to light, visual may are full on confrontation, with no neglect on double simultaneous stimulation. Extraocular muscles are intact with no nystagmus. Face is symmetric, tongue protrudes to the midline. Palatal elevation and sensation normal, hearing and shoulder shrug normal, facial sensation normal. On muscle strength testing, there is mild left arm drift without pronation. The muscle strength is normal in arms and legs distally and proximally. Deep tendon reflexes are symmetric 1 in the upper extremities, 2 in the lower extremities and plantars downgoing. Sensory to touch is equal with no neglect on double simultaneous stimulation. Cerebellar function showed no ataxia for [id number] testing. No dysdiadochokinesia. No ataxia for [id number] testing on either side. Tone and bulk of muscles normal. Gait deferred.. On general examination, there is no carotid bruit or murmur, S1-S2 audible. Chest is clear on consultation. Abdomen is soft nontender. No organomegaly, bowel sounds present. Peripheral pulses are present. No peripheral edema. Results - Laboratory Findings CBC and BMP: 03/18/24 17:37 03/18/24 17:37 Abnormal Lab Findings: Abnormal Labs 03/18/24 17:37 ALT 36 H Assessment and Plan Assessment: * Possible stroke/TIA. Patient had presented with left-sided weakness, status post TNK. Patient's symptoms have all resolved. Patient's NIH stroke scale is 1 related to mild left arm drift (without pronation). * Seizure disorder * MTHFR gene * History of bariatric surgery * ADD * Anxiety/depression, panic attacks * Vapes * Marijuana use Plan: * Patient symptoms have resolved. Patient has mild left drift without any pronation. Examination otherwise completely normal. * 2-D echo revealed normal LVEF 55 to 60%. Severely increased septal wall thick ness. Moderately increased posterior wall thickness. Mild to moderately increased left atrial diameter. Moderately increased left atrial volume. No spontaneous contrast in the right atrium. Negative agitated saline bubble study for [id number] shunt. * CTA head and neck showed: Flow-limiting stenosis bilateral carotid bifurcations. Normal [place] of [place]. * Fasting a.m. lipid panel with cholesterol 199, LDL 126, HDL 45, triglycerides 134. Agree with starting Lipitor 40 mg daily. * Hemoglobin A1c * Blood pressure is well-controlled. * [address] head normal. * Start aspirin 325 mg daily. * Patient does not want to stay for further testing. Avoid DAPT because of her history of bariatric surgery. * Patient will follow-up with Dr. Armendariz, her neurologist, and can have MRI of the brain and EEG performed as an outpatient. * Consider 30-day event monitoring to rule out paroxysmal atrial fibrillation. * Neuro checks as per protocol. * Telemetry monitoring rule out any arrhythmia * PT, OT, speech therapy * DVT prophylaxis: Patient low risk for DVT, patient ambulatory. * Neurologically clear otherwise. Thank you for the consult.
[2024-03-20 09:57] VITALS: BP 98/66; PULSE 61; RESP 17; TEMP 98.3
--- NOTE | 2024-03-20 10:46 | P.DS ---
Providers Date of admission: 03/18/24 19:06 Expected date of discharge: 03/20/24 Attending physician: Erin Gray Consults: 03/18/24 19:05 Consult Physician Routine Consulting Provider: Angela Cai Consult Reason/Comments: CVA, received TNK Do you want consulting provider notified?: Yes Consult Physician Routine Consulting Provider: Noa Singletary Consult Reason/Comments: cva, received TNK Do you want consulting provider notified?: Already Contacted Primary care physician: Nakul Eid [facility] Course: Discharge diagnoses; Acute CVA History of MTHFR gene mutation, on baby aspirin, followed with hematology in the past History of vaping, marijuana use Former smoker History of attention deficit disorder History of anxiety/depression History of seizures in her early 20s History of chronic pain, utilizing [facility] course; patient is a 33-year-old lady with past medical history significant for seizures, anxiety, and panic attacks who presented to the ER because of left- sided weakness. Apparently patient was picking up her daughter from school when she started feeling unwell. Patient was complaining of left-sided weakness with numbness and ataxia. There was no complaint of slurred speech. No complaint of facial droop. There was no complaint of any jerking movement of any extremity. Because of the symptoms patient was initially rushed to the ER. Last well-known was 1700. Code stroke was called. Initial NIH scale was 5-6. Initial lab work done in the ER showed WBC 8.2, hemoglobin 14, platelet count 281, sodium 138, potassium 3.7, BUN 8, creatinine 0.57, AST 29, ALT 36, UA negative for any infection EKG done in the ER showed heart rate of 65, no ST segment elevation or depression seen, no T-wave inversions seen. Chest x-ray done in the ER no acute pulmonary process CT head done showed no acute intracranial process CTA head and neck done showed no significant stenosis, aneurysm or thrombus in the intracranial circulation ER physician discussed with interventional neurology and patient was a TNK candidate, after discussion between ER physician and patient, consent was given by patient and she received TNK Patient admitted to internal medicine service 03/20. Patient seen and examined. Neurology eval the patient, recommended aspirin and Lipitor at discharge. Patient very keen to go home, neurology recommended outpatient EEG and MRI with her own neurologist PHYSICAL EXAMINATION: GENERAL: The patient is alert and oriented x3, not in any acute distress. Well developed, well nourished. HEENT: Pupils are round and equally reacting to light. EOMI. No scleral icterus. No conjunctival pallor. Normocephalic, atraumatic. No pharyngeal erythema. No thyromegaly. CARDIOVASCULAR: S1 and S2 present. No murmurs, rubs, or gallops. PULMONARY: Chest is clear to auscultation, no wheezing or crackles. ABDOMEN: Soft, nontender, nondistended, normoactive bowel sounds. No palpable organomegaly. MUSCULOSKELETAL: No joint swelling or deformity. EXTREMITIES: No cyanosis, clubbing, or pedal edema. NEUROLOGICAL: Gross neurological examination did not reveal any focal deficits. SKIN: No rashes. Dictation was produced using [employer] dictation software. please excuse any grammatical, word or spelling errors. Patient Condition at Discharge: Good Plan - Discharge Summary Discharge Rx Participant: No New Discharge Prescriptions: New Aspirin 325 mg PO DAILY #30 tab Atorvastatin [Lipitor] 40 mg PO DAILY #30 tab Continue HYDROcodone/APAP 10-325MG [[place] 10-325] 1 tab PO QID Dextroamphetamine/Amphetamine [Adderall] 20 mg PO AC-TID Gabapentin 300 mg PO TID ARIPiprazole [Abilify] 2 mg PO DAILY Escitalopram [Lexapro] 30 mg PO DAILY Naloxone HCl [Narcan] 4 mg NASAL DIRECTED PRN PRN Reason: Opioid Reversal ALPRAZolam [Xanax] 0.5 mg PO TID PRN PRN Reason: Anxiety Discontinued Ibuprofen [Motrin] 600 mg PO TID PRN PRN Reason: Pain Discharge Medication List Dextroamphetamine/Amphetamine [Adderall] 20 mg PO AC-TID 01/02/21 [History] HYDROcodone/APAP 10-325MG [[place] 10-325] 1 tab PO QID 01/02/21 [History] Gabapentin 300 mg PO TID 12/18/21 [History] ALPRAZolam [Xanax] 0.5 mg PO TID PRN 07/21/23 [History] ARIPiprazole [Abilify] 2 mg PO DAILY 07/21/23 [History] Escitalopram [Lexapro] 30 mg PO DAILY 08/26/23 [History] Naloxone HCl [Narcan] 4 mg NASAL DIRECTED PRN 03/18/24 [History] Aspirin 325 mg PO DAILY #30 tab 03/20/24 [Rx] Atorvastatin [Lipitor] 40 mg PO DAILY #30 tab 03/20/24 [Rx] Follow up Appointment(s)/Referral(s): Nakul Cedeno [Primary Care Provider] - 1-2 days Sailaja Deshpande MD [Medical Doctor] - 1 Week Discharge Disposition: HOME SELF-CARE
--- NOTE | 2024-03-20 11:52 | P.PN ---
Subjective Progress Note Date: 03/20/24 Principal diagnosis: Acute CVA/TIA This is a very pleasant 33-year-old female patient with a known history of seizures while in her 20s, ADD, depression, anxiety, chronic pain syndrome, vaping, marijuana use, MTHFR gene mutation and normally takes baby aspirin daily. Yesterday at approximately 5 PM the patient was picking up her daughter from school and developed left-sided facial tingling and numbness along with left arm and left leg heaviness. She did have difficulty with her speech and EMS was called and she was brought here to the emergency room. ET scan of the brain revealed no acute intracranial process. CT angiogram of the head and neck revealed no flow-limiting stenosis of the bilateral carotid bifurcations. Normal [place]. She did receive tenecteplase at 6 PM. Follow-up CT scan of the brain at 8 PM revealed no acute intracranial process. She is seen today in consultation in the emergency department. She is currently sitting up on a stretcher. Awake and alert in no acute distress. Maintaining good O2 saturations in the 90s on room air. She has been afebrile. Hemodynamically stable. She has no residual effects. Equal hand grasp. No facial droop. Moving all 4 extremities. Normal tone. Echocardiogram revealed negative bubble study. Left ventricular ejection fraction 55 to 60%. Chest x-ray revealed no acute pulmonary process. Count 8.2. Hemoglobin 14.0. Platelets 281. INR 0.9. Sodium 138. Potassium 3.7. Bicarb 26. BUN 8. Creatinine 0.57. Patient was seen today on 03/20/2024, doing well, she has no evidence of any neurologic deficits she has no neurological symptoms patient will likely be discharged home today by neurology and will be cleared for discharge. From my perspective I will clear also for discharge if cleared by neurology on the case. Patient has no active pulmonary symptoms and no active neurologic symptoms Objective - Vital Signs Vital signs: Vital Signs Temp 98.3 F 03/20/24 08:30 Pulse 61 03/20/24 08:30 Resp 17 03/20/24 08:30 BP 98/66 03/20/24 08:30 Pulse Ox 99 03/20/24 08:30 FiO2 Intake & Output 03/19/24 03/20/24 03/20/24 18:59 06:59 18:59 Weight 124.284 kg 123.8 kg Other: Voiding Method Toilet Toilet # Voids 1 - Exam GENERAL EXAM: 33-year-old female in no distress HEAD: Normocephalic. EYES: Normal reaction of pupils, equal size. NOSE: Clear with pink turbinates. THROAT: No erythema or exudates. NECK: No masses, no JVD. CHEST: No chest wall deformity. LUNGS: Equal air entry with no crackles, wheeze, rhonchi or dullness. CVS: S1 and S2 normal with no audible murmur, regular rhythm. ABDOMEN: No hepatosplenomegaly, normal bowel sounds, no guarding or rigidity. SKIN: No rashes CENTRAL NERVOUS SYSTEM: Alert oriented x 3 no gross focal neurologic deficit EXTREMITIES: There is no peripheral edema. No clubbing, no cyanosis. Peripheral pulses are intact. - Labs CBC & Chem 7: 03/18/24 17:37 03/18/24 17:37 Assessment and Plan Assessment: Impression Acute CVA/TIA with left-sided weakness, received tenecteplase, symptoms resolved . CT scan of the brain x 2 revealed no acute intracranial process, CT angiogram of the head and neck revealed no abnormalities. History of MTHFR gene mutation, on baby aspirin, followed with hematology in the past History of vaping, marijuana use Former smoker History of attention deficit disorder History of anxiety/depression History of seizures in her early 20s History of chronic pain, utilizing [place] Recommendation: Agree with discharge planning if the patient is cleared by urology Discharge medications as ordered by neurology Will see on as needed basis. Time with Patient: Less than 30
== END 2024-03-20 11:04 | disposition home or self-care (01) | DRG 45 ==
LOC: EC 17:08 → 2SICU 19:06 → 3SCARD 03-19 08:36
PROVIDERS: ADMIT Hospitalist; ATTEND Hospitalist
DX: I63.9 Cerebral infarction, unspecified (principal); F90.9 Attention-deficit hyperactivity disorder, unspecified type; G40.909 Epilepsy, unspecified, not intractable, without status epilepticus; G89.4 Chronic pain syndrome; R29.705 NIHSS score 5; M19.90 Unspecified osteoarthritis, unspecified site; C53.9 Malignant neoplasm of cervix uteri, unspecified; E72.12 Methylenetetrahydrofolate reductase deficiency; F41.0 Panic disorder [episodic paroxysmal anxiety]; F32.A Depression, unspecified; R29.810 Facial weakness; Z79.82 Long term (current) use of aspirin; Z79.899 Other long term (current) drug therapy; Z98.84 Bariatric surgery status
CPT/HCPCS: 36415; 70450; 70496; 70498; 71045; 80053; 80061; 81003; 82550; 83036; 85025; 85610; 85730; 93005; 93306; 96361; 96374; 99291

== ENCOUNTER 2024-06-27 09:33 | Emergency (ER) | payer OTHER ==
[2024-06-27 10:03] VITALS: RESP 18; TEMP 98.1
[2024-06-27 11:20] LABS: Appearance,Urine Clear (Clear); Bacteria,Urine Many /hpf; Bilirubin,Urine Negative (Negative); Blood,Urine Negative (Negative); Color,Urine Yellow; Glucose,Urine (UA) Negative (Negative); Hyaline Casts,Urine 2 /lpf (0-2); Ketones,Urine Negative (Negative); Leukocyte Esterase,Urine Small (Negative); Mucus,Urine Many /hpf; Nitrite,Urine Positive (Negative); PH, Urine 6.5 (5.0-8.0); Protein,Urine Trace (Negative); RBC,Urine 5 /hpf (0-5); Specific Gravity,Urine 1.026 (1.001-1.035); Squamous Epithelial Cell,Urine 3 /hpf (0-4); WBC,Urine 1 /hpf (0-5)
--- NOTE | 2024-06-27 11:29 | US ---
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 FINDINGS: EXAM MEASUREMENTS: GESTATIONAL AGE / DATING Physician Established: (7 weeks/3 days) EDC: 02/10/2025 Dates by LMP: (7 weeks/3 days) EDC: 02/10/2025 Dates by First Scan: No previous this is first scan ( weeks/ days) EDC: Dates by Current Scan for: No IUP seen at this time ( weeks/ days) EDC: MATERNAL ANATOMY Uterus: 9.7 x 4.7 x 6.3 cm Right Ovary: 3.8 x 2.1 x 2.9 cm Left Ovary: 3.8 x 3.3 x 1.7 cm Post CDS / Adnexa: WNL Presence of free fluid: No Presence of corpus luteal cyst: Right ovary? Presence of subchorionic bleed: Not able to assess GESTATION / SURVEY CRL: NA ( weeks/ days) Gestational Sac morphology: NA Gestational Sac MSD: NA ( weeks/ days) Yolk Sac (normal less than 6mm): NA Heart Rate: NA bpm Rhythm: NA IUP: No IUP seen at this time Nuchal Translucency 10-14wks (normal less than 3mm): NA Age Appropriate Anatomy Cord Insertion: NA Limbs: NA Calvarium: NA Date of LMP: 05/06/2024 Beta HcG (if available): Not done IMPRESSION: 1. No intrauterine gestation identified. Correlate for spontaneous . If intrauterine gestatio n has not previously been confirmed, consider ectopic . Correlation with beta hCG [facility], , 06/27/2024 11:27 AM
[2024-06-27 12:19] LABS: Basophils % (A) 0 %; Eosinophils # (A) 0.2 k/uL (0-0.7); Eosinophils % (A) 2 %; HCT 43.8 % (34.0-46.0); HGB 14.3 gm/dL (11.4-16.0); Lymphocytes # (A) 3.1 k/uL (1.0-4.8); Lymphocytes % (A) 32 %; MCH 29.6 pg (25.0-35.0); MCHC 32.7 g/dL (31.0-37.0); MCV 90.3 fL (80.0-100.0); Monocytes # (A) 0.5 k/uL (0-1.0); Monocytes % (A) 5 %; Neutrophils # (A) 5.7 k/uL (1.3-7.7); Neutrophils % (A) 59 %; Platelet Count 346 k/uL (150-450); RBC 4.85 m/uL (3.80-5.40); RDW 13.1 % (11.5-15.5); WBC 9.7 k/uL (3.8-10.6)
[2024-06-27 12:33] LABS: African American GFR (CKD) >90 (>60 ml/min/1.73 sqM); Anion Gap 9 mmol/L; Blood Urea Nitrogen 9 mg/dL (7-17); Calcium 8.8 mg/dL (8.4-10.2); Carbon Dioxide 23 mmol/L (22-30); Chloride 106 mmol/L (98-107); Glucose 97 mg/dL (74-99); Non-African American GFR(CKD) >90 (>60 ml/min/1.73 sqM); Potassium 4.2 mmol/L (3.5-5.1); Sodium 138 mmol/L (137-145)
[2024-06-27 12:49] LABS: HCG,Quantitative Serum 643.4 mIU/mL
--- NOTE | 2024-06-27 12:54 | ED ---
Abdominal Pain HPI - General Chief Complaint: Abdominal Pain Stated Complaint: 7 weeks preg, cramping Time Seen by Provider: 06/27/24 10:34 Source: patient, RN notes reviewed Mode of arrival: ambulatory Limitations: no limitations - History of Present Illness Initial Comments: 33-year-old female presents emergency department with chief complaint of cramp ing in . She states she is scheduled tomorrow for BONDING AGENT appointment. Patient states that she believes she is around 6 or 7 weeks . She denies any vaginal bleeding or vaginal discharge. She does have mild urinary frequency. Denies any fevers or chills no flank pain. - Related Data Home Medications Medication Instructions Recorded Confirmed Dextroamphetamine/Amphetamine 20 mg PO AC-TID 01/02/21 03/18/24 [Adderall] HYDROcodone/APAP 10-325MG [[place] 1 tab PO QID 01/02/21 03/18/24 10-325] Gabapentin 300 mg PO TID 12/18/21 03/18/24 ALPRAZolam [Xanax] 0.5 mg PO TID PRN 07/21/23 03/18/24 ARIPiprazole [Abilify] 2 mg PO DAILY 07/21/23 03/18/24 Escitalopram [Lexapro] 30 mg PO DAILY 08/26/23 03/18/24 Naloxone HCl [Narcan] 4 mg NASAL DIRECTED PRN 03/18/24 03/18/24 Previous Rx's Medication Instructions Recorded Aspirin 325 mg PO DAILY #30 tab 03/20/24 Atorvastatin [Lipitor] 40 mg PO DAILY #30 tab 03/20/24 Cephalexin [Keflex] 500 mg PO Q8HR #21 cap 06/27/24 Allergies Allergy/AdvReac Type Severity Reaction Status Date / Time adhesive tape Allergy Rash/Hives Verified 06/27/24 09:57 Bleach (Sodium Hypochlorite) Allergy Anaphylaxis Verified 06/27/24 09:57 /Rash/Hives venom-honey bee Allergy Anaphylaxis Verified 06/27/24 09:57 [bee venom (honey bee)] Review of Systems ROS Statement: Those systems with pertinent positive or pertinent negative responses have been documented in the HPI. ROS Other: All systems not noted in ROS Statement are negative. Past Medical History Past Medical History: Blood Disorder, Osteoarthritis (OA), Seizure Disorder Additional Past Medical History / Comment(s): MTHFR gene, sees Dr Maricruz sloan, last seizure years ago in early -not sure of cause or what kind, no meds for, generalized arthritis History of Any Multi-Drug Resistant Organisms: None Reported Past Surgical History: Adenoidectomy, Bariatric Surgery, Section, Orthopedic Surgery, Tonsillectomy Additional Past Surgical History / Comment(s): ron KNEE SURGERY SX, EGD. sleeve gastrectomy 07-27-23 Past Anesthesia/Blood Transfusion Reactions: Previous Problems w/ Anesthesia Additional Past Anesthesia/Blood Transfusion Reaction / Comment(s): patient states she had a headache after spinal previously, otherwise no problems Past Psychological History: ADD/ADHD, Anxiety, Depression Smoking Status: Former smoker, Vaper Past Alcohol Use History: None Reported, Occasional Past Drug Use History: None Reported, Marijuana - Past Family History Mother Family Medical History: Blood Disorder, Deep Vein Thrombosis (DVT) Additional Family Medical History / Comment(s): blood clotting disorder-takes coumadin General Exam Limitations: no limitations General appearance: alert, in no apparent distress Head exam: Present: atraumatic, normocephalic, normal inspection Eye exam: Present: normal appearance, PERRL, EOMI. Absent: scleral icterus, conjunctival injection, periorbital swelling Neck exam: Present: normal inspection. Absent: tenderness, meningismus, lymphadenopathy Respiratory exam: Present: normal lung sounds bilaterally. Absent: respiratory distress, wheezes, rales, rhonchi, stridor Cardiovascular Exam: Present: regular rate, normal rhythm, normal heart sounds. Absent: systolic murmur, diastolic murmur, rubs, gallop, clicks GI/Abdominal exam: Present: soft, normal bowel sounds. Absent: distended, tenderness, guarding, rebound, rigid Course Vital Signs 06/27/24 09:58 Temperature 98.1 F Pulse Rate 74 Respiratory 18 Rate Blood Pressure 126/81 O2 Sat by Pulse 100 Oximetry Medical Decision Making - Medical Decision Making Was pt. sent in by a medical professional or institution (, PA, ELECTRICAL INSTRUMENTATION TECHNICIAN, urgent care, hospital, or halfway...) When possible be specific @ -No Did you speak to anyone other than the patient for history (EMS, parent, family, police, friend...)? What history was obtained from this source @ -No Did you review nursing and triage notes (agree or disagree)? Why? @ -I reviewed and agree with nursing and triage notes Were old charts reviewed (outside hosp., previous admission, EMS record, old EKG, old radiological studies, urgent care reports/EKG's, halfway records)? Report findings @ -No old charts were reviewed Differential Diagnosis (chest pain, altered mental status, abdominal pain women, abdominal pain men, vaginal bleeding, weakness, fever, dyspnea, syncope, headache, dizziness, GI bleed, back pain, seizure, CVA, palpatations, mental health, musculoskeletal)? @ -Differential Abdominal Pain Women: Appendicitis, Cholecystitis, diverticulosis, ischemic bowel, pancreatitis, hepa titis, UTI, gastroenteritis, AAA, incarcerated hernia, bowel obstruction, constipation, inflammatory bowel, hepatitis, peptic ulcer disease, splenic infarction, perforated viscus, vulvitis, ovarian torsion, PID, kidney stone, placenta abruption, this is not meant to be an all-inclusive list EKG interpreted by me (3pts min.). @ -None X-rays interpreted by me (1pt min.). @ -None done CT interpreted by me (1pt min.). @ -None done U/S interpreted by me (1pt. min.). @ -None done What testing was considered but not performed or refused? (CT, X-rays, U/S, labs)? Why? @ -None What meds were considered but not given or refused? Why? @ -None Did you discuss the management of the patient with other professionals (professionals i.e. , PA, ELECTRICAL INSTRUMENTATION TECHNICIAN, lab, RT, psych nurse, psych social worker, band tumbler, teacher, home lending officer, supportive employment case manager)? Give summary @ -No Was smoking cessation discussed for >3mins.? @ -No Was critical care preformed (if so, how long)? @ -No Were there social determinants of health that impacted care today? How? (Homelessness, low income, unemployed, alcoholism, drug addiction, transpor tation, low edu. Level, literacy, decrease access to med. care, fdc, rehab)? @ -No Was there de-escalation of care discussed even if they declined (Discuss DNR or withdrawal of care, Hospice)? DNR status @ -No What co-morbidities impacted this encounter? (DM, HTN, Smoking, COPD, CAD, Cancer, CVA, ARF, Chemo, Hep., AIDS, mental health diagnosis, sleep apnea, morbid obesity)? @ -None Was patient admitted / discharged? Hospital course, mention meds given and route, prescriptions, significant lab abnormalities, going to OR and other pertinent info. @ -Discharge patient has evidence of UTI. Patient does have an hCG of 648 nothing on ultrasound at this time. She has a follow-up appointment with [facility]ING AGENT. She will repeat hCG. This concerning for possible spontaneous versus early . Undiagnosed new problem with uncertain prognosis? @ -No Drug Therapy requiring intensive monitoring for toxicity (Heparin, Nitro, Insulin, Cardizem)? @ -No Were any procedures done? @ -No Diagnosis/symptom? @ -UTI, Acute, or Chronic, or Acute on Chronic? @ -Acute Uncomplicated (without systemic symptoms) or Complicated (systemic symptoms)? @ -Complicated Side effects of treatment? @ -No Exacerbation, Progression, or Severe Exacerbation? @ -No Poses a threat to life or bodily function? How? (Chest pain, USA, SD, pneumonia, PE, COPD, DKA, ARF, appy, cholecystitis, CVA, Diverticulitis, Homicidal, Suicidal, threat to staff... and all critical care pts) @ -No - Lab Data Result diagrams: 06/27/24 12:07 06/27/24 12:07 Lab Results 06/27/24 06/27/24 06/27/24 Range/Units 10:46 12:00 12:07 WBC 9.7 (3.8-10.6) k/uL RBC 4.85 (3.80-5.40) m/uL Hgb 14.3 (11.4-16.0) gm/dL Hct 43.8 (34.0-46.0) % MCV 90.3 (80.0-100.0) fL MCH 29.6 (25.0-35.0) pg MCHC 32.7 (31.0-37.0) g/dL RDW 13.1 (11.5-15.5) % Plt Count 346 (150-450) k/uL MPV 7.0 Neutrophils % 59 % Lymphocytes % 32 % Monocytes % 5 % Eosinophils % 2 % Basophils % 0 % Neutrophils # 5.7 (1.3-7.7) k/uL Lymphocytes # 3.1 (1.0-4.8) k/uL Monocytes # 0.5 (0-1.0) k/uL Eosinophils # 0.2 (0-0.7) k/uL Basophils # 0.0 (0-0.2) k/uL Sodium (137-145) mmol/L Potassium (3.5-5.1) mmol/L Chloride (98-107) mmol/L Carbon Dioxide (22-30) mmol/L Anion Gap mmol/L BUN (7-17) mg/dL Creatinine (0.52-1.04) mg/dL Est GFR (CKD-EPI)AfAm (>60 ml/min/1.73 sqM) Est GFR (CKD-EPI)NonAf (>60 ml/min/1.73 sqM) Glucose (74-99) mg/dL Calcium (8.4-10.2) mg/dL HCG, Quant mIU/mL Urine Color Yellow Urine Appearance Clear (Clear) Urine pH 6.5 (5.0-8.0) Ur Specific [place] 1.026 (1.001-1.035) Urine Protein Trace H (Negative) Urine Glucose (UA) Negative (Negative) Urine Ketones Negative (Negative) Urine Blood Negative (Negative) Urine Nitrite Positive H (Negative) Urine Bilirubin Negative (Negative) Urine Urobilinogen 3.0 (<2.0) mg/dL Ur Leukocyte Esterase Small H (Negative) Urine RBC 5 (0-5) /hpf Urine WBC 1 (0-5) /hpf Ur Squamous Epith Cells 3 (0-4) /hpf Urine Bacteria Many H (None) /hpf Hyaline Casts 2 (0-2) /lpf Urine Mucus Many H (None) /hpf Blood Type B Positive Blood Type Recheck B Pos Bld Type Recheck Status No 06/27/24 Range/Units 12:07 WBC (3.8-10.6) k/uL RBC (3.80-5.40) m/uL Hgb (11.4-16.0) gm/dL Hct (34.0-46.0) % MCV (80.0-100.0) fL MCH (25.0-35.0) pg MCHC (31.0-37.0) g/dL RDW (11.5-15.5) % Plt Count (150-450) k/uL MPV Neutrophils % % Lymphocytes % % Monocytes % % Eosinophils % % Basophils % % Neutrophils # (1.3-7.7) k/uL Lymphocytes # (1.0-4.8) k/uL Monocytes # (0-1.0) k/uL Eosinophils # (0-0.7) k/uL Basophils # (0-0.2) k/uL Sodium 138 (137-145) mmol/L Potassium 4.2 (3.5-5.1) mmol/L Chloride 106 (98-107) mmol/L Carbon Dioxide 23 (22-30) mmol/L Anion Gap 9 mmol/L BUN 9 (7-17) mg/dL Creatinine 0.57 (0.52-1.04) mg/dL Est GFR (CKD-EPI)AfAm >90 (>60 ml/min/1.73 sqM) Est GFR (CKD-EPI)NonAf >90 (>60 ml/min/1.73 sqM) Glucose 97 (74-99) mg/dL Calcium 8.8 (8.4-10.2) mg/dL HCG, Quant 643.4 mIU/mL Urine Color Urine Appearance (Clear) Urine pH (5.0-8.0) Ur Specific [place] (1.001-1.035) Urine Protein (Negative) Urine Glucose (UA) (Negative) Urine Ketones (Negative) Urine Blood (Negative) Urine Nitrite (Negative) Urine Bilirubin (Negative) Urine Urobilinogen (<2.0) mg/dL Ur Leukocyte Esterase (Negative) Urine RBC (0-5) /hpf Urine WBC (0-5) /hpf Ur Squamous Epith Cells (0-4) /hpf Urine Bacteria (None) /hpf Hyaline Casts (0-2) /lpf Urine Mucus (None) /hpf Blood Type Blood Type Recheck Bld Type Recheck Status Disposition Clinical Impression: UTI (urinary tract infection), Disposition: HOME SELF-CARE Condition: Stable Instructions (If sedation given, give patient instructions): Urinary Tract Infection in Women (ED) Additional Instructions: Please return to the Emergency Department if symptoms worsen or any other concerns. Prescriptions: Cephalexin [Keflex] 500 mg PO Q8HR #21 cap Is patient prescribed a controlled substance at d/c from ED?: No Referrals: Nakul Cedeno [Primary Care Provider] - 1-2 days Time of Disposition: 12:54
[2024-06-27 13:02] VITALS: BP 106/67; PULSE 67
== END 2024-06-27 13:02 | disposition home or self-care (01) ==
LOC: EC 09:33
DX: O23.41 Unspecified infection of urinary tract in pregnancy, first trimester (principal); N39.0 Urinary tract infection, site not specified; O99.331 Smoking (tobacco) complicating pregnancy, first trimester; F17.290 Nicotine dependence, other tobacco product, uncomplicated; Z91.09 Other allergy status, other than to drugs and biological substances; Z91.030 Bee allergy status; Z3A.01 Less than 8 weeks gestation of pregnancy
CPT/HCPCS: 36415; 76801; 76817; 80048; 81001; 84702; 85025; 86900; 86901; 99284

== ENCOUNTER → 2024-06-29 | Outpatient (CLI) | payer OTHER | END | disposition home or self-care (01) | LOC: LABWHC1 11:25 | PROVIDERS: ATTEND Physician Assistant | DX: O20.0 Threatened abortion (principal) | CPT/HCPCS: 36415; 84702 ==

== ENCOUNTER → 2024-12-21 | Outpatient (CLI) | payer OTHER ==
[2024-12-21 13:45] VITALS: BMI 43.4
[2024-12-21 13:47] VITALS: BP 124/84; PULSE 76; RESP 16; TEMP 98.1
--- NOTE | 2024-12-21 14:30 | P.BASOAP ---
Subjective Progress Note Date: 12/21/24 Patient presents after coming in with unchanged weight loss. Highest weight 372. Lowest weight 288. She reports dysphagia. She reports heartburn. She reports left upper quadrant pain. Recommend upper endoscopy history of sleeve gastrectomy. Last bariatric labs in 2022. Recommend repeat bariatric labs for nutritional deficiencies and stalling weight loss. Patient asked abdominal my fitness pal for food diary journal. Will reassess food journal to break stagnant weight loss. All questions addressed. Objective - Vital Signs Vital signs: Vital Signs Temp 98.1 F 12/21/24 13:35 Pulse 76 12/21/24 13:35 Resp 16 12/21/24 13:35 BP 124/84 12/21/24 13:35 Pulse Ox FiO2 Intake & Output 12/20/24 12/21/24 12/21/24 18:59 06:59 18:59 Weight 130.635 kg Assessment/Plan Plan: Date: 12/21/24 Initial Weight: 152.18 kg Initial BMI: 50.6 Current Weight: 130.635 kg Current BMI: 43.4 Type of Surgery: Total Volume in Band: Previous Volume: Volume Removed: Volume Added: Band Size:
== END ==
LOC: BARWHC3 13:17
PROVIDERS: ATTEND Surgery Plastic and Reconstructive Surgery
DX: E66.01 Morbid (severe) obesity due to excess calories (principal); F17.210 Nicotine dependence, cigarettes, uncomplicated; F12.90 Cannabis use, unspecified, uncomplicated; Z68.41 Body mass index [BMI] 40.0-44.9, adult; Z91.048 Other nonmedicinal substance allergy status; Z91.030 Bee allergy status; Z88.8 Allergy status to other drugs, medicaments and biological substances
CPT/HCPCS: 99211